=== PATIENT | female | born 1955 ===

== ENCOUNTER 2018-06-19 11:43 | Outpatient (REF) | payer MEDICAID, SELFPAY ==
[2018-06-19 21:06] LABS: COMMENT (LAB VIEW ONLY) 206.28 mg/dL; Microalb ug/mg Crea 7.2 ug/mg Cr
== END 2018-06-19 11:44 ==
LOC: NCHCN 11:43
PROVIDERS: PCP Internal Medicine; Visit Provider Nurse Practitioner Family
DX: E11.9 Type 2 diabetes mellitus without complications (principal)
CPT/HCPCS: 82043; 82570

== ENCOUNTER 2019-03-26 11:19 | Outpatient (REF) | payer MEDICAID, SELFPAY ==
[2019-03-26 19:07] LABS: ALT 29 U/L (12-78); AST 13 U/L (15-37); Albumin 3.9 g/dL (3.4-5.0); Alkaline Phosphatase 106 U/L (46-116); Anion Gap 8.5 mmol/L (3-11); BUN 22 mg/dL (7-18); Bilirubin, Total 0.4 mg/dL (0.2-1.0); CO2 28.5 mmol/L (21.0-32.0); CREATININE 0.88 mg/dL (0.55-1.02); Calcium 9.7 mg/dL (8.5-10.1); Chloride 102 mmol/L (98-107); Glucose 123 mg/dL (70-100); Potassium 4.3 mmol/L (3.5-5.1); Sodium 139 mmol/L (136-145); Total Protein 7.5 g/dL (6.4-8.2)
== END 2019-03-26 11:39 ==
LOC: NCHCN 11:19
PROVIDERS: PCP Internal Medicine; Visit Provider Nurse Practitioner Family
DX: I10 Essential (primary) hypertension (principal); K76.0 Fatty (change of) liver, not elsewhere classified
CPT/HCPCS: 80053

== ENCOUNTER 2019-06-26 11:36 | Outpatient (REF) | payer MEDICAID, SELFPAY ==
[2019-06-26 20:41] LABS: Anion Gap 11.2 mmol/L (3-11); BUN 20 mg/dL (7-18); CO2 26.8 mmol/L (21.0-32.0); CREATININE 0.74 mg/dL (0.55-1.02); Calcium 9.6 mg/dL (8.5-10.1); Calculated LDL 88 mg/dL; Chloride 102 mmol/L (98-107); Cholesterol 176 mg/dL (50-200); Glucose 119 mg/dL (70-100); HDL Cholesterol 59 mg/dL (40-60); Potassium 4.2 mmol/L (3.5-5.1); Sodium 140 mmol/L (136-145); Triglyceride 147 mg/dL (30-150)
[2019-06-28 12:14] LABS: Lyme Ab w Rflx to Lyme Confirm Negative
== END 2019-06-26 11:56 ==
LOC: NCHCN 11:36
PROVIDERS: PCP Internal Medicine; Visit Provider Nurse Practitioner Family
DX: E11.9 Type 2 diabetes mellitus without complications (principal); K76.0 Fatty (change of) liver, not elsewhere classified
CPT/HCPCS: 80048; 80061; 83721; 86618

== ENCOUNTER 2020-02-19 10:20 | Outpatient (REF) | payer MEDICAID, SELFPAY ==
[2020-02-19 20:13] LABS: Abs Immature Grans 0.02 k/cumm (0.0-0.09); Absolute Basophil Count 0.03 k/cumm (0.0-0.2); Absolute Eosinophil Count 0.22 k/cumm (0.0-0.7); Absolute Lymphocyte Count 2.08 k/cumm (1.2-3.4); Absolute Monocyte Count 0.27 k/cumm (0.11-0.7); Absolute Neutrophil Count 5.47 k/cumm (1.2-6.7); Basophils % 0.4; Eosinophils % 2.7; HCT 41.6 % (36.0-46.0); HGB 13.7 g/dL (12.0-15.5); Immature Grans % 0.2 %; Lymphocytes % 25.7; Mean Corp. HGB Concentration 32.9 g/dL (32.0-36.0); Mean Corpuscular Hemoglobin 26.2 pg (27.0-33.0); Mean Corpuscular Volume 79.5 fL (80-95); Mean Platelet Volume 11.6 fL (8.0-11.0); Monocytes % 3.3; Neutrophils % 67.7; Platelet Count 269 x1000/uL (130-400); RBC 5.23 m/cumm (4.00-5.20); White Blood Cell Count 8.09 k/cumm (4.4-10.8)
[2020-02-19 20:52] LABS: Iron 64 ug/dL (50-170); Total Iron Binding Capacity 348 ug/dL (250-450); Transferrin Sat 18 % (15-50)
[2020-02-19 21:10] LABS: ALT 26 U/L (14-59); AST 13 U/L (15-37); Alkaline Phosphatase 110 U/L (46-116); Anion Gap 7.5 mmol/L (3-11); BUN 24 mg/dL (7-18); Bilirubin, Total 0.4 mg/dL (0.2-1.0); CO2 32.5 mmol/L (21.0-32.0); CREATININE 0.92 mg/dL (0.55-1.02); Calcium 9.7 mg/dL (8.5-10.1); Chloride 102 mmol/L (98-107); Ferritin 98 ng/mL (8-252); Folate 13.3 ng/mL (8.6-20.0); Glucose 128 mg/dL (74-106); Potassium 3.8 mmol/L (3.5-5.1); Sodium 142 mmol/L (136-145); Total Protein 7.6 g/dL (6.4-8.2); Vitamin B12 342 pg/mL (193-986)
[2020-02-20 15:16] LABS: Hemoglobin A1C 7.1 % (3.8-5.6)
== END 2020-02-19 10:40 ==
LOC: NCHCN 10:20
PROVIDERS: PCP Internal Medicine; Visit Provider Nurse Practitioner Family
DX: R41.3 Other amnesia (principal); E11.9 Type 2 diabetes mellitus without complications; R71.8 Other abnormality of red blood cells; C50.212 Malignant neoplasm of upper-inner quadrant of left female breast; Z17.0 Estrogen receptor positive status [ER+]
CPT/HCPCS: 80053; 82607; 82728; 82746; 83036; 83540; 83550; 85025

== ENCOUNTER 2020-09-02 14:57 | Outpatient (REF) | payer MEDICAID, SELFPAY ==
[2020-09-02 21:17] LABS: COMMENT (LAB VIEW ONLY) 87.27 mg/dL; Microalb ug/mg Crea 8.1 ug/mg Cr
== END 2020-09-02 15:17 ==
LOC: NCHCN 14:57
PROVIDERS: PCP Internal Medicine; Visit Provider Nurse Practitioner Family
DX: E11.9 Type 2 diabetes mellitus without complications (principal)
CPT/HCPCS: 82043; 82570

== ENCOUNTER 2021-11-15 17:42 | Outpatient (REF) | payer MEDICARE, MEDICAID, SELFPAY ==
[2021-11-15 21:14] LABS: ALT 26 U/L (14-59); AST 14 U/L (15-37); Albumin 3.7 g/dL (3.4-5.0); Alkaline Phosphatase 118 U/L (46-116); Anion Gap 8.9 mmol/L (3-11); BUN 24 mg/dL (7-18); Bilirubin, Total 0.3 mg/dL (0.2-1.0); CO2 26.1 mmol/L (21.0-32.0); CREATININE 0.8 mg/dL (0.55-1.02); Calcium 9.2 mg/dL (8.5-10.1); Chloride 104 mmol/L (98-107); Glucose 152 mg/dL (74-106); Potassium 4.3 mmol/L (3.5-5.1); Sodium 139 mmol/L (136-145)
== END 2021-11-15 17:43 | disposition home or self-care (01) ==
LOC: NCHCN 17:42
PROVIDERS: PCP Internal Medicine; Visit Provider Nurse Practitioner Family
DX: I10 Essential (primary) hypertension (principal); E11.9 Type 2 diabetes mellitus without complications
CPT/HCPCS: 80053

== ENCOUNTER 2022-03-17 11:58 | Outpatient (REF) | payer MEDICARE, MEDICAID, SELFPAY ==
[2022-03-23 09:49] LABS: O-desmethyltramadol 8849 ng/mL (Cutoff:25); Tramadol 4524 ng/mL (Cutoff:25)
== END 2022-03-17 11:59 | disposition home or self-care (01) ==
LOC: NCHCN 11:58
PROVIDERS: PCP Internal Medicine; Visit Provider Nurse Practitioner Family
DX: Z51.81 Encounter for therapeutic drug level monitoring (principal); Z79.899 Other long term (current) drug therapy
CPT/HCPCS: 80373

== ENCOUNTER 2022-11-16 11:23 | Outpatient (REF) | payer MEDICARE, MEDICAID, SELFPAY ==
[2022-11-16 22:01] LABS: ALT 23 U/L (14-59); AST 17 U/L (15-37); Albumin 3.6 g/dL (3.4-5.0); Alkaline Phosphatase 117 U/L (46-116); Anion Gap 7.3 mmol/L (3-11); BUN 22 mg/dL (7-18); Bilirubin, Total 0.3 mg/dL (0.2-1.0); CO2 28.7 mmol/L (21.0-32.0); CREATININE 0.8 mg/dL (0.55-1.02); Chloride 104 mmol/L (98-107); Estimated GFR 81.21 (mL/min/1.73m2); Glucose 170 mg/dL (74-106); Potassium 4.5 mmol/L (3.5-5.1); Sodium 140 mmol/L (136-145); Total Protein 7.4 g/dL (6.4-8.2)
[2022-11-23 09:37] LABS: Codeine 254 ng/mL (Cutoff: 25); Dihydrocodeine Negative ng/mL (Cutoff: 25); Hydrocodone Negative ng/mL (Cutoff: 25); Hydromorphone Negative ng/mL (Cutoff: 25); Morphine Negative ng/mL (Cutoff: 25); Naloxone Negative ng/mL (Cutoff: 25); Norhydrocodone Negative ng/mL (Cutoff: 25); Noroxycodone Negative ng/mL (Cutoff: 25); Noroxymorphone Negative ng/mL (Cutoff: 25); Opiates Interpretation Positive.
== END 2022-11-16 11:24 | disposition home or self-care (01) ==
LOC: NCHCN 11:23
PROVIDERS: PCP Internal Medicine; Visit Provider Nurse Practitioner Family
DX: E11.9 Type 2 diabetes mellitus without complications (principal); I10 Essential (primary) hypertension; E78.5 Hyperlipidemia, unspecified; M79.7 Fibromyalgia; F11.20 Opioid dependence, uncomplicated
CPT/HCPCS: 80053; 80361; 80362; 80365

== ENCOUNTER 2023-02-07 16:14 | Outpatient (REF) | payer MEDICARE, MEDICAID, SELFPAY ==
[2023-02-07 18:50] LABS: Hemoglobin A1C 7.8 % (<5.7)
[2023-02-07 18:52] LABS: Anion Gap 9.3 mmol/L (3-11); BUN 19 mg/dL (7-18); CO2 28.7 mmol/L (21.0-32.0); CREATININE 0.8 mg/dL (0.55-1.02); Calcium 9.8 mg/dL (8.5-10.1); Chloride 105 mmol/L (98-107); Estimated GFR 81.21 (mL/min/1.73m2); Glucose 137 mg/dL (74-106); Potassium 4.6 mmol/L (3.5-5.1); Sodium 143 mmol/L (136-145)
== END 2023-02-07 16:15 | disposition home or self-care (01) ==
LOC: NCHCN 16:14
PROVIDERS: PCP Internal Medicine; Visit Provider Nurse Practitioner Family
DX: E11.9 Type 2 diabetes mellitus without complications (principal)
CPT/HCPCS: 80048; 83036

== ENCOUNTER 2023-05-23 16:17 | Outpatient (REF) | payer MEDICARE, MEDICAID, SELFPAY ==
[2023-05-27 04:15] LABS: O-desmethyltramadol 9729 ng/mL (Cutoff:25)
== END 2023-05-23 16:18 | disposition home or self-care (01) ==
LOC: NCHCN 16:17
PROVIDERS: PCP Internal Medicine; Visit Provider Nurse Practitioner Family
DX: M79.7 Fibromyalgia (principal); B37.9 Candidiasis, unspecified
CPT/HCPCS: 80373; 87480; 87510; 87660

== ENCOUNTER 2023-06-22 19:52 | Outpatient (REF) | payer MEDICARE, MEDICAID, SELFPAY | END 2023-06-22 19:53 | disposition home or self-care (01) | LOC: NCHCN 19:52 | PROVIDERS: PCP Internal Medicine; Visit Provider Nurse Practitioner Family | DX: N89.8 Other specified noninflammatory disorders of vagina (principal) | CPT/HCPCS: 87480; 87510; 87660 ==

== ENCOUNTER 2023-08-01 15:29 | Outpatient (REF) | payer MEDICARE, MEDICAID, SELFPAY | END 2023-08-01 15:30 | disposition home or self-care (01) | LOC: NCHCN 15:29 | PROVIDERS: PCP Internal Medicine; Visit Provider Nurse Practitioner Family | DX: N89.8 Other specified noninflammatory disorders of vagina (principal) | CPT/HCPCS: 87480; 87510; 87660 ==

== ENCOUNTER 2023-09-25 20:30 | Outpatient (REF) | payer MEDICARE, MEDICAID, SELFPAY ==
--- OUTSIDE RECORDS SUMMARY | 2023-09-25 20:33 | XMS_ITS | Continuity of Care Document ---
Author Name Unknown Organization [facility] Address [address] [place] [address] Care Team Providers Care Replenisher Name Role Phone BooDonna cristobal Primary Care Physician Encounter [facility] Date(s): 02/20/23 - 02/20/23 [facility] [address] [place] [address] Encounter Diagnosis Obstructive sleep apnea syndrome(Discharge Diagnosis) - 02/16/23 Insomnia(Discharge Diagnosis) - 02/16/23 Obstructive sleep apnea (adult) (pediatric)(Final) - Insomnia, unspecified(Final) - Discharge Disposition: Home or Self Care Attending 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: 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 takes one daily as per [facility] pt. reports Start Date: 07/19/22 Status: Ordered atorvastatin 40 mg oral tablet 40 mg = 1 tab, Oral, every night at bedtime, 0 Refill(s) Start Date: 04/25/22 Status: Ordered cetirizine 10 mg oral tablet 10 mg = 1 tab, Oral, Daily, 0 Refill(s) Start Date: 04/25/22 Status: Ordered fluticasone 50 mcg/inh nasal spray 2 sprays, Nostril-Both, BID Start Date: 07/19/22 Status: Ordered Jardiance See Instructions, once a day in the AM as per PCP, 0 Refill(s) Start Date: 01/17/23 Status: Ordered lisinopril 10 mg oral tablet 10 mg = 1 tab, Oral, Daily, 0 Refill(s) Start Date: 04/25/22 Status: Ordered magnesium gluconate 500 mg oral tablet 500 mg = 1 tab, Oral, every night at bedtime, # 90 tab, 1 Refill(s), Pharmacy: [id number] Start Date: 01/17/23 Stop Date: 07/16/23 Status: Ordered memantine 10 mg oral tablet 10 mg = 1 tab, Oral, every evening, # 90 tab, 1 Refill(s), Pharmacy: [id number] Start Date: 01/17/23 Stop Date: 07/16/23 Status: Ordered metFORMIN 500 mg oral tablet 500 mg = 1 tab, Oral, BID, 0 Refill(s) Start Date: 04/25/22 Status: Ordered montelukast 10 mg oral tablet 10 mg = 1 tab, Oral, every evening, 0 Refill(s) Start Date: 04/25/22 Status: Ordered pregabalin 150 mg oral capsule 150 mg = 1 cap, Oral, TID, PRN other (see comment), as needed, 0 Refill(s) Start Date: 04/25/22 Status: Ordered sertraline 50 mg oral tablet 50 mg = 1 tab, Oral, every morning, # 90 tab, 1 Refill(s), Pharmacy: [id number] Start Date: 01/17/23 Stop Date: 07/16/23 Status: Ordered traMADol 50 mg oral tablet See Instructions, PRN other (see comment), TAKE 1-2 TABLETS BY MOUTH THREE TIMES A DAY NEEDED NOEARLY REFILLS Start Date: 04/25/22 Status: Ordered Vitamin D3 2000 intl units oral capsule 50 mcg 1 cap, Oral, Daily, # 90 cap, 1 Refill(s), Pharmacy: [id number] Start Date: 01/17/23 Stop Date: 07/16/23 Status: Ordered Problem List Condition Confirmation Course Effective Dates Status H ealth Status Informant Asthma Confirmed Active Hypersomnia Confirmed Active Hypertensive disorder Confirmed Active 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 Active Insomnia Confirmed 10/05/18 Active Memory impairment Confirmed 07/28/20 Active Migraine Confirmed Active Mild recurrent major depression Confirmed 07/19/21 Active Obstructive sleep apnea syndrome Confirmed Active Posttraumatic stress disorder Confirmed Active Sinusitis Confirmed Active Sleep disorder Confirmed Active Snoring Confirmed Active Vital Signs Most recent to oldest [Reference Range]: 1 Peripheral Pulse Rate [60-100 bpm] 80 bp m (02/20/23 12:20 PM) Blood Pressure [90-140/60-90 mmHg] 119/7 1mmHg (02/20/23 12:20 PM) Weight 86.18 kg (02/20/23 12:20 PM) Weight Measured (lbs) 189.994 lb (02/20/23 12:20 PM) Height 165 cm (02/20/23 12:20 PM) Height/Length Measured (inches) 64.96 in ch (02/20/23 12:20 PM) BSA Measured 1.99 m2 (02/20/23 12:20 PM) Body Mass Index 31.65 kg/m2 (02/20/23 12:20 PM) Social History Social History Type Response Tobacco Never tobacco user T obacco Use:. 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 Srinivas was last seen by me on 08/19/2022. She has a medical history to include HTN, depression, PTSD, migraine, insomnia and BERNA. ?? PSG 11/15/18 (BMI 32.61). Sleep efficiency was 83%, REM sleep 1%, AHI 35.7/hr, RDI 36.4/hr, REM AHI 98.2/hr, REM RDI 98.2/hr, supine AHI 38/hr, right lateral AHI 6/hr, left lateral AHI 27/hr, sp02 sam 74%, 34 minutes were spent at a saturation <88%, arousal index 10/hr, PLMi 0.7/hr, PLM arousalindex 0.7/hr. EKG PVC???s.?? Titration 02/17/19 (BMI 32.27), sleep efficiency 66%, CPAP was titrated from 7 to 14 cm. CPAP 8 cm was successful in supine and CPAP 14 cm was successful in supine REM. Arousal index 12/hr, PLMi 2.3/hr, PLMai 1.8/hr, EKG NSR. CPAP 8-15 cm recommended. ?? At her last visit she was not using CPAP for many months because of the recall. She had received the replacement and did not have a humidifier and was to contact [employer] to get one and get started back on CPAP. ?? Srinivas says that she never went back to using CPAP after I last saw her. She said she is just too anxious to use it again due to her cancer history and lack of trust in [employer] products. She also is caring for her elderly mother and is too worried that she would not be able to hear her mother and wake up when using CPAP. She says she does not drink alcohol and she takes lorazepam only very rarely for anxiety (not for sleep). She says that her weight is coming down and she believes her snoring has improved. She is notwaking up choking/gasping, night sweats, nocturnal heartburn??or morning headaches. She wakes up 2-3/night to help her mother, to use the bathroom and occasionally from her dog. She sleeps between 11pm to 6 am,?? (she tends to nap most days for a couple of hours). ?? ESS today 01/27 Physical Exam Vitals & Measurements HR:??80??(Peripheral)?? BP:??119/71?? SpO2:??98%?? HT:??165??cm?? WT:??86.18??kg?? BMI:??31.65?? BSA:??1.99?? GENERAL: answers questions appropriately, well groomed, obese/over weight. HEAD: normocephalic and atraumatic. EYES: non icteric LUNGS: CTA all mullins. Good air movement throughout. CARDIO: RRR without murmur, gallop or thrill. NEURO: alert and oriented, normal gait. PYSCH: normal mood and affect. CUTANEOUS: no overt lesions or rashes.?? Assessment/Plan 1.??Obstructive sleep apnea syndrome??G47.33 BERNA with an AHI of 35.7/hr and REM AHI 98.2/hr with only 1% REM sleep likely leading to an underestimation of the severity of her sleep apnea. She has NOT been using CPAP 8-16cm for about a year or so since she learned about the recall. She did get a replacement (including a humidifier) but she never started back on it because she has lost sudhakar in [employer] to a degree but most importantly becausejacek is caring for her elderly mother and is afraid that she would not be able to hear her when she needs her (which is generally at least once a night). Her insurance would not pay for an appliance because they have already paid for CPAP within the past five years and she is not a candidate for [employer]. She does not feel ready to start back on CPAP on this time. We discussed options such as continuing to work on weight loss, elevating HOB, avoiding supine sleep. Avoiding alcohol and sedatives at bedtime. At this time if she decides to start back on CPAP she will contact our office and we will schedule a follow-up at that time. Drowsy driving precautions were reviewed.??She is??advised neverto drive when feeling sleepy/drowsy and to shoe puller and take a power nap or get caffeine if they become sleepy while driving. Specifically they are instructed not to try to fight through the drowsiness with distraction techniques such as turning the music up or lowering the windows. I provided greater than 30 minutes in the care of this patient, more than half the time was spent in [id number] counseling. 2.??Insomnia??G47.00 Occasional sleep onset and maintenance insomnia. Likely multifactorial (mood disorder with history of bipolar and PTSD and admits to having stress, depression/anxiety).?? I previously??discussed sleep restriction. She has declined doxepin in the past. Problem List/Past Medical History Ongoing Asthma Hypersomnia Hypertensive disorder Hypnagogic hallucinations Insomnia Memory impairment Migraine Mild recurrent major depression Obstructive sleep apnea syndrome Posttraumatic stress disorder Sinusitis Sleep disorder Snoring Historical No qualifying data Medications aspirin atorvastatin 40 mg oral tablet, 40 mg= 1 tab, Oral, every night at bedtime cetirizine 10 mg oral tablet, 10 mg= 1 tab, Oral, Daily fluticasone 50 mcg/inh nasal spray, 2 sprays, Nostril-Both, BID Jardiance, See Instructions lisinopril 10 mg oral tablet, 10 mg= 1 tab, Oral, Daily magnesium gluconate 500 mg oral tablet, 500 mg= 1 tab, Oral, every night at bedtime, 1 refills memantine 10 mg oral tablet, 10 mg= 1 tab, Oral, every evening, 1 refills metFORMIN 500 mg oral tablet, 500 mg= 1 tab, Oral, BID montelukast 10 mg oral tablet, 10 mg= 1 tab, Oral, every evening pregabalin 150 mg oral capsule, 150 mg= 1 cap, Oral, TID, PRN sertraline 50 mg oral tablet, 50 mg= 1 tab, Oral, every morning, 1 refills traMADol 50 mg oral tablet, See Instructions, PRN Vitamin D3 2000 intl units oral capsule, 50 mcg= 1 cap, Oral, Daily, 1 refills Allergies INSECT VENOM No Known Medication Allergies Tree Nuts Social History Alcohol Never Electronic Cigarette/Vaping Electronic Cigarette Use: Never. Employment/School Retired Home/Environment Lives with Mother. Nutrition/Health Caffeine intake amount: 2-4 cups of coffee daily. Sleeping concerns: Yes.- Comments: intermittent difficulty with falling asleep and to stay asleep due to nightmares Psychosocial Substance Use Current, Marijuana, 1-2 times per year Tobacco Never tobacco user Tobacco Use:. Immunizations Vaccine Date Status SARS-CoV-2 (COVID-19) mRNA-1273 vaccine 12/28/2020 Recorded SARS-CoV-2 (COVID-19) mRNA-1273 vaccine 11/30/2020 Recorded hepatitis B adult vaccine 08/28/2006 Recorded Electronically Signed on 02/20/23 12:47 PM Roselia Corado NAIL MAKING MACHINE SETTER Patient Care team information Care Team Personnel Name: Donna Garcia NAIL MAKING MACHINE SETTER Position: PowerChart View Only Member Role: Primary Care Physician Address: Address: [address] [place] [address] Care Team Related Persons Name: KENDALL BUSTOS Address: [address] [place], [place] [phone] Name: CHELA PIERCE Address: [address] [place] [address]
--- OUTSIDE RECORDS SUMMARY | 2023-09-25 20:33 | XMS_ITS | Continuity of Care Document ---
Author Name Unknown Organization [facility] Address [address] [place] [address] Care Team Providers Care Bible Worker Name Role Phone Donna Garcia Primary Care Physician [phone] Encounter [id number] Date(s): 09/03/23 - 09/03/23 [facility] [address] [place] [address] Encounter Diagnosis Dental infection(Discharge Diagnosis) - 09/03/23 Discharge Disposition: Home or Self Care Attending Physician: Jimmy Dawson MD Admitting Physician: Jimmy Dawson MD Allergies, Adverse Reactions, Alerts No Known Medication Allergies Substance Reaction Severity Status INSECT VENOM 1 Unknown Active Tree Nuts Unknown Active 1flies-horse and deer,bees Assessment and Plan Future Appointments Functional Status 09/03/23 Other exposure to Infectious Disease Non e Immunizations Given and Recorded Vaccine Date Status Refusal Reason SARS-CoV-2 (COVID-19) mRNA-1273 vaccine 12/28/20 R ecorded SARS-CoV-2 (COVID-19) mRNA-1273 vaccine 11/30/20 R ecorded hepatitis B adult vaccine 08/28/06 Recorded Medications amoxicillin-clavulanate 875 mg-125 mg oral tablet 1 tab, Oral, every 12 hr, X 7 days, # 14 tab, 0 Refill(s), 09/10/23 10:28: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 takes one daily as per [facility] pt. reports Start Date: 07/19/22 Status: Ordered [...] Date: 07/19/22 Status: Ordered Jardiance See Instructions, 25 mg's a day in the AM as per PCP, 0 Refill(s) Start Date: 01/17/23 Status: Ordered lisinopril 10 mg oral tablet 10 mg = 1 tab, Oral, Daily, 0 Refill(s) Start Date: 04/25/22 Status: Ordered magnesium gluconate 500 mg oral tablet 500 mg = 1 tab, Oral, every night at bedtime, # 90 tab, 1 Refill(s), Pharmacy: [id number] Start Date: 08/07/23 Stop Date: 02/03/24 Status: Ordered memantine 10 mg oral tablet 10 mg = 1 tab, Oral, every evening, # 90 tab, 1 Refill(s), Pharmacy: [id number] Start Date: 08/07/23 Stop Date: 02/03/24 Status: Ordered metFORMIN 500 mg oral tablet [...] Status: Ordered sertraline 50 mg oral tablet 75 mg = 1.5 tab, Oral, every morning, # 135 tab, 1 Refill(s), Pharmacy: [id number] Start Date: 08/07/23 Stop Date: 02/03/24 Status: Ordered traMADol 50 mg oral tablet See Instructions, PRN other (see comment), TAKE 1-2 TABLETS BY MOUTH THREE TIMES A DAY NEEDED NOEARLY REFILLS Start Date: 04/25/22 Status: Ordered Vitamin D3 2000 intl units oral capsule 50 mcg 1 cap, Oral, Daily, # 90 cap, 1 Refill(s), Pharmacy: [id number] Start Date: 08/07/23 Stop Date: 02/03/24 Status: Ordered Problem List Condition Confirmation Course [...] Most recent to oldest [Reference Range]: 1 Temperature Temporal Artery [36-38 Deg C ] 36.1 Deg C (09/03/23 10:48 AM) Peripheral Pulse Rate [60-100 bpm] 72 bp m (09/03/23 10:48 AM) Respiratory Rate [12-24 br/min] 16 br/mi n (09/03/23 10:48 AM) Blood Pressure [90-140/60-90 mmHg] 139/8 1mmHg (09/03/23 10:48 AM) Mean Arterial Pressure, Cuff [65-140 mmH g] 100 mmHg (09/03/23 10:48 AM) Weight Dosing 83.90 kg (09/03/23 11:10 AM) Weight Estimated 83.90 kg (09/03/23 10:48 AM) Height/Length Dosing 165.000 cm (09/03/23 11:10 AM) Height/Length Estimated 165.000 cm (09/03/23 10:48 AM) Social History Social History Type Response Tobacco Never tobacco user T obacco Use:. Sex Female Hospital Discharge Instructions Patient Education 09/03/2023 10:29:14 Dental Abscess Dental Abscess A dental abscess is an infection around a tooth that may involve pain, swelling, and a collection of pus, as well as other symptoms. Treatment is important to help with symptoms and to prevent the infection from spreading. The general types of dental abscesses are: ??? Pulpal abscess. This abscess may form from the inner part of the tooth (pulp). ??? Periodontal abscess. This abscess may form from the gum. What are the causes? This condition is caused by a bacterial infection in or around the tooth. It may result from: ??? Severe tooth decay (cavities). ??? Trauma to the tooth, such as a broken or chipped tooth. What increases the risk? This condition is more likely to develop in males. It is also more likely to develop in people who: ??? Have cavities. ??? Have severe gum disease. ??? Eat sugary snacks between meals. ??? Use tobacco products. ??? Have diabetes. ??? Have a weakened disease-fighting system (immune system). ??? Do not brush and care for their teeth regularly. What are the signs or symptoms? Mild symptoms of this condition include: ??? Tenderness. ??? Bad breath. ??? Fever. ??? A bitter taste in the mouth. ??? Pain in and around the infected tooth. Moderate symptoms of this condition include: ??? Swollen neck glands. ??? Chills. ??? Pus drainage. ??? Swelling and redness around the infected tooth, in the mouth, or in the face. ??? Severe pain in and around the infected tooth. Severe symptoms of this condition include: ??? Difficulty swallowing. ??? Difficulty opening the mouth. ??? Nausea. ??? Vomiting. How is this diagnosed? This condition is diagnosed based on: ??? Your symptoms and your medical and dental history. ??? An examination of the infected tooth. During the exam, your dental care provider may tap on theinfected tooth. You may also need to have X-rays taken of the affected area. How is this treated? This condition is treated by getting rid of the infection. This may be done with: ??? Antibiotic medicines. These may be used in certain situations. ??? Antibacterial mouth rinse. ??? Incision and drainage. This procedure is done by making an incision in the abscess to drain outthe pus. Removing pus is the first priority in treating an abscess. ??? A root canal. This may be performed to save the tooth. Your dental care provider accesses the visible part of your tooth (crown) with a drill and removes any infected pulp. Then the space is filled and sealed off. ??? Tooth extraction. The tooth is pulled out if it cannot be saved by other treatment. You may also receive treatment for pain, such as: ??? Acetaminophen or NSAIDs. ??? Gels that contain a numbing medicine. ??? An injection to block the pain near your nerve. Follow these instructions at home: Medicines ??? Take cgek-mvs-kjcplgu and prescription medicines only as told by your dental care provider. ??? If you were prescribed an antibiotic, take it as told by your dental care provider. Do not stoptaking the antibiotic even if you start to feel better. ??? If you were prescribed a gel that contains a numbing medicine, use it exactly as told in the directions. Do not use these gels for children who are younger than 2 years of age. ??? Use an antibacterial mouth rinse as told by your dental care provider. General instructions ??? Gargle with a mixture of salt and water 3???4 times a day or as needed. To make salt water, completely dissolve ?1 tsp (3???6 g) of salt in 1 cup (237 mL) of warm water. ??? Eat a soft diet while your abscess is healing. ??? Drink enough fluid to keep your urine pale yellow. ??? Do not apply heat to the outside of your mouth. ??? Do not use any products that contain nicotine or tobacco. These products include cigarettes, chewing tobacco, and vaping devices, such as e-cigarettes. If you need help quitting, ask your dental care provider. ??? Keep all follow-up visits. This is important. How is this prevented? Excellent dental home care, which includes brushing your teeth every morning and night with fluoride toothpaste. Floss one time each day. ??? Get regularly scheduled dental cleanings. ??? Consider having a dental sealant applied on teeth that have deep grooves to prevent cavities. ??? Drink fluoridated water regularly. This includes most tap water. Check the label on bottled water to see if it contains fluoride. ??? Reduce or eliminate sugary drinks. ??? Eat healthy meals and snacks. ??? Wear a mouth guard or face shield to protect your teeth while playing sports. Contact a health care provider if: ??? Your pain is worse and is not helped by medicine. ??? You have swelling. ??? You see pus around the tooth. ??? You have a fever or chills. Get help right away if: ??? Your symptoms suddenly get worse. ??? You have a very bad headache. ??? You have problems breathing or swallowing. ??? You have trouble opening your mouth. ??? You have swelling in your neck or around your eye. These symptoms may represent a serious problem that is an emergency. Do not wait to see if the symptoms will go away. Get medical help right away. Call your local emergency services (911 in the [place] Do not drive yourself to the hospital. Summary ??? A dental abscess is a collection of pus in or around a tooth that results from an infection. ??? A dental abscess may result from severe tooth decay, trauma to the tooth, or severe gum diseasearound a tooth. ??? Symptoms include severe pain, swelling, redness, and drainage of pus in and around the infectedtooth. ??? The first priority in treating a dental abscess is to drain out the pus. Treatment may also involve removing damage inside the tooth (root canal) or extracting the tooth. This information is not intended to replace advice given to you by your health care provider. Make sure you discuss any questions you have with your health care provider. Document Revised: 12/30/2021 Document Reviewed: 12/30/2021 Elsevier Patient Education ?? 2022 [employer]. Follow Up Care 09/03/2023 10:48:28 With:Donna Garcia NP Address: [address] [place] [address]- When:1 month Physician Emergency department Note * Yogi Hensley MD: PERFORM Event Display: ED Note Physician Authored Date: [id number] SRINIVAS PIERCE :1955 Age:67 years Sex:Female Visit Date:09/03/2023 Primary Care Physician: Donna Garcia NP Basic Information Time Seen: Yogi Hensley MD / 09/03/2023 11:16 Chief Complaint Swelling lower right jaw pain yesterday with swelling today. Reports I felt so crummy. Unable to say if fever was present yesterday. NO BP ON LEFT ARM due to lymph node excision History Of Present Illness: 67-year-old female presents with??left-sided??jaw pain and swelling.?? Been going on for 24??hours approximately.?? No other associated symptoms, p.o. intake is??relatively normal. ??No fevers or neck stiffness. Review of Systems: Dental pain Physical Exam Vitals & Measurements T:??36.1?C ??(Temporal Artery)?? HR:??72??(Peripheral)?? RR:??16?? BP:??139/81?? SpO2:??98%?? HT:??165.000??cm?? WT:??83.90??kg??(Estimated)?? Pain Score:??9?? O2 Therapy:??Room air?? Left-sided??lower mandibular??facial 2 to 3 cm area of swelling noted externally, no fluctuance noted along the gumline Medical Decision Makin-year-old female presents with left-sided facial and dental pain starting yesterday.?? Vitals arenormal. ??There is a 2 to 3 cm area of focal swelling noted externally along the left lower mandible. ??There is no fluctuance and obvious pocket of pus noted on palpation of the gumline in this area.?? Patient was placed on antibiotics for presumed??periapical??dental infection.?? It is too early on in the infection??and clinical symptoms are not significant enough to warrant a CT scan at this time, we will try??Augmentin to see if this??treats the infection. ??Given return precautions ED. ??Otherwise dental follow-up. ??Discharged in stable condition. Procedure No Qualifying Data Assessment/Plan 1.??Dental infection??K04.7 Ordered: amoxicillin-clavulanate 875 mg-125 mg oral tablet, 1 tab, Oral, every 12 hr, X 7 days, # 14 tab, 0 Refill(s), 09/10/23 11:28:00 EST, Pharmacy: [id number], 165, cm, 09/03/23 11:10:00 EDT, Height/Length Dosing, 83.9, kg, 09/03/23 11:10:00 EDT, Weight Dosing Discharge Patient, 09/03/23 11:28:00 EDT, Home Independently, Constant Indicator ?? 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 Refills: 0. ?? Unchanged aspirinBaby Aspirin; pt. takes one daily as per [facility] pt. reports. ?? atorvastatin (atorvastatin 40 mg oral tablet)1 tab Oral (given by mouth) every night at bedtime. ?? cetirizine (cetirizine 10 mg oral tablet)1 tab Oral (given by mouth) every day. ?? cholecalciferol (Vitamin D3 2000 intl units oral capsule)1 Capsules Oral (given by mouth) every dayfor 90 Days. Refills: 1. ?? empagliflozin (Jardiance)25 mg's a day in the AM as per PCP. ?? fluticasone nasal (fluticasone 50 mcg/inh nasal spray)2 Sprays Nostril-Both 2 times a day. ?? lisinopril (lisinopril 10 mg oral tablet)1 tab Oral (given by mouth) every day. ?? magnesium gluconate (magnesium gluconate 500 mg oral tablet)1 tab Oral (given by mouth) every nightat bedtime for 90 Days. Refills: 1. ?? memantine (memantine 10 mg oral tablet)1 tab Oral (given by mouth) every evening for 90 Days. Refills: 1. ?? metFORMIN (metFORMIN 500 mg oral tablet)1 tab Oral (given by mouth) 2 times a day. ?? montelukast (montelukast 10 mg oral tablet)1 tab Oral (given by mouth) every evening. ?? pregabalin (pregabalin 150 mg oral capsule)1 Capsules Oral (given by mouth) 3 times a day as neededother (see comment). as needed. ?? sertraline (sertraline 50 mg oral tablet)1.5 tab Oral (given by mouth) every morning for 90 Days. Refills: 1. ?? traMADol (traMADol 50 mg oral tablet)TAKE 1-2 TABLETS BY MOUTH THREE TIMES A DAY NEEDED NO EARLYREFILLS; as needed other (see comment). Problem List/Past Medical History Ongoing Asthma Hypersomnia Hypertensive disorder Hypnagogic hallucinations Insomnia Memory impairment Migraine Mild recurrent major depression Obstructive sleep apnea syndrome Posttraumatic stress disorder Sinusitis Sleep disorder Snoring Historical No qualifying data Allergies INSECT VENOM No Known Medication Allergies [...] year Tobacco Never tobacco user Tobacco Use:. 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 The following includes patient education materials and information regarding your injury/illness. Diagnosis from Today's Visit Dental infection Discharge Vitals Temperature??(Temporal Artery) 97.0 ??F (36.1 ??C) Heart Rate??(Peripheral) 72 Respiratory Rate?? 16 Blood Pressure?? 139/81?? Height?? 64.96 in (165.000 cm) Weight??(Estimated) 185.00 lb (83.90 kg) Allergies INSECT VENOM No Known Medication Allergies Tree Nuts What to Do Next Instructions from Your Care Team Please follow-up with your dentist within 1 to 2 days. ??You were given an antibiotic called Augmentin??to treat a presumed dental infection.?? Come back to the ED with any worsening symptoms. You Need to Schedule the Following Appointments Follow Up with??Donna Garcia MOLDED GOODS INSPECTOR TRIMMER When:??Within 1 month Where: [address] [place] [phone] Upcoming Scheduled Appointments Monday 9:45 AM EST ?? With: [facility], Ada DNP Where: [address] [address] Status: Confirmed You were treated today on an emergency basis; it may be garcia to contact your primary care provider to notify them of your visit today. You may have been referred to your regular doctor or a specialist, please follow up as instructed. If your condition worsens or you can't get in to see the doctor, contact the Emergency Department. Medications What How Much When Why Instructions Next Dose New amoxicillin-clavulanate (amoxicillin-clavulanate 875 mg-125 mg oral tablet) 1 tab Oral (given by mouth) Every 12 hours Dental infection Duration: 7 Days Pickup at [facility] Unchanged aspirin Baby Aspirin; pt. takes one daily as per [facility] pt. reports ?? Unchanged atorvastatin (atorvastatin 40 mg oral tablet) 1 tab Oral (given by mouth) Every night at bedtime Unchanged cetirizine (cetirizine 10 mg oral tablet) 1 tab Oral (given by mouth) Every day Unchanged cholecalciferol (Vitamin D3 2000 intl units oral capsule) 1 Capsules Oral (given by mouth) Every day Low serum vitamin D Duration: 90 Days Unchanged empagliflozin (Jardiance) See instructions 25 mg's a day in the AM as per PCP ?? Unchanged fluticasone nasal (fluticasone 50 mcg/ inh nasal spray) 2 Sprays Nostril-Both 2 times a day Unchanged lisinopril (lisinopril 10 mg oral tablet) 1 tab Oral (given by mouth) Every day Unchanged magnesium gluconate (magnesium gluconate 500 mg oral tablet) 1 tab Oral (given by mouth) Every night at bedtime Insomnia Duration: 90 Days Unchanged memantine (memantine 10 mg oral tablet) 1 tab Oral (given by mouth) Every evening Memory impairment Duration: 90 Days Unchanged metFORMIN (metFORMIN 500 mg oral tablet) 1 tab Oral (given by mouth) 2 times a day Unchanged montelukast (montelukast 10 mg oral tablet) 1 tab Oral (given by mouth) Every evening Unchanged pregabalin (pregabalin 150 mg oral capsule) 1 Capsules Oral (given by mouth) 3 times a day as needed for other (see comment) as needed ?? Unchanged sertraline (sertraline 50 mg oral tablet) 1.5 tab Oral (given by mouth) Every morning Mild recurrent major depression Posttraumatic stress disorder Duration: 90 Days Unchanged traMADol (traMADol 50 mg oral tablet) See instructions TAKE 1-2 TABLETS BY MOUTH THREE TIMES A DAY NEEDED NO EARLY REFILLS, As needed for other (see comment) ?? Pharmacy Information [facility]: [address], [place] [id number] [phone] [employer] Dental Abscess A dental abscess is an infection around a tooth that may involve pain, swelling, and a collection of pus, as well as other symptoms. Treatment is important to help with symptoms and to prevent the infection from spreading. The general types of dental abscesses are: ? Pulpal abscess. This abscess may form from the inner part of the tooth (pulp). ? Periodontal abscess. This abscess may form from the gum. What are the causes? This condition is caused by a bacterial infection in or around the tooth. It may result from: ? Severe tooth decay (cavities). ? Trauma to the tooth, such as a broken or chipped tooth. What increases the risk? This condition is more likely to develop in males. It is also more likely to develop in people who: ? Have cavities. ? Have severe gum disease. ? Eat sugary snacks between meals. ? Use tobacco products. ? Have diabetes. ? Have a weakened disease-fighting system (immune system). ? Do not brush and care for their teeth regularly. What are the signs or symptoms? Mild symptoms of this condition include: ? Tenderness. ? Bad breath. ? Fever. ? A bitter taste in the mouth. ? Pain in and around the infected tooth. Moderate symptoms of this condition include: ? Swollen neck glands. ? Chills. ? Pus drainage. ? Swelling and redness around the infected tooth, in the mouth, or in the face. ? Severe pain in and around the infected tooth. Severe symptoms of this condition include: ? Difficulty swallowing. ? Difficulty opening the mouth. ? Nausea. ? Vomiting. How is this diagnosed? This condition is diagnosed based on: ? Your symptoms and your medical and dental history. ? An examination of the infected tooth. During the exam, your dental care provider may tap on the infected tooth. You may also need to have X-rays taken of the affected area. How is this treated? This condition is treated by getting rid of the infection. This may be done with: ? Antibiotic medicines. These may be used in certain situations. ? Antibacterial mouth rinse. ? Incision and drainage. This procedure is done by making an incision in the abscess to drain out thepus. Removing pus is the first priority in treating an abscess. ? A root canal. This may be performed to save the tooth. Your dental care provider accesses the visible part of your tooth (crown) with a drill and removes any infected pulp. Then the space is filled and sealed off. ? Tooth extraction. The tooth is pulled out if it cannot be saved by other treatment. You may also receive treatment for pain, such as: ? Acetaminophen or NSAIDs. ? Gels that contain a numbing medicine. ? An injection to block the pain near your nerve. Follow these instructions at home: Medicines ? Take zwak-jjc-scqmbny and prescription medicines only as told by your dental care provider. ? If you were prescribed an antibiotic, take it as told by your dental care provider. Do not stop taking the antibiotic even if you start to feel better. ? If you were prescribed a gel that contains a numbing medicine, use it exactly as told in the directions. Do not use these gels for children who are younger than 2 years of age. ? Use an antibacterial mouth rinse as told by your dental care provider. General instructions ? Gargle with a mixture of salt and water 3???4 times a day or as needed. To make salt water, completely dissolve ?1 tsp (3???6 g) of salt in 1 cup (237 mL) of warm water. ? Eat a soft diet while your abscess is healing. ? Drink enough fluid to keep your urine pale yellow. ? Do not apply heat to the outside of your mouth. ? Do not use any products that contain nicotine or tobacco. These products include cigarettes, chewing tobacco, and vaping devices, such as e-cigarettes. If you need help quitting, ask your dental careprovider. ? Keep all follow-up visits. This is important. How is this prevented? Excellent dental home care, which includes brushing your teeth every morning and night with fluoride toothpaste. Floss one time each day. ? Get regularly scheduled dental cleanings. ? Consider having a dental sealant applied on teeth that have deep grooves to prevent cavities. ? Drink fluoridated water regularly. This includes most tap water. Check the label on bottled water to see if it contains fluoride. ? Reduce or eliminate sugary drinks. ? Eat healthy meals and snacks. ? Wear a mouth guard or face shield to protect your teeth while playing sports. Contact a health care provider if: ? Your pain is worse and is not helped by medicine. ? You have swelling. ? You see pus around the tooth. ? You have a fever or chills. Get help right away if: ? Your symptoms suddenly get worse. ? You have a very bad headache. ? You have problems breathing or swallowing. ? You have trouble opening your mouth. ? You have swelling in your neck or around your eye. These symptoms may represent a serious problem that is an emergency. Do not wait to see if the symptoms will go away. Get medical help right away. Call your local emergency services (911 in the [place] Do not drive yourself to the hospital. Summary ? A dental abscess is a collection of pus in or around a tooth that results from an infection. ? A dental abscess may result from severe tooth decay, trauma to the tooth, or severe gum disease around a tooth. ? Symptoms include severe pain, swelling, redness, and drainage of pus in and around the infected tooth. ? The first priority in treating a dental abscess is to drain out the pus. Treatment may also involveremoving damage inside the tooth (root canal) or extracting the tooth. This information is not intended to replace advice given to you by your health care provider. Make sure you discuss any questions you have with your health care provider. Document Revised: 12/30/2021 Document Reviewed: 12/30/2021 [facility] Patient Education ?? 2022 [employer] Patient/Bradley Linebacker Crewmember Signature Patient Name:SRINIVAS PIERCE Dc I have received this information and my questions have been answered. 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 Signature: Relationship to Patient: Witness Name/Signature: Date: Electronically Signed on: 09/03/2023 11:29 EDTSigned by:[facility] Patient Care team information Care Team Personnel Name: Donna Garcia MOLDED GOODS INSPECTOR TRIMMER Position: PowerChart View Only Member Role: Informed Provider Address: Address: [address] [place] [address] Name: Yogi Hensley MD Position: Physician Member Role: ED Physician Address: Address: [facility]ly [facility] [address] [place], [place] [address] Care Team Related Persons Name: KENDALL BUSTOS Address: Alternate [address] [facility], [place] [id number] Address: Home [address] [facility], [id number] Name: KENDALL BUSTOS Address: Alternate [address] [facility], [place] [id number] Address: Home [address] [facility], [id number] Name: CHELA PIERCE Address: [address] [place] [id number] [place] Name: BARBIE AQUINO
== END 2023-09-25 20:31 | disposition home or self-care (01) ==
LOC: NCHCN 20:30
PROVIDERS: PCP Internal Medicine; Visit Provider Nurse Practitioner Family
DX: N89.8 Other specified noninflammatory disorders of vagina (principal)
CPT/HCPCS: 87070; 87480; 87510; 87660

== ENCOUNTER 2023-11-14 16:00 | Outpatient (REF) | payer MEDICARE, MEDICAID, SELFPAY ==
[2023-11-14 20:09] LABS: Anion Gap 7.7 mmol/L (3-11); BUN 17 mg/dL (7-18); CO2 28.3 mmol/L (21.0-32.0); CREATININE 0.8 mg/dL (0.55-1.02); Chloride 102 mmol/L (98-107); Estimated GFR 80.71 (mL/min/1.73m2); Glucose 134 mg/dL (74-106); Potassium 4.4 mmol/L (3.5-5.1); Sodium 138 mmol/L (136-145)
[2023-11-14 20:23] LABS: Hemoglobin A1C 7.4 % (<5.7)
[2023-11-22 23:21] LABS: O-desmethyltramadol 3737 ng/mL (Cutoff:25); Tramadol 3847 ng/mL (Cutoff:25)
== END 2023-11-14 16:01 | disposition home or self-care (01) ==
LOC: NCHCN 16:00
PROVIDERS: PCP Internal Medicine; Visit Provider Nurse Practitioner Family
DX: E11.9 Type 2 diabetes mellitus without complications (principal); M79.7 Fibromyalgia
CPT/HCPCS: 80048; 80373; 83036

== ENCOUNTER 2024-07-10 18:01 | Outpatient (REF) | payer MEDICARE, MEDICAID, SELFPAY ==
--- OUTSIDE RECORDS SUMMARY | 2024-07-10 18:03 | XMS_ITS | Encounter Summary ---
Author Organization [facility], Located Within [facility] [place] [address] Care Team Providers Care Print Operator Name Role Phone Karen Leora Byrne APRN Primary Care Provider + Reason for Visit * Reason Comments Cerebrovascular Accident Encounter Details Date Type Department Care Team (Late st Contact Info) Description 09/07/2020 8:45 AM EST Office [place] [address] Sandy Nj MD [facility] [place] [address] Cerebral infarction, unspecified mechanism Social History Tobacco Use Types Packs/Day Years Used Date Smoking Tobacco: Never Smokeless Tobacco: Never Alcohol Use Standard Drinks/Week Comments Not Currently 0 (1 standard drink = 0.6 oz pur e alcohol) Sex and Gender Information Value Date Recorded Sex Assigned at Not on file Gender Identity Not on file Sexual Orientation Not on file documented as of this encounter Last Filed Vital Signs Vital Sign Reading Time Taken Comments Blood Pressure 122/71 09/07/2020 8:35 AM EST Pulse 65 09/07/2020 8:35 AM EST Temperature - - Respiratory Rate - - Oxygen Saturation 96% 09/07/2020 8:35 AM EST Inhaled Oxygen Concentration - - Weight 86.2 kg (190 lb) 09/07/2020 8:35 AM EST Height 166.6 cm (5' 5.59) 09/07/2020 8:35 AM ES T Body Mass Index 31.05 09/07/2020 8:35 AM EST documented in this encounter Progress Notes * Sandy Nj MD - 09/07/2020 8:45 AM EST Sleep apnea - wearin cpap. Good results Uncle with cluster headache Sister with migraine headaches but controlled with diet . Dad had migraine headaches - etoh use Mother alive 93 - migraines in early adulthood ,21 yo. Improved after having children. Good memory. Falling occasioanlly Modifiable Risk Factors in Secondary Stroke Prevention Risk Factor Treatment Goals Hypertension Patients with hypertension: <140/90 mm Hg; 10-mm Hg reduction in systolic BP and 5-mm Hg reduction in diastolic BP from baseline Patients with diabetes mellitus or renal disease: <130/80 mm Hg; 10-mm Hg reduction in systolic BP and 5-mm Hg reduction in diastolic BP from baseline Patients without hypertension: <120/80 mm Hg; 10-mm Hg reduction in systolic BP and 5-mm Hg reduction in diastolic BP from baseline Dyslipidemia Atherosclerotic stroke or TIA: low-density lipoprotein (LDL) cholesterol level <70 mg/dl or 50% reduction in LDL cholesterol level from baseline Nonatherosclerotic stroke or TIA: per National Cholesterol Education Program (NCEP) Adult TreatmentPanel III (ATP-III) goals Diabetes Mellitus HgA1c level <7% Cigarette Smoking Complete cessation Alcohol Consumption Men: two or fewer drinks per day Non woman: one or fewer drinks per day Physical Activity At least 30 minutes of moderate intensity physical exercise 1- 3 times per week Diet Low-fat, low-sodium, and Mediterranean or Dietary Approaches to Stop Hypertension diets (diabetic diet when applicable) Obesity Goal body mass index of 18.5-25 kg/m2 documented in this encounter Plan of Treatment Not on file documented as of this encounter Visit Diagnoses Diagnosis Cerebral infarction, unspecified mechanism documented in this encounter Care Teams Print Operator Relationship Specialty Start Date End Date Leora Jones APRN PCP - General Family Medicine 03/15/18 11/16/21 documented as of this encounter
--- OUTSIDE RECORDS SUMMARY | 2024-07-10 18:03 | XMS_ITS | Encounter Summary ---
Author Organization [facility] Address [facility] [place] [address] Care Team Providers Care Vp Informatics Name Role Phone Leora Jones APRN Primary Care Provider + Encounter Details Date Type Department Care Team (Latest Contact Info) Description 07/16/2020 10:00 AM EDT - 07/16/2020 11:59 PM EDT Hospital Encounter Mammography/[place] [id number] Pete Emmanuel MD [facility] [place] [address] Malignant neoplasm of left breast in female, estrogen receptor positive, unspecified site of breast Discharge Disposition: Home Social History Tobacco Use Types Packs/Day Years Used Date Smoking Tobacco: Never Smokeless Tobacco: Never Alcohol Use Standard Drinks/Week Comments Not Currently 0 (1 standard drink = 0.6 oz pur e alcohol) Sex and Gender Information Value Date Recorded Sex Assigned at Not on file Gender Identity Not on file Sexual Orientation Not on file documented as of this encounter Medications at Time of Discharge Medication Sig Dispensed Refills Start Date End Date aspirin 81 mg Tablet, Delayed Release (E.C.) Take 81 mg by mouth daily. escitalopram (LEXAPRO) 10 mg Tablet Take 10 mg by mouth daily. atorvastatin (LIPITOR) 40 mg Tablet Take 40 mg by mouth daily. 07/09/2018 metFORMIN (GLUCOPHAGE) 500 mg Tablet Take 500 mg by mouth 2 times daily (with meals). 07/09/2018 LORazepam (ATIVAN) 0.5 mg Tablet TAKE ONE TABLET BY MOUTH TWICE A DAY NEEDED 0 02/08/2018 montelukast (SINGULAIR) 10 mg Tablet Take 10 mg by mouth nightly. lisinopril (PRINIVIL;ZESTRIL) 10 mg Tablet Take 10 mg by mouth daily. sumatriptan succinate (IMITREX ORAL) Take 1 tablet by mouth as needed. fexofenadine HCl (BRISA ORAL) Take 1 tablet by mouth as needed. ALBUTEROL INHL Inhale 2 puffs into the lungs as needed. fluticasone (FLONASE) 50 mcg/actuation [place], Suspension SPRAY TWO SPRAYS IN EACH NOSTRIL EVERY DAY FOR 1 WEEK MAY DECREASE USE WHEN FEELING BETTER 3 10/24/2017 epinephrine (EPIPEN INJ) Inject as directed once as needed. naloxone (NARCAN) 2 mg/actuation [place], Non-Aerosol by Nasal route as needed. sertraline (ZOLOFT) 100 mg Tablet Take 100 mg by mouth 2 times daily. traMADol (ULTRAM) 50 mg Tablet Take 50 mg by mouth 2 times daily. 02/09/2018 pregabalin (LYRICA) 50 mg Capsule Take 50 mg by mouth 2 times daily. 09/07/2020 documented as of this encounter Plan of Treatment Not on file documented as of this encounter Procedures Procedure Name Priority Date/Time Associated Diagnosis Comments MAMMO SCREENING CAD AND ALEXX BILATERAL Routine 07/16/2020 10:26 AM EDT Malignant neoplasm of left breast in female, estrogen receptor positive, unspecified site of breast documented in this encounter Results * Mammo Screening Cad and Alexx Bilateral (07/16/2020 10:26 AM EDT) Anatomical Region Laterality Modality Breast Bilateral Mammography Narrative 07/16/2020 11:11 AM EDT EXAMINATION: MAMMO SCREENING CAD AND ALEXX BILATERAL REASON FOR EXAM: Screening. History of left breast cancer. TECHNIQUE: CC and MLO views were obtained of both breasts. Computer aided detection was used. 3D tomosynthesis images were obtained in addition to 2D images. COMPARISON: The study is compared with prior images. FINDINGS: Breast density: The breasts are heterogeneously dense, which may obscure small masses There are no suspicious microcalcifications, masses, or areas of distortion. There are post treatment changes in the left breast. CONCLUSION: No mammographic evidence of malignancy. RECOMMENDATION: Routine annual screening. BIRADS CATEGORY 2: BENIGN FINDINGS * ??Regular screening mammograms starting between age 40 and 50 reduces the risk of from breast cancer. * ??All screening tests have both risks and benefits. These risks and benefits should be assessed for each individual patient through discussion with their provider to determine their preferred breast cancer screening schedule. * ??Women should report any breast changes to a health care provider right away. * ??Some women, because of their family history, a genetic tendency, or other factors, should be screened with annual breast MRI as well as with mammograms. (The number of women who fall into this category is very small). Patients and health care providers should discuss each patients history to decide if earlier screening and/or breast MRI are appropriate. * ??Screening should continue as long as a woman is in good health and is expected to live 10 years or longer. * ??Screening mammography may not detect 10-15% of breast cancers. Thank you for letting us participate in the care of this patient. For questions regarding this report, please contact the number below. ? Electronically signed by: Pricila Ordonez [facility] ([phone]), at 07/16/2020 11:11 AM Pete Emmanuel MD IMG MAMMO ORDERABLES documented in this encounter Visit Diagnoses Diagnosis Malignant neoplasm of left breast in female, estrogen receptor positive, unspecified site of breast documented in this encounter Care Teams Vp Informatics Relationship Specialty Start Date End Date Leora Jones APRN PCP - General Family Medicine 03/15/18 11/16/21 documented as of this encounter
--- OUTSIDE RECORDS SUMMARY | 2024-07-10 18:03 | XMS_ITS | Encounter Summary ---
[place] [address] Care Team Providers Care Application Specialist Name Role Phone Karen Leora Byrne APRN Primary Care Provider + Encounter Details Date Type Department Care Team (Latest Contact Info) Description 07/16/2020 10:20 AM EDT Laboratory Appointment Lab [address] [place] [id number] Memory impairment; Microcytosis; Malignant neoplasm of upper-inner quadrant of left breast in female, estrogen receptor positive Social History Tobacco Use Types Packs/Day Years Used Date Smoking Tobacco: Never Smokeless Tobacco: Never Alcohol Use Standard Drinks/Week Comments Not Currently 0 (1 standard drink = 0.6 oz pur e alcohol) Sex and Gender Information Value Date Recorded Sex Assigned at Not on file Gender Identity Not on file Sexual Orientation Not on file documented as of this encounter Plan of Treatment Not on file documented as of this encounter Procedures Procedure Name Priority Date/Time Associated Diagnosis Comments HEMOGRAM Routine 07/16/2020 10:56 AM EDT Microcytosis DIFFERENTIAL, AUTOMATED Routine 07/16/2020 10:56 AM EDT Microcytosis HC IRON BINDING CAPACITY Routine 07/16/2020 10:56 AM EDT Microcytosis HC CBC,PLT & AUTO DIFF Routine 0 10:56 AM EDT Microcytosis COMPREHENSIVE METABOLIC PANEL Routine 07/16/2020 10:56 AM EDT Malignant neoplasm of upper-inner quadrant of left breast in female, estrogen receptor positive documented in this encounter Results * (ABNORMAL) Differential, Automated (07/16/2020 10:56 AM EDT) Neutrophil % 62.8 % [facility] Neutrophil Absolute 6.72(H) 1.70 - 6.10 x10(3)/ L [facility] Lymph % 27.6 % [facility] Lymphocytes Abs 3.0 0.9 - 3.2 x10(3)/ L [facility] Monocyte % 4.4 % [facility] Monocyte Abs 0.5 0.3 - 0.9 x10(3)/[facility] Eos % 4.2 % [facility] Eosinophils Abs 0.4 0.0 - 0.4 x10(3)/[facility] Basophil % 0.7 % [facility] Baso Absolute 0.1 0.0 - 0.1 x10(3)/ L [facility] Immature Gran % 0.30 % [facility] Comment: Immature granulocytes(IG's)percentage and absolute count will include metamyelocytes, myelocytes, and promyelocytes. Blood smears from CBCs yielding IG's will be scanned manually for concordance. If this scan disagrees with the automated IG or if promyelocytes are noted, a manual differential will be performed. Immature Gran Absolute 0.03 0.00 - 0.04 x10(3)/ L [facility] Blood specimen (specimen) 07/16/2020 10:56 AM EDT 07/16/2020 11:01 AM EDT Narrative Resulting Agency Comment Spec In Lab Kayla Espinosa MD HEMATOLOGY ORDERABLE S [facility] [place] [address] * (ABNORMAL) Hemogram (07/16/2020 10:56 AM EDT) White Blood Cell 10.7(H) 4.0 - 9.5 x10(3)/ L [facility] Red Blood Cell 4.84 4.00 - 5.21 x10(6)/ L [facility] Hemoglobin 12.6 11.7 - 15.5 gm/dL [facility] Hematocrit 38.9 35.7 - 45.8 % [facility] Mean Cell Volume 80.4(L) 82.6 - 94.4 fL [facility] Mean Cell Hemoglobin 26.0(L) 27.1 - 32.0 pg [facility] Mean Cell Hemoglobin Concentration 32.4 31.7 - 35.0 gm/dL [facility] Platelet 278 145 - 357 x10(3)/[facility] RDW Standard Deviation 44.4 37.0 - 46.0 [facility] RDW coefficient of variation 15.3(H) 11.5 - 14.1 % [facility] Mean Platelet Volume 10.8 7.6 - 12.9 fL [facility] NRBC% auto 0.0 % [facility] NRBC Absolute 0.000 0.000 - 0.000 x10(3)/[facility] Blood specimen (specimen) 07/16/2020 10:56 AM EDT 07/16/2020 11:01 AM EDT Narrative Resulting Agency Comment Spec In Lab Kayla Espinosa MD HEMATOLOGY ORDERABLE S [facility] [place] [place] [address] * (ABNORMAL) Comprehensive metabolic panel (non-fasting) (07/16/2020 10:56 AM EDT) Glucose 126 65 - 199 mg/dL [facility] Comment:Diabetes: >=200 mg/d L plus symptoms Blood Urea Nitrogen 19(H) 8 - 18 mg/dL [facility] Creatinine 0.80 0.70 - 1.20 mg/dL [facility] Sodium 140 135 - 145 mmol/L [facility] Potassium 4.1 3.5 - 5.0 mmol/L [facility] Comment: Please note: ??Patients with WBC >100,000 may have falsely elevated Potassium levels. ??For accurate Potassium quantification in these patients send serum separator tube (gold top) for subsequent determinations. ??Contact the Clinical Chemistry Laboratory if there are any questions. Chloride 101 98 - 107 mmol/L [facility] Carbon Dioxide 27 22 - 31 mmol/L [facility] Anion Gap 12 5 - 15 mmol/L [facility] Calcium 10.0 8.5 - 10.5 mg/dL [facility] Protein, Total 7.2 6.1 - 8.0 gm/dL [facility] Albumin 4.4 3.2 - 5.2 gm/dL [facility] Aspartate Aminotransferase 14 0 - 30 unit/L [facility] Alanine Aminotransferase 10 0 - 30 unit/L [facility] Alkaline Phosphatase 92 35 - 105 unit/L [facility] Bilirubin, Total 0.3 0.2 - 1.3 mg/dL [facility] Est Glomerular Filtration Rate 78 >=60 mL/min/1. 73 m?? [facility] Comment: The eGFR was calculated using the CKD-EPI equation. As with all creatinine based estimates of kidney function, eGFR values calculated with the CKD-EPI equation are not accurate in patients with acute kidney failure, extremes of body mass or the acutely ill. [email or web address]/[facility]ULSAnkf eGFR 91 >=60 mL/min/1. 73 m?? [facility] Comment: The eGFR was calculated using the CKD-EPI equation. As with all creatinine based estimates of kidney function, eGFR values calculated with the CKD-EPI equation are not accurate in patients with acute kidney failure, extremes of body mass or the acutely ill. [email or web address]/[facility]kf Blood specimen (specimen) 07/16/2020 10:56 AM EDT 07/16/2020 11:01 AM EDT Narrative Resulting Agency Comment Spec In Lab Kayla Espinosa MD CHEMISTRY ORDERABLES [facility] [place] [address] * (ABNORMAL) Iron and TIBC (07/16/2020 10:56 AM EDT) Iron 51 30 - 150 mcg/dL [facility] TIBC 271 250 - 450 mcg/dL [facility] Iron Saturation 19(L) 20 - 50 % [facility] Blood specimen (specimen) 07/16/2020 10:56 AM EDT 07/16/2020 11:01 AM EDT Narrative Resulting Agency Comment Spec In Lab Kayla Espinosa MD CHEMISTRY ORDERABLES Performing Organization Address City/[facility]/ZIP Co de Phone Number [facility] [place] [address] documented in this encounter Visit Diagnoses Diagnosis Memory impairment Memory loss Microcytosis Other abnormality of red blood cells Malignant neoplasm of upper-inner quadrant of left breast in female, estrogen receptor positive documented in this encounter Care Teams Application Specialist Relationship Specialty Start Date End Date Leora Jones APRN PCP - General Family Medicine 03/15/18 11/16/21 documented as of this encounter
--- OUTSIDE RECORDS SUMMARY | 2024-07-10 18:03 | XMS_ITS | Encounter Summary ---
Author Organization [facility] [place] [address] Care Team Providers Care Senior Recruiter Name Role Phone Donna Garcia APRN Primary Care Provider [phone]- [phone] Reason for Visit * Reason Comments Follow-up Encounter Details Date Type Department Care Team (Late st Contact Info) Description 02/28/2022 4:00 PM EDT Office Visit Radiation Oncology at [address] [phone] Magi Terry MD [facility] [address] S/P radiotherapy Social History Tobacco Use Types Packs/Day Years [...] Sign Reading Time Taken Comments Blood Pressure 113/63 02/28/2022 4:25 PM EDT Pulse 88 02/28/2022 4:25 PM EDT Temperature 36.5 ??C (97.7 ??F) 02/28/2022 4:25 PM ED T Respiratory Rate 18 02/28/2022 4:25 PM EDT Oxygen Saturation 96% 02/28/2022 4:25 PM EDT Inhaled Oxygen Concentration - - Weight 93.4 kg (205 lb 12.8 oz) 02/28/2022 4:25 PM EDT Height - - Body Mass Index 34.25 10/07/2020 7:58 AM EST documented in this encounter Patient Instructions * Patient Instructions* Magi Terry MD - 02/28/2022 4:40 PM EDT Someone will call you to schedule rib xrays to be done @ [facility]. I will call you a day/so after the xrays to discuss result. If you do not hear from me by 3 days after the xrays, please call [phone] & tell billing clerk why you are calling. Someone will call you to schedule followup with me in January 2023. documented in this encounter Progress Notes * Magi Terry MD - 02/28/2022 4:00 PM EDT Images from the original note were not included. CC: Sched'd fu visit s/p xrt completion. HPI: Mikaela is a 66 y/o f who completed xrt 3 yrs., 9 mos ago (05/25/18) to L breast for ca, IDC, gr1, ER+SD+, Her2 neg, s/p lumpectomy & SNB, pT1b pN0, stage I. She started letrozole in early Jun 2018 & then stopped it in 04/2019 due to pain, w/pain resolution. In 06/2019 she started exemestane, which was stopped in mid Oct 2019 for numerous symptoms. She is not taking endocrine tx now. 04/14/20 MRA neck, head & MRI brain: IMPRESSION 1. 2 foci of infarction involving the right frontal lobe. 2. No hemodynamically significant stenosis or vascular thrombosis. ?? 07/20/21 B mmg: Benign. 07/20/21 fu w/Toña Gomez, COPY CAMERA OPERATOR; rtc 1 yr w/B mmg. Subjective: Discomfort R lateral mid-lower ribcage, present since prior to xrt, evaluated @ that time w/bone scan which was neg. She thinks R ribcage discomfort may be due to fibromyalgia. No breast problem. No hand/arm swelling. Energy level ok. Past Medical History: Diagnosis Date ??? Breast cancer 02/15/2018 IDC No lupus/scleroderma. Fibromyalgia Past Surgical History: Procedure Laterality Date ??? BREAST BIOPSY Left 02/15/2018 IDC ??? BREAST LUMPECTOMY Left 03/22/2018 ??? PRO BX/REMV, LYMPH NODE, DEEP AXILL Left 03/22/2018 BIOPSY OR EXCISION OF LYMPH NODE(S), OPEN, DEEP AXILLARY NODE(S) (WRVU 6.43) performed by Pete Emmanuel MD at [facility] ??? PRO INTRAOP SENTINEL LYMPH ID W/DYE INJECTION Left 03/22/2018 INTRAOPERATIVE ID (MAPPING) SENTINEL LYMPH NODE,INCLUDES INJECTION (WRVU 2.5) performed by Pete Emmanuel MD at [facility] ??? PRO MASTECTOMY PARTIAL Left 03/22/2018 MASTECTOMY PARTIAL (WRVU 10.13) performed by Pete Emmanuel MD at [facility] Your Medications Accurate as of February 28, 2022 11:59 PM. If you have any questions, ask your nurse or doctor. Continued medications, unchanged Dose Details ALBUTEROL INHL Inhale 2 puffs into the lungs as needed. 2 puff Refills: 0 BRISA ORAL Take 1 tablet by mouth as needed. 1 tablet Refills: 0 aspirin EC 81 mg Tbec Take 81 mg by mouth daily. 81 mg Refills: 0 atorvastatin 40 mg Tab Commonly known as: Lipitor Take 40 mg by mouth daily. 40 mg Refills: 0 cetirizine 10 mg Tab Commonly known as: ZyrTEC Refills: 0 cholecalciferol (Vitamin D3) 1,250 mcg (50,000 unit) Cap TAKE ONE CAPSULE BY MOUTH EVERY WEEK Refills: 0 EPIPEN INJ Inject as directed once as needed. Refills: 0 escitalopram 10 mg Tab Commonly known as: Lexapro Take 10 mg by mouth daily. 10 mg Refills: 0 fluticasone propionate 50 mcg/actuation Spsn Commonly known as: Flonase SPRAY TWO SPRAYS IN EACH NOSTRIL EVERY DAY FOR 1 WEEK MAY DECREASE USE WHEN FEELING BETTER Refills: 3 IMITREX ORAL Take 1 tablet by mouth as needed. 1 tablet Refills: 0 lisinopriL 10 mg Tab Commonly known as: Zestril Take 10 mg by mouth daily. 10 mg Refills: 0 LORazepam 0.5 mg Tab Commonly known as: Ativan TAKE ONE TABLET BY MOUTH TWICE A DAY NEEDED Refills: 0 Magnesium Gluconate 27 mg magnesium (500 mg) Tab Take 1 tablet by mouth nightly. 1 tablet Refills: 0 * memantine 5 mg Tab Commonly known as: Namenda TAKE ONE TABLET BY MOUTH EVERY EVENING Refills: 0 * memantine 10 mg Tab Commonly known as: Namenda Take 10 mg by mouth every evening. 10 mg Refills: 0 metFORMIN 500 mg Tab Commonly known as: Glucophage Take 500 mg by mouth 2 times daily (with meals). 500 mg Refills: 0 montelukast 10 mg Tab Commonly known as: Singulair Take 10 mg by mouth nightly. 10 mg Refills: 0 Narcan 2 mg/actuation Ulmer by Nasal route as needed. Generic drug: naloxone Refills: 0 pregabalin 150 mg Cap Commonly known as: LYRICA TAKE ONE CAPSULE BY MOUTH THREE TIMES A DAY Refills: 0 sertraline 100 mg Tab Commonly known as: ZOLOFT Take 100 mg by mouth 2 times daily. 100 mg Refills: 0 traMADoL 50 mg Tab Commonly known as: Ultram Take 50 mg by mouth 2 times daily. 50 mg Refills: 0 * This list has 2 medication(s) that are the same as other medications prescribed for you. Read thedirections carefully, and ask your doctor or other care provider to review them with you. Physical Exam Constitutional: General: She is not in acute distress. Appearance: She is well-developed. She is not diaphoretic. Comments: BP 113/63 Pulse 88 Temp 36.5 ??C (97.7 ??F) (Temporal) Resp 18 Wt 93.4 kg (205 lb12.8 oz) SpO2 96% BMI 34.25 kg/m?? HENT: Head: Normocephalic and atraumatic. Eyes: General: No scleral icterus. Right eye: No discharge. Left eye: No discharge. Extraocular Movements: Extraocular movements intact. Conjunctiva/sclera: Conjunctivae normal. Neck: Thyroid: No thyromegaly. Trachea: No tracheal deviation. Pulmonary: Effort: Pulmonary effort is normal. No respiratory distress. Breath sounds: No stridor. Chest: Breasts: Right: No inverted nipple, mass, nipple discharge, skin change, tenderness, axillary adenopathy or supraclavicular adenopathy. Left: No inverted nipple, mass, nipple discharge, skin change, tenderness, axillary adenopathy or supraclavicular adenopathy. Abdominal: General: There is no distension. Palpations: Abdomen is soft. There is no mass. Tenderness: There is no abdominal tenderness. There is no guarding or rebound. Musculoskeletal: General: Tenderness (Tender to deep palpation mid & inferior R ribcage laterally) present. No swelling or deformity. Normal range of motion. Cervical back: Normal range of motion and neck supple. No tenderness. Lymphadenopathy: Head: Right side of head: No submental, submandibular, preauricular, posterior auricular or occipital adenopathy. Left side of head: No submental, submandibular, preauricular, posterior auricular or occipital adenopathy. Cervical: No cervical adenopathy. Upper Body: Right upper body: No supraclavicular or axillary adenopathy. Left upper body: No supraclavicular or axillary adenopathy. Skin: General: Skin is warm and dry. Neurological: Mental Status: She is alert and oriented to person, place, and time. Cranial Nerves: No cranial nerve deficit. Motor: No abnormal muscle tone. Coordination: Coordination normal. Psychiatric: Mood and Affect: Mood normal. Behavior: Behavior normal. Thought Content: Thought content normal. Judgment: Judgment normal. A: Continued lateral R mid & inferior ribcage discomfort, neg on 2018 bone scan, probably from fibromyalgia, discussed possible repeat bone scan, but she is concerned insurance won't cover so will start w/plain xrays. P: Rtc January 2023. 30 mins in encounter. documented in this encounter Plan of Treatment Not on file documented as of this encounter Visit Diagnoses Diagnosis S/P radiotherapy Convalescence following radiotherapy documented in this encounter Care Teams Senior Recruiter Relationship Specialty Start Date End Date Donna Garcia APRN [address] [place] [id number] PCP - General Family Medicine 11/17/21 documented as of this encounter
--- OUTSIDE RECORDS SUMMARY | 2024-07-10 18:03 | XMS_ITS | Encounter Summary ---
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 [facility] [address] Encounter for follow-up surveillance of breast cancer; Malignant neoplasm of upper-inner quadrant of left breast in female, estrogen receptor positive; Family history of breast cancer in first degree relative; Breast cancer screening by mammogram; Skin rash Social History Tobacco Use Types Packs/Day Years Used Date Smoking Tobacco: Never Smokeless Tobacco: Never Alcohol Use Standard Drinks/Week Comments Not Currently 0 (1 standard drink = 0.6 oz pur e alcohol) Sex and Gender Information Value Date Recorded Sex Assigned at Not on file Gender Identity Not on file Sexual Orientation Not on file documented as of this encounter Progress Notes * Tg Gomez APRN - 07/25/2022 1:40 PM EDT Images from the original note were not included. Patient ID: Mikaela Payan is a 66 y.o. female HPI: Mikaela is a patient of Dr. 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 She is status post left partial mastectomy and sentinel node excision on March 22, 2018. At today's visit, Mikaela has a slight rash under her breast and groin for the past month, but no other breast concerns. No new lumps or bumps in her breasts or axilla. She does not typically perform self-breast exams. No nipple discharge or pain in either breast. She denies any headaches or significant weight changes. No new chest pain or difficulty breathing. No new bony pain or tenderness. She denies significant changes to her health since her last visit. She reports ongoing short term memory issues and problems with word finding, but thinks things are slightly better. She is followed by Neurology and is sees a therapist regularly. She is easily distracted, but feels her panic attacks are becoming less frequent. She also has chronic pain issues related to fibromyalgia and takes Lyrica. Breast cancer history: A screening mammogram on 01/16/2018 showed a finding of a 9-mm mass in the left breast at 10:00, 6 cm from the nipple. US confirmed the finding and she went on to have a core biopsy which confirmed IDC, low grade, ER/NC positive, HER-2 negative. Mikaela had an 8 mm low-grade invasive ductal carcinoma excised with negative margins. Nearest margin was 10 mm away. One sentinel node was negative. She completed adjuvant XRT on 05/25/2018 and took letrozole between 06/2018 and 04/2019. In 06/2019, she was switched to exemestane, but stopped that in 10/2019. She is not currently taking any endocrine therapy. BREAST CANCER NOTES 07/20/2021 Method of Cancer Detection Screening mammogram 01/16/2018 Menopausal Status at Diagnosis Postmenopausal Date of Diagnostic Biopsy 02/15/2018 Local Surgery Left partial mastectomy Axillary Management SNE ([address] involved) Date of Last Surgical Procedure 03/22/2018 Histology Invasive ductal carcinoma Location Left upper inner quadrant Size of Primary Malignancy 8 mm Grade Low Margins Negative ER Positive NC Positive HER-2 Negative OncotypeDx Recurrence Score N/A Chemotherapy N/A Radiation Therapy XRT completed 05/25/2018 Adjuvant Endocrine Therapy Letrozole x 10 mos; exemestane x 3 mos. Not taking any endocrine therapynow. Genetic Testing 03/12/2018 - negative Surveillance Annual mammogram and CBE Comprehensive Breast Program Surgery Follow Up: Range of motion of surgical arm complete Lymphedema present No Cosmesis-surgeon reported Cosmesis-patient reported Good Good Local or regional recurrence No Contralateral cancer present No Distant recurrence present No Date of last follow up 07/20/2021 Breast Cancer Risk Factors: History Age at delivery of first child 22 yo Breast fed No Oral contraceptive use Yes Menarche age 13 yo LMP 49 yo Hormone replacement therapy No Family history of breast cancer Sister/57, paternal aunt, PGM Family history of ovarian cancer No Ashkenazi Congregation heritage No Known genetic mutation 03/12/18 - [facility] Common Hereditary Cancers Panel showed no mutation was detected Family History Problem (# of Occurrences) Relation (Name,Age of Onset) Breast Cancer (3) Sister (Yulia, 58): mastectomy, endocrine therapy, Paternal Grandmother (60): 60's, Paternal Aunt (60): 60's Cancer (1) Maternal Half-Brother (Burt, 40): testicular Negative family history of: Ovarian Cancer Social Hx: 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 She has never smoked; ETOH - none. Past Medical Hx: Memory changes, fibromyalgia, T2DM, anxiety Physical Exam: General appearance: Alert, well-developed, well-nourished; in no acute distress. Skin: Warm and dry. Head: Normocephalic, atraumatic. Neck: Soft and supple without masses or cervical adenopathy. Pulmonary: No respiratory distress, cough, or wheezing. Breasts: Exam performed in the upright and supine positions. Left breast with well-healed elliptical incision in the upper inner breast and axilla. Right breast with normal appearance and contour. Nosuspicious masses, tenderness, dimpling, erythema, or other skin changes in either breast. No nipple discharge or other nipple changes. No palpable axillary lymph nodes bilaterally. The nipples are everted. Faint pink rash under both breasts. Skin is intact. I feel no obvious discrete or dominant masses in either breast. Musculoskeletal: Arms with full ROM without any evidence of lymphedema. Fully weight-bearing. Neurological: Alert and oriented x 4. Mood is euthymic and appropriate to the situation. Results: Imaging performed (bilateral mammogram) at [facility] [place] [place] today. The results were pending at the time of today's appointment. I will notify her of results via myD-H when available. Assessment: Clinical breast exam without notable masses, skin changes, dimpling, or nipple discharge. Doing well without evidence of local recurrence. Stable exam. Plan: 1. Encounter for follow-up surveillance of breast cancer 2. Malignant neoplasm of upper-inner quadrant of left breast in female, estrogen receptor positive 3. Family history of breast cancer in first degree relative 4. Breast cancer screening by mammogram - Mammo Screening Cad and Alexx Bilateral; July 2023 5. Skin rash I gave Mikaela several recommendations - ?? Pat dry after bathing ?? Use mathematics academic chair on cool setting ?? Wear clean underwear. Remove sweaty undergarments as soon as possible. ?? Apply corn starch under the breasts to help with moisture absorption. ?? May use witch pina as needed. ?? If all of those fail, try an OTC athlete's foot powder. I have discussed my assessment and recommendations with Mikaela to include occasional self-breast exams and annual mammographic screening with clinical breast exams. Based on her risk status, her nextbilateral screening mammogram is due in one year, or sooner if indicated. I will plan to see her for a clinical breast exam at that time. She will contact me if she develops any new breast changes orconcerns prior to that appointment. She agrees to this plan. Routine recommendations discussed with the patient including importance of regular moderate intensity exercise, nutrition, decreasing cardiovascular risk, and optimizing weight. Nonpharmacologic measures to help decrease your risk of developing breast cancer include the following: ?? Get at least 30 minutes of moderate intensity physical activity above normal activity on most days of the week to reduce the risk of chronic disease in adulthood. Walking is a good choice. You also may want to do other activities, such as running, swimming, cycling, playing tennis, or other teamsports. ?? Do strength training exercises at least twice a week to maintain muscle and bone health. ?? Drink alcohol in moderation, if at all. That means no more than 1 drink a day for women or 2 perday for men. ?? Make healthy eating choices: fruits and vegetables, lean protein, and healthy fats. Minimize processed foods, simple carbohydrates, sugars, and artificial sweeteners. ?? Maintain or achieve a healthy weight. Normal BMI < 25 for individuals under 65 years old; 22-30 for > 65 years old. ?? Manage stress levels. ?? Be cautious about exposure risk, both what you put in and on your body (ie: artificial fragrances, artificial dyes, as well as certain ingredients in makeup, hair and body care, antiperspirant, sunscreen, insect repellant, laundry detergent, fabric softener, dryer sheets, etc.). The [place] bans or restricts over 1,400 ingredients from personal care products. Currently, the [place] bans or restricts only 30 products. Resources to help you make informed choices for personal care products are available at EWG (Environmental Working Group) at https://www.ewg.org and free apps for your cell phone from [employer] ([employer]) and [employer] ([employer]). All questions were answered to the patient's satisfaction and they state understanding and agreement with today's treatment plan. They are encouraged to follow up sooner if they develop any new or concerning symptoms. Tg Gomez APRN Surgical Oncology P [phone] F [phone] [facility] documented in this encounter Plan of Treatment Not on file documented as of this encounter Visit Diagnoses Diagnosis Encounter for follow-up surveillance of breast cancer Unspecified follow-up examination Malignant neoplasm of upper-inner quadrant of left breast in female, estrogen receptor positive Family history of breast cancer in first degree relative Family history of malignant neoplasm of breast Breast cancer screening by mammogram Skin rash Rash and other nonspecific skin eruption documented in this encounter Care Teams Instructional Media Services Technician Relationship Specialty Start Date End Date Donna Garcia APRN [address] [place] [id number] PCP - General Family Medicine 11/17/21 documented as of this encounter
--- OUTSIDE RECORDS SUMMARY | 2024-07-10 18:03 | XMS_ITS | Encounter Summary ---
Author Organization [facility] [place] [address] Care Team Providers Care Weed Burner Name Role Phone Leora Jones APRN Primary Care Provider + Reason for Visit * Reason Comments Follow-up Encounter Details Date Type Department Care Team (Late st Contact Info) Description 07/20/2021 10:40 AM EDT Office [place] [address] Tg Gomez APRN [facility] [place] [address] Encounter for follow-up surveillance of breast cancer; Malignant neoplasm of upper-inner quadrant of left breast in female, estrogen receptor positive; Breast cancer screening by mammogram Social History Tobacco Use Types Packs/Day Years Used Date Smoking Tobacco: Never Smokeless Tobacco: Never Alcohol Use Standard Drinks/Week Comments Not Currently 0 (1 standard drink = 0.6 oz pur e alcohol) Sex and Gender Information Value Date Recorded Sex Assigned at Not on file Gender Identity Not on file Sexual Orientation Not on file documented as of this encounter Patient Instructions * Patient Instructions* Tg Gomez APRN - 07/20/2021 10:40 AM EDT Nonpharmacologic measures to help decrease your risk [...] free apps for your cell phone from [employer] ([employer]) and [employer] ([employer]). documented in this encounter Progress Notes * Tg Gomez APRN - 07/20/2021 10:40 AM EDT Images from the original note were not included. Patient ID: Mikaela Payan is a 65 y.o. female HPI: Mikaela is a patient of Dr. 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 She is status post left partial mastectomy and sentinel node excision on March 22, 2018. At today's visit, Mikaela has no breast concerns and denies any new lumps or bumps in her breasts oraxilla. She does not typically perform self-breast exams. No nipple discharge or pain in either breast. She denies any headaches or significant weight changes. No new chest pain or difficulty breathing. No new bony pain or tenderness. She denies significant changes to her health since her last visit. She reports ongoing short term memory issues and problems with word finding, that are suggesting ofchronic microvascular ischemic disease, but started taking Namenda and feels her symptoms are a little better. She is followed by Neurology and [...] core biopsy which confirmed IDC, low grade, ER/SC positive, HER-2 negative. Mikaela had an 8 [...] mm Grade Low Margins Negative ER Positive SC Positive HER-2 Negative OncotypeDx Recurrence Score N/A [...] present No Date of last follow up 07/16/2020 Breast Cancer Risk Factors: History Age at delivery of first child 22 yo Breast fed No Oral contraceptive use Yes Menarche age 13 yo LMP 49 yo Hormone replacement therapy No Family history of breast cancer Sister/57, paternal aunt, PGM Family history of ovarian cancer No Known genetic mutation 03/12/18 - [facility]'s Common Hereditary Cancers Panel showed no mutation [...] her memory and word finding problems. She has never smoked; ETOH - none. Past Medical Hx: Memory changes, fibromyalgia, T2DM, anxiety Physical Exam: General appearance: Alert, well-developed, well-nourished; in no acute distress. Skin: Warm and dry. Head: Normocephalic, atraumatic. Neck: Soft and supple without adenopathy. Pulmonary: No respiratory distress, cough, or wheezing. Breasts: Left breast with well-healed elliptical incision in the upper inner breast and axilla. Right breast appears normal. No suspicious masses, tenderness, dimpling, erythema, or other skin changes in either breast. No nipple discharge or other nipple changes. No palpable axillary lymph nodes candace aterally. The nipples are everted. I feel no obvious discrete or dominant masses in either breast. Musculoskeletal: Arms with full ROM without any evidence of lymphedema. Fully weight-bearing. Neurological: Alert and oriented x 4. Mood is euthymic and appropriate to the situation. Results: Imaging performed (bilateral mammogram) at [facility] today shows no evidence of malignancy, BIRADS Category 2 with scattered areas of fibroglandular density. Post treatment changes noted on the left. The results were reviewed with her at today's appointment. Assessment: Clinical breast exam without notable masses, skin changes, dimpling, or nipple discharge. Doing well without evidence of local recurrence. Stable exam. Plan: 1. Encounter for follow-up surveillance of breast cancer 2. Malignant neoplasm of upper-inner quadrant of left breast in female, estrogen receptor positive 3. Breast cancer screening by mammogram - Mammo Screening Cad and Alexx Bilateral; July 2022 I have discussed my assessment and recommendations with Mikaela to include occasional self-breast exams and annual mammographic screening with clinical breast exams. Based on her risk status, her nextbilateral screening mammogram is due in one year, or sooner if indicated. I will plan to see her for a clinical breast exam at that time. She will also contact me if she develops any new breast changes or concerns prior to that appointment. She agrees to [...] free apps for your cell phone from [employer] ([employer]) and [employer] ([employer]). All questions were answered to the patient's satisfaction and they state understanding and agreement with today's treatment plan. They are encouraged to follow up sooner if they develop any new or concerning symptoms. Tg oGmez APRN Surgical Oncology P [phone] F [phone] [facility] documented in this encounter Plan of Treatment Not on file documented as of this encounter Results * Mammo Screening Cad and Alexx Bilateral (07/25/2022 1:06 PM EDT) Anatomical Region Laterality Modality Breast Bilateral Mammography Narrative 07/26/2022 6:47 AM EDT EXAMINATION: MAMMO SCREENING CAD AND ALEXX BILATERAL REASON FOR EXAM: Screening. History of left breast cancer. TECHNIQUE: CC and MLO views were obtained of both breasts. Computer aided detection was used. 3D tomosynthesis images were obtained in addition to 2D images. COMPARISON: The study is compared with prior images. FINDINGS: Breast density: There are scattered areas of fibroglandular density. There are no suspicious microcalcifications, masses, or areas of distortion. There are post treatment changes in the left breast. CONCLUSION: No mammographic evidence of malignancy. RECOMMENDATION: Routine annual screening. BI-RADS CATEGORY 2: BENIGN FINDINGS * ??Regular screening [...] Patients and health care providers should discuss the history of each patient to decide if earlier screening and/or breast MRI are appropriate. * ??Screening should continue as long as a woman is in good health and is expected to live 10 years or longer. * ??Screening mammography may not detect 10-15% of breast cancers. Thank you for letting us participate in the care of this patient. ??If you are a health care provider and have any questions regarding this report, please contact the number below. ??For patients who have questions please contact the health daycare teacher that requested your imaging first. ? Tg Gomez APRN IMG MAMMO ORD ERABLES documented in this encounter Visit Diagnoses Diagnosis Encounter for follow-up surveillance of breast cancer Unspecified follow-up examination Malignant neoplasm of upper-inner quadrant of left breast in female, estrogen receptor positive Breast cancer screening by mammogram Malignant neoplasm of upper-inner quadrant of left breast in female, estrogen receptor positive Breast cancer screening by mammogram documented in this encounter Care Teams Weed Burner Relationship Specialty Start Date End Date Leora Jones APRN PCP - General Family Medicine 03/15/18 11/16/21 documented as of this encounter
--- OUTSIDE RECORDS SUMMARY | 2024-07-10 18:03 | XMS_ITS | Encounter Summary ---
Author Organization [facility] Address [facility] [place] [address] Care Team Providers Care Human Relations Manager Name Role Phone Donna Garcia APRN Primary Care Provider [phone] Reason for Visit * Consultation (Routine) - Closed Specialty Diagnoses / Procedures Referred By Kandi gao Referred To Contact Dermatology Diagnoses Other specified acute skin changes due to ultraviolet radiation Donna Garcia APRN [address] [place] [address] [facility] D[facility]at[facility] [address] [place] [address] Referral ID Status Reason Start Date Expiration Date V isits Requested Visits Authorized [id number] Closed Consult, Test & Treat Connection Center PCP Updated and/or Approved 11/15/2021 11/15/2022 6 6 Encounter Details Date Type Department Care Team (Late st Contact Info) Description 01/06/2022 1:20 PM EST Office Visit Dermatology at [facility] [address] [place] [address] Margi Monique MD [facility] [place] [address] Multiple benign nevi; Martinez angioma; Lentigines; AK (actinic keratosis); Sebaceous hyperplasia; Milia; SK (seborrheic keratosis) Social History Tobacco Use Types Packs/Day Years Used Date Smoking Tobacco: Never Smokeless Tobacco: Never Alcohol Use Standard Drinks/Week Comments Not Currently 0 (1 standard drink = 0.6 oz pur e alcohol) Sex and Gender Information Value Date Recorded Sex Assigned at Not on file Gender Identity Not on file Sexual Orientation Not on file documented as of this encounter Progress Notes * Margi Lemus MD - 01/06/2022 1:20 PM EST Images from the original note were not included. DEPARTMENT OF DERMATOLOGY [facility] D[facility]atology [facility] Provider: Margi Lemus MD Patient's preferred name Mikaela Preferred contact method for results [x]Phone [x]myD-H [x]Letter Detailed phone message OK? Y Are there any other people with whom we may discuss your care? Daughter - Shey Past Medical History Date, location, treatment Melanoma N Dysplastic nevi N SCC N BCC N AKs N UV Exposure & Protection + history of blistering sunburn Sun Protection: SPF 45+ N Family History Details Melanoma N NMSC N Other relevant family history N Social History Occupation: Hobbies: Other: Pre-Procedure Screening Details Allergy to lidocaine, epinephrine, Dermabond, chlorhexidine, or adhesives N Bleeding disorder or blood thinners N Pacemaker, defibrillator, deep brain stimulator, cochlear implant N History of Present Illness: Mikaela Payan is a 66 y.o. Patient is referred to the clinic at the request of Donna Garcia for a FSE, has spots on face/ mole of concern. - Patient has a few spots on her forehead that she has concerns about. Has been present for a year.They are dry and they itch periodically. No previous treatment. Review of Systems: General: Feeling well. Skin: No other skin concerns. Medications: Reviewed in eD-H Allergies: Reviewed in eD-H Skin Examination: Full skin examination: Patient asked to undress to their comfort level. Verbalized that the provider's preference is that patient remove all clothing and that the provider will not examine areas patient elects to keep covered. Examination of the scalp, hair, head, face, ears, neck, chest, axillae, abdomen, back, buttocks, and upper and lower extremities was normal with the exception of the findings below. Genitalia not examined. Assessment/Plan #. Actinic Keratosis - Scaly irregular pink papules located on the forehead x3 - Discussed etiology and treatment options with patient - Joint decision to pursue LN2 x 2 to lesion. Advised to return if lesion(s) do not resolve. Procedure Note: Procedure: Destruction of lesions with cryotherapy. Number: 3 Location: as above Discussed procedure and expectations including risks (including risk of hypopigmentation) and benefits. Verbal consent obtained. Frozen with LN2, 15-30 second thaw time, TWICE. There were no complications; the patient tolerated the procedure well. Post-procedure expectations and wound care were reviewed. #. Multiple Benign Nevi -scattered brown macules on the back, chest, and face w/o concerning findings on dermoscopy -pt reassured -advised the pt to monitor nevi monthly and if they are growing, changing color, or new lesions appear pt should call back to be seen before their next FBSE #. Martinez Angioma(s) Multiple 0.2-0.4cm bright red, well-demarcated papules with well formed lobules on dermoscopy -reassured pt of benign nature and that more would come with increasing age #. Solar Lentigines - Light-brown evenly pigmented, well-demarcated macules on sun exposed areas ofthe skin. - Patient reassured of benign nature. #. Sebaceous hyperplasia- yellow papules with crown of vessels and central dell on dermoscopy -advised lesions are benign increase in size of glands and that if bothersome can be treated cosmetically #. Milia -1mm white papule(s) on the face around the eyes - Pt reassured lesions are benign. - If bothersome can be treated cosmetically #. Seborrheic keratoses Scattered yellow to francisco stuck on papules 3-6 mm in size on legs -benign nature of lesions discussed -patient reassured. Other: ??? Sun protection discussed (protective clothing and SPF30+ broad-spectrum sunscreen) RTC: 1 year for FSE []Note routed to workers compensation legal secretary [x]Recall placed in scheduling system []Appointment scheduled at checkout Scribe attestation: MARY Schneider has performed the documentation for this encounter in the presence of and acting as a scribe for Margi Lemus MD. I performed the above scribed service and agree with the accuracy of the documentation in this encounter. Reviewed and signed by: Margi Lemus MD Dermatology [facility] Patient seen and evaluated with staff rn mds coordinator: Gen Cohen MD Department of Dermatology [facility] * Gen Cohen MD - 01/06/2022 1:20 PM EST I directly supervised Dr. Lemus in the care of this patient. I saw and evaluated this patient with Dr. Lemus. She presented the history and physical exam details to me, then we saw the patient together and I confirmed these findings. I agree with details as written. My physical examination confirms her findings. The assessment and plan were formulated in discussion with me at the time of visit and I agree withthem as documented. Gen Cohen MD FAAD Staff Physician Department of Dermatology documented in this encounter Plan of Treatment Not on file documented as of this encounter Visit Diagnoses Diagnosis Multiple benign nevi Benign neoplasm of skin, site unspecified Martinez angioma Nevus, non-neoplastic Lentigines Other dyschromia AK (actinic keratosis) Actinic keratosis Sebaceous hyperplasia Other specified disease of sebaceous glands Milia Sebaceous cyst SK (seborrheic keratosis) Other seborrheic keratosis documented in this encounter Care Teams Human Relations Manager Relationship Specialty Start Date End Date Donna Garcia APRN [address] [address] PCP - General Family Medicine 11/17/21 documented as of this encounter
--- OUTSIDE RECORDS SUMMARY | 2024-07-10 18:03 | XMS_ITS | Encounter Summary ---
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 Social History Tobacco Use Types Packs/Day Years [...] Sign Reading Time Taken Comments Blood Pressure 114/59 02/15/2021 1:10 PM EDT Pulse 95 02/15/2021 1:10 PM EDT Temperature 36.7 ??C (98.1 ??F) 02/15/2021 1:10 PM ED T Respiratory Rate 16 02/15/2021 1:10 PM EDT Oxygen Saturation 100% 02/15/2021 1:10 PM EDT Inhaled Oxygen Concentration - - Weight 85.6 kg (188 lb 12.8 oz) 02/15/2021 1:10 PM EDT Height - - Body Mass Index 31.42 10/07/2020 7:58 AM EST documented in this encounter Patient Instructions * Patient Instructions* Magi Terry MD - 02/15/2021 1:00 PM EDT Your exam is without worrisome finding. I would like to see you for followup in 6 months. Someone will contact you to schedule appointment. documented in this encounter Progress Notes * Magi Terry MD - 02/15/2021 1:00 PM EDT Images from the original note were not included. CC: Sched'd fu visit s/p xrt completion. HPI: Mikaela is a 65 y/o f who completed xrt 2 yrs., 8.5 mos ago (05/25/18) to L breast for ca, IDC, gr 1, ER+VT+, Her2 neg, s/p lumpectomy & SNB, pT1b [...] hemodynamically significant stenosis or vascular thrombosis. ?? 07/16/20 B mmg: Benign. 07/16/20 fu w/Toña Gomez, ACTING SECTION CHIEF; rtc 1 yr w/B mmg. Subjective: No breast problem. Continued fibromyalgia & muscle strains assoc'd w/recent fall. No hand/arm swelling. ROM arms around shoulders ok. Energy level ok, enjoying getting out in warmer weather. Past Medical History: Diagnosis Date ??? Breast cancer 02/15/2018 IDC No lupus/scleroderma. Fibromyalgia Past Surgical History: Procedure Laterality Date ??? BREAST BIOPSY Left 02/15/2018 IDC ??? BREAST LUMPECTOMY Left 03/22/2018 ??? PRO BX/REMV, LYMPH NODE, DEEP AXILL Left 03/22/2018 BIOPSY OR EXCISION OF LYMPH NODE(S), OPEN, DEEP AXILLARY NODE(S) (WRVU 6.43) performed by Pete Emmanuel MD at [facility] ??? PRO INTRAOP SENTINEL LYMPH ID W/DYE INJECTION Left 03/22/2018 INTRAOPERATIVE ID (MAPPING) SENTINEL LYMPH NODE,INCLUDES INJECTION (WRVU 2.5) performed by Pete Emmanuel MD at [facility] ??? PRO MASTECTOMY PARTIAL Left 03/22/2018 MASTECTOMY PARTIAL (WRVU 10.13) performed by Pete Emmanuel MD at [facility] Your Medications Accurate as of February 15, 2021 1:25 PM. If you have any questions, ask [...] by mouth daily. 40 mg Refills: 0 EPIPEN INJ Inject as directed once as needed. Refills: 0 escitalopram 10 mg Tab Commonly known as: Lexapro Take 10 mg by mouth daily. 10 mg Refills: 0 fluticasone propionate 50 mcg/actuation Spsn Commonly known as: FLONASE SPRAY TWO SPRAYS IN EACH NOSTRIL EVERY DAY FOR 1 WEEK MAY DECREASE USE WHEN FEELING BETTER Refills: 3 IMITREX ORAL Take 1 tablet by mouth as needed. 1 tablet Refills: 0 lisinopriL 10 mg Tab Commonly known as: Prinivil;Zestril Take 10 mg by mouth daily. 10 mg Refills: 0 LORazepam 0.5 mg Tab Commonly known as: Ativan TAKE ONE TABLET BY MOUTH TWICE A DAY NEEDED Refills: 0 memantine 5 mg Tab Commonly known as: Namenda TAKE ONE TABLET BY MOUTH EVERY EVENING Refills: 0 metFORMIN 500 mg Tab Commonly known as: Glucophage Take 500 mg by mouth 2 times daily (with meals). 500 mg Refills: 0 montelukast 10 mg Tab Commonly known as: Singulair Take 10 mg by mouth nightly. 10 mg Refills: 0 Narcan 2 mg/actuation [place] by Nasal route as needed. Generic drug: [...] 2 times daily. 50 mg Refills: 0 Physical Exam Constitutional: General: She is not in acute distress. Appearance: She is well-developed. She is not diaphoretic. Comments: BP 114/59 (Patient Position: Sitting) Pulse 95 Temp 36.7 ??C (98.1 ??F) Resp 16 Wt 85.6 kg (188 lb 12.8 oz) SpO2 100% BMI 31.42 kg/m?? HENT: Head: Normocephalic and atraumatic. Eyes: General: No scleral icterus. Right eye: No discharge. Left eye: No discharge. Extraocular Movements: Extraocular movements intact. Conjunctiva/sclera: Conjunctivae normal. Neck: Thyroid: No thyromegaly. Trachea: No tracheal deviation. Pulmonary: Effort: Pulmonary effort is normal. Breath sounds: Normal breath sounds. Chest: Breasts: Right: No inverted nipple, mass, nipple discharge, skin change or tenderness. Left: No inverted nipple, mass, nipple discharge, skin change or tenderness. Abdominal: General: There is no distension. Palpations: Abdomen is soft. There is no mass. Tenderness: There is no abdominal tenderness. There is no guarding or rebound. Musculoskeletal: General: No deformity. Normal range of motion. Cervical back: Normal range of motion and neck supple. Lymphadenopathy: Head: Right side of head: No submental, submandibular, preauricular, posterior auricular or occipital adenopathy. Left side of head: No submental, submandibular, preauricular, posterior auricular or occipital adenopathy. Cervical: No cervical adenopathy. Upper Body: Right upper body: No supraclavicular or axillary adenopathy. Left upper body: No supraclavicular or axillary adenopathy. Skin: General: Skin is warm and dry. Findings: No erythema. Neurological: Mental Status: She is alert and oriented to person, place, and time. Cranial Nerves: No cranial nerve deficit. Motor: No abnormal muscle tone. Coordination: Coordination normal. Psychiatric: Mood and Affect: Mood normal. Behavior: Behavior normal. Thought Content: Thought content normal. Judgment: Judgment normal. A: WHIT. P: Rtc 6 mos. Surg Onc in Jul w/mmg. 20 mins in encounter. 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
--- OUTSIDE RECORDS SUMMARY | 2024-07-10 18:03 | XMS_ITS | Encounter Summary ---
Author Organization [facility] [place] [address] Care Team Providers Care Billet Cutter Name Role Phone Karen Leora Byrne APRN Primary Care Provider + Reason for Visit * Reason Comments Radiation Follow-up Encounter Details Date Type Department Care Team (Late st Contact Info) Description 08/16/2021 4:00 PM EDT Office Visit Radiation Oncology at [address] [phone] Magi Terry MD [facility] [place] [address] Hormone receptor positive malignant neoplasm of left [...] Sign Reading Time Taken Comments Blood Pressure 118/70 08/16/2021 4:02 PM EDT Pulse 71 08/16/2021 4:02 PM EDT Temperature 36.4 ??C (97.5 ??F) 08/16/2021 4:02 PM ED T Respiratory Rate 16 08/16/2021 4:02 PM EDT Oxygen Saturation 100% 08/16/2021 4:02 PM EDT Inhaled Oxygen Concentration - - Weight - - Height - - Body Mass Index - - documented in this encounter Patient Instructions * Patient Instructions* Magi Terry MD - 08/16/2021 4:00 PM EDT Your exam is without worrisome finding. Someone will contact you to schedule followup with me in 6 months. documented in this encounter Progress Notes * Magi Terry MD - 08/16/2021 4:00 PM EDT Images from the original note were not included. CC: Sched'd fu visit s/p xrt completion. HPI: Mikaela is a 65 y/o f who completed xrt 3 yrs., 2.5 mos ago (05/25/18) to L breast for ca, IDC, gr 1, ER+DC+, Her2 neg, s/p lumpectomy & SNB, pT1b [...] ?? 07/20/21 B mmg: Benign. 07/20/21 fu w/Dennis. Sury Gomez, CUFF SETTER; rtc 1 yr w/B mmg. Subjective: No breast problem. Energy level ok, enjoyed wading in [facility] en route to today's appt. Past Medical History: Diagnosis Date ??? Breast cancer 02/15/2018 IDC No lupus/scleroderma. Fibromyalgia Past Surgical History: Procedure Laterality Date ??? BREAST BIOPSY Left 02/15/2018 IDC ??? BREAST LUMPECTOMY Left 03/22/2018 ??? PRO BX/REMV, LYMPH NODE, DEEP AXILL Left 03/22/2018 BIOPSY OR EXCISION OF LYMPH NODE(S), OPEN, DEEP AXILLARY NODE(S) (WRVU 6.43) performed by Pete Emmanuel MD at [facility] ??? PRO INTRAOP SENTINEL LYMPH ID W/DYE INJECTION Left 03/22/2018 INTRAOPERATIVE ID (MAPPING) SENTINEL LYMPH NODE,INCLUDES INJECTION (WRVU 2.5) performed by Pete Emmanuel MD at [facility] ??? PRO MASTECTOMY PARTIAL Left 03/22/2018 MASTECTOMY PARTIAL (WRVU 10.13) performed by Pete Emmanuel MD at [facility] Your Medications Accurate as of August 16, 2021 4:15 PM. If you have any questions, ask [...] Tab Commonly known as: ZyrTEC Refills: 0 EPIPEN INJ Inject as directed [...] 10 mg Refills: 0 Narcan 2 mg/actuation [place] by Nasal route as needed. Generic drug: [...] well-developed. She is not diaphoretic. Comments: BP 118/70 (Patient Position: Sitting) Pulse 71 Temp 36.4 ??C (97.5 ??F) (Temporal) Resp 16 SpO2 100% HENT: Head: Normocephalic and atraumatic. Eyes: General: [...] no guarding or rebound. Musculoskeletal: General: No swelling or deformity. Normal range of [...] normal. A: WHIT. P: Rtc 6 mos. 20 mins in encounter. 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
--- OUTSIDE RECORDS SUMMARY | 2024-07-10 18:03 | XMS_ITS | Encounter Summary ---
Author Organization [facility] [place] [address] Care Team Providers Care Can Technician Name Role Phone Leora Jones APRN Primary Care Provider + Encounter Details Date Type Department Care Team (Late st Contact Info) Description 05/27/2020 Telephone Neurology at [facility] [place] [phone] Yary Lozoya [place]N [facility] [place] [place] [address] Social History Tobacco Use Types Packs/Day Years Used Date Smoking Tobacco: Never Smokeless Tobacco: Never Alcohol Use Standard Drinks/Week Comments Not Currently 0 (1 standard drink = 0.6 oz pur e alcohol) Sex and Gender Information Value Date Recorded Sex Assigned at Not on file Gender Identity Not on file Sexual Orientation Not on file documented as of this encounter Miscellaneous Notes * Telephone Encounter - Julia Zavala RN - 05/27/2020 5:39 PM EDT Called Mikaela and let her know her echocardiogram was normal. She was thankful * Telephone Encounter - Julia Zavala RN - 05/27/2020 5:39 PM EDT ----- Message from Yary Lozoya APRN sent at 05/27/2020 11:35 AM EDT ----- Herrera Dumont Can you please give this patient a call and let her know that her echocardiogram was normal. Thanks, Yary ----- Message ----- From: David, Cardiology In Sent: 05/25/2020 9:59 AM EDT To: Yary Lozoya APRN documented in this encounter Plan of Treatment Not on file documented as of this encounter Visit Diagnoses Not on filedocumented in this encounter Care Teams Can Technician Relationship Specialty Start Date End Date Leora Jones APRN PCP - General Family Medicine 03/15/18 11/16/21 documented as of this encounter
--- OUTSIDE RECORDS SUMMARY | 2024-07-10 18:03 | XMS_ITS | Encounter Summary ---
Author Organization [facility] [place] [address] Care Team Providers Care Electronic Security Specialist Name Role Phone Leora Jones APRN Primary Care Provider + Encounter Details Date Type Department Care Team (Late st Contact Info) Description 07/16/2020 11:10 AM EDT Office Visit [place] [address] Tg Gomez [facility] [place] [address] Encounter for follow-up surveillance of breast cancer; [...] Progress Notes * Tg Gomez APRN - 07/16/2020 11:10 AM EDT Images from the original note were not included. Patient ID: Mikaela Payan is a 64 y.o. female HPI: Mikaela is a patient of Dr. Emmanuel with a history of invasive ductal carcinoma who returns for annual breast cancer surveillance. She is status post partial mastectomy and sentinel node excision on March 22, 2018. At today's visit, Mikaela denies any new lumps or bumps in her breasts or axilla. She does not perform occasional self-breast exams. No nipple discharge or pain in either breast. She denies any headaches or significant weight changes. No new chest pain or difficulty breathing. No new bony pain or tenderness. She reports ongoing short term memory issues and problems with word finding, that are sugge sting of chronic microvascular ischemic disease. She is followed by Neurology and is seeing a therapist. She also has chronic pain issues related to fibromyalgia. Breast cancer history: On a screening mammogram on 01/16/2018, there was a finding of a 9 mm mass in the left breast at 10:00, 6 cm from the nipple. US confirmed the finding and she went on to have a core biopsy which confirmed IDC, low grade, ER/CO positive, Her2 negative. Mikaela had an 8 mm low-grade infiltrating ductal carcinoma excised with negative margins. Nearest margin was 10 mm away. One sentinel node was negative. She completed adjuvant XRT on 05/25/2018 and took letrozole between 06/2018 and 04/2019. In 06/2019, she was switched to exemestane, but stopped that in 10/2019. She is not currently taking any endocrine therapy. Surgical Pathology: 02/15/2018: A - Left breast intact ultrasound-guided biopsy: Biopsies: ??Left breast. Diagnosis: ??Invasive ductal carcinoma, low grade, up to 8-mm, at inked/cauterized tissue edge. ?Ductal carcinoma in-situ (DCIS), cribriform, low to intermediate grade without necrosis at the inked/cauterized tissue edge. ER immunoreactivity: Positive (90% cancer cells with immunostaining) Stain intensity: Weak to Moderate CO immunoreactivity: Positive (50% cancer cells with immunostaining) Stain intensity: Moderate to Strong HER2 FISH: negative by FISH 03/26/2018: A - Left breast, partial mastectomy: - Focal residual invasive ductal carcinoma - Usual ductal hyperplasia, apocrine metaplasia, and cysts - Biopsy site changes B - Left axillary sentinel lymph node, excision: One lymph node, no malignancy identified (0/1) Synoptic Report Specimen ?Procedure: ??Excision (less than total mastectomy) ?Specimen Laterality: ?? Left Tumor ?Histologic Type: ?? Invasive ductal carcinoma ?Histologic Grade (Manjit Histologic Score) ? Glandular (Acinar) / Tubular Differentiation: ?Score 1 ? Nuclear Pleomorphism: ?? Score 1 ? Number of Mitoses per 10 [employer] [place]: ?0 mitotic figures ? Mitotic Rate: ?? Score 1 ? Overall Grade: ?? Grade 1 (scores of 3, 4 or 5) ?Tumor Size: ?? 8 Millimeters (mm) ?Tumor Focality: ?? Single focus of invasive carcinoma ?Ductal Carcinoma In Situ (DCIS): ?No DCIS in specimen ?Tumor Extent ? Skin: ??Skin is not present ? Skeletal Muscle: ?? No skeletal muscle is present ?Accessory Findings ? Lymphovascular Invasion: ?? Not identified ? Treatment Effect: ?? No known presurgical therapy Margins ?Invasive Carcinoma Margins: ?? Uninvolved by invasive carcinoma ? Distance from Other Specified Margin: ?All margins >10 Millimeters (mm) Lymph Nodes ?Number of Lymph Nodes with Macrometastases: ?? 0 ?Number of Lymph Nodes with Micrometastases: ??0 ?Number of Lymph Nodes with Isolated Tumor Cells: 0 ?Number of Rayle Nodes Examined: ?1 Pathologic Stage Classification (pTNM, AJCC 8th Edition) ?Primary Tumor (Invasive Carcinoma) (pT): ?pT1b ?Regional Lymph Nodes (pN) ? Modifier: ??(sn): Only sentinel node(s) evaluated. ? Category (pN): ?? pN0 Tumor Block(s): ?? 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 She does not smoke; ETOH - none. Past Medical Hx: Memory changes, fibromyalgia, T2DM Physical Exam: General appearance: Alert, well-developed, well-nourished female in no acute distress. Skin: Warm and dry. Head: Normocephalic, atraumatic. Neck: Soft and supple without adenopathy. Pulmonary: No respiratory distress, cough, or wheezing. Breasts: Left breast with well-healed incisions in upper inner breast and axilla. Right breast appears normal. No suspicious masses, tenderness, dimpling, erythema, or other skin changes in either breast. No nipple discharge or other nipple changes. No palpable axillary lymph nodes bilaterally. Thenipples are everted. There are no skin changes or dimpling noted in either breast. Musculoskeletal: Arms with full ROM without any evidence of lymphedema. Fully weight-bearing. Neurological: Alert and oriented x 4. Mood is euthymic and appropriate to the situation. Results: Imaging performed (bilateral mammogram) at [facility] today shows no evidence of malignancy, BIRADS Category 2 with heterogeneously dense breasts and post treatment changes on the left. The results were reviewed with her at today's appointment. Assessment: Clinical breast exam without notable masses, skin changes, dimpling, or nipple discharge. Stable exam. Plan: 1. Encounter for follow-up surveillance of breast cancer 2. Malignant neoplasm of upper-inner quadrant of left breast in female, estrogen receptor positive 3. Breast cancer screening by mammogram - Mammo Screening Cad and Alexx Bilateral; Jul 2021 I have discussed my assessment and recommendations with Mikaela to include occasional self-breast exams and annual mammographic screening with clinical breast exams. Based on her risk status, her nextbilateral screening mammogram is due in one year, or sooner if indicated. I will plan to see her back at that time with a mammogram and a clinical breast exam. She will also contact me if she develops any new breast changes or concerns prior to that time. She agrees to this plan. Routine recommendations discussed with the patient including importance of regular moderate intensity exercise, nutrition, decreasing cardiovascular risk, and optimizing weight. All questions were answered to the patient's satisfaction and they state understanding and agreement with today's treatment plan. They are encouraged to follow up sooner if they develop any new or concerning symptoms. Tg Gomez APRN Surgical Oncology P [phone] F [phone] [facility] documented in this encounter Plan of Treatment Not on file documented as of this encounter Results * Mammo Screening Cad and Alexx Bilateral (07/20/2021 9:39 AM EDT) Anatomical Region Laterality Modality Breast Bilateral Mammography Narrative 07/20/2021 9:55 AM EDT REASON FOR EXAM: Screening. History of left breast cancer. TECHNIQUE: CC and MLO views were obtained of both breasts. Computer aided detection was used. 3D tomosynthesis images were obtained in addition to 2D images. Comparison: The study is compared with prior images. FINDINGS: Breast density: There are scattered areas of fibroglandular density. There are no suspicious microcalcifications, masses, or areas of distortion. There are post treatment changes in the left breast. CONCLUSION: No mammographic evidence of malignancy. RECOMMENDATION: Routine screening. BIRADS CATEGORY 2: BENIGN FINDINGS * [...] who have questions please contact the health rn patient care that requested your imaging first. ? Electronically signed by: Pricila Ordonez MD, [facility] ([phone]), at 07/20/2021 9:55 AM Tg Gomez APRN IMG MAMMO ORD ERABLES [...] mammogram documented in this encounter Care Teams Electronic Security Specialist Relationship Specialty Start Date End Date Leora Jones APRN PCP - General Family Medicine 03/15/18 11/16/21 documented as of this encounter
--- OUTSIDE RECORDS SUMMARY | 2024-07-10 18:03 | XMS_ITS | Encounter Summary ---
Author Organization [facility] [place] [address] Care Team Providers Care Physics Department Chair Name Role Phone Leora Jones APRN Primary Care Provider + Encounter Details Date Type Department Care Team (Latest Contact Info) Description 07/20/2021 8:58 AM EDT - 07/20/2021 11:59 PM EDT Hospital En[place] [phone] Tg Gomez MILLING PL[employer]ER OPERATOR [facility] [place] [address] Malignant neoplasm of upper-inner quadrant of left breast in female, estrogen receptor positive; Breast cancer screening by mammogram Discharge Disposition: Home Social History Tobacco Use [...] Sig Dispensed Refills Start Date End Date pregabalin (LYRICA) 150 mg Capsule TAKE ONE CAPSULE BY MOUTH THREE TIMES A DAY 08/25/2020 aspirin 81 mg Tablet, Delayed Release (E.C.) [...] lungs as needed. fluticasone (FLONASE) 50 mcg/actuation [place], Suspension SPRAY TWO SPRAYS IN EACH NOSTRIL EVERY DAY FOR 1 WEEK MAY DECREASE USE WHEN FEELING BETTER 3 10/24/2017 epinephrine (EPIPEN INJ) Inject as directed once as needed. naloxone (NARCAN) 2 mg/actuation [place], Non-Aerosol by Nasal route as needed. sertraline (ZOLOFT) 100 mg Tablet Take 100 mg by mouth 2 times daily. traMADol (ULTRAM) 50 mg Tablet Take 50 mg by mouth 2 times daily. 02/09/2018 memantine (Namenda) 5 mg Tablet TAKE ONE TABLET BY MOUTH EVERY EVENING 07/29/2020 07/25/2022 documented as of this encounter Plan of Treatment Not on file documented as of this encounter Procedures Procedure Name Priority Date/Time Associated Diagnosis Comments MAMMO SCREENING CAD AND ALEXX BILATERAL Routine 07/20/2021 9:39 AM EDT Malignant neoplasm of upper-inner quadrant of left breast in female, estrogen receptor positive Breast cancer screening by mammogram documented in this encounter Results * Mammo [...] who have questions please contact the health medical care evaluation specialist that requested your imaging first. ? Tg Gomez APRN IMG MAMMO ORD ERABLES documented in this encounter Visit Diagnoses Diagnosis Malignant neoplasm of upper-inner quadrant of left breast in female, estrogen receptor positive Breast cancer screening by mammogram documented in this encounter Care Teams Physics Department Chair Relationship Specialty Start Date End Date Leora Jones APRN PCP - General Family Medicine 03/15/18 11/16/21 documented as of this encounter
--- OUTSIDE RECORDS SUMMARY | 2024-07-10 18:03 | XMS_ITS | Clinical Summary ---
Author Organization [facility] Address [facility] [place] [address] Care Team Providers Care Transition Lead Name Role Phone Donna Garcia ELVIS Primary Care Provider [phone] Allergies Active Allergy Reactions Criticality Noted Date Comments Bee Pollen 04/09/2018 Insects [place]ki Ousmane 05/29/2019 Grass Pollen 05/29/2019 Perfume Shortness Of Breath High 03/05/2018 Perfume or heavily scented products Tree Nuts Anaphylaxis High 03/07/2018 Tree Pollen-White Birch (Betula Verrucosa),Std 04/09/2018 Other tree pollens as well Medications Medication Sig Dispensed Refills Start Date End Date Status traMADol (ULTRAM) 50 mg Tablet Take 50 mg by mouth 2 times daily. 02/09/2018 Active sertraline (ZOLOFT) 100 mg Tablet Take 100 mg by mouth 2 times daily. Active lisinopril (PRINIVIL;ZESTRIL) 10 mg Tablet Take 10 mg by mouth daily. Active sumatriptan succinate (IMITREX ORAL) Take 1 tablet by mouth as needed. Active fexofenadine HCl (BRISA ORAL) Take 1 tablet by mouth as needed. Active ALBUTEROL INHL Inhale 2 puffs into the lungs as needed. Active fluticasone (FLONASE) 50 mcg/actuation [place], Suspension SPRAY TWO SPRAYS IN EACH NOSTRIL EVERY DAY FOR 1 WEEK MAY DECREASE USE WHEN FEELING BETTER 3 10/24/2017 Active epinephrine (EPIPEN INJ) Inject as directed once as needed. Active naloxone (NARCAN) 2 mg/actuation [place], Non-Aerosol by Nasal route as needed. Active montelukast (SINGULAIR) 10 mg Tablet Take 10 mg by mouth nightly. Active LORazepam (ATIVAN) 0.5 mg Tablet TAKE ONE TABLET BY MOUTH TWICE A DAY NEEDED 0 02/08/2018 Active atorvastatin (LIPITOR) 40 mg Tablet Take 40 mg by mouth daily. 07/09/2018 Active metFORMIN (GLUCOPHAGE) 500 mg Tablet Take 500 mg by mouth 2 times daily (with meals). 07/09/2018 Active escitalopram (LEXAPRO) 10 mg Tablet Take 10 mg by mouth daily. Active aspirin 81 mg Tablet, Delayed Release (E.C.) Take 81 mg by mouth daily. Active pregabalin (LYRICA) 150 mg Capsule TAKE ONE CAPSULE BY MOUTH THREE TIMES A DAY 08/25/2020 Active cetirizine (ZyrTEC) 10 mg Tablet 08/08/2021 Active cholecalciferol, Vitamin D3, 1,250 mcg (50,000 unit) Capsule TAKE ONE CAPSULE BY MOUTH EVERY WEEK 02/25/2022 Active Magnesium Gluconate 27 mg magnesium (500 mg) Tablet Take 1 tablet by mouth nightly. 02/11/2022 Active Active Problems Problem Noted Date Diagnosed Date Family history of breast cancer in first degree relative 07/24/2022 Overview (07/24/2022): Sister Paternal aunt PGM White matter disease 05/26/2020 Microcytosis 12/18/2019 Memory changes 12/18/2019 Diabetes mellitus 10/16/2019 Generalized weakness 10/16/2019 Fibromyalgia 07/23/2019 Low back pain, non-specific 07/23/2019 Malignant neoplasm of upper- inner quadrant of left breast in female, estrogen receptor positive 03/07/2018 Overview (09/19/2018): Left breast cancer T1bN0 upper inner quadrant ER/HI + her2 neg --annual mammograms since age 56, no prior callbacks or biopsies --abnormal screening mammogram 01/29/18 Showed 9 mm mass LUIQ --US guided biopsy 02/15/18 IDCA grade 1, er/pr ++ her2 neg --MRI 03/07/18 1. 5 cm mass LUIQ, right neg, nodes neg --03/12/18 bone scan for right anterior lower rib pain, negative for mets, + bilat OA --FCP testing negative --03/22/18 lumpectomy and SLNB: 8 mm grade 1, 0/1 LN +, no MYRTLE, no LVI --RT planned in [facility], to start 04/16/18 --letrozole started 06/12/18 Menses age 12-48; ; 1 sister with breast cancer at age 57, s/p mastx and tamoxifen 1 brother with testicular cancer; 1 brother no cancer; 1 daughter well, no cancer. No HRT. Family History Medical History Relation Comments Cancer Maternal Half-Brother 2 testicul ar Breast Cancer Paternal Aunt 60's Breast Cancer Paternal Grandmother 60's Breast Cancer Sister mastectomy, endo crine therapy Ovarian Cancer Neg Hx Relation Status Comments Father (Age 56) Maternal Grandfather (Age 65) Maternal Grandmother (Age 82) Maternal Half-Brother 1 Alive Maternal Half-Brother 2 Alive Mother Alive Paternal Aunt (Age 67) Paternal Grandfather (Age 70) Paternal Grandmother (Age 60) Sister Alive Social History Tobacco Use Types Packs/Day Years Used Date Smoking Tobacco: Never Smokeless Tobacco: Never Alcohol Use Standard Drinks/Week Comments Not Currently 0 (1 standard drink = 0.6 oz pur e alcohol) Sex and Gender Information Value Date Recorded Sex Assigned at Not on file Gender Identity Not on file Sexual Orientation Not on file Last Filed Vital Signs Vital Sign Reading [...] 12.8 oz) 02/28/2022 4:25 PM EDT Height 165.1 cm (5' 5) 10/07/2020 7:58 AM EST Body Mass Index 34.25 10/07/2020 7:58 AM EST Plan of Treatment Health Maintenance Due Date Last Done Comments CT Colonography 1956 Colonoscopy 1956 Colorectal Cancer Screening 1956 FIT DNA 1956 FIT 1956 Sigmoidoscopy (10 year) with FIT yearly 1956 Sigmoidoscopy 1956 Pneumoccocal Vaccine: 65+ (1 of 2 - PCV) 1962 DM Opthalmology Exam 1966 DM Urine Microalbumin yearly 1966 Hepatitis C Screening 1974 Tdap adult 1975 Tetanus vaccine 1975 Breast Cancer Share Decision Needed 1996 Zoster vaccine (1 of 2) 2006 Advance Directive 2011 DM Hemoglobin A1c 01/15/2020 10/16/2019 DM Creatinine yearly 07/16/2021 07/16/2020, 10/16/2019, 03/07/2018 Covid-19 Vaccine (1 - 2022-2 4 season) 2024 Influenza (Flu) vaccine (1 o f 1 - Influenza standard series) 07/07/2024 Breast Cancer screening 07/25/2024 07/25/20, 07/20/2021, 07/16/2020, Additional history exists Bone Density Scan 06/12/2033 06/12/2018 Medical Devices Implanted Type [employer] Project Manager Device Identifier Shelf Expiration Date Model / Serial / Lot Breast Clip-02/15/2018 Implanted:02/04 by Pricila Ordonez MD (Quantity not on file) Breast Clip Bard - 0614 [employer] ULTRACOR BREAST TISSUE MARKER ULTRASOUND ENHANCED LORI / / [id number] Description:vnus Procedures Procedure Name Priority Date/Time Associated Diagnosis Comments MAMMO SCREENING CAD AND ALEXX BILATERAL Routine 07/25/2022 1:06 PM EDT Malignant neoplasm of upper-inner quadrant of left breast in female, estrogen receptor positive Breast cancer screening by mammogram COMPREHENSIVE METABOLIC PANEL Routine 07/16/2020 10:56 AM EDT Malignant neoplasm of upper-inner quadrant of left breast in female, estrogen receptor positive HC HEMOGLOBIN A1C Routine 10/16/2019 12: 05 PM EST Generalized weakness Type 2 diabetes mellitus with other specified complication, without long-term current use of insulin DXA CENTRAL SPINE, HIP, AND/OR WHOLE BODY (GENERIC) Routine 06/12/2018 9:51 AM EDT Malignant neoplasm of upper-inner quadrant of left breast in female, estrogen receptor positive Encounter for screening for osteoporosis from Last 3 Months or Most Recently Relevant to Health Maintenance Results * Mammo Screening Cad and Alexx [...] who have questions please contact the health patient care provider that requested your imaging first. ? Tg Erazo Jason VOCATIONAL TECHNICAL EDUCATION TEACHER IMG MAMMO ORD ERABLES * (ABNORMAL) Comprehensive metabolic panel (non-fasting) (07/16/2020 10:56 AM EDT) Pathologist [facility] Glucose 126 65 - 199 mg/dL [facility] Comment:Diabetes: >=200 mg/d L plus symptoms Blood Urea Nitrogen 19(H) 8 - 18 mg/dL [facility] Creatinine 0.80 0.70 - 1.20 mg/dL [facility] Sodium 140 135 - 145 mmol/L [facility] Potassium 4.1 3.5 - 5.0 mmol/L [facility] Comment: Please note: ??Patients with WBC >100,000 may have falsely elevated Potassium levels. ??For accurate Potassium quantification in these patients send serum separator tube (gold top) for subsequent determinations. ??Contact the Clinical Chemistry Laboratory if there are any questions. Chloride 101 98 - 107 mmol/L [facility] Carbon Dioxide 27 22 - 31 mmol/L [facility] Anion Gap 12 5 - 15 mmol/L [facility] Calcium 10.0 8.5 - 10.5 mg/dL [facility] Protein, Total 7.2 6.1 - 8.0 gm/dL [facility] Albumin 4.4 3.2 - 5.2 gm/dL [facility] Aspartate Aminotransferase 14 0 - 30 unit/L [facility] Alanine Aminotransferase 10 0 - 30 unit/L [facility] Alkaline Phosphatase 92 35 - 105 unit/L [facility] Bilirubin, Total 0.3 0.2 - 1.3 mg/dL [facility] Est Glomerular Filtration Rate 78 >=60 mL/min/1. 73 m?? [facility] Comment: The eGFR was calculated using the CKD-EPI equation. As with all creatinine based estimates of kidney function, eGFR values calculated with the CKD-EPI equation are not accurate in patients with acute kidney failure, extremes of body mass or the acutely ill. http://[employer]/[facility] eGFR 91 >=60 mL/min/1. 73 m?? [facility] Comment: The eGFR was calculated using the CKD-EPI equation. As with all creatinine based estimates of kidney function, eGFR values calculated with the CKD-EPI equation are not accurate in patients with acute kidney failure, extremes of body mass or the acutely ill. http://[employer]/[facility] Blood specimen (specimen) 07/16/2020 10:56 AM EDT 07/16/2020 11:01 AM EDT Narrative Resulting Agency Comment Spec In Lab Kayla Espinosa MD CHEMISTRY ORDERABLES [facility] [place] [address] * (ABNORMAL) Hemoglobin A1c (10/16/2019 12:05 PM EST) Hemoglobin A1c 7.3(H) 4.3 - 5.6 % [facility] Comment: Reference Range: 4.3 - 5.6% 5.7 - 6.4% - Increased Risk of Developing Diabetes Mellitus >= 6.5% - Consistent with diagnosis of Diabetes Mellitus In the absence of hyperglycemia (i.e. plasma glucose > 200 mg/dL) or classic symptoms of hyperglycemia a repeat measurement of HbA1c should be performed on a separate sample to confirm the diagnosis. Diagnosis and Classification of Diabetes Mellitus, Diabetes Care 2013; 36: Suppl. 1, S69-92 Estimated Average Glucose 163 mg/dL [facility] Comment: eAG equivalents for HbA1c percentages: HbA1c(%) ?eAG(mg/dL) 6.0 ?126 6.5 ?140 7.0 ?154 7.5 ?169 8.0 ?183 8.5 ?197 9.0 ?212 9.5 ?226 10.0 ? 240 Limitations: The eAG calculation has not been validated on women, individuals below 18 years old and above 70 years old, and individuals with hemoglobinopathies. Additional resources are available on the ADA website. Jevon SANABRIA, Michael J, Luciano R, et al. ??Translating the A1C assay into estimated average glucose values. ??Diabetes Care 2008:31(8):1734-8877. Blood specimen (specimen) 10/16/2019 12:05 PM EST 10/16/2019 12:18 PM EST Narrative Resulting Agency Comment Spec In Lab Kayla Espinosa MD CHEMISTRY ORDERABLES Performing Organization Address City/State/[facility] Co de Phone Number [facility] [place] [address] * DXA Central-Spine, Hip, And/Or Whole Body (Generic) (06/12/2018 9:51 AM EDT) Anatomical Region Laterality Modality C-spine, Hip N/A Other Impressions 06/12/2018 1:17 PM EDT Measurements satisfied the WHO classification for normal bone mineral density. Measurements are near the threshold between normal bone mineral density and osteopenia. Estimating Fracture Risk: The relationship between bone mineral density (BMD) and risk of fracture is well established. As BMD decreases, risk increases. Quantifying risk is difficult and is usually limited to estimation of the relative risk - a term which may have limited value when trying to discuss an individual's risk. Estimating the absolute risk for a patient requires an understanding of the incidence rate in a given population and consideration of multiple, partially independent, risk factors in addition to BMD. The World Health Organization (WHO) has developed a fracture risk prediction tool that calculates a ten-year risk of major osteoporotic fracture based on femoral neck bone density measurements and nine clinical risk factors for individuals who have not been treated for osteoporosis. This is available through an interactive web-based interface (http://www.shef.ac.uk/FRAX/) and can be used to estimate a given patient's absolute risk of major osteoporotic fracture or hip fracture over the next 10 years. These estimates may prove useful when discussing risk with a patient. It is important, however, to understand the tool's limitations and how a given individual's risk might differ from the tool's estimate. The tool does not take into account the dose-response associated with most risk factors. For example, the significant increase in risk associated with multiple prior fractures compared to a single prior fracture is not taken into account. Similarly, the location of a previous fracture, the amount of glucocorticoids and number of cigarettes smoked are not considered. These limitations are discussed in a Frequently Asked Questions section of the FRAX website which you are encouraged to review. DXA data sheets with BMD measurements and plots are available in [employer] under the imaging tab. Paper copies will be sent to providers without E- access. If you have received this report without the data sheet and do not have access to [employer], please contact Radiology Carpet Layer Helper at [phone] Monday thru Monday 8am-4pm. Narrative 06/12/2018 1:17 PM EDT EXAMINATION: DXA CENTRAL-SPINE, HIP, AND/OR WHOLE BODY (GENERIC) CLINICAL HISTORY: 62-year-old postmenopausal woman referred for screening for osteoporosis TECHNIQUE: Scans were acquired at the lumbar spine and left hip. COMPARISON: None FINDINGS: Lowest T-score at a diagnostic region of interest: T-score: -0.9, PARAMJIT: Left femoral neck, WHO diagnosis: Normal bone mineral density. Procedure Note Wendy Gaston MD - 06/12/2018 EXAMINATION: DXA CENTRAL-SPINE, HIP, AND/OR WHOLE BODY (GENERIC) CLINICAL HISTORY: 62-year-old postmenopausal woman referred for screeningfor osteoporosis TECHNIQUE: Scans were acquired at the lumbar spine and left hip. COMPARISON: None FINDINGS: Lowest T-score at a diagnostic region of interest: T-score: -0.9, PARAMJIT: Left femoral neck, WHO diagnosis: Normal bonemineral density. IMPRESSION Measurements satisfied the WHO classification for normal bone mineraldensity. Measurements are near the threshold between normal bone mineral densityand osteopenia. Estimating Fracture Risk: The relationship between bone mineral density (BMD) and risk of fractureis well established. As BMD decreases, risk increases. Quantifying risk isdifficult and is usually limited to estimation of the relative risk - a term which mayhave limited value when trying to discuss an individual's risk. Estimatingthe absolute risk for a patient requires an understanding of the incidencerate in a given population and consideration of multiple, partially independent,risk factors in addition to BMD. The World Health Organization (WHO) has developed a fracture riskprediction tool that calculates a ten-year risk of major osteoporotic fracture basedon femoral neck bone density measurements and nine clinical risk factorsfor individuals who have not been treated for osteoporosis. This isavailable through an interactive web-based interface (http://www.shef.ac.uk/FRAX/)and can be used to estimate a given patient's absolute risk of majorosteoporotic fracture or hip fracture over the next 10 years. These estimates mayprove useful when discussing risk with a patient. It is important, however, to understand the tool's limitations and how a given individual's risk mightdiffer from the tool's estimate. The tool does not take into account thedose-response associated with most risk factors. For example, the significant increasein risk associated with multiple prior fractures compared to a single priorfracture is not taken into account. Similarly, the location of a previous fracture,the amount of glucocorticoids and number of cigarettes smoked are notconsidered. These limitations are discussed in a Frequently Asked Questions sectionof the FRAX website which you are encouraged to review. DXA data sheets with BMD measurements and plots are available in [employer] the imaging tab. Paper copies will be sent to providers without [employer] access.If you have received this report without the data sheet and do not haveaccess to [employer], please contact Radiology Car[employer] Layer Helper at [phone] Monday thruFrid 8am-4pm. Chari Gruber MD IMG DEXA ORDERABLES from Last 3 Months or Most Recently Relevant to Health Maintenance Advance Directives * Full Code (Latest Code Status on File) Date Activated Date Inactivated Comments 04/17/2018 1:41 PM Question Answer Comments Does patient have capacity to make decision: Yes Content of discussion: Full code * Full Code Date Activated Date Inactivated Comments 03/22/2018 9:58 AM 03/22/2018 3:32 PM Question Answer Comments Does patient have capacity to make decision: Yes Care Teams Transition Lead Relationship Specialty Start Date End Date Donna Garcia, VOCATIONAL TECHNICAL EDUCATION TEACHER [address] [place] [address] PCP - General Family Medicine 11/17/21
--- OUTSIDE RECORDS SUMMARY | 2024-07-10 18:03 | XMS_ITS | Encounter Summary ---
Author Organization [facility] Address [facility] [place] [address] Care Team Providers Care Analysis Evaluator Name Role Phone Karen Leora Byrne APRN Primary Care Provider + Encounter Details Date Type Department Care Team (Late st Contact Info) Description 08/03/2020 2:30 PM EDT Office Visit Radiation Oncology at [address] [phone] Magi Terry MD [facility] [place] [address] Hormone receptor positive malignant neoplasm of left [...] Sign Reading Time Taken Comments Blood Pressure 103/71 08/03/2020 2:38 PM EDT Pulse 75 08/03/2020 2:38 PM EDT Temperature 36.7 ??C (98.1 ??F) 08/03/2020 2:38 PM ED T Respiratory Rate 18 08/03/2020 2:38 PM EDT Oxygen Saturation 100% 08/03/2020 2:38 PM EDT Inhaled Oxygen Concentration - - Weight 84.6 kg (186 lb 9.6 oz) 08/03/2020 2:38 P M EDT Height - - Body Mass Index 30.49 12/18/2019 12:55 PM EST documented in this encounter Patient Instructions * Patient Instructions* Magi Terry MD - 08/03/2020 2:30 PM EDT Your exam is without worrisome finding. I would like to see you for followup in 6 months. Someone will contact you to schedule appointment. documented in this encounter Progress Notes * Magi Terry MD - 08/03/2020 2:30 PM EDT Images from the original note were not included. CC: Sched'd fu visit s/p xrt completion. HPI: Mikaela is a 64 y/o f who completed xrt 2 yrs., 3 mos ago (05/25/18) to L breast for ca, IDC, gr1, ER+DC+, Her2 neg, s/p lumpectomy & SNB, [...] ?? 07/16/20 B mmg: Benign. 07/16/20 fu w/C. Sury Gomez, [employer]; rtc 1 yr w/B mmg. Subjective: No breat problem. No pain. Past Medical History: Diagnosis Date ??? Breast cancer 02/15/2018 IDC No lupus/scleroderma. Past Surgical History: Procedure Laterality Date ??? BREAST BIOPSY Left 02/15/2018 IDC ??? BREAST LUMPECTOMY Left 03/22/2018 ??? PRO BX/REMV, LYMPH NODE, DEEP AXILL Left 03/22/2018 BIOPSY OR EXCISION OF LYMPH NODE(S), OPEN, DEEP AXILLARY NODE(S) (WRVU 6.43) performed by Pete Emmanuel MD at [facility] ??? PRO INTRAOP SENTINEL LYMPH ID W/DYE INJECTION Left 03/22/2018 INTRAOPERATIVE ID (MAPPING) SENTINEL LYMPH NODE,INCLUDES INJECTION (WRVU 2.5) performed by Pete Emmanuel MD at [facility] ??? PRO MASTECTOMY PARTIAL Left 03/22/2018 MASTECTOMY PARTIAL (WRVU 10.13) performed by Pete Emmanuel MD at [facility] Your Medications Accurate as of August 03, 2020 2:46 PM. If you have any questions, ask [...] 10 mg Refills: 0 Narcan 2 mg/actuation [place] by Nasal route as needed. Generic drug: naloxone Refills: 0 pregabalin 50 mg Cap Commonly known as: Lyrica Take 50 mg by mouth 2 times daily. 50 mg Refills: 0 sertraline 100 mg Tab Commonly known as: ZOLOFT Take 100 mg by mouth 2 times daily. 100 mg Refills: 0 traMADoL 50 mg Tab Commonly known as: Ultram Take 50 mg by mouth 2 times daily. 50 mg Refills: 0 Physical Exam Constitutional: General: She is not in acute distress. Appearance: She is well-developed. She is not diaphoretic. Comments: BP 103/71 (Patient Position: Sitting) Pulse 75 Temp 36.7 ??C (98.1 ??F) (Temporal) Resp 18 Wt 84.6 kg (186 lb 9.6 oz) SpO2 100% BMI 30.49 kg/m?? HENT: Head: Normocephalic and atraumatic. Eyes: General: No scleral icterus. Right eye: No discharge. Left eye: No discharge. Extraocular Movements: Extraocular movements intact. Conjunctiva/sclera: Conjunctivae normal. Neck: Musculoskeletal: Normal range of motion and neck supple. Thyroid: No thyromegaly. Trachea: No tracheal deviation. Pulmonary: Effort: Pulmonary effort is normal. Breath sounds: Normal breath sounds. Chest: Breasts: Right: No inverted nipple, mass, nipple discharge, skin change or tenderness. Left: No inverted nipple, mass, nipple discharge or skin change. Abdominal: General: There is no distension. Palpations: Abdomen is soft. There is no mass. Tenderness: There is no abdominal tenderness. There is no guarding or rebound. Musculoskeletal: Normal range of motion. General: No deformity. Lymphadenopathy: Head: Right side of head: No [...] normal. A: WHIT. P: Rtc 6 mos. documented in this encounter Plan of Treatment Not on file documented as of this encounter Visit Diagnoses Diagnosis Hormone receptor positive malignant neoplasm of left breast documented in this encounter Care Teams Analysis Evaluator Relationship Specialty Start Date End Date Leora Jones APRN PCP - General Family Medicine 03/15/18 11/16/21 documented as of this encounter
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
--- OUTSIDE RECORDS SUMMARY | 2024-07-10 18:03 | XMS_ITS | Encounter Summary ---
Author Organization [facility] [place] [address] Care Team Providers Care Breaking Machine Operator Name Role Phone Boolevar Donnadorene Leal APRN Primary Care Provider [phone] Encounter Details Date Type Department Care Team (Latest Contact Info) Description 07/25/2022 12:41 PM EDT - 07/25/2022 11:59 PM EDT Hospital Encounter Mammography/[place] [id number] Tg Gomez [facility] [place] [address] Malignant neoplasm of upper-inner quadrant of left [...] Sig Dispensed Refills Start Date End Date cholecalciferol, Vitamin D3, 1,250 mcg (50,000 unit) Capsule TAKE ONE CAPSULE BY MOUTH EVERY WEEK 02/25/2022 Magnesium Gluconate 27 mg magnesium (500 mg) Tablet Take 1 tablet by mouth nightly. 02/11/2022 cetirizine (ZyrTEC) 10 mg Tablet 08/08/2021 pregabalin (LYRICA) 150 mg Capsule TAKE ONE [...] lungs as needed. fluticasone (FLONASE) 50 mcg/actuation [place], Suspension SPRAY TWO SPRAYS IN EACH NOSTRIL EVERY DAY FOR 1 WEEK MAY DECREASE USE WHEN FEELING BETTER 3 10/24/2017 epinephrine (EPIPEN INJ) Inject as directed once as needed. naloxone (NARCAN) 2 mg/actuation [place], Non-Aerosol by Nasal route as needed. sertraline (ZOLOFT) 100 mg Tablet Take 100 mg by mouth 2 times daily. traMADol (ULTRAM) 50 mg Tablet Take 50 mg by mouth 2 times daily. 02/09/2018 documented as of this encounter Plan of [...] who have questions please contact the health coronary care unit nurse that requested your imaging first. ? Electronically signed by: Veena Cedillo MD, [facility] ([phone]), at 07/26/2022 6:47 AM Tg Gomez [facility] ORD ERABLES documented in this encounter Visit Diagnoses Diagnosis Malignant neoplasm of upper-inner quadrant of left breast in female, estrogen receptor positive Breast cancer screening by mammogram documented in this encounter Care Teams Breaking Machine Operator Relationship Specialty Start Date End Date Donna Garcia APRN [address] [place] [id number] PCP - General Family Medicine 11/17/21 documented as of this encounter
--- OUTSIDE RECORDS SUMMARY | 2024-07-10 18:03 | XMS_ITS | Encounter Summary ---
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 available through [facility] ([email or web address]/) or universities across the (https://www.[employer].org/). ??? She is encouraged to continue using compensatory strategies she has found helpful (e.g., notetaking). She may also wish to utilize other strategies, such as using a calendar or white board to keep track of appointments or setting recurring alarms on her phone to provide additional cues for taking medications or paying bills. ??? Ms. Payan may benefit from having tasks or information broken down into smaller steps or chunks. This will further help limit the demands placed on her working memory at any given time, which could be particularly useful when she is working through novel or complex problems. Specifically, she could practice the following steps: o Break complex problems into simpler component parts o Organize these sequentially o Tackle them one at a time o Take occasional breaks to review progress towards goals o Assess level of emotional distress to ensure that this is not interfering o Adjust strategies accordingly ??? Given her strong verbal skills, use of verbal mnemonic strategies (rhymes, acronyms, songs, categories) may enhance encoding of novel information. Further, she is encouraged to practice elaboraterehearsal by making new information meaningful and/or relating it to other information with which she is more familiar. Thinking of new information in meaningful ways, such as comparing and contrasting new information to information already known, may also provide a deeper level of encoding, thereby increasing the likelihood of retention. ??? To address potential problems related to reduced speed of information processing she may consider scheduling more difficult activities for a time of day where she is usually most alert and plan shorter activities and outings. Allow for more time in comprehending, processing and responding in conversation, ask for instructions or details of conversations to be repeated if necessary and repeat or paraphrase aloud important information to be recalled. ??? She might benefit from strategies to increase focus and attention, if not already being done, such as: o Talk aloud through a task, as this can increase attention to the task and, secondarily, increase error recognition. o Read aloud when reviewing written material to promote slower and more deliberate processing. o Perform the least appealing/interesting tasks when attentional capacity is at its highest. ??? Neuropsychological reevaluation is not indicated at this time, unless cognitive functioning significantly worsens despite improved psychological functioning. Thank you for referring Ms. Payan for neuropsychological evaluation. If you would like additional information, please do not hesitate to contact us at . Billie Garcia, Ph.D. Postdoctoral Fellow in Neuropsychology Jimmy Hdez, Ph.D. ABPP Board Certified in Clinical Neuropsychology Equipment Superintendentanalytical scientist A postdoctoral fellow in neuropsychology was involved in test administration, interpretation, and report development. The interpretation and integration of pertinent clinical information found in this report was directed and verified by the supervising neuropsychologist/licensed clinical psychologist. 18024: 1 hour (1 unit) 46966: 1 hour 41 minutes (2 units) 06670: 30 minutes (1 unit) 46668: 4 hours 52 minutes (10 units) Billing Code: Depression, unspecified depression type [F32.9 (ICD-10-CM)], Anxiety [F41.9 (ICD-10-CM)], Post-traumatic stress disorder, chronic [F43.12 (ICD-10-CM)] documented in this encounter Plan of Treatment Not on file documented as of this encounter Visit Diagnoses Diagnosis Depression, unspecified depression type Anxiety Anxiety state, unspecified Post-traumatic stress disorder, chronic documented in this encounter Care Teams Line Assembler Relationship Specialty Start Date End Date Leora Jones APRN PCP - General Family Medicine 03/15/18 11/16/21 documented as of this encounter
--- OUTSIDE RECORDS SUMMARY | 2024-07-10 18:04 | XMS_ITS | Encounter Summary ---
Author Organization [facility] [address] Care Team Providers Care Dental Surgeon Name Role Phone Leora Jones APRN Primary Care Provider + Reason for Referral * Diagnostic Test (Routine) - Closed Specialty Diagnoses / Procedures Referred By Contac t Referred To Contact Cardiology Diagnoses White matter disease Cerebral infarction, unspecified mechanism Procedures Echocardiogram Transthoracic([facility]) Yary Lozoya APRN [facility] [place] [address] [facility] [place] [address] Referral ID Status Reason Start Date Expiration Date V isits Requested Visits Authorized [id number] Closed Specialty Service Requested 05/22/2020 11/18/2020 1 1 Reason for Visit * Diagnostic Test (Routine) - Closed Specialty Diagnoses / Procedures Referred By Contac t Referred To Contact Cardiology Diagnoses White matter disease Cerebral infarction, unspecified mechanism Procedures Echocardiogram Transthoracic([facility]) Yary Lozoya APRN [facility] [place] [address] [facility] [place] [address] Referral ID Status Reason Start Date Expiration Date V isits Requested Visits Authorized [id number] Closed Specialty Service Requested 05/22/2020 11/18/2020 1 1 Encounter Details Date Type Department Care Team (Latest Contact Info) Description 05/25/2020 8:48 AM EDT - 05/25/2020 11:59 PM EDT Hospital Encounter Non-Invasive Cardiology Lab [facility] [place] [address] Yary Lozoya, ELVIS [facility] [place] [address] White matter disease; Cerebral infarction, unspecified mechanism Discharge Disposition: Home Social History Tobacco Use [...] lungs as needed. fluticasone (FLONASE) 50 mcg/actuation [place], Suspension SPRAY TWO SPRAYS IN EACH NOSTRIL EVERY DAY FOR 1 WEEK MAY DECREASE USE WHEN FEELING BETTER 3 10/24/2017 epinephrine (EPIPEN INJ) Inject as directed once as needed. naloxone (NARCAN) 2 mg/actuation [place], Non-Aerosol by Nasal route as needed. sertraline [...] Procedure Name Priority Date/Time Associated Diagnosis Comments ECHO COMPLETE Routine 05/25/2020 9:38 AM EDT White matter disease Cerebral infarction, unspecified mechanism documented in this encounter Results * ECHO COMPLETE (05/25/2020 9:38 AM EDT) EF 63 HEARTLAB SYSTEM Anatomical Region Laterality Modality Other 05/25/2020 Narrative 05/25/2020 9:59 AM EDT Procedure: ?Transthoracic Echocardiogram Patient: ?PAYAN SRINIVAS R ? (Age): 1955(64y) Med Rec#: ? [id number] ?Sex: ?F ? [place] ? [facility]Ht / Wt: ??165.1(cm)/83.92 Pt. Loc: ?Echo Lab ?BSA: ?1.91 Study Date: ?? 05/25/2020 ?Pt. Type: Outpatient Tape: ? Referring: MAGDIEL Reading: Tip Leblanc ([id number]) Time Study Statistician: Caity Fernando Diagnosis: *Cerebral infarction, unspecified (I63.9) *White matter disease, unspecified (R90.82) BP: ? 112/92 SUMMARY: 1. The left ventricular chamber size is normal. ??There is normal global left ventricular systolic function. ??The quantitative left ventricular ejection fraction by biplane Barrios's method is 63%. ??There are no left ventricular segmental wall motion abnormalities. 2. Right ventricular chamber size, wall thickness, and systolic function are within normal limits. 3. The left atrium is normal in size. 4. No significant valvular abnormalities. 5. See remainder of report for additional findings. Findings ? : Study Quality: ? Adequate Left Ventricle: ? The left ventricular chamber size is normal. ?Left ventricular wall thickness is normal. ?There is no evidence of LVOT obstruction. ?No ventricular septal defect is visualized. ?There is normal global left ventricular systolic function. ?The quantitative left ventricular ejection fraction by biplane Barrios's method is 63%. ?There are no left ventricular segmental wall motion abnormalities. ?Left ventricular diastolic function is normal. ?Doppler assessment is consistent with normal left sided filling pressure. Left Atrium: ? The left atrium is normal in size. ?No atrial septal defect is visualized. Right Ventricle: ? Right ventricular chamber size, wall thickness, and systolic function are within normal limits. ?Pulmonary artery hypertension could not be assessed due to inadequate tricuspid regurgitation jet. Right Atrium: ? The right atrium appears normal. Aortic Valve: ? The aortic valve is tricuspid. ?The aortic valve leaflets are mildly thickened. ?Systolic excursion of the aortic valve is normal. ?There is no evidence of aortic valve stenosis. ?There is a trace of aortic regurgitation present. Mitral Valve: ? The mitral valve leaflets appear normal. ?The mitral valve leaflets are mildly thickened. ?There is no evidence of mitral valve leaflet prolapse. ?There is no evidence of mitral stenosis. ?There is trace mitral regurgitation present. Tricuspid Valve: ? The tricuspid valve appears normal in structure and function. ?There is trace tricuspid regurgitation present. Pulmonic Valve: ? The pulmonic valve appears normal in structure and function. Pericardium: ? The pericardium appears normal and there is no evidence of a pericardial effusion. Aorta: ? The aortic root is normal in size. ?The ascending aorta is normal in size. ?There is no evidence of coarctation of the aorta. Pulmonary Artery: ? The main pulmonary artery appears normal. Venous: ? The inferior vena cava appears normal in size. ?There is a greater than 50% respiratory change in the inferior vena cava dimension. Misc: ? Two-dimensional echo, spectral Doppler and color Doppler performed. Chambers 2D ?Value ?Units (Range) ? RVIDd ??Base ? 2.4 ?cm ? RVIDd ??Mid (AP) ? 1.7 ?cm ? IVSd (2D) ? 1.1 ?cm ? LVPWd (2D) ?1.1 ?cm ? IVS:LVPW ratio (2D) 1 ?ratio ? RWT (2D) ?0.54 ? ratio ? RWT PW (2D) ? 0.54 ? ratio ? LVIDd (2D) ?4.1 ?cm ? LVIDs (2D) ?2.5 ?cm ? LVIDd (2D) index ?2.14 ? cm/m2 ? LVIDs (2D) index ?1.31 ? cm/m2 ? LV FS (2D) ?39.02 ?% ? EF Teichholz (2D) ?? 69.93 ?% ? Ao root diameter (2D3.2 ?cm (2.1 - 3.6) ? Ascending Ao ?3.5 ?cm (2 - 3.5) ? Volumes/Mass ?Value ?Units (Range) ? LA Area 4 CH ?16 ? cm2 (<21) ? RA AREA 4CH ? 13 ? cm2 ? LA ESV BP (MOD) inde22.47 ?ml/m2 ? LV ESV SP 4CH (MOD) 28.7 ? ml ? LV ESV SP 2CH (MOD) 33.2 ? ml ? LV EDV BP ? 86.5 ? ml ? LV ESV BP ? 31.8 ? ml ? LV EDV BP index ? 45.2 ? ml/m2 ? LV ESV BP index ? 16.62 ?ml/m2 ? BP EF (MOD) ? 63.24 ?% ? LV mass (2D) ?151.3 ?g ? LV mass (2D) index ??79.06 ?g/m2 ? Diastolic/Systolic Function ?Value ?Units (Range) ? MV E-wave Vmax ?0.91 ? m/sec ? MV deceleration [id number] ?msec ? MV A-wave Vmax ?0.83 ? m/sec ? MV E:A ratio ?1.1 ?ratio ? LV septal e' Vmax ?? 0.06 ? m/sec ? LV lateral e' Vmax ??0.08 ? m/sec ? LV average e' Vmax ??0.07 ? m/sec ? LV E:e' septal ratio15.22 ?ratio ? LV E:e' lateral rati11.41 ?ratio ? LV average E:e' rati13.04 ?ratio ? Mitral Valve ?Value ?Units (Range) ? MV PHT ?62 ? msec ? MVA (PHT) ? 3.55 ? cm2 ? Tricuspid Valve ?Value ?Units (Range) ? TAPSE ? 2 ?cm ? RV lateral s' Vmax ??0.12 ? m/sec ? Measurement Trending Name ? 05/25/2020 ? BP EF (MOD) ?63.24 Wall Motion: Segment Name ?Rest ? Base-Anteroseptal ?? Normal ? Base-Anterior ? Normal ? Base-Anterolateral ??Normal ? Base-Posterolateral Normal ? Base-Inferior ? Normal ? Base-Inferoseptal ?? Normal ? Mid-Anteroseptal ?Normal ? Mid-Anterior ?Normal ? Mid-Anterolateral ?? Normal ? Mid-Posterolateral ??Normal ? Mid-Inferior ?Normal ? Mid-Inferoseptal ?Normal ? [place]-Septal ? Normal ? [place]-Anterior ? Normal ? [place]-Lateral ?Normal ? [place]-Inferior ? Normal ? [place]-Tip ?Normal ? This report has been electronically signed by: Tip Leblanc MD ? 05/25/2020 09:58:46 Images reviewed and interpretation verified [facility] Procedure Note Tip Leblanc MD - 05/25/2020 Procedure: Transthoracic Echocardiogram Patient: STAN LARA(Age): 1955(64y) Med Rec#: [id number] Sex: F [place] [facility] Ht / Wt: 165.1(cm)/83.92 Pt. Loc: Echo Lab BSA: 1.91 Study Date: 05/25/2020 Pt. Type: Outpatient Tape: Referring: MAGDIEL Reading: Tip Leblanc ([id number]) Time Study Statistician: Caity Fernando Diagnosis: *Cerebral infarction, unspecified (I63.9) *White matter disease, unspecified (R90.82) BP: 112/92 SUMMARY: 1. The left ventricular chamber size is normal. There is normal global left ventricular systolic function. The quantitative left ventricular ejection fraction by biplane Barrios's method is 63%. There are no left ventricular segmental wall motion abnormalities. 2. Right ventricular chamber size, wall thickness, and systolic function are within normal limits. 3. The left atrium is normal in size. 4. No significant valvular abnormalities. 5. See remainder of report for additional findings. Findings : Study Quality: Adequate Left Ventricle: The left ventricular chamber size is normal. Left ventricular wall thickness is normal. There is no evidence of LVOT obstruction. No ventricular septal defect is visualized. There is normal global left ventricular systolic function. The quantitative left ventricular ejection fraction by biplane Barrios's method is 63%. There are no left ventricular segmental wall motion abnormalities. Left ventricular diastolic function is normal. Doppler assessment is consistent with normal left sided filling pressure. Left Atrium: The left atrium is normal in size. No atrial septal defect is visualized. Right Ventricle: Right ventricular chamber size, wall thickness, and systolic function are within normal limits. Pulmonary artery hypertension could not be assessed due to inadequate tricuspid regurgitation jet. Right Atrium: The right atrium appears normal. Aortic Valve: The aortic valve is tricuspid. The aortic valve leaflets are mildly thickened. Systolic excursion of the aortic valve is normal. There is no evidence of aortic valve stenosis. There is a trace of aortic regurgitation present. Mitral Valve: The mitral valve leaflets appear normal. The mitral valve leaflets are mildly thickened. There is no evidence of mitral valve leaflet prolapse. There is no evidence of mitral stenosis. There is trace mitral regurgitation present. Tricuspid Valve: The tricuspid valve appears normal in structure and function. There is trace tricuspid regurgitation present. Pulmonic Valve: The pulmonic valve appears normal in structure and function. Pericardium: The pericardium appears normal and there is no evidence of a pericardial effusion. Aorta: The aortic root is normal in size. The ascending aorta is normal in size. There is no evidence of coarctation of the aorta. Pulmonary Artery: The main pulmonary artery appears normal. Venous: The inferior vena cava appears normal in size. There is a greater than 50% respiratory change in the inferior vena cava dimension. Misc: Two-dimensional echo, spectral Doppler and color Doppler performed. Chambers 2D Value Units (Range) RVIDd Base 2.4 cm RVIDd Mid (AP) 1.7 cm IVSd (2D) 1.1 cm LVPWd (2D) 1.1 cm IVS:LVPW ratio (2D) 1 ratio RWT (2D) 0.54 ratio RWT PW (2D) 0.54 ratio LVIDd (2D) 4.1 cm LVIDs (2D) 2.5 cm LVIDd (2D) index 2.14 cm/m2 LVIDs (2D) index 1.31 cm/m2 LV FS (2D) 39.02 % EF Teichholz (2D) 69.93 % Ao root diameter (2D3.2 cm (2.1 - 3.6) Ascending Ao 3.5 cm (2 - 3.5) Volumes/Mass Value Units (Range) LA Area 4 CH 16 cm2 (<21) RA AREA 4CH 13 cm2 LA ESV BP (MOD) inde22.47 ml/m2 LV ESV SP 4CH (MOD) 28.7 ml LV ESV SP 2CH (MOD) 33.2 ml LV EDV BP 86.5 ml LV ESV BP 31.8 ml LV EDV BP index 45.2 ml/m2 LV ESV BP index 16.62 ml/m2 BP EF (MOD) 63.24 % LV mass (2D) 151.3 g LV mass (2D) index 79.06 g/m2 Diastolic/Systolic Function Value Units (Range) MV E-wave Vmax 0.91 m/sec MV deceleration [id number] msec MV A-wave Vmax 0.83 m/sec MV E:A ratio 1.1 ratio LV septal e' Vmax 0.06 m/sec LV lateral e' Vmax 0.08 m/sec LV average e' Vmax 0.07 m/sec LV E:e' septal ratio15.22 ratio LV E:e' lateral rati11.41 ratio LV average E:e' rati13.04 ratio Mitral Valve Value Units (Range) MV PHT 62 msec MVA (PHT) 3.55 cm2 Tricuspid Valve Value Units (Range) TAPSE 2 cm RV lateral s' Vmax 0.12 m/sec Measurement Trending Name 05/25/2020 BP EF (MOD) 63.24 Wall Motion: Segment Name Rest Base-Anteroseptal Normal Base-Anterior Normal Base-Anterolateral Normal Base-Posterolateral Normal Base-Inferior Normal Base-Inferoseptal Normal Mid-Anteroseptal Normal Mid-Anterior Normal Mid-Anterolateral Normal Mid-Posterolateral Normal Mid-Inferior Normal Mid-Inferoseptal Normal [place]-Septal Normal [place]-Anterior Normal [place]-Lateral Normal [place]-Inferior Normal [place]-Tip Normal This report has been electronically signed by: Tip Leblanc MD 05/25/2020 09:58:46 Images reviewed and interpretation verified [facility] Yary Lozoya APRN ECHO ORDERABLES documented in this encounter Visit Diagnoses Diagnosis White matter disease Other conditions of brain Cerebral infarction, unspecified mechanism documented in this encounter Care Teams Dental Surgeon Relationship Specialty Start Date End Date Leora Jones APRN PCP - General Family Medicine 03/15/18 11/16/21 documented as of this encounter
--- OUTSIDE RECORDS SUMMARY | 2024-07-10 18:04 | XMS_ITS | Encounter Summary ---
Author Organization [facility] Address [facility] Rola raygoza [place] [id number] Care Team Providers Care Artisan Plasterer Name Role Phone Karen Leora Byrne APRN Primary Care Provider + Reason for Visit * Reason Comments Advice Only * Consultation (Routine) - Closed Specialty Diagnoses / Procedures Referred By Contantonio t Referred To Contact Neurology Diagnoses White matter disease Cerebral infarction, unspecified mechanism Yary Lozoya APRN [facility] [place] [address] Sandy Nj MD [facility] [place] [address] Referral ID Status Reason Start Date Expiration Date V isits Requested Visits Authorized [id number] Closed Consult, Test & Treat 04/20/2020 04/20/2021 1 1 Encounter Details Date Type Department Care Team (Late st Contact Info) Description 05/14/2020 9:15 AM EDT [place] [address] Sandy Nj MD [facility] [place] [address] White matter disease Social History Tobacco Use Types Packs/Day Years [...] Sign Reading Time Taken Comments Blood Pressure 108/68 05/14/2020 8:51 AM EDT Pulse 73 05/14/2020 8:51 AM EDT Temperature - - Respiratory Rate - - Oxygen Saturation - - Inhaled Oxygen Concentration - - Weight - - Height - - Body Mass Index - - documented in this encounter Progress Notes * Sandy Nj MD - 05/14/2020 9:15 AM EDT Cerebrovascular Disease and Stroke Program Department of Neurology [facility] [address] [place] [id number] t: [phone] / f: [phone] Date of Appointment: 05/14/2020 Patient: Mikaela Payan PCP: Leora Jones APRN Consultation Requested By: Yary Lozoya Aprn [facility] [place] [address] This 64 y.o. female is evaluated because of Past Medical History: Diagnosis Date ??? Breast cancer 02/15/2018 [facility] Patient Active Problem List Diagnosis Code ??? Malignant neoplasm of left female breast C50.912 ??? Fibromyalgia M79.7 ??? Low back pain, non-specific M54.5 ??? Diabetes mellitus E11.9 ??? Generalized weakness R53.1 ??? Microcytosis R71.8 ??? Memory changes R41.3 Allergies Allergen Reactions ??? Perfume Shortness Of Breath Perfume or heavily scented products ??? Tree Nuts Anaphylaxis ??? Bee Pollen Insects ??? K[place]ki Ousmane ??? Grass Pollen ??? Tree Pollen-Birch, Standard Other tree pollens as well Outpatient Medications Marked as Taking for the 05/14/20 encounter (Office Visit) with Sandy Nj MD Medication Sig Dispense Refill ??? aspirin 81 mg Tablet, Delayed Release (E.C.) Take 81 mg by mouth daily. ??? pregabalin (LYRICA) 50 mg Capsule Take 50 mg by mouth 2 times daily. ??? atorvastatin (LIPITOR) 40 mg Tablet [...] as needed. ??? fluticasone (FLONASE) 50 mcg/actuation [place], Suspension SPRAY TWO SPRAYS IN EACH NOSTRIL EVERYDAY FOR 1 WEEK MAY DECREASE USE WHEN FEELING BETTER 3 ??? epinephrine (EPIPEN INJ) Inject as directed once as needed. ??? naloxone (NARCAN) 2 mg/actuation [place], Non-Aerosol by Nasal route as needed. ??? sertraline (ZOLOFT) 100 mg Tablet Take 100 mg by mouth 2 times daily. ??? traMADol (ULTRAM) 50 mg Tablet Take 50 mg by mouth 2 times daily. Social History Socioeconomic History ??? Marital status: Single Spouse name: None ??? Number of children: None ??? Years of education: None ??? Highest education level: None Occupational History ??? None Social Needs ??? Financial resource strain: None ??? Food insecurity Worry: None Inability: None ??? Transportation needs Medical: None Non-medical: None Tobacco Use ??? Smoking status: Never Smoker ??? Smokeless tobacco: Never Used Substance and Sexual Activity ??? Alcohol use: Not Currently ??? Drug use: Not Currently ??? Sexual activity: None Lifestyle ??? Physical activity Days per week: None Minutes per session: None ??? Stress: None Relationships ??? Social connections Talks on phone: None Gets together: None Attends baptist service: None Active member of club or organization: None Attends meetings of clubs or organizations: None Relationship status: None ??? Intimate partner violence Fear of current or ex partner: None Emotionally abused: None Physically abused: None Forced sexual activity: None Other Topics Concern ??? None Social History Narrative ??? None Family History Problem Relation Age of Onset ??? Breast Cancer Sister 58 mastectomy, endocrine therapy ??? Breast Cancer Paternal Grandmother 60 60's ??? Breast Cancer Paternal Aunt 60 60's ??? Cancer Maternal Half-Brother 40 testicular ??? Ovarian Cancer Neg Hx No family history of neurologic disease noted. ROS: The following items on the list were endorsed while a complete ROS was obtained: headache glaucoma transient loss of vision double vision dizziness difficulty speaking weakness of arm/leg numbness of arm/leg unsteadiness walking falls seizures difficulty swallowing memory loss ringing in ears snoring incontinence chest pain palpitations trouble breathing trouble lying flat nausea/vomiting indigestion abdominal pain rashes birthmarks easy bruising miscarriages blood clots in legs (DVT) poor circulation erectile dysfunction depression anxiety joint pains fatigue No flowsheet data found. No flowsheet data found. No flowsheet data found. No flowsheet data found. No flowsheet data found. No flowsheet data found. No flowsheet data found. X stroke questionnaire responses reviewed Exam: Most Recent Vitals: 05/14/20 0851 BP: 108/68 Pulse: 73 General: Well appearing patient, nontoxic. Sclerae anicteric. No cervical adenopathy, thyromegaly or carotid/vertebral bruits. No audible wheezing. No edema lower extremities. Heart regular, no murmur. Radial pulses palpable and symmetric. Neuro: MS--alert, oriented; speech fluent/articulate, no dysarthria, paraphasic errors or magda aphasia; naming, repetition, recall intact. CN--PERRL w/o anisocoria; no ptosis; EOMI; visual mullins intact to confrontation; facial sensation;facial smile/grimace intact; hearing intact to conversation Motor--No pronator drift; bulk and tone normal. Sens--light touch, temp intact throughout; No DSSE. Coord--FTN and HTS performed w/o dysmetria Gait- gait unremarkable DTRs--bic tri pat Ach plantars L: 2 2 2 2 flex R: 2 2 2 2 flex Data and records reviewed: Clinical Impression and recommendations: ??? Return to clinic Modifiable Risk Factors in Secondary Stroke Prevention [...] documented in this encounter Plan of Treatment Scheduled Referrals Name Type Priority Associated Diagnoses Orde r Schedule Referral to Neurology Outpatient Referral Routine White matter disease Cerebral infarction, unspecified mechanism Ordered: 04/20/2020 documented as of this encounter Visit Diagnoses Diagnosis White matter disease Other conditions of brain documented in this encounter Care Teams Artisan Plasterer Relationship Specialty Start Date End Date Leora Jones APRN PCP - General Family Medicine 03/15/18 11/16/21 documented as of this encounter
--- OUTSIDE RECORDS SUMMARY | 2024-07-10 18:04 | XMS_ITS | Encounter Summary ---
Author Organization [facility] [place] [address] Care Team Providers Care Escalator Installer Name Role Phone Leora Jones APRN Primary Care Provider + Reason for Referral * Diagnostic Test (Routine) - Closed Specialty Diagnoses / Procedures Referred By Contac t Referred To Contact Radiology Diagnoses Memory impairment Procedures MRI Angiogram Head & MRI Brain wo Contrast MRI Brain wo Contrast MRI Brain wwo Contrast (Generic) MRI Brain wwo Contrast (Generic) Mary Szymanski APRN [facility] [place] [address] [place] [address] Referral ID Status Reason Start Date Expiration Date V isits Requested Visits Authorized [id number] Closed Specialty Service Requested 03/27/2020 09/23/2020 1 1 * Diagnostic Test (Routine) - Closed Specialty Diagnoses / Procedures Referred By Contac t Referred To Contact Radiology Diagnoses Memory impairment Procedures MRI Angiogram Neck wwo Contrast (Generic) Mary Szymanski APRN [facility] [place] [address] [place] [address] Referral ID Status Reason Start Date Expiration Date V isits Requested Visits Authorized [id number] Closed Specialty Service Requested 03/27/2020 09/23/2020 1 1 * Occupational Therapy (Routine) - Specialty Diagnoses / Procedures Referred By Kandi gao Referred To Contact Diagnoses Memory impairment Mary Szymanski APRN [facility] [place] [address] Referral ID Status Reason Start Date Expiration Date V isits Requested Visits Authorized [id number] Evaluate and Treat 12/10/2019 06/07/2020 12 12 Reason for Visit * Reason Comments Follow-up Encounter Details Date Type Department Care Team (Latest Contact Info) Description 12/10/2019 11:00 AM EST Office Visit Neurology at [facility], [place] [place] [address] Mary Szymanski APRN [facility] [place] [address] Memory impairment; Anxiety; Depression, unspecified depression type; Other chronic pain; History of posttraumatic stress disorder (PTSD) Social History Tobacco Use Types Packs/Day Years [...] Sign Reading Time Taken Comments Blood Pressure 117/75 12/10/2019 10:47 AM EST Pulse 84 12/10/2019 10:47 AM EST Temperature - - Respiratory Rate - - Oxygen Saturation - - Inhaled Oxygen Concentration - - Weight 87.2 kg (192 lb 3.2 oz) 12/10/2019 10:47 AM EST Height 167.6 cm (5' 6) 12/10/2019 10:47 AM EST Body Mass Index 31.02 12/10/2019 10:47 AM EST documented in this encounter Patient Instructions * Patient Instructions* Mary Szymanski APRN - 12/10/2019 11:00 AM EST -I think your memory problems are likely a result of several things: 1.) Insomnia 2.) Depression 3.) Anxiety 4.) Diabetes/blood sugar fluctuations 5.) Chronic pain 6.) Obstructive sleep apnea 7.) Medications: A.) Lorazepam B.) Lyrica C.) Atorvastatin D.) Sumatriptan E.) Tramadol 8.) Your history of PTSD -I am glad you are trying to address the above things. -I do not think you have Alzheimer's. -Please continue to work on your depression, anxiety, and dealing with your PTSD. -Today, I am referring your for occupational therapy to try to help you develop ways to work aroundyour memory issues. -I think we should repeat a MRI brain as well as MRAngiogram of your neck. This is because your prior MRI brain showed some vascular problems and I want to see if anything has changed and also look at the vessels in your neck to make sure they are getting enough blood to your brain. You will need to have these tests done this summer. Also, you will need a blood test drawn the same day that you come to have these tests done to make sure that your kidneys are functioning well. -I would still like you to have the formal neuropsychological testing completed. This is a long battery of memory tests. The psychiatry department will call you, likely this coming summer or fall, toschedule this. -Work on exercising and following the Mediterranean diet. I have given you a handout for this todayto get you started. -Follow up with me this summer. We will see if we can make it so that you get your MRI/MRA done thesame day you see me. After that visit, you can likely return to seeing [facility] for your memory. documented in this encounter Progress Notes * Mary Szymanski APRN - 12/10/2019 11:00 AM EST Images from the original note were not included. [facility] OUTPATIENT FOLLOW UP VISIT NOTE Patient Active Problem List Diagnosis ??? Diabetes mellitus ??? Generalized weakness ??? [...] no MYRTLE, no LVI --RT planned in [facility], to start 04/16/18 --letrozole started 06/12/18 Menses age 13-48; ; 1 sister with breast cancer at age 57, s/p mastx and tamoxifen 1 brother with testicular cancer; 1 brother no cancer; 1 daughter well, no cancer. No HRT. 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 PET: Lumbar Puncture: LABS: CBC-10/16/19: unremarkable CMP-10/16/19: BUN 22, TSH-10/16/19: 2.09 B-12- Vit D- Folate- [id number]-44/11/19: 7.3 MMSE: (March 2019-outside clinic) MOCA: 05/29/19: 25/30 Past Medical History: Diagnosis Date ??? Breast cancer 02/15/2018 [facility] Past Surgical History: Procedure Laterality Date ??? BREAST BIOPSY Left 02/15/2018 [facility] ??? BREAST LUMPECTOMY Left 03/22/2018 ??? PRO BX/REMV, LYMPH NODE, DEEP AXILL Left 03/22/2018 BIOPSY OR EXCISION OF LYMPH NODE(S), OPEN, DEEP AXILLARY NODE(S) (WRVU 6.43) performed by Pete Emmanuel MD at [facility] ??? PRO INTRAOP SENTINEL LYMPH ID W/DYE INJECTION Left 03/22/2018 INTRAOPERATIVE ID (MAPPING) SENTINEL LYMPH NODE,INCLUDES INJECTION (WRVU 2.5) performed by Pete Emmanuel MD at [facility] ??? PRO MASTECTOMY, PARTIAL Left 03/22/2018 MASTECTOMY PARTIAL (WRVU 10.13) performed by Pete Emmanuel MD at [facility] Current Outpatient Medications on File Prior to Visit Medication Sig Dispense Refill ??? aspirin 81 mg Tablet, Delayed Release (E.C.) Take 81 mg by mouth daily. ??? pregabalin (LYRICA) 50 mg Capsule Take 50 mg by mouth 2 times daily. ??? escitalopram (LEXAPRO) 10 mg Tablet Take 10 mg by mouth daily. ??? atorvastatin (LIPITOR) 40 mg Tablet Take 40 mg by mouth daily. ??? metFORMIN (GLUCOPHAGE) 500 mg Tablet Take 500 mg by mouth 2 times daily (with meals). ??? emollient base (CREAM BASE TOP) Apply topically. Jeans Cream. Apply to area of radiation twice a day but no less than 2 hours before a treatment. ??? LORazepam (ATIVAN) 0.5 mg Tablet TAKE [...] as needed. ??? fluticasone (FLONASE) 50 mcg/actuation [place], Suspension SPRAY TWO SPRAYS IN EACH NOSTRIL EVERYDAY FOR 1 WEEK MAY DECREASE USE WHEN FEELING BETTER 3 ??? epinephrine (EPIPEN INJ) Inject as directed once as needed. ??? naloxone (NARCAN) 2 mg/actuation [place], Non-Aerosol by Nasal route as needed. ??? sertraline (ZOLOFT) 100 mg Tablet Take 100 mg by mouth 2 times daily. ??? traMADol (ULTRAM) 50 mg Tablet Take 50 mg by mouth 2 times daily. ??? exemestane (AROMASIN) 25 mg Tablet Take 1 tablet by mouth daily. (Patient not taking: Reported on 12/10/2019) 30 tablet 11 ??? letrozole (FEMARA) 2.5 mg Tablet Take 1 tablet by mouth daily. (Patient not taking: Reported on05/29/2019) 90 tablet 3 ??? fexofenadine HCl (BRISA ORAL) Take 1 tablet by mouth as needed. No current facility-administered medications on file prior to visit. Allergies Allergen Reactions ??? Perfume Shortness Of Breath Perfume or heavily scented products ??? Tree Nuts Anaphylaxis ??? Bee Pollen Insects ??? [place]e ??? Grass Pollen ??? 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 Driving: yes but doesn't drive if she doesn't feel well Sleep: uses cpap every night but sometimes the mask is askew; has insomnia; no sleep thrashing or acting out dreams Ms. Payan presents today unaccompanied for a follow up visit regarding her memory problems. Mikaela still continues to feel that she has memory problems. She says that cognitively, she does very well for the first 3 hours every morning. During that time, she can perform the family chores andthe things that need to be done during for the day. However, as the day progresses her cognition worsens. Sometimes she gets in the shower and wonders how to turn the shower on. Sometimes she goes to get dressed but has to remind herself to put underwear or socks on. She took a nap yesterday and tells methat she does not remember taking a nap. She also states that she does not remember anything from yesterday morning. Yesterday she looked at the clock and saw that it said 5:45 PM and at that time she realized that she could not remember anything from the morning. However, when her mom started telling her about the things they did during the morning, everything came back to her. She again tells me about the episode where someone asked her for a bank statement and she did not know what a bank sta tement was. She still feels very foggy and is incredibly anxious and depressed, although her depression is a bit better than it was in the past. She is now seeing a therapist on a regular basis. She does endorse taking lorazepam for very bad anxiety. She tells me that she has trouble formulating a plan for things and that when she struggles with this or other memory issues, she becomes very anxious which makes the problems worse. She tells me that she still has a lot of pain from fibromyalgia. She went to the pain clinic for this but does not remember anything they told her. Her insomnia has gotten a bit better. She falls asleep between 9 and 11 and then wakes up around 4. She is wearing her CPAP. She still gets headaches in the morning in the afternoons, but she has not gotten a migraine in many years. She did used to have migraines with aura and she does have a family history of migraines as well. She has not fallen. Her blood sugars continue to be extremely elevated. She is still cooking even though she does not always have the energy to do it. She is still paying bills; the issues she has paying her bills come from a lack of money as opposed to problems remembering to pay the bills. She tells me that she had someone helping her try to get disability. During her visit she talks about how she elaborately remembers that she has bills that she could have paid onMonday but she knows they need to be paid by Monday. During our visit today, Mikaela tells me that she does not know why she is seeing me. Vitals: Most Recent Vitals: 12/10/19 1047 BP: 117/75 Pulse: 84 On exam today, her speech is fluent and without error. She talks essentially nonstop and quite tangentially. Physically, she appears much more anxious than at our last visit. She tells me correctly that the date is Tuesday, December 10, 2019 and that the president is Keren. She also is able to tell me that we are at [facility]. As mentioned in my previous note, I think it likely that Mikaela's memory issues are multifactorial in nature and are caused by the followin.) Insomnia-improved 2.) Depression 3.) Anxiety 4.) Diabetes/blood sugar fluctuations 5.) Chronic pain-headaches/fibromalgia 6.) Obstructive sleep apnea-wearing cpap 7.) Medications: A.) Lorazepam B.) Lyrica C.) Atorvastatin D.) Sumatriptan E.) Tramadol 8.) Her history of PTSD Of note, she did have a fair amount of white matter disease on her MRI brain. I question the possibility of CADASIL, although it does not appear that she has had any strokes. However, in light of herMRI brain findings and her family history of migraines with aura, I would like Mikaela to have repeat MRI and MRA imaging completed this summer, for which I have placed orders. She should continue to take aspirin 81 mg daily. I have encouraged her to continue working with her therapist to try to address her depression, anxiety, and PTSD, as I suspect that these are playing heavily into her memory issues. I would like Mikaela to have the formal neuropsychological testing that I ordered at our last visit.There is currently a long wait list for this, but I feel strongly that she should have it done. Today, I am going to refer her to occupational therapy for cognitive rehab to try to help her develop coping mechanisms for her memory problems; referral faxed to [facility], per her request. I again encouraged her to work on exercise and following the Mediterranean diet, for which I gave her a handout today. I will get a BMP before her MRI MRA due to the contrast and at that time, I would like her to to have a B12 level drawn to rule out this as a reversible cause of memory issues. Follow-up with me this summer. Approximately 50 minutes of this 55 minute visit were spent in discussion, education, care coordination, and supportive counseling as represented above. documented in this encounter Miscellaneous Notes * Addendum Note - Mary Szymanski APRN - 12/10/2019 11:00 AM ESTAddended by: MARY SZYMANSKI on: 12/12/2019 01:40 PM Modules accepted: Orders documented in this encounter Plan of Treatment Scheduled Referrals Name Type Priority Associated Diagnoses Order Schedule Referral to Occupational Therapy Outpatient Referral Routine Memory impairment Ordered: 12/10/2019 documented as of this encounter Results * MRI Angiogram Head & MRI Brain wo Contrast (04/14/2020 3:57 PM EDT) Anatomical Region Laterality Modality Head Magnetic Resonan ce Impressions 04/14/2020 4:47 PM EDT 1. ??2 foci of infarction involving the right frontal lobe. 2. ??No hemodynamically significant stenosis or vascular thrombosis. I have personally reviewed the image(s) and the resident's interpretation and agree with the findings, [address] at 04/14/2020 4:47 PM Thank you for letting us participate in the care of this patient. For questions regarding this report, please contact the number below. ? Electronically signed by: [address] Street [facility] ([phone]), at 04/14/2020 4:47 PM Narrative 04/14/2020 4:47 PM EDT EXAMINATION: MRI ANGIOGRAM NECK WWO CONTRAST (GENERIC), MRI ANGIOGRAM HEAD & MRI BRAIN WO CONTRAST CLINICAL HISTORY: Dementia, vascular suspected Pt with white matter disease on MRI and memory concerns, possible vascular dementia (accession [id number]), Pt with moderate amount of white matter disease on previous MRI, hx and family hx of migraine; ? CADASIL; SWI, please (accession [id number]) TECHNIQUE: MRI of the head pre and post administration of IV contrast. MRA of the head without contrast. MRA of the neck was performed before and after the intravenous administration of 18cc Dotarem. 3-D MIP reconstructions were created. COMPARISON: MR from 05/29/2019. FINDINGS: Head: No acute intracranial hemorrhage. No mass, mass effect or extra-axial collection. No abnormal enhancement. Small focus of restricted diffusion in the right frontal subcortical white matter (series 6 image 23) an additional focus along the cortex of the right frontal lobe series 6 image 19. Multiple foci of subcortical and periventricular white matter T2 prolongation, nonspecific but most likely related to chronic or vascular disease. The ventricles are normal in size and shape. The basal cisterns are patent. The paranasal sinuses and mastoid air cells are normal in signal. The calvarium and extracalvarial soft tissues are unremarkable. MRA neck: Normal three-vessel arch. No stenosis at the origins of the great vessels. The right common and internal carotid arteries are normal in course and caliber. The left common and internal carotid arteries are normal in course and caliber. The right vertebral artery is dominant. Patent but diminutive intradural left vertebral artery. MRA head: The ACAs and MCAs are normal in course and caliber. No anterior communicating artery aneurysm. The basilar artery is normal in course and caliber with no aneurysm. The posterior communicating arteries are patent. The posterior cerebral arteries are normal in course and caliber. Procedure Note Kingston Street MD - 04/14/2020 EXAMINATION: MRI ANGIOGRAM NECK WWO CONTRAST (GENERIC), MRI ANGIOGRAMHEAD & MRI BRAIN WO CONTRAST CLINICAL HISTORY: Dementia, vascular suspected Pt with white matter disease on MRI and memory concerns, possiblevascular dementia (accession [id number]), Pt with moderate amount of white matterdisease on previous MRI, hx and family hx of migraine; ? CADASIL; SWI, please(accession [id number]) TECHNIQUE: MRI of the head pre and post administration of IV contrast. MRA of thehead without contrast. MRA of the neck was performed before and after theintravenous administration of 18cc Dotarem. 3-D MIP reconstructions were created. COMPARISON: MR from 05/29/2019. FINDINGS: Head: No acute intracranial hemorrhage. No mass, mass effect orextra-axial collection. No abnormal enhancement. Small focus of restricted diffusionin the right frontal subcortical white matter (series 6 image 23) an additionalfocus along the cortex of the right frontal lobe series 6 image 19. Multiplefoci of subcortical and periventricular white matter T2 prolongation, nonspecificbut most likely related to chronic or vascular disease. The ventricles arenormal in size and shape. The basal cisterns are patent. The paranasal sinuses andmastoid air cells are normal in signal. The calvarium and extracalvarial softtissues are unremarkable. MRA neck: Normal three-vessel arch. No stenosis at the origins of thegreat vessels. The right common and internal carotid arteries are normal incourse and caliber. The left common and internal carotid arteries are normal incourse and caliber. The right vertebral artery is dominant. Patent but diminutive intraduralleft vertebral artery. MRA head: The ACAs and MCAs are normal in course and caliber. Noanterior communicating artery aneurysm. The basilar artery is normal in courseand caliber with no aneurysm. The posterior communicating arteries are patent.The posterior cerebral arteries are normal in course and caliber. IMPRESSION 1. 2 foci of infarction involving the right frontal lobe. 2. No hemodynamically significant stenosis or vascular thrombosis. I have personally reviewed the image(s) and the resident's interpretationand agree with the findings, [address] Street at 04/14/2020 4:47 PM Thank you for letting us participate in the care of this patient. Forquestions regarding this report, please contact the number below. Electronically signed by: [address], [facility]([phone]), at 04/14/2020 4:47 PM Mary Szymanski CONTRACT NEGOTIATION MANAGER IMG MRI ORDERABLES * MRI Angiogram Neck wwo Contrast (Generic) (04/14/2020 1:30 PM EDT) Anatomical Region Laterality Modality Neck Magnetic Resonan ce Impressions 04/14/2020 4:47 PM EDT 1. ??2 foci of infarction involving the right frontal lobe. 2. ??No hemodynamically significant stenosis or vascular thrombosis. I have personally reviewed the image(s) and the resident's interpretation and agree with the findings, [address] Street at 04/14/2020 4:47 PM Thank you for letting us participate in the care of this patient. For questions regarding this report, please contact the number below. ? Electronically signed by: [address] Street [facility] ([phone]), at 04/14/2020 4:47 PM Narrative 04/14/2020 4:47 PM EDT EXAMINATION: MRI ANGIOGRAM NECK WWO CONTRAST (GENERIC), MRI ANGIOGRAM HEAD & MRI BRAIN WO CONTRAST CLINICAL HISTORY: Dementia, vascular suspected Pt with white matter disease on MRI and memory concerns, possible vascular dementia (accession [id number]), Pt with moderate amount of white matter disease on previous MRI, hx and family hx of migraine; ? CADASIL; SWI, please (accession [id number]) TECHNIQUE: MRI of the head pre and post administration of IV contrast. MRA of the head without contrast. MRA of the neck was performed before and after the intravenous administration of 18cc Dotarem. 3-D MIP reconstructions were created. COMPARISON: MR from 05/29/2019. FINDINGS: Head: No acute intracranial hemorrhage. No mass, mass effect or extra-axial collection. No abnormal enhancement. Small focus of restricted diffusion in the right frontal subcortical white matter (series 6 image 23) an additional focus along the cortex of the right frontal lobe series 6 image 19. Multiple foci of subcortical and periventricular white matter T2 prolongation, nonspecific but most likely related to chronic or vascular disease. The ventricles are normal in size and shape. The basal cisterns are patent. The paranasal sinuses and mastoid air cells are normal in signal. The calvarium and extracalvarial soft tissues are unremarkable. MRA neck: Normal three-vessel arch. No stenosis at the origins of the great vessels. The right common and internal carotid arteries are normal in course and caliber. The left common and internal carotid arteries are normal in course and caliber. The right vertebral artery is dominant. Patent but diminutive intradural left vertebral artery. MRA head: The ACAs and MCAs are normal in course and caliber. No anterior communicating artery aneurysm. The basilar artery is normal in course and caliber with no aneurysm. The posterior communicating arteries are patent. The posterior cerebral arteries are normal in course and caliber. Procedure Note [address] MD - 04/14/2020 EXAMINATION: MRI ANGIOGRAM NECK WWO CONTRAST (GENERIC), MRI ANGIOGRAMHEAD & MRI BRAIN WO CONTRAST CLINICAL HISTORY: Dementia, vascular suspected Pt with white matter disease on MRI and memory concerns, possiblevascular dementia (accession [id number]), Pt with moderate amount of white matterdisease on previous MRI, hx and family hx of migraine; ? CADASIL; SWI, please(accession [id number]) TECHNIQUE: MRI of the head pre and post administration of IV contrast. MRA of thehead without contrast. MRA of the neck was performed before and after theintravenous administration of 18cc Dotarem. 3-D MIP reconstructions were created. COMPARISON: MR from 05/29/2019. FINDINGS: Head: No acute intracranial hemorrhage. No mass, mass effect orextra-axial collection. No abnormal enhancement. Small focus of restricted diffusionin the right frontal subcortical white matter (series 6 image 23) an additionalfocus along the cortex of the right frontal lobe series 6 image 19. Multiplefoci of subcortical and periventricular white matter T2 prolongation, nonspecificbut most likely related to chronic or vascular disease. The ventricles arenormal in size and shape. The basal cisterns are patent. The paranasal sinuses andmastoid air cells are normal in signal. The calvarium and extracalvarial softtissues are unremarkable. MRA neck: Normal three-vessel arch. No stenosis at the origins of thegreat vessels. The right common and internal carotid arteries are normal incourse and caliber. The left common and internal carotid arteries are normal incourse and caliber. The right vertebral artery is dominant. Patent but diminutive intraduralleft vertebral artery. MRA head: The ACAs and MCAs are normal in course and caliber. Noanterior communicating artery aneurysm. The basilar artery is normal in courseand caliber with no aneurysm. The posterior communicating arteries are patent.The posterior cerebral arteries are normal in course and caliber. IMPRESSION 1. 2 foci of infarction involving the right frontal lobe. 2. No hemodynamically significant stenosis or vascular thrombosis. I have personally reviewed the image(s) and the resident's interpretationand agree with the findings, [address] Street at 04/14/2020 4:47 PM Thank you for letting us participate in the care of this patient. Forquestions regarding this report, please contact the number below. Electronically signed by: Kingston Street [facility]([phone]), at 04/14/2020 4:47 PM Mary Szymanski APRN IM MRI ORDERABLES documented in this encounter Visit Diagnoses Diagnosis Memory impairment Memory loss Anxiety Anxiety state, unspecified Depression, unspecified depression type Other chronic pain History of posttraumatic stress disorder (PTSD) Memory impairment Memory loss Memory impairment Memory loss documented in this encounter Care Teams Escalator Installer Relationship Specialty Start Date End Date Leora Jones APRN PCP - General Family Medicine 03/15/18 11/16/21 documented as of this encounter
--- OUTSIDE RECORDS SUMMARY | 2024-07-10 18:04 | XMS_ITS | Encounter Summary ---
Author Organization [facility] Address [facility] [place] [address] Care Team Providers Care Privacy Attorney Name Role Phone Karen Leora Byrne APRN Primary Care Provider + Reason for Visit * Reason Comments Follow-up Encounter Details Date Type Department Care Team (Late st Contact Info) Description 04/17/2019 2:30 PM EDT Office Visit Hematology [place] [phone] Chari Gruber MD [facility] [place] [address] Malignant neoplasm of upper-inner quadrant of left breast in female, estrogen receptor positive Social History Tobacco Use Types Packs/Day Years Used Date Smoking Tobacco: Never Smokeless Tobacco: Never Sex and Gender Information Value Date Recorded Sex Assigned at Not on file Gender Identity Not on file Sexual Orientation Not on file documented as of this encounter Last Filed Vital Signs Vital Sign Reading Time Taken Comments Blood Pressure 111/60 04/17/2019 2:11 PM EDT Pulse 81 04/17/2019 2:11 PM EDT Temperature 36.1 ??C (97 ??F) 04/17/2019 2:11 PM EDT Respiratory Rate 16 04/17/2019 2:11 PM EDT Oxygen Saturation 99% 04/17/2019 2:11 PM EDT Inhaled Oxygen Concentration - - Weight 85.8 kg (189 lb 3.2 oz) 04/17/2019 2:11 P M EDT Height 164.5 cm (5' 4.76) 04/17/2019 2:11 PM ED T Body Mass Index 31.71 04/17/2019 2:11 PM EDT documented in this encounter Progress Notes * Chari Gruber MD - 04/17/2019 2:30 PM EDT Subjective: Patient ID: Mikaela Payan is a 63 y.o. female. Cc: breast cancer Interval history: Juli is here for f/u although she's not quite sure why. She's been having a lot of trouble with word finding, and brain fog, insomnia, headaches and anxiety. Her PCP has ordered a brain MRI and she thought that was why she was coming to [facility] today. Her mammogram is due soon too, but was not scheduled today. No nausea, vomiting or double vision. She started letrozole in June and notes a huge amount of pain that she thinks is worse since starting letrozole. Left breast cancer T1bN0 upper inner quadrant ER/[place] + her2 neg --annual mammograms since age [...] no MYRTLE, no LVI --RT planned in [facility], to start 04/16/18 --letrozole started 06/12/18 Menses age [age]; ; 1 sister with breast cancer at age 57, s/p mastx and tamoxifen 1 brother with testicular cancer; 1 brother no cancer; 1 daughter well, no cancer. No HRT. Review of Systems Constitutional: Positive for activity change. HENT: Negative. Eyes: Negative. Respiratory: Negative. Hx pneumonia over the winter. Cardiovascular: Negative. Gastrointestinal: Negative. Endocrine: Negative. Genitourinary: Positive for flank pain. Musculoskeletal: Positive for arthralgias, back pain and neck pain. Skin: Negative. Allergic/Immunologic: Negative. Neurological: Positive for speech difficulty and headaches. Hematological: Negative. Psychiatric/Behavioral: Negative. Objective: Physical Exam Constitutional: She appears well-developed and well-nourished. HENT: Head: Normocephalic and atraumatic. Right Ear: Tympanic membrane and external ear normal. Left Ear: Tympanic membrane and external ear normal. Mouth/Throat: Oropharynx is clear and moist. Eyes: Pupils are equal, round, and reactive to light. EOM are normal. Neck: Normal range of motion. Neck supple. No JVD present. No tracheal deviation present. No thyromegaly present. Cardiovascular: Normal rate, regular rhythm, normal heart sounds and intact distal pulses. Pulmonary/Chest: Effort normal and breath sounds normal. Abdominal: Soft. Bowel sounds are normal. She exhibits no distension and no mass. There is no tenderness. There is no rebound and no guarding. No hernia. Musculoskeletal: Normal range of motion. She exhibits no edema, tenderness or deformity. Lymphadenopathy: She has no cervical adenopathy. Neurological: She is alert. She displays normal reflexes. No cranial nerve deficit or sensory deficit. She exhibits normal muscle tone. Coordination abnormal. Skin: Skin is warm and dry. No rash noted. She is not diaphoretic. No erythema. No pallor. Psychiatric: Very confused sounding, loosening of associations, difficulty with word finding and communication. No focal deficits. Nursing note and vitals reviewed. Assessment and Plan: No problem-specific Assessment & Plan notes found for this encounter. #1 Breast cancer--Stage I left breast cancer 02/21, WHIT. Due for bilat mammo, doing ok with letrozole but I counseled her that she could try a short break in letrozole for 4-6 wks to see if that helpsher pain. She will think about this and let me know. #2 Chemotherapy--monitoring for toxicity--n/a. #3 Fatigue--increased with increased word finding difficulty and confusion, I will d/w her PCP , and make sure the MRI gets done. #4 Menopausal symptoms--stable. #5 Bone health--dexa 06/23 normal. #6 Medication management --letrozole renewed. #7 Transitional Care Summary: will set up for next visit. 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
--- OUTSIDE RECORDS SUMMARY | 2024-07-10 18:04 | XMS_ITS | Encounter Summary ---
Author Organization [facility] [place] [address] Care Team Providers Care Brick Kiln Burner Name Role Phone Leora Jones APRN Primary Care Provider + Reason for Referral * Consultation (Routine) - Closed Specialty Diagnoses / Procedures Referred By Contac t Referred To Contact Neurology Diagnoses White matter disease Cerebral infarction, unspecified mechanism Yary Lozoya APRN [facility] [place] [address] Sandy Nj MD [facility] [place] [address] Referral ID Status Reason Start Date Expiration Date V isits Requested Visits Authorized [id number] Closed Consult, Test & Treat 04/20/2020 04/20/2021 1 1 * Consultation (Routine) - Closed Specialty Diagnoses / Procedures Referred By Contac t Referred To Contact Genetics Diagnoses Memory impairment White matter disease Cerebral infarction, unspecified mechanism Patient w/ hx of migraines w/aura, family hx of migraine w/aura, now with memory Yary Lozoya APRN [facility] [place] [address] [facility] Genetics [address] [place] [phone] Referral ID Status Reason Start Date Expiration Date V isits Requested Visits Authorized [id number] Closed Consult, Test & Treat 04/20/2020 04/20/2021 1 1 * Diagnostic Test (Routine) - Closed Specialty Diagnoses / Procedures Referred By Contac t Referred To Contact Cardiology Diagnoses White matter disease Cerebral infarction, unspecified mechanism Procedures Echocardiogram Transthoracic([facility]) Yary Lozoya APRN [facility] [place] [address] [facility] [address] Referral ID Status Reason Start Date Expiration Date V isits Requested Visits Authorized [id number] Closed Specialty Service Requested 05/22/2020 11/18/2020 1 1 Encounter Details Date Type Department Care Team (Latest Contact Info) Description 04/20/2020 9:00 AM EDT TH Visit (TeleHealth) [place] [address] Yary Lozoya ELECTRONICS PROCESSOR [facility] [place] [address] Memory impairment; White matter disease; Cerebral infarction, unspecified mechanism; Anxiety Social History Tobacco Use Types Packs/Day Years Used Date Smoking Tobacco: Never Smokeless Tobacco: Never Alcohol Use Standard Drinks/Week Comments Not Currently 0 (1 standard drink = 0.6 oz pur e alcohol) Sex and Gender Information Value Date Recorded Sex Assigned at Not on file Gender Identity Not on file Sexual Orientation Not on file documented as of this encounter Progress Notes * Yary Lozoya APRN - 04/20/2020 9:00 AM EDT Images from the original note were not included. [facility] OUTPATIENT TELEHEALTH FOLLOW UP VISIT NOTE Patient Active Problem List Diagnosis ??? Microcytosis ??? Memory changes ??? Diabetes mellitus ??? Generalized weakness ??? Fibromyalgia ??? Low back pain, non-specific ??? Malignant neoplasm of left female breast Left breast cancer T1bN0 upper inner quadrant ER/[place] + her2 neg --annual mammograms since age [...] no MYRTLE, no LVI --RT planned in [facility], to start 04/16/18 --letrozole started 06/12/18 Menses age 13-48; ; 1 sister with breast cancer at age 57, s/p mastx and tamoxifen 1 brother with testicular cancer; 1 brother no cancer; 1 daughter well, no cancer. No HRT. 1955 PCP - Leora Jones, ELECTRONICS PROCESSOR CHAIR CAR ATTENDANT - Leora Jones I had a telehealth video follow up visit with Mikaela Payan for her memory issues. We completed this visit via telehealth due to concerns surrounding the - situation. Prior workup: MRI: 05/29/19: IMPRESSION White matter changes suggestive of chronic microvascular ischemic disease. PET: Lumbar Puncture: LABS: CBC-10/16/19: unremarkable CMP-10/16/19: BUN 22, TSH-10/16/19: 2.09 B-12- Vit D- Folate- [id number]-94/11/19: 7.3 MMSE: (March 2019-outside clinic) MOCA: 05/29/19: 25/30 Past Medical History: Diagnosis Date ??? Breast cancer 02/15/2018 [facility] Past Surgical History: Procedure Laterality Date ??? BREAST BIOPSY Left 02/15/2018 [facility] ??? BREAST LUMPECTOMY Left 03/22/2018 ??? PRO BX/REMV, LYMPH NODE, DEEP AXILL Left 03/22/2018 BIOPSY OR EXCISION OF LYMPH NODE(S), OPEN, DEEP AXILLARY NODE(S) (WRVU 6.43) performed by Pete Emmanuel MD at [facility] ??? PRO INTRAOP SENTINEL LYMPH ID W/DYE INJECTION Left 03/22/2018 INTRAOPERATIVE ID (MAPPING) SENTINEL LYMPH NODE,INCLUDES INJECTION (WRVU 2.5) performed by Pete Emmanuel MD at [facility] ??? PRO MASTECTOMY PARTIAL Left 03/22/2018 MASTECTOMY PARTIAL (WRVU 10.13) performed by Pete Emmanuel MD at [facility] Current Outpatient Medications on File [...] as needed. ??? fluticasone (FLONASE) 50 mcg/actuation Butler, Suspension SPRAY TWO SPRAYS IN EACH NOSTRIL EVERYDAY FOR 1 WEEK MAY DECREASE USE WHEN FEELING BETTER 3 ??? epinephrine (EPIPEN INJ) Inject as directed once as needed. ??? naloxone (NARCAN) 2 mg/actuation Butler, Non-Aerosol by Nasal route as needed. ??? 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 She feels in some ways that her cognition is better-she is not getting lost quite as often. She doesn't get lost when she drivesbut does get lost when in the grocery store. She is still having issues with things like remembering which knob in the shower turns on the hot vs cold water. She is still caring for her mother. Mikaela is not forgetting to pay bills. She is cooking but frequently forgets to turn the stove off-she almost burned her lunch the other day. She is taking a baby aspirin when she remembers to. She also has word finding difficulties. She was working with OT and that was helpful. She is not getting lost in the grocery store quite asmuch as she used to and she credits this to using the techniques she learned from OT; however, the coronavirus situation put an end to OT, although they may picker feeder their sessions again in a month. She has not taken lorazepam in a month. She is using it very sparingly, only when she has severe anxiety. She is working very hard not to use that medication-she is using non-pharmacological methods to help with her anxiety. She feels that her mood is flat-she is not excited about much and is often impatient. She is still seeing her therapist on a regular basis. She still gets regular headaches and migraines. She has a family history of migraine on her father's side. Her sister also has migraines. On exam, her speech is fluent and without error or dysarthria but with pauses. She is completely oriented to the entire date and the fact that it is Monday. She correctly identifies the current, immediately former, and first materials research engineer. She correctly spells the word WORLD forward and backwards. When asked to perform serial 7 subtraction from 100 she responds 93, 86, 71, 64, 57. IMPRESSION: Mikaela Payan is a 64-year-old female with memory problems. A few days ago I had [facility] an MRI/MRA brain. Findings from that are as below: IMPRESSION 1. 2 foci of infarction involving the right frontal lobe. 2. No hemodynamically significant stenosis or vascular thrombosis. We discussed these results in-depth today. She does have moderate white matter disease on imaging. Her MRI findings as well as her cognitive issues and personal and family history of migraines with aura raises concern for CADASIL. In light of this possibility, I am referring Mikaela for genetic counseling and to Dr. Sandy Ling in vascular neurology. Mikaela is taking a baby aspirin but sporadically. I stressed to Mikaela today that she should take an aspirin every day. I will also get an echocardiogram to evaluate the structure of her heart. We are still waiting for formal neuropsychological testing. I also encouraged Mikaela to continue working on optimizing her mood with her therapist, exercise, follow the Mediterranean diet, keep her blood pressure under 130/80, and make sure her cholesterol is in good check. She had a question today over something on her myD-H that mentioned MS. Ireviewed my notes and do not see that I ever mentioned MS and I assured Mikaela that I do not think that she has MS. Follow-up with me in 6 months, sooner if needed. Yary Lozoya DNP, ELECTRONICS PROCESSOR Department of Neurology Approximately 45 minutes of this 48 minute visit were spent in discussion, education, care coordination, and supportive counseling as represented above. documented in this encounter Plan of Treatment Scheduled Referrals Name Type Priority Associated Diagnoses Orde r Schedule Referral to Genetics Outpatient Referral Routine Memory impairment White matter disease Cerebral infarction, unspecified mechanism Ordered: 04/20/2020 Referral to Neurology Outpatient Referral Routine White matter disease Cerebral infarction, unspecified mechanism Ordered: 04/20/2020 documented as of this encounter Results * ECHO COMPLETE (05/25/2020 9:38 AM EDT) EF 63 HEARTLAB SYSTEM Anatomical Region Laterality Modality Other 05/25/2020 Narrative 05/25/2020 9:59 AM EDT Procedure: ?Transthoracic Echocardiogram Patient: ?PAYAN MIKAELA Irwin ? (Age): 1955(64y) Med Rec#: ? [id number] ?Sex: ?F ? Site Loc: ? [facility] ?Ht / Wt: ??165.1(cm)/83.92 Pt. Loc: ?Echo Lab ?BSA: ?1.91 Study Date: ?? 05/25/2020 ?Pt. Type: Outpatient Tape: ? Referring: MAGDIEL Reading: Tip Leblanc ([id number]) Tax Evaluator: Caity Fernando Diagnosis: *Cerebral infarction, unspecified (I63.9) [...] Vmax ?0.91 ? m/sec ? MV deceleration [id number] ?msec ? MV A-wave Vmax ?0.83 ? [...] ? Mid-Inferior ?Normal ? Mid-Inferoseptal ?Normal ? [place]-Septal ? Normal ? [place]-Anterior ? Normal ? [place]-Lateral ?Normal ? [place]-Inferior ? Normal ? [place]-Tip ?Normal ? This report has been electronically signed by: Tip Leblanc MD ? 05/25/2020 09:58:46 Images reviewed and interpretation verified [facility] Cardiac Ultrasound Laboratory Procedure Note Tip Leblanc MD - 05/25/2020 Procedure: Transthoracic Echocardiogram Patient: STAN Irwin DOB(Age): 1955(64y) Med Rec#: [id number] Sex: F Site Loc: [facility] Ht / Wt: 165.1(cm)/83.92 Pt. Loc: Echo Lab BSA: 1.91 Study Date: 05/25/2020 Pt. Type: Outpatient Tape: Referring: MAGDIEL Reading: Tip Leblanc ([id number]) Tax Evaluator: Caity Fernando Diagnosis: *Cerebral infarction, unspecified (I63.9) [...] MV E-wave Vmax 0.91 m/sec MV deceleration [id number] msec MV A-wave Vmax 0.83 m/sec MV [...] Normal Mid-Posterolateral Normal Mid-Inferior Normal Mid-Inferoseptal Normal [place]-Septal Normal [place]-Anterior Normal [place]-Lateral Normal [place]-Inferior Normal [place]-Tip Normal This report has been electronically signed by: Tip Leblanc MD 05/25/2020 09:58:46 Images reviewed and interpretation verified [facility] Cardiac Ultrasound Laboratory Yary Lozoya APRN ECHO ORDERABLES documented in this encounter Visit Diagnoses Diagnosis Memory impairment Memory loss White matter disease Other conditions of brain Cerebral infarction, unspecified mechanism Anxiety Anxiety state, unspecified White matter disease Other conditions of brain Cerebral infarction, unspecified mechanism documented in this encounter Care Teams Brick Kiln Burner Relationship Specialty Start Date End Date Leora Jones APRN PCP - General Family Medicine 03/15/18 11/16/21 documented as of this encounter
--- OUTSIDE RECORDS SUMMARY | 2024-07-10 18:04 | XMS_ITS | Encounter Summary ---
Author Organization [facility] [place] [address] Care Team Providers Care Data Recovery Planner Name Role Phone MalachibrandiciprianoAmacipriano Byrne APRN Primary Care Provider + Reason for Visit * Reason Comments Radiation Follow-up Encounter Details Date Type Department Care Team (Late st Contact Info) Description 07/16/2018 1:30 PM EDT Office Visit Radiation Oncology at [address] [phone] Magi Terry MD [facility] [place] [address] Malignant neoplasm of left female breast, unspecified estrogen receptor status, unspecified site of breast Social History Tobacco Use Types Packs/Day Years Used Date Smoking Tobacco: Never Smokeless Tobacco: Never Sex and Gender Information Value Date Recorded Sex Assigned at Not on file Gender Identity Not on file Sexual Orientation Not on file documented as of this encounter Last Filed Vital Signs Vital Sign Reading Time Taken Comments Blood Pressure 125/75 07/16/2018 1:44 PM EDT Pulse 76 07/16/2018 1:44 PM EDT Temperature 36.8 ??C (98.2 ??F) 07/16/2018 1 :44 PM EDT Respiratory Rate 18 07/16/2018 1:44 PM EDT Oxygen Saturation - - Inhaled Oxygen Concentration - - Weight 89.2 kg (196 lb 9.6 oz) 07/16/20 18 1:44 PM EDT with shoes Height - - Body Mass Index 31.98 06/12/2018 10:59 AM EDT documented in this encounter Patient Instructions * Patient Instructions* Magi Terry MD - 07/16/2018 1:30 PM EDT Your exam shows that you are healing nicely from radiotherapy & there is no evidence of cancer. You may resume your regular deodorant on your left underarm. You may use a straight/regular razor on your left underarm. You may expose the irradiated area to sun, but it is recommended that you apply sunscreen with an SPF of @ least #45 on the irradiated area prior to exposing it to sun. You may swim in chlorinated water. You may expose the irradiated area to hot tub water. We will mail you a letter with an appointment for followup with me in 6 months. Please show your rash to your primary care provider. documented in this encounter Progress Notes * Magi Terry MD - 07/16/2018 1:30 PM EDT CC: Sched'd fu visit s/p xrt completion. HPI: 62 y/o f who completed xrt 6 wks ago (05/25/18) to L breast for ca, IDC, gr 1, ER+VT+, Her2 neg, s/p lumpectomy & SNB, pT1b pN0, stage I. She is on letrozole, started in early Jun 2018. ROS: No problem w/breasts. She notes itchy rash comprised of 4 bumps on upper R arm, 1 bump on R upper arm near shoulder & 2 bumps near R collar bone. She reports that her PCP recently increased her lisinopril & started her on metformin about 2 wks ago & the rash appeared 1 wk ago. She has appt w/PCP tomorrow. No past medical history on file. Past Surgical History: Procedure Laterality Date ??? PRO BX/REMV, LYMPH NODE, DEEP AXILL Left 03/22/2018 BIOPSY OR EXCISION OF LYMPH NODE(S), OPEN, DEEP AXILLARY NODE(S) (WRVU 6.43) performed by Pete Emmanuel MD at [facility] ??? PRO INTRAOP SENTINEL LYMPH ID W/DYE INJECTION Left 03/22/2018 INTRAOPERATIVE ID (MAPPING) SENTINEL LYMPH NODE,INCLUDES INJECTION (WRVU 2.5) performed by Pete Emmanuel MD at [facility] ??? PRO MASTECTOMY, PARTIAL Left 03/22/2018 MASTECTOMY PARTIAL (WRVU 10.13) performed by Pete Emmanuel MD at [facility] Your Medications These changes are accurate as of 07/16/18 11:59 PM. If you have any questions, ask your nurse or doctor. Continued medications, unchanged Dose Details ALBUTEROL INHL Inhale into the lungs as needed. Refills: 0 BRISA ORAL Take by mouth as needed. Refills: 0 atorvastatin 40 mg Tab Commonly known as: LIPITOR Refills: 0 CREAM BASE TOP Apply topically. Jeans Cream. Apply to area of radiation twice a day but no less than 2 hours before a treatment. Refills: 0 EPIPEN INJ Inject as directed. Refills: 0 fluticasone 50 mcg/actuation Spsn Commonly known as: FLONASE SPRAY TWO SPRAYS IN EACH NOSTRIL EVERY DAY FOR 1 WEEK MAY DECREASE USE WHEN FEELING BETTER Refills: 3 IMITREX ORAL Take by mouth as needed. Refills: 0 letrozole 2.5 mg Tab Commonly known as: FEMARA Take 1 tablet by mouth daily. 2.5 mg Quantity: 30 tablet Refills: 3 lisinopril 5 mg Tab Commonly known as: PRINIVIL;ZESTRIL Take 5 mg by mouth daily. 5 mg Refills: 0 LORazepam 0.5 mg Tab Commonly known as: ATIVAN TAKE ONE TABLET BY MOUTH TWICE A DAY NEEDED Refills: 0 LYRICA ORAL Take by mouth daily as needed (nerve pain right flank/upper abd). Refills: 0 metFORMIN 500 mg Tab Commonly known as: GLUCOPHAGE Refills: 0 montelukast 10 mg Tab Commonly known as: SINGULAIR Take 10 mg by mouth nightly. 10 mg Refills: 0 NARCAN 2 mg/actuation [place] by Nasal route. Generic drug: naloxone Refills: 0 sertraline 100 mg Tab Commonly known as: ZOLOFT Take 100 mg by mouth daily. 100 mg Refills: 0 traMADol 50 mg Tab Commonly known as: ULTRAM Refills: 0 zolpidem 5 mg Tab Commonly known as: AMBIEN TAKE ONE TABLET BY MOUTH AT BEDTIME NEEDED FOR INSOMNIA Refills: 1 Physical Exam Constitutional: She is oriented to person, place, and time. She appears well- developed and well-nourished. No distress. BP 125/75 (Patient Position: Sitting) Pulse 76 Temp 36.8 ??C (98.2 ??F) (Oral) Resp 18 Wt 89.2 kg (196 lb 9.6 oz) Comment: with shoes BMI 31.98 kg/m2 HENT: Head: Normocephalic and atraumatic. Eyes: Conjunctivae and EOM are normal. Right eye exhibits no discharge. Left eye exhibits no discharge. No scleral icterus. Neck: Normal range of motion. Neck supple. No tracheal deviation present. No thyromegaly present. Pulmonary/Chest: Effort normal and breath sounds normal. No stridor. No respiratory distress. She has no wheezes. She has no rales. She exhibits no tenderness. Right breast exhibits no inverted nipple, no mass, no nipple discharge, no skin change and no tenderness. Left breast exhibits skin change ( Mild hyperpigmentation, consistent w/expected post xrt appearance.). Left breast exhibits no inverted nipple, no mass, no nipple discharge and no tenderness. Abdominal: Soft. She exhibits no distension and no mass. There is no tenderness. There is no rebound and no guarding. Musculoskeletal: Normal range of motion. She exhibits no edema or deformity. Lymphadenopathy: Head (right side): No submental, no submandibular, no preauricular, no posterior auricular and no occipital adenopathy present. Head (left side): No submental, no submandibular, no preauricular, no posterior auricular and no occipital adenopathy present. She has no cervical adenopathy. She has no axillary adenopathy. Right: No supraclavicular adenopathy present. Left: No supraclavicular adenopathy present. Neurological: She is alert and oriented to person, place, and time. No cranial nerve deficit. She exhibits normal muscle tone. Coordination normal. Skin: She is not diaphoretic. Four 1 cm mildly erythematous mildly edematous areas on R upper arm laterally superior to elbow, one 1.0 cm mildly erythematous mildly edematous area R upper arm laterally near shoulder & two 0.5cm mildly erythematous mildly edematous areas near lateral R supraclav fossa; all areas could be from insect bites. Psychiatric: She has a normal mood and affect. Her behavior is normal. Judgment and thought contentnormal. A: Healing well from xrt. Itchy mildly erythematous mildly edematous areas on R arm could be from insect bites. P: Care of irrad'd skin discussed. I asked her to show the itchy areas on her R arm to her PCP whom she sees tomorrow. Rtc [address] Emmanuel w/andrew in Oct. documented in this encounter Plan of Treatment Not on file documented as of this encounter Visit Diagnoses Diagnosis Malignant neoplasm of left female breast, unspecified estrogen receptor status, unspecified site of breast documented in this encounter Care Teams Data Recovery Planner Relationship Specialty Start Date End Date Leora Jones APRN PCP - General Family Medicine 03/15/18 11/16/21 documented as of this encounter
--- OUTSIDE RECORDS SUMMARY | 2024-07-10 18:04 | XMS_ITS | Encounter Summary ---
Author Organization [facility] Address [facility] [place] [address] Care Team Providers Care Hospital Unit Coordinator Name Role Phone MalachibrandiciprianoLeora Caty LEAL Primary Care Provider + Encounter Details Date Type Department Care Team (Late st Contact Info) Description 05/25/2018 Notes Only Radiation Oncology at [address] [phone] Magi Terry MD [facility] [place] [address] Social History Tobacco Use Types Packs/Day Years Used Date Smoking Tobacco: Never Smokeless Tobacco: Never Sex and Gender Information Value Date Recorded Sex Assigned at Not on file Gender Identity Not on file Sexual Orientation Not on file documented as of this encounter Progress Notes * Magi Terry MD - 05/25/2018 11:59 PM EDT Mikaela R Payan has completed xrt for breast ca, L, IDC, gr 1, ER+WV+, Her2 neg, s/p lumpectomy & SNB, pT1b pN0, stage I. The course of xrt is summarized as follows: Treatment was given from 04/30/18 to 05/25/18. 42.56 Gy in 16 fxs was given to L breast, followed by volume reduction & 10 Gy/4 fxs to lumpectomy bed, boosting lumpectomy bed to 52.56 Gy/20 fxs. 3D xrt with 6 & 10 MV xray external beam with deep inspiration breath hold (DIBH) used throughout treatment. The course of xrt was tolerated well, w/the expected side effect of mild skin reaction within irradiated area managed w/ambika's cream & 1% hydrocortisone cream. Exam near completion of xrt showed mild erythema L breast; skin intact. FU w/me in 1 mo. Heme-Onc @ [facility] 06/12/18. Dr. Emmanuel in Oct w/mmg. Her CTsim for xrt planning showed diffuse hepatic steatosis, management of which deferred to her PCP, Suzy Jones APRN, who was informed of hepatic steatosis seen on CT. documented in this encounter Plan of Treatment Not on file documented as of this encounter Visit Diagnoses Not on filedocumented in this encounter Care Teams Hospital Unit Coordinator Relationship Specialty Start Date End Date Leora Jones APRN PCP - General Family Medicine 03/15/18 11/16/21 documented as of this encounter
--- OUTSIDE RECORDS SUMMARY | 2024-07-10 18:04 | XMS_ITS | Encounter Summary ---
Author Organization [facility] [place] [address] Care Team Providers Care Traffic Analysis Technician Name Role Phone Leora Jones APRN Primary Care Provider + Encounter Details Date Type Department Care Team (Late st Contact Info) Description 04/14/2020 Telephone Neurology at [facility] [place] [phone] Yary Lozoya APRN [facility] [place] [address] Social History Tobacco Use Types Packs/Day Years [...] encounter Miscellaneous Notes * Telephone Encounter - Regine Conway - 04/14/2020 12:17 PM EDT Change appt on 04/20 to later in the day. documented in this encounter Plan of Treatment Not on file documented as of this encounter Visit Diagnoses Not on filedocumented in this encounter Care Teams Traffic Analysis Technician Relationship Specialty Start Date End Date Leora Jones APRN PCP - General Family Medicine 03/15/18 11/16/21 documented as of this encounter
--- OUTSIDE RECORDS SUMMARY | 2024-07-10 18:04 | XMS_ITS | Encounter Summary ---
Author Organization [facility] Address [facility] [place] [address] Care Team Providers Care Stonecutter Apprentice Hand Name Role Phone Leora Jones APRN Primary Care Provider + Encounter Details Date Type Department Care Team (Latest Contact Info) Description 10/17/2018 2:22 PM EST - 10/17/2018 11:59 PM EST Hospital Encounter Mammography at [facility] [place] [address] Pete Emmanuel MD [facility] [place] [address] Malignant neoplasm of left breast in female, [...] Sig Dispensed Refills Start Date End Date atorvastatin (LIPITOR) 40 mg Tablet Take 40 [...] lungs as needed. fluticasone (FLONASE) 50 mcg/actuation [place]sey, Suspension SPRAY TWO SPRAYS IN EACH NOSTRIL EVERY DAY FOR 1 WEEK MAY DECREASE USE WHEN FEELING BETTER 3 10/24/2017 epinephrine (EPIPEN INJ) Inject as directed once as needed. naloxone (NARCAN) 2 mg/actuation Kinsey, Non-Aerosol by Nasal route as needed. sertraline (ZOLOFT) 100 mg Tablet Take 100 mg by mouth 2 times daily. traMADol (ULTRAM) 50 mg Tablet Take 50 mg by mouth 2 times daily. 02/09/2018 letrozole (FEMARA) 2.5 mg Tablet Take 1 tablet by mouth daily. 30 tablet 3 06/12/2018 12/01/2018 emollient base (CREAM BASE TOP) Apply topically. Jeans Cream. Apply to area of radiation twice a day but no less than 2 hours before a treatment. 04/17/2020 zolpidem (AMBIEN) 5 mg Tablet TAKE ONE TABLET BY MOUTH AT BEDTIME NEEDED FOR INSOMNIA 1 02/08/2018 01/28/2019 pregabalin (LYRICA ORAL) Take by mouth daily as needed (nerve pain right flank/upper abd). 01/28/2019 documented as of this encounter Plan of Treatment Not on file documented as of this encounter Procedures Procedure Name Priority Date/Time Associated Diagnosis Comments MAMMO DIAGNOSTIC CAD AND ZEN LEFT Routine 10/17/2018 2:39 PM EST Malignant neoplasm of left breast in female, estrogen receptor positive, unspecified site of breast documented in this encounter Results * Mammo Diagnostic Cad and Zen Left (10/17/2018 2:39 PM EST) Anatomical Region Laterality Modality Breast Left Mammography Impressions 10/19/2018 8:19 AM EST disease noted. IMPRESSION: New post surgical baseline left breast. Resume screening. BI-RADS Category 2: Benign Findings * ??Medical organizations agree that annual screening mammography beginning at age 40 saves the most lives. * ??The risks of screening are negligible compared to dying from breast cancer or suffering from more aggressive treatment required when detected at a later stage. * ??No woman is at low risk for breast cancer. * ??Some women, because of their family history, a genetic tendency, or certain other factors, should be screened with breast MRI along with mammograms. (The number of women who fall into this category is very small). The patient and health care provider should discuss the patient history and decide if earlier screening and breast MRI are appropriate. * ??Screening should continue as long as a woman is in good health and is expected to live 10 years or longer. * ??Screening mammography may not detect 10-15% of breast cancers. * ??Women should report any breast changes to a health care provider right away. Narrative 10/19/2018 8:19 AM EST EXAMINATION: MAMMO DIAGNOSTIC CAD AND ZEN LEFT CLINICAL HISTORY: s/p left lump for ca. ??new baseline TECHNIQUE: CC, exaggerated lateral CC and MLO views were obtained of the left breast. 2-D direct digital capture, 3-D tomosynthesis and computer aided detection (CAD) were used.. COMPARISON: This study was compared with prior images. FINDINGS: The breast is heterogeneously dense, which may obscure small masses. There are no suspicious masses, suspicious microcalcifications, and postsurgical distortion, anticipated, is seen in the left upper inner quadrant. No residual Pete Emmanuel MD IMG MAMMO ORDERABLES documented in this encounter Visit Diagnoses Diagnosis Malignant neoplasm of left breast in female, estrogen receptor positive, unspecified site of breast documented in this encounter Care Teams Stonecutter Apprentice Hand Relationship Specialty Start Date End Date Leora Jones, ELVIS PCP - General Family Medicine 03/15/18 11/16/21 documented as of this encounter
--- OUTSIDE RECORDS SUMMARY | 2024-07-10 18:04 | XMS_ITS | Encounter Summary ---
Author Organization [facility] [place] [address] Care Team Providers Care Surgical Supplies Sterilizer Name Role Phone Karen Leora Byrne APRN Primary Care Provider + Reason for Visit * Reason Comments On Treatment Visit Encounter Details Date Type Department Care Team (Late st Contact Info) Description 05/22/2018 8:00 AM EDT Office Visit Radiation Oncology at [address] [phone] Magi Terry MD [facility] [place] [address] Malignant neoplasm of left female breast, unspecified [...] Sign Reading Time Taken Comments Blood Pressure 129/83 05/22/2018 8:00 AM EDT Pulse 84 05/22/2018 8:00 AM EDT Temperature 36.7 ??C (98 ??F) 05/22/2018 8:00 AM EDT Respiratory Rate 16 05/22/2018 8:00 AM EDT Oxygen Saturation 98% 05/22/2018 8:00 AM EDT Inhaled Oxygen Concentration - - Weight 92.4 kg (203 lb 9.6 oz) 05/22/2018 8:00 A M EDT Height - - Body Mass Index 32.34 04/12/2018 1:42 PM EDT documented in this encounter Patient Instructions * Patient Instructions* Magi Terry MD - 05/22/2018 8:00 AM EDT Your last radiotherapy will be on ., 05/25/18 & you will be treated twice that day, in morning & afternoon. Please continue the gabriel's cream. Please do not use deodorant other than Sanjeev's/Crystal/Mcgrath's/cornstarch/baking soda on your left underarm. Please do not use a straight/regular razor on your left underarm. An electric razor is ok. Please do not expose the irradiated area to sun. Please do not swim in chlorinated water. Saltwater or freshwater is ok. Please do not expose irradiated area to hot tub water. We will mail you a letter with an appointment for followup with me in 1 month. documented in this encounter Progress Notes * Magi Terry MD - 05/22/2018 8:00 AM EDT DIAGNOSIS: Breast, L, IDC, gr 1, ER+DC+, Her2 neg, 8 mm, s/p lumpectomy & SNB, pT1b pN0, stage I. CURRENT TREATMENT DOSE: 42.56 Gy L breast ANTICIPATED TOTAL DOSE: 42.56 Gy L breast, 52.56 Gy lumpectomy bed Current # of xrt received: 16 L breast Anticipated total # of xrt txs: 16 L breast, 20 lumpectomy bed Evaluation of port verification films: Approved. For details, see electronic film record in [email or web address]. Changes in Medical Condition: Mild intermittent itchiness w/in irrad'd area, relieved by 1% htc & gabriel's cream. Pain?: No. Your Medications These changes are accurate as of 05/22/18 8:34 AM. If you have any questions, ask your nurse or doctor. Continued medications, unchanged Dose Details ALBUTEROL INHL Inhale into the lungs as needed. Refills: 0 BRISA ORAL Take by mouth as needed. Refills: 0 CREAM BASE TOP Apply topically. [...] Take by mouth as needed. Refills: 0 lisinopril 5 mg Tab Commonly known as: PRINIVIL;ZESTRIL Take 5 mg by mouth daily. 5 mg Refills: 0 LORazepam 0.5 mg Tab Commonly known as: ATIVAN TAKE ONE TABLET BY MOUTH TWICE A DAY NEEDED Refills: 0 LYRICA ORAL Take by mouth daily as needed (nerve pain right flank/upper abd). Refills: 0 montelukast 10 mg Tab Commonly known as: SINGULAIR Take 10 mg by mouth nightly. 10 mg Refills: 0 NARCAN 2 mg/actuation [place] by Nasal route. Generic drug: naloxone Refills: 0 sertraline 100 mg Tab Commonly known as: ZOLOFT Take 100 mg by mouth daily. 100 mg Refills: 0 traMADol 50 mg Tab Commonly known as: ULTRAM Refills: 0 zolpidem 5 mg Tab Commonly known as: AMBIEN TAKE ONE TABLET BY MOUTH AT BEDTIME NEEDED FOR INSOMNIA Refills: 1 Flu vacc?: Received for [id number]. P&SH: Smoking? Never. Physical Exam: BP 129/83 Pulse 84 Temp 36.7 ??C (98 ??F) Resp 16 Wt 92.4 kg (203 lb 9.6 oz) SpO2 98% BMI 32.34 kg/m2 A&Ox3, NAD. Mild erythema L breast; skin intact. No neuro deficit.Amb stable. Imagin04/17/18 Dx'ic Rad Interp CTsim: Diffuse hepatic steatosis. Performance Status: KPS 100% Response to xrt: As expected. Irradiation Related Symptoms: Skin rxn. Treatment for Symptom Control: 1% htc, Gabriel's cream. Pain Management: Tylenol/advil. Recommendation on Continuing Course of xrt: Cont. Completes xrt 05/25/18 w/BID tx that day as she has a commitment for 05/28/18 which precludes xrt that day. Care of irrad'd skin discussed. Rtc 1 mo. Heme-Onc 06/12/18. Dr. Emmanuel in Oct w/mmg. I informed her that the CTsim was reviewed as showing diffuse hepatic steatosis & I told her that I defer management of the hepatic steatosis to her PCP, Suzy Jones APRN, & will send her a copy of the CTsim report. documented in this encounter Plan of Treatment Not on file documented as of this encounter Visit Diagnoses Diagnosis Malignant neoplasm of left female breast, unspecified estrogen receptor status, unspecified site of breast documented in this encounter Care Teams Surgical Supplies Sterilizer Relationship Specialty Start Date End Date Leora Jones APRN PCP - General Family Medicine 03/15/18 11/16/21 documented as of this encounter
--- OUTSIDE RECORDS SUMMARY | 2024-07-10 18:04 | XMS_ITS | Encounter Summary ---
Author Organization [facility] Address [facility] [place] [address] Care Team Providers Care Hotel Associate Name Role Phone Leora Jones APRN Primary Care Provider + Reason for Visit * Reason Comments Follow-up Encounter Details Date Type Department Care Team ([facility] st Contact Info) Description 10/16/2019 11:00 AM EST Office Visit Hematology [place] [address] Kayla Espinosa MD [address] [place] [address] HEMATOLOGY/[place] [address] Malignant neoplasm of upper-inner quadrant of left breast in female, estrogen receptor positive; Generalized weakness; Type 2 diabetes mellitus with other specified complication, without long-term current use of insulin Social History Tobacco Use Types Packs/Day Years [...] Sign Reading Time Taken Comments Blood Pressure 121/61 10/16/2019 10:57 AM EST Pulse 74 10/16/2019 10:57 AM EST Temperature 36 ??C (96.8 ??F) 10/16/2019 10:57 AM EST Respiratory Rate 20 10/16/2019 10:57 AM EST Oxygen Saturation 100% 10/16/2019 10:57 AM EST Inhaled Oxygen Concentration - - Weight 87.1 kg (192 lb) 10/16/2019 10:57 AM EST Height 164.6 cm (5' 4.8) 10/16/2019 10:57 AM ES T Body Mass Index 32.15 10/16/2019 10:57 AM EST documented in this encounter Progress Notes * Kayla Espinosa MD - 10/16/2019 11:00 AM EST Patient Active Problem List Diagnosis Code ??? Malignant neoplasm of left female breast C50.912 ??? Fibromyalgia M79.7 ??? Low back pain, non-specific M54.5 ??? Diabetes mellitus E11.9 ??? Generalized weakness R53.1 Subjective: Patient ID: Mikaela Payan is a 63 y.o. female. Cc: breast cancer Interval history: Juli is here for f/u for hx of breast cancer. Mammograms 05/29/19 were cat 2. She started letrozole in June, and notes a huge amount of pain that she thinks is worse since starting letrozole. She stopped it 04/2019 and was improved. She started exemestane 06/2019. She has been dxed with fibromyalgia and seen by pain clinic and saw neurology 05/2019 for numerous sx including a lot of trouble with word finding, and brain fog, insomnia, headaches and anxiety. (seeneuro note of 05/29/19). Poor short term memory. ? Hx of bipolar disease. No nausea, vomiting or double vision. MRI showed some white matter changes c/w vascular changes. Working on glucose control. Left breast cancer T1bN0 upper inner quadrant ER/CO + her2 neg --annual mammograms since age [...] no MYRTLE, no LVI --RT planned in [facility], to start 04/16/18 --letrozole started 06/12/18 Menses age 13-48; ; 1 sister with breast cancer at age 57, s/p mastx and tamoxifen 1 brother with testicular cancer; 1 brother no cancer; 1 daughter well, no cancer. No HRT. Review of Systems Constitutional: Positive for activity change- much less active. Unable to work. HENT: Negative. Eyes: Negative. Respiratory: Negative. Hx pneumonia over the winter. Cardiovascular: Negative. Gastrointestinal: Negative. Endocrine: Negative. Genitourinary: Positive for flank pain. Musculoskeletal: Positive for arthralgias, back pain and neck pain. Skin: Negative. Allergic/Immunologic: Negative. Neurological: Positive for speech difficulty and headaches. Hematological: Negative. 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 Lives with 92 yo mother. Has 42 yo daughter and 1 grandchild. Abstinent from ETOH for 30 yrs. Current Outpatient Medications on File Prior to Visit Medication Sig Dispense Refill ??? aspirin 81 mg Tablet, Delayed Release (E.C.) Take 81 mg by mouth daily. ??? exemestane (AROMASIN) 25 mg Tablet Take 1 tablet by mouth daily. 30 tablet 11 ??? pregabalin (LYRICA) 50 mg Capsule Take [...] as needed. ??? fluticasone (FLONASE) 50 mcg/actuation [place], Suspension SPRAY TWO SPRAYS IN EACH NOSTRIL EVERYDAY FOR 1 WEEK MAY DECREASE USE WHEN FEELING BETTER 3 ??? epinephrine (EPIPEN INJ) Inject as directed once as needed. ??? naloxone (NARCAN) 2 mg/actuation [place], Non-Aerosol by Nasal route as needed. ??? sertraline (ZOLOFT) 100 mg Tablet Take 100 mg by mouth 2 times daily. ??? traMADol (ULTRAM) 50 mg Tablet Take 50 mg by mouth 2 times daily. ??? letrozole (FEMARA) 2.5 mg Tablet Take 1 tablet by mouth daily. (Patient not taking: Reported on05/29/2019) 90 tablet 3 No current facility-administered medications on file prior to visit. Objective: Physical Exam Visit Vitals BP 121/61 (Patient Position: Sitting) Pulse 74 Temp 36 ??C (96.8 ??F) (Temporal) Resp 20 Ht 164.6 cm (5' 4.8) Wt 87.1 kg (192 lb) SpO2 100% BMI 32.15 kg/m?? Constitutional: She appears well-developed and well-nourished. HENT: Head: Normocephalic and atraumatic. Eyes: EOM are normal. No scleral icterus Neck: Normal range of motion. Neck supple. No JVD present. No tracheal deviation present. No thyromegaly present. Cardiovascular: Normal rate, regular rhythm, normal heart sounds Pulmonary/Chest: Effort normal and breath sounds normal. Clear to P and A. Breast:Scarring on left, no masses appreciated in either breast Abdominal: Soft. Bowel sounds are normal. She exhibits no distension and no mass. There is no tenderness. There is no rebound and no guarding. No hepatomegaly Lymphadenopathy: She has no cervical, SC or axillary adenopathy. Neurological: She is alert. No focal deficits. Skin: Skin is warm and dry. No rash noted. Psychiatric: Has loosening of associations, difficulty with word finding and communication. Recent Results (from the past 24 hour(s)) TSH Result Value Ref Range TSH 2.09 0.27 - 4.20 mcIU/mL Hemoglobin A1c Result Value Ref Range Hemoglobin A1C 7.3 (H) 4.3 - 5.6 % Est Avg Gluc 163 mg/dL Comprehensive metabolic panel (non-fasting) Result Value Ref Range Glucose Lvl 126 65 - 199 mg/dL BUN 22 (H) 8 - 18 mg/dL Creatinine 0.84 0.70 - 1.20 mg/dL Sodium 141 135 - 145 mmol/L Potassium 4.3 3.5 - 5.0 mmol/L Chloride 103 98 - 107 mmol/L CO2 28 22 - 31 mmol/L Anion Gap 10 5 - 15 mmol/L Calcium 9.8 8.5 - 10.5 mg/dL Total Protein 7.8 6.1 - 8.0 gm/dL Albumin 4.4 3.2 - 5.2 gm/dL AST 9 0 - 30 unit/L ALT 16 0 - 30 unit/L Alk Phos 104 35 - 105 unit/L Total Bilirubin 0.2 0.2 - 1.3 mg/dL eGFR 74 >=60 mL/min/1.73 m?? eGFR 86 >=60 mL/min/1.73 m?? Hemogram Result Value Ref Range WBC 9.8 (H) 4.0 - 9.5 x10(3)/mcL RBC 5.13 4.00 - 5.21 x10(6)/mcL Hemoglobin 13.0 11.7 - 15.5 gm/dL Hematocrit 40.3 35.7 - 45.8 % MCV 78.6 (L) 82.6 - 94.4 fL MCH 25.3 (L) 27.1 - 32.0 pg MCHC 32.3 31.7 - 35.0 gm/dL Platelets 270 145 - 357 x10(3)/mcL RDWSD 43.1 37.0 - 46.0 fL RDWCV 15.2 (H) 11.5 - 14.1 % MPV 11.0 7.6 - 12.9 fL nRBC % Auto 0.0 % nRBC Abs Auto 0.000 0.000 - 0.000 x10(3)/mcL Differential, Automated Result Value Ref Range Neutrophils % 66.7 % Neutr Abs (ANC) 6.56 (H) 1.70 - 6.10 x10(3)/mcL Lymphocytes % 23.0 % Lymphocytes Abs 2.3 0.9 - 3.2 x10(3)/mcL Monocytes % 6.2 % Monocyte Abs 0.6 0.3 - 0.9 x10(3)/mcL Eosinophils % 3.2 % Eosinophils Abs 0.3 0.0 - 0.4 x10(3)/mcL Basophils % 0.6 % Basophils Abs 0.1 0.0 - 0.1 x10(3)/mcL Immature Gran % 0.30 % Cele Gran Abs 0.03 0.00 - 0.04 x10(3)/mcL Assessment and Plan: #1 Breast cancer--Stage I left breast cancer 02/21, WHIT. Not doing well clinically and hard to define what to blame. Multiple meds/anxieties/social circumstances contribute bri to her decreased QOLand pain. Will take a 2 month Break from exemestane- asked to write diary of how she feels to assess changes given her concerns re memory thought MMSE was ok. #2 Low MCV without anemia- Would ask PCP to check iron studies and B12 and folate with next labs #3 Fatigue--increased with increased word finding difficulty and confusion. TSH is fine. Followup with PCP. #4 Menopausal symptoms--stable. #5 Bone health--dexa 06/23 normal. RTC 2 months. documented in this encounter Plan of Treatment Not on file documented as of this encounter Results * TSH (10/16/2019 12:05 PM EST) Thyroid Stimulating Hormone 2.09 0.27 - 4.20 mcIU/mL [facility] Blood specimen (specimen) 10/16/2019 12:05 PM EST 10/16/2019 12:18 PM EST Narrative Resulting Agency Comment Spec In Lab Kayla Espinosa MD CHEMISTRY ORDERABLES [facility] [place] [address] * (ABNORMAL) Hemoglobin A1c (10/16/2019 12:05 PM EST) Hemoglobin A1c 7.3(H) 4.3 - 5.6 % [facility] Comment: Reference Range: 4.3 [...] Mellitus, Diabetes Care 2013; 36: Suppl. 1, U07-22 Estimated Average Glucose 163 mg/dL [facility] Comment: eAG equivalents for [...] into estimated average glucose values. ??Diabetes Care 2008:31(8):6040-4537. Blood specimen (specimen) 10/16/2019 12:05 PM EST 10/16/2019 12:18 PM EST Narrative Resulting Agency Comment Spec In Lab Kayla Espinosa MD CHEMISTRY ORDERABLES [facility] [place] [address] * (ABNORMAL) Comprehensive metabolic panel (non-fasting) (10/16/2019 12:05 PM EST) Glucose 126 65 - 199 mg/dL [facility] Comment:Diabetes: >=200 mg/d L plus symptoms Blood Urea Nitrogen 22(H) 8 - 18 mg/dL [facility] Creatinine 0.84 0.70 - 1.20 mg/dL [facility] Sodium 141 135 - 145 mmol/L [facility] Potassium 4.3 3.5 - 5.0 mmol/L [facility] Comment: Please note: ??Patients with WBC >100,000 may have falsely elevated Potassium levels. ??For accurate Potassium quantification in these patients send serum separator tube (gold top) for subsequent determinations. ??Contact the Clinical Chemistry Laboratory if there are any questions. Chloride 103 98 - 107 mmol/L [facility] Carbon Dioxide 28 22 - 31 mmol/L [facility] Anion Gap 10 5 - 15 mmol/L [facility] Calcium 9.8 8.5 - 10.5 mg/dL [facility] Protein, Total 7.8 6.1 - 8.0 gm/dL [facility] Albumin 4.4 3.2 - 5.2 gm/dL [facility] Aspartate Aminotransferase 9 0 - 30 unit/L [facility] Alanine Aminotransferase 16 0 - 30 unit/L [facility] Alkaline Phosphatase 104 35 - 105 unit/L [facility] Bilirubin, Total 0.2 0.2 - 1.3 mg/dL [facility] Est Glomerular Filtration Rate 74 >=60 mL/min/1. 73 m?? [facility] Comment: The eGFR was calculated using the CKD-EPI equation. As with all creatinine based estimates of kidney function, eGFR values calculated with the CKD-EPI equation are not accurate in patients with acute kidney failure, extremes of body mass or the acutely ill. [email or web address] eGFR 86 >=60 mL/min/1. 73 m?? [facility] Comment: The eGFR was calculated using the CKD-EPI equation. As with all creatinine based estimates of kidney function, eGFR values calculated with the CKD-EPI equation are not accurate in patients with acute kidney failure, extremes of body mass or the acutely ill. [email or web address] Blood specimen (specimen) 10/16/2019 12:05 PM EST 10/16/2019 12:18 PM EST Narrative Resulting Agency Comment Spec In Lab Kayla Espinosa MD CHEMISTRY ORDERABLES [facility] [place] [phone] documented in this encounter Visit Diagnoses Diagnosis Malignant neoplasm of upper-inner quadrant of left breast in female, estrogen receptor positive Generalized weakness Other malaise and fatigue Type 2 diabetes mellitus with other specified complication, without long-term current use of insulin documented in this encounter Care Teams Hotel Associate Relationship Specialty Start Date End Date Leora Jones APRN PCP - General Family Medicine 03/15/18 11/16/21 documented as of this encounter
--- OUTSIDE RECORDS SUMMARY | 2024-07-10 18:04 | XMS_ITS | Encounter Summary ---
Author Organization [facility] Address [facility] [place] [address] Care Team Providers Care Graphic Design Intern Name Role Phone Karen Leora Byrne APRN Primary Care Provider + Reason for Visit * Reason Comments Follow-up Encounter Details Date Type Department Care Team (Late st Contact Info) Description 10/17/2018 4:30 PM EST Office [place] [address] Harriett Larkin MD [facility] [place] [address] Malignant neoplasm of left breast in female, estrogen receptor positive, unspecified site of breast Social History Tobacco Use Types Packs/Day Years Used Date Smoking Tobacco: Never Smokeless Tobacco: Never Sex and Gender Information Value Date Recorded Sex Assigned at Not on file Gender Identity Not on file Sexual Orientation Not on file documented as of this encounter Progress Notes * Harriett Larkin MD - 10/17/2018 4:30 PM EST Mikaela Payan is a 62-year-old woman who returns after left partial mastectomy and sentinel node excision on March 22, 2018. Mikaela had a 8 mm low-grade infiltrating ductal carcinoma excised with negative margins. Nearest margin was 10 mm away. She was HER-2 negative. One sentinel node was negative. She received adjuvant XRT and is now on Femara. She now returns for check. She has not felt any breast masses. On physical exam there are no right or left breast masses. No axillary adenopathy. Full ROM left arm and no arm edema. Left mammo from today looks benign to my eye. Impression: No evidence of breast cancer recurrence. Plan: I will plan to see her back in 6 months with a bilateral mammogram. Comprehensive Breast Program Surgery Follow Up Note Range of motion of surgical arm complete Lymphedema present No Cosmesis-surgeon reported Cosmesis-patient reported Excellent Excellent Local or regional recurrence No Contralateral cancer present No Distant recurrence present No Date of last follow up 10/17/18 HARRIETT LARKIN MD 10/17/2018 documented in this encounter Plan of Treatment Not on file documented as of this encounter Results * Mammo Screening Cad and Alexx Bilateral (05/29/2019 10:30 AM EDT) Anatomical Region Laterality Modality Breast Bilateral Mammography Narrative 05/29/2019 10:42 AM EDT Bilateral mammography Reason for exam: s/p left lump for ca Technique: CC and MLO views were obtained of each breast using standard 2-D mammography as well as 3-D tomosynthesis. Computer aided detection was used. Comparison: This is compared with prior images. Findings: The breasts are heterogeneously dense, which may obscure small masses. There are no suspicious microcalcifications, masses, or areas of distortion. The pattern is stable. Stable benign-appearing postsurgical change. Superior right breast benign-appearing asymmetry, stable. Conclusion: No mammographic evidence of malignancy. Recommendation: Routine screening. BI-RADS Category 2: Benign findings. * ??The [place] [employer] and The Society of Breast Imaging recommend annual screening beginning at age 40 for the general female population. * ??Screening should continue as long as a woman is in good health and is expected to live 10 more years or longer. * ??All women should be familiar with the known benefits, limitations, and potential harms linked to breast cancer screening. They also should know how their breasts normally look and feel and report any breast changes to a health care provider right away. * ??Some women, because of their family history, a genetic tendency, or certain other factors, should be screened with MRIs along with mammograms. (The number of women who fall into this category is very small.) The patient and health care provider should discuss the patient history and decide if earlier screening and breast MRI are appropriate. Thank you for letting us participate in the care of this patient. For questions regarding this report, please contact the number below. ? Harriett Larkin MD IMG MAMMO ORDERABLES documented in this encounter Visit Diagnoses Diagnosis Malignant neoplasm of left breast in female, estrogen receptor positive, unspecified site of breast Malignant neoplasm of left breast in female, estrogen receptor positive, unspecified site of breast documented in this encounter Care Teams Graphic Design Intern Relationship Specialty Start Date End Date Leora Jones, PROPAGATION WORKER PCP - General Family Medicine 03/15/18 11/16/21 documented as of this encounter
--- OUTSIDE RECORDS SUMMARY | 2024-07-10 18:04 | XMS_ITS | Encounter Summary ---
Author Organization [facility] [place] [address] Care Team Providers Care Commercial Trailer Truck Driver Name Role Phone Leora Jones APRN Primary Care Provider + Encounter Details Date Type Department Care Team (Latest Contact Info) Description 05/29/2019 10:04 AM EDT - 05/29/2019 10:36 AM EDT Hospital Encounter Mammography/[place] [id number] Pete Emmanuel MD [facility] [address] Malignant neoplasm of left breast in female, [...] Sig Dispensed Refills Start Date End Date escitalopram (LEXAPRO) 10 mg Tablet Take 10 [...] lungs as needed. fluticasone (FLONASE) 50 mcg/actuation [place], Suspension SPRAY TWO SPRAYS IN EACH NOSTRIL EVERY DAY FOR 1 WEEK MAY DECREASE USE WHEN FEELING BETTER 3 10/24/2017 epinephrine (EPIPEN INJ) Inject as directed once as needed. naloxone (NARCAN) 2 mg/actuation [place], Non-Aerosol by Nasal route as needed. sertraline (ZOLOFT) 100 mg Tablet Take 100 mg by mouth 2 times daily. traMADol (ULTRAM) 50 mg Tablet Take 50 mg by mouth 2 times daily. 02/09/2018 letrozole (FEMARA) 2.5 mg TabletIndications:[place] gnant neoplasm of upper-inner quadrant of left breast in female, estrogen receptor positive Take 1 tablet by mouth daily. 90 tablet 3 12/03/2018 02/12/2020 emollient base (CREAM BASE TOP) Apply topically. Jeans Cream. Apply to area of radiation twice a day but no less than 2 hours before a treatment. 04/17/2020 documented as of this encounter Plan of Treatment Not on file documented as of this encounter Procedures Procedure Name Priority Date/Time Associated Diagnosis Comments MAMMO SCREENING CAD AND ALEXX BILATERAL Routine 05/29/2019 10:30 AM EDT Malignant neoplasm of left breast [...] BI-RADS Category 2: Benign findings. * ??The [place] [employer] and The Society of [...] report, please contact the number below. ? Pete Emmanuel MD IMG MAMMO ORDERABLES documented in this encounter Visit Diagnoses Diagnosis Malignant neoplasm of left breast in female, estrogen receptor positive, unspecified site of breast documented in this encounter Care Teams Commercial Trailer Truck Driver Relationship Specialty Start Date End Date Leora Jones APRN PCP - General Family Medicine 03/15/18 11/16/21 documented as of this encounter
--- OUTSIDE RECORDS SUMMARY | 2024-07-10 18:04 | XMS_ITS | Encounter Summary ---
[place] [address] Care Team Providers Care Enterostomal Nurse Name Role Phone Leora Jones APRN Primary Care Provider + Reason for Referral * Psychiatric (Routine) - Closed Specialty Diagnoses / Procedures Referred By Kandi gao Referred To Contact Psychiatry Diagnoses Memory impairment Procedures PRO NEUROPSYCHOLOGICAL TEST EVAL PHYS/QHP 1ST HOUR PRO NEUROPSYCHOLOGICAL TEST EVAL PHYS/QHP EA ADDL HR TC PSYCL/NRPSYCL RETORT LOAD EXPEDITER 2+ TEST 1ST 30 MIN TC PSYCL/NRPSYCL RETORT LOAD EXPEDITER 2+ TEST EA ADDL 30 MIN Yary Lozoya APRN [facility] [place] [address] [facility] Psych Neuro [address] [place] [id number] Referral ID Status Reason Start Date Expiration Date V isits Requested Visits Authorized [id number] Closed Consult, Test & Treat 05/29/2019 05/28/2022 1 1 Reason for Visit * Consultation (Routine) - Closed Specialty Diagnoses / Procedures Referred By Kandi gao Referred To Contact Neurology Diagnoses poor short term memory Leora Jones APRN [address] [place] [address] Phone: [facility] Neurology [address] [place] [address] Referral ID Status Reason Start Date Expiration Date Visits Re quested Visits Authorized [id number] Closed 04/02/2019 04/01/2020 1 1 Encounter Details Date Type Department Care Team (Late st Contact Info) Description 05/29/2019 1:00 PM EDT Office Visit Neurology at [facility] [place] [phone] Yary Lozoya, BEHAVIORAL MODIFICATION ASSISTANT [facility] [place] [address] Memory impairment; Insomnia, unspecified type; Anxiety; Depression, unspecified depression type; Other chronic [...] Sign Reading Time Taken Comments Blood Pressure 98/58 05/29/2019 12:43 PM EDT Pulse 74 05/29/2019 12:43 PM EDT Temperature - - Respiratory Rate - - Oxygen Saturation - - Inhaled Oxygen Concentration - - Weight 86.2 kg (190 lb) 05/29/2019 12:43 PM EDT With shoes Height 167.6 cm (5' 6) 05/29/2019 12:43 PM EDT Reported Body Mass Index 30.67 05/29/2019 12:43 PM EDT documented in this encounter Patient Instructions * Patient Instructions* Yary Lozoya, BEHAVIORAL MODIFICATION ASSISTANT - 05/29/2019 1:00 PM EDT I think your memory issues are likely multifactorial in nature: 1.) Insomnia 2.) Depression 3.) Anxiety 4.) Diabetes/blood sugar fluctuations 5.) Chronic pain 6.) Obstructive sleep apnea 7.) Medications: A.) Lorazepam B.) Lyrica C.) Atorvastatin D.) Sumatriptan E.) Tramadol 8.) Your MRI has some abnormalities but I am awaiting the official reading from the radiologist. Mybest guess is that it is some small vessel ischemic disease which has lead to some blood flow issues in your brain. I'm not sure that this is what is in your brain but it's my best guess and we will see what the radiologist has to say about the white stuff in your brain. Leora will get this report. I recommend following the Mediterranean Diet which is full of veggies and limited in meat and sugar. This is the best diet for both your brain and heart. I also recommend that you try to exercise. Your brain loves blood! Try to keep your blood pressure under 130/80. Leora may want to try to refer you to pain management here. She may want to consider referring you to the headache clinic as well. Melatonin can be considered for sleep. documented in this encounter Progress Notes * Yary Lozoya APRN - 05/29/2019 1:00 PM EDT Subjective: [facility] OUTPATIENT INITIAL VISIT NOTE Patient Active Problem List Diagnosis ??? Malignant neoplasm of left female breast [...] no MYRTLE, no LVI --[facility], to start 04/16/18 --letrozole started 06/12/18 Menses age 12-48; ; 1 sister with breast cancer at age 57, s/p mastx and tamoxifen 1 brother with testicular cancer; 1 brother no cancer; 1 daughter well, no cancer. No HRT. 1955 PCP - Leora Jones, BEHAVIORAL MODIFICATION ASSISTANT ROAD ROLLER ENGINEER - Leora Jones CC: Ms. Payan presents today for initial evaluation of her memory issues. HPI: Prior workup: MRI: PET: Lumbar Puncture: LABS: CBC- BMP-5/21/19: remarkable for BUN of 22 TSH- B-12- Vit D- Folate- HhrE7R-1/21/19: 7.4 MMSE: (March 2019-outside clinic) MOCA: Past Medical History: Diagnosis Date ??? Breast cancer 02/15/2018 IDC Past Surgical History: Procedure Laterality Date ??? BREAST BIOPSY Left 02/15/2018 IDC ??? BREAST LUMPECTOMY Left 03/22/2018 ??? PRO BX/REMV, LYMPH NODE, DEEP AXILL Left 03/22/2018 BIOPSY OR EXCISION OF LYMPH NODE(S), OPEN, DEEP AXILLARY NODE(S) (WRVU 6.43) performed by Pete Emmanuel MD at [facility] ??? PRO INTRAOP SENTINEL LYMPH ID W/DYE INJECTION Left 03/22/2018 INTRAOPERATIVE ID (MAPPING) SENTINEL LYMPH NODE,INCLUDES INJECTION (WRVU 2.5) performed by Pete Emmanuel MD at [facility] ??? PRO MASTECTOMY, PARTIAL Left 03/22/2018 MASTECTOMY PARTIAL (WRVU 10.13) performed by Pete Emmanuel MD at [facility] Social History Socioeconomic History ??? Marital status: Single Spouse name: Not on file ??? Number of children: Not on file ??? Years of education: Not on file ??? Highest education level: Not on file Occupational History ??? Not on file Social Needs ??? Financial resource strain: Not on file ??? Food insecurity: Worry: Not on file Inability: Not on file ??? Transportation needs: Medical: Not on file Non-medical: Not on file Tobacco Use ??? Smoking status: Never Smoker ??? Smokeless tobacco: Never Used Substance and Sexual Activity ??? Alcohol use: Not Currently ??? Drug use: Not Currently ??? Sexual activity: Not on file Lifestyle ??? Physical activity: Days per week: Not on file Minutes per session: Not on file ??? Stress: Not on file Relationships ??? Social connections: Talks on phone: Not on file Gets together: Not on file Attends sikh service: Not on file Active member of club or organization: Not on file Attends meetings of clubs or organizations: Not on file Relationship status: Not on file ??? Intimate partner violence: Fear of current or ex partner: Not on file Emotionally abused: Not on file Physically abused: Not on file Forced sexual activity: Not on file Other Topics Concern ??? Not on file Social History Narrative ??? Not on file Current Outpatient Medications on File Prior to Visit Medication Sig Dispense Refill ??? pregabalin (LYRICA) 50 mg Capsule Take [...] as needed. ??? fluticasone (FLONASE) 50 mcg/actuation [place], Suspension SPRAY TWO SPRAYS IN EACH NOSTRIL EVERYDAY FOR 1 WEEK MAY DECREASE USE WHEN FEELING BETTER 3 ??? epinephrine (EPIPEN INJ) Inject as directed once as needed. ??? naloxone (NARCAN) 2 mg/actuation [place], Non-Aerosol by Nasal route as needed. ??? sertraline (ZOLOFT) 100 mg Tablet Take 100 mg by mouth 2 times daily. ??? traMADol (ULTRAM) 50 mg Tablet Take 50 mg by mouth 2 times daily. ??? escitalopram (LEXAPRO) 10 mg Tablet Take 10 mg by mouth daily. ??? 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 Avoids various foods. Headache every day for the last 2 weeks. Many members of her family have migraines. Walking: I regularly slide into alberto, I tip over backwards Falls: no Wandering: no Hallucinations: no Fluctuating levels of alertness/periods of unresponsiveness: no Tremor: no Rigidity: no Dramatic change in personality: per her sister Yulia she is not as temperamental as she was Weakness/numbness in face or arms or legs: numbness/tingling/pain in hands Fevers, chills, night sweats: night sweats on occasion Cardiac: no Bowel: has both diarrhea and constipation Bladder: my urination has improved a lot Respiratory: SOB d/t allergies Vision: wears glasses Hearing: no Exercise: not much Socialization: plays darts Other: has chronic pain ROS otherwise normal Ms. Payan presents today accompanied by her sister Yulia. Mikaela feels that her memory problems started about a year ago after she had a left partial mastectomy and radiation for breast cancer (no chemotherapy). She developed brain fog. A manager of financial planning person asked her to bring a bank statement but Mikaela could not identify what a bank statement was. She had one episode at a doctor's office where she was given an injection and 15 minutes later, she had forgotten that she had been given a shot. The office staff told her that she had been given a shotand she swore that she hadn't been given one. This happened about 2 months ago. Mikaela now has trouble with word finding and word retrieval. She also has trouble remembering what she did a few hours ago. She can't remember what happened yesterday or the day before. Her sister Yulia tells me that she has mostly just noticed a change in Mikaela's temperament. She used to have a very short temper but now she is more even- keeled and does not get as upset as quickly as she used to. Yulia does notice that Mikaela walks out of a room to do something and then stops and looks around confusedly and then goes and does something else completely. Mikaela lives with her mother and tells me that the other day she went to get her mom a glass of milk. On the way to the kitchen, she decided to go check her laundry. Then she started folding the laundry and 30 minutes later, she remembered she was originally going to get her mom some milk. She has a long history of anxiety, depression,PTSD, and a possible bipolar diagnosis, although Mikaela herself disputes this. She also has migraines and chronic pain including a horrible pain that shoots down her hands and occasionally causes her to drop things. She was diagnosed with diabetes this june. Objective: Physical Exam: Vitals: Most Recent Vitals: 05/29/19 1243 BP: 98/58 Pulse: 74 Gen: Patient of apparent stated age, well nourished, well developed, NAD Psych: Mood is good. Derm: No obvious rash. Cardiovascular: No bruits auscultated Extremities: Full ROM, capillary refill < 1 second. Neuro Exam: MS: AAOx3, clear language, no dysarthria, follows commands CN: PERRLA, EOMI without nystagmus, visual mullins full No facial asymmetry Hearing grossly intact Palate elevates symmetrically, tongue protrudes midline SCM and trap strength intact Motor: Normal bulk and tone. UE: 5/5 R, 5/5 L Arm abduction at shoulder 5/5 R, 5/5 L Elbow extension 5/5 R, 5/5 L Elbow flexion 5/5 R, 5/5 L [employer] LE: 5/5 R, 5/5 L Hip flexion 5/5 R, 5/5 L Knee extension 5/5 R, 5/5 L Knee flexion 5/5 R, 5/5 L Foot dorsiflexion 5/5 R, 5/5 L Foot plantar flexion No cogwheeling present No palmar grasp, snout, or palmomental reflex present Sensation: Intact to light touch throughout. Reflexes: DTRs 2+ R, 2+ L Biceps 2+ R, 2+ L Brachioradialis 2+ R, 2+ L Triceps 2+ R, 2+ L Patellar 2+ R, 2+ L Achilles tendon Coordination: Finger to nose intact, no dysmetria Rapid alternating movements & finger tapping smooth and symmetric Heel-henderson intact No obvious tremor Gait narrow based but slightly wobbly Negative romberg MoCA score today in office: Assessment and Plan: - Memory issues: I think Mikaela's memory issues are likely multifactorial in nature: 1.) Insomnia 2.) Depression 3.) Anxiety 4.) Diabetes/blood sugar fluctuations 5.) Chronic pain 6.) Obstructive sleep apnea 7.) Medications: A.) Lorazepam B.) Lyrica C.) Atorvastatin D.) Sumatriptan E.) Tramadol Additionally, she had a MRI brain done today that showed a large amount of white matter disease; official radiology reading is still pending. The significance of this is unclear-she has never had a stroke or known cardiovascular issues. Diabetes can contribute to these MRI findings; it is possible she has had uncontrolled Diabetes for many years. The significant amount of white matter disease makes a vascular dementia a possibility as well, although she does not meet diagnostic criteria for a dementia currently. Today, we discussed the need for exercise as well as following a diet such as theMediterranean Diet, which is good for both brain and heart. I recommend that the above-mentioned list be addressed. I have encouraged her to get her cpap re-fitted and to work on her sleep regimen, as well as to try to have her mood medications optimized. The medications she is on that can impair cognition may not be able to be discontinued currently, but perhaps they could be decreased. Also, Mikaela has seen an outside pain management clinic that was not helpful; I recommended that she perhapsvisit pain management here at [facility] to better get a handle on her chronic pain issue. I have also placed a referral for neuropsychological testing. In the meantime, PCP may wish to check B12, TSH, Vitamin D, Methylmalonic acid, folate, and thiamine and ensure these levels are all in optimum range. - Social and psychiatric issues: mood appears stable on low dose Lexapro and Ativan. - Injury prevention: Discussed driving. The patient drives occasionally but only if she is feeling well. - Follow up with me in 6 months to re-evaluate, sooner if needed. - Patient and sister verbalize understanding and agree with plan. documented in this encounter Plan of Treatment Scheduled Referrals Name Type Priority Associated Diagnoses Order Schedule Referral to Neuropsychology Outpatient Referral Routine Memory impairment Ordered: 05/29/2019 documented as of this encounter Visit Diagnoses Diagnosis Memory impairment Memory loss Insomnia, unspecified type Anxiety Anxiety state, unspecified Depression, unspecified depression type Other chronic pain documented in this encounter Care Teams Enterostomal Nurse Relationship Specialty Start Date End Date Leora Jones APRN PCP - General Family Medicine 03/15/18 11/16/21 documented as of this encounter
--- OUTSIDE RECORDS SUMMARY | 2024-07-10 18:04 | XMS_ITS | Encounter Summary ---
Author Organization [facility] [place] [address] Care Team Providers Care [facility] Owner Name Role Phone Karen Leora Byrne APRN Primary Care Provider + Reason for Visit * Reason Comments On Treatment Visit Encounter Details Date Type Department Care Team (Late st Contact Info) Description 05/08/2018 8:00 AM EDT Office Visit Radiation Oncology at [address] [phone] Magi Terry MD [facility] [place] [address] Malignant neoplasm of left female breast, unspecified [...] Sign Reading Time Taken Comments Blood Pressure 104/78 05/08/2018 8:00 AM EDT Pulse 93 05/08/2018 8:00 AM EDT Temperature 37.2 ??C (99 ??F) 05/08/2018 8:0 0 AM EDT Respiratory Rate 12 05/08/2018 8:00 AM EDT Oxygen Saturation 99% 05/08/2018 8:0 0 AM EDT Inhaled Oxygen Concentration - - Weight 92.7 kg (204 lb 6.4 oz) 05/08/20 18 8:00 AM EDT sandals on Height - - Body Mass Index 32.46 04/12/2018 1:42 PM EDT documented in this encounter Progress Notes * Magi Terry MD - 05/08/2018 8:00 AM EDT DIAGNOSIS: Breast, L, IDC, gr 1, ER+FL+, Her2 neg, 8 mm, s/p lumpectomy & SNB, pT1b pN0, stage I. CURRENT TREATMENT DOSE: 18.62 Gy L breast ANTICIPATED TOTAL DOSE: 42.56 Gy L breast, 52.56 Gy lumpectomy bed Current # of xrt received: 7 Anticipated total # of xrt txs: 16 L breast, 20 lumpectomy bed Evaluation of port verification films: Approved. For details, see electronic film record in [employer]. Changes in Medical Condition: Mild intermittent discomfort in L breast. Feels tired & slightly nauseous today. Mild intermittent constipation, for which she plans to try prune juice. Pain?: See above. Your Medications These changes are accurate as of 05/08/18 8:40 AM. If you have any questions, ask your nurse or doctor. Continued medications, unchanged Dose Details ALBUTEROL INHL Inhale into the lungs as needed. Refills: 0 BRISA ORAL Take by mouth as needed. Refills: 0 EPIPEN INJ Inject as directed. [...] NEEDED Refills: 0 LYRICA ORAL Take by mouth. Refills: 0 montelukast 10 mg Tab Commonly known as: SINGULAIR Take 10 mg by mouth nightly. 10 mg Refills: 0 NARCAN 2 mg/actuation [place] by Nasal route. Generic drug: naloxone Refills: 0 sertraline 100 mg Tab Commonly known as: ZOLOFT Take 100 mg by mouth daily. 100 mg Refills: 0 traMADol 50 mg Tab Commonly known as: ULTRAM Refills: 0 zolpidem 5 mg Tab Commonly known as: AMBIEN TAKE ONE TABLET BY MOUTH AT BEDTIME NEEDED FOR INSOMNIA Refills: 1 Flu vacc?: Received for [id number]. P&SH: Smoking? Never. Physical Exam: BP 104/78 Pulse 93 Temp 37.2 ??C (99 ??F) Resp 12 Wt 92.7 kg (204 lb 6.4 oz)Comment: sandals on SpO2 99% BMI 32.46 kg/m2 A&Ox3, NAD. Minimal erythema L breast. Amb stable. Imagin04/17/18 Dx'ic Rad Interp CTsim: Diffuse hepatic steatosis. Performance Status: KPS 100% Response to xrt: As expected. Irradiation Related Symptoms: Skin rxn. Treatment for Symptom Control: Gabriel's cream. Pain Management: Tylenol/advil. Recommendation on Continuing Course of xrt: Cont. Miralax rec'd for constipation. I informed her that the CTsim was [...] breast documented in this encounter Care Teams [facility] Owner Relationship Specialty Start Date End Date Leora Jones APRN PCP - General Family Medicine 03/15/18 11/16/21 documented as of this encounter
--- OUTSIDE RECORDS SUMMARY | 2024-07-10 18:04 | XMS_ITS | Encounter Summary ---
Author Organization [facility] Address [facility] [place] [address] Care Team Providers Care Milling Machine Operator Name Role Phone Leora Jones APRN Primary Care Provider + Reason for Visit * Reason Onset Date Comments TeleHealth 04/17/2020 Encounter Details Date Type Department Care Team (Late st Contact Info) Description 04/17/2020 Telephone Neurology at [facility] [place] [address] Yary Lozoya APRN [facility] [place] [address] TeleHealth Social History Tobacco Use Types Packs/Day Years [...] encounter Miscellaneous Notes * Telephone Encounter - Shey Key RN - 04/17/2020 9:45 AM EDT Spoke with the patient by phone to review medications and allergies prior to upcoming tele-appointment scheduled with Neurology provider. Medication profile updated. documented in this encounter Plan of Treatment Not on file documented as of this encounter Visit Diagnoses Not on filedocumented in this encounter Care Teams Milling Machine Operator Relationship Specialty Start Date End Date Leora Jones APRN PCP - General Family Medicine 03/15/18 11/16/21 documented as of this encounter
--- OUTSIDE RECORDS SUMMARY | 2024-07-10 18:04 | XMS_ITS | Encounter Summary ---
Author Organization [facility] [place] [address] Care Team Providers Care Griddle Cook Name Role Phone MalachibrandiciprianoAmacipriano Byrne APRN Primary Care Provider + Reason for Visit * Reason Comments On Treatment Visit Encounter Details Date Type Department Care Team (Late st Contact Info) Description 05/01/2018 8:00 AM EDT Office Visit Radiation Oncology at [address] [phone] Magi Terry MD [facility] [place] [address] Malignant neoplasm of left female breast, unspecified [...] Sign Reading Time Taken Comments Blood Pressure 145/82 05/01/2018 8:01 AM EDT Pulse 80 05/01/2018 8:01 AM EDT Temperature 36.8 ??C (98.2 ??F) 05/01/2018 8:01 AM ED T Respiratory Rate 18 05/01/2018 8:01 AM EDT Oxygen Saturation 100% 05/01/2018 8:01 AM EDT Inhaled Oxygen Concentration - - Weight 93.4 kg (206 lb) 05/01/2018 8:01 AM EDT Height - - Body Mass Index 32.72 04/12/2018 1:42 PM EDT documented in this encounter Progress Notes * Magi Terry MD - 05/01/2018 8:00 AM EDT DIAGNOSIS: Breast, L, IDC, gr 1, ER+LA+, Her2 neg, 8 mm, s/p lumpectomy & SNB, pT1b pN0, stage I. CURRENT TREATMENT DOSE: 5.32 Gy L breast ANTICIPATED TOTAL DOSE: 42.56 Gy L breast, 52.56 Gy lumpectomy bed Current # of xrt received: 2 Anticipated total # of xrt txs: 16 L breast, 20 lumpectomy bed Evaluation of port verification films: Approved. For details, see electronic film record in [employer] System. Changes in Medical Condition: None. Pain?: No. Your Medications These changes are accurate as of 05/01/18 8:13 AM. If you have any questions, ask your nurse or doctor. Continued medications, unchanged Dose Details ALBUTEROL INHL Inhale into the lungs. Refills: 0 BRISA ORAL Take by mouth [...] by mouth daily. 5 mg Refills: 0 LYRICA ORAL Take by mouth. Refills: 0 montelukast 10 mg Tab Commonly known as: SINGULAIR Take 10 mg by mouth nightly. 10 mg Refills: 0 NARCAN 2 mg/actuation [place] by Nasal route. Generic drug: naloxone Refills: 0 sertraline 100 mg Tab Commonly known as: ZOLOFT Take 100 mg by mouth daily. 100 mg Refills: 0 traMADol 50 mg Tab Commonly known as: ULTRAM Refills: 0 zolpidem 5 mg Tab Commonly known as: AMBIEN TAKE ONE TABLET BY MOUTH AT BEDTIME NEEDED FOR INSOMNIA Refills: 1 Flu vacc?: Received for [id number]. P&SH: Smoking? Never. Physical Exam: BP 145/82 (Patient Position: Sitting) Pulse 80 Temp 36.8 ??C (98.2 ??F) (Oral) Resp 18 Wt 93.4 kg (206 lb) SpO2 100% BMI 32.72 kg/m2 A&Ox3, NAD. Amb stable. Imagin04/17/18 Dx'ic Rad Interp CTsim: Diffuse hepatic steatosis. Performance Status: KPS 100% Response to xrt: As expected. Irradiation Related Symptoms: None. Treatment for Symptom Control: Gabriel's cream - advised to not apply w/in 2 hrs prior to xrt. Pain Management: Not needed. Recommendation on Continuing Course of xrt: Cont. I informed her that the CTsim was reviewed as showing diffuse hepatic steatosis & I told her that I defer management of the hepatic steatosis to her PCP, Suzy Jones APRN, & will send her a copy of the CTsim report. Cc: Suzy Jones APRN documented in this encounter Plan of Treatment Not on file documented as of this encounter Visit Diagnoses Diagnosis Malignant neoplasm of left female breast, unspecified estrogen receptor status, unspecified site of breast documented in this encounter Care Teams Griddle Cook Relationship Specialty Start Date End Date Leora Jones APRN PCP - General Family Medicine 03/15/18 11/16/21 documented as of this encounter
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
--- OUTSIDE RECORDS SUMMARY | 2024-07-10 18:04 | XMS_ITS | Encounter Summary ---
Author Organization [facility] [place] [place] [address] Care Team Providers Care Clinical Sociologist Name Role Phone Leora Jones APRN Primary Care Provider + Encounter Details Date Type Department Care Team (Late st Contact Info) Description 06/11/2019 2:30 PM EDT Office Visit Hematology/Oncology at [address] [phone] Mindi Pierson APRN [facility] [place] [address] Malignant neoplasm of upper-inner quadrant of left [...] Sign Reading Time Taken Comments Blood Pressure 117/72 06/11/2019 2:32 PM EDT Pulse 75 06/11/2019 2:32 PM EDT Temperature 36.9 ??C (98.4 ??F) 06/11/2019 2:32 PM ED T Respiratory Rate 18 06/11/2019 2:32 PM EDT Oxygen Saturation 98% 06/11/2019 2:32 PM EDT Inhaled Oxygen Concentration - - Weight 86.3 kg (190 lb 3.2 oz) 06/11/2019 2:32 P M EDT Height 167 cm (5' 5.75) 06/11/2019 2:32 PM EDT Body Mass Index 30.93 06/11/2019 2:32 PM EDT documented in this encounter Patient Instructions * Patient Instructions* Mindi Pierson APRN - 06/11/2019 2:30 PM EDT She will return in 6 months for followup documented in this encounter Progress Notes * Mindi Pierson APRN - 06/11/2019 2:30 PM EDT Images from the original note were not included. CC: This is a routine followup after completion of therapy HPI: 63 y/o f who completed xrt 13 mos ago (05/25/18) to L breast for ca, IDC, gr 1, ER+NV+, Her2 neg, s/p lumpectomy & SNB, pT1b pN0, stage I. She was on letrozole, started in early Jun 2018. She stopped it in April when she saw Dr Gruber due to joint aches and pains that were severe at times. She states that this is much better. 10/17/18 L mmg: No residual dz. 10/17/18 fu w/Dr. Emmanuel; rtc 6 mos w/B mmg. ROS: L breast tender when pressure applied to LOQ. She continues to have trigger fingers - that does not seem to have improved. . She has been told that she has lactic acid build up where the tendonshit the muscles, throughout her body. She continues to have memory issues. She has seen neurology for this and will followup again with them in the next 6 months. She otherwise feels well. Her appetite is good. She has no issues with her bowels or bladder. She does not have any shortness of breath. Past Medical History: Diagnosis Date ??? Breast cancer 02/15/2018 IDC Past Surgical History: Procedure Laterality Date ??? BREAST BIOPSY Left 02/15/2018 IDC ??? BREAST LUMPECTOMY Left 03/22/2018 ??? PRO BX/REMV, LYMPH NODE, DEEP AXILL Left 03/22/2018 BIOPSY OR EXCISION OF LYMPH NODE(S), OPEN, DEEP AXILLARY NODE(S) (WRVU 6.43) performed by Pete Emmanuel MD at [facility] ??? PRO INTRAOP SENTINEL LYMPH ID W/DYE INJECTION Left 03/22/2018 INTRAOPERATIVE ID (MAPPING) SENTINEL LYMPH NODE,INCLUDES INJECTION (WRVU 2.5) performed by Pete Emmanuel MD at [facility] ??? PRO MASTECTOMY, PARTIAL Left 03/22/2018 MASTECTOMY PARTIAL (WRVU 10.13) performed by Pete Emmanuel MD at [facility] Your Medications Accurate as of 06/11/19 4:24 PM. If you have any questions, ask your nurse or doctor. Continued medications, unchanged Dose Details ALBUTEROL INHL Inhale 2 puffs into the lungs as needed. 2 puff Refills: 0 BRISA ORAL Take 1 tablet by mouth as needed. 1 tablet Refills: 0 aspirin 81 mg Tbec Take 81 mg by mouth daily. 81 mg Refills: 0 atorvastatin 40 mg Tab Commonly known as: LIPITOR Take 40 mg by mouth daily. 40 mg Refills: 0 CREAM BASE TOP Apply topically. Jeans Cream. Apply to area of radiation twice a day but no less than 2 hours before a treatment. Refills: 0 EPIPEN INJ Inject as directed once as needed. Refills: 0 escitalopram 10 mg Tab Commonly known as: LEXAPRO Take 10 mg by mouth daily. 10 mg Refills: 0 fluticasone propionate 50 mcg/actuation S[place] Commonly known as: FLONASE SPRAY TWO SPRAYS IN EACH NOSTRIL EVERY DAY FOR 1 WEEK MAY DECREASE USE WHEN FEELING BETTER Refills: 3 IMITREX ORAL Take 1 tablet by mouth as needed. 1 tablet Refills: 0 letrozole 2.5 mg Tab Commonly known as: FEMARA Take 1 tablet by mouth daily. 2.5 mg Quantity: 90 tablet Refills: 3 lisinopril 10 mg Tab Commonly known as: PRINIVIL;ZESTRIL Take 10 mg by mouth daily. 10 mg Refills: 0 LORazepam 0.5 mg Tab Commonly known as: ATIVAN TAKE ONE TABLET BY MOUTH TWICE A DAY NEEDED Refills: 0 metFORMIN 500 mg Tab Commonly known as: GLUCOPHAGE Take 500 mg by mouth 2 times daily (with meals). 500 mg Refills: 0 montelukast 10 mg Tab Commonly known as: SINGULAIR Take 10 mg by mouth nightly. 10 mg Refills: 0 NARCAN 2 mg/actuation [place] by Nasal route as needed. Generic drug: naloxone Refills: 0 pregabalin 50 mg Cap Commonly known as: LYRICA Take 50 mg by mouth 2 times daily. 50 mg Refills: 0 sertraline 100 mg Tab Commonly known as: ZOLOFT Take 100 mg by mouth 2 times daily. 100 mg Refills: 0 traMADol 50 mg Tab Commonly known as: ULTRAM Take 50 mg by mouth 2 times daily. 50 mg Refills: 0 Physical Exam Constitutional: She is oriented to person, place, and time. She appears well- developed and well-nourished. No distress. BP 117/69 (Patient Position: Sitting) Pulse 80 Temp 36.7 ??C (98.1 ??F) (Oral) Resp 16 Wt 86.9 kg (191 lb 9.6 oz) SpO2 96% BMI 32.12 kg/m?? HENT: Head: Normocephalic and atraumatic. Eyes: Conjunctivae [...] change and no tenderness. Left breast exhibits no inverted n ipple, no mass, no nipple discharge, no skin change and no tenderness (Tender to palpation in LOQ). Abdominal: Soft. She exhibits no distension and [...] exhibits normal muscle tone. Coordination normal. Skin: Skin is warm and dry. She is not diaphoretic. No erythema. Psychiatric: She has a normal mood and affect. Her behavior is normal. Judgment and thought contentnormal. A: WHIT. Her most recent mammogram was May 29, 2019 and was WHIT. She will be due May 2020. P: She will continue followup with neurology. She Rtc 6 mos[address] I discussed with Dr Gruber that she has been off letrozole and feeling better. She recommended that she try exemestane. I will call her tomorrow and let her know that I have sent a prescription for this. documented in this encounter Plan of Treatment Not on file documented as of this encounter Visit Diagnoses Diagnosis Malignant neoplasm of upper-inner quadrant of left breast in female, estrogen receptor positive documented in this encounter Care Teams Clinical Sociologist Relationship Specialty Start Date End Date Leora Jones APRN PCP - General Family Medicine 03/15/18 11/16/21 documented as of this encounter
--- OUTSIDE RECORDS SUMMARY | 2024-07-10 18:04 | XMS_ITS | Encounter Summary ---
Author Organization [place] [address] Care Team Providers Care Wire Mesh Knitter Name Role Phone Leora Jones APRN Primary Care Provider + Encounter Details Date Type Department Care Team (Latest Contact Info) Description 02/12/2020 10:30 AM EDT TH Visit (TeleHealth) [place] [phone] Kayla Espinosa MD [address] [place] [address] HEMATOLOGY/[place] [address] Microcytosis; Malignant neoplasm of upper-inner quadrant of [...] as of this encounter Progress Notes * Kayla Espinosa MD - 02/12/2020 10:30 AM EDT Patient Active Problem List Diagnosis Code ??? Malignant neoplasm of left female breast C50.912 ??? Fibromyalgia M79.7 ??? Low back pain, non-specific M54.5 ??? Diabetes mellitus E11.9 ??? Generalized weakness R53.1 ??? Microcytosis R71.8 ??? Memory changes R41.3 Cc: breast cancer Interval history: Mammograms 05/29/19 were cat 2. She started letrozole in June, and notes a huge amount of pain that she thinks was worse after starting letrozole. She stopped it 04/2019 and was improved. She started exemestane 06/2019. We held the exemestane mid-October 2019 for numerous sx. Initially she felt much improved with less fogginess and joint/muscle pain. We held it with more sx 12/2019, but today she says she is feeling better with less joint pain in hands after use. Some neck and back pain after walking-trying to get aerobic exercise in, but tires easily afterwards. She has been dxed with fibromyalgia and [...] c/w vascular changes. Working on glucose control. She is limiting carb intake now. Left breast cancer T1bN0 upper inner quadrant ER/MO + her2 neg --annual mammograms since age [...] LN +, no MYRTLE, no LVI --RT completed 05/2018 --letrozole 06/12/18 -04/2019, exemestane 06/2019-10/2019 Dexascan normal 06/2018 Menses age 12-48; ; 1 sister with breast cancer at age 57, s/p mastx and tamoxifen 1 brother with testicular cancer; 1 brother no cancer; 1 daughter well, no cancer. No HRT. Review of Systems Constitutional: Positive for activity change- much less active. Unable to work. Tires easily after exertion HENT: Starting Z-mandy today for sinusitis sx. No fevers Eyes: Negative. Respiratory: Negative Cardiovascular: Negative. Gastrointestinal: Negative. Endocrine: Negative. Genitourinary: Negative Musculoskeletal: Positive for arthralgias, back pain and neck pain. Skin: Negative. Allergic/Immunologic: Negative. Neurological: Positive for speech difficulty and intermittently has headaches. Hematological: Negative. 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 Lives with 93 yo mother. Has 43 yo daughter who lives in [place] and 1 grandchild, Rubens, who is 13. Abstinent from ETOH for 30 yrs. No one in family withCovid at present. Mother is doing ok. Current Outpatient Medications on File Prior to Visit Medication Sig Dispense Refill ??? aspirin 81 mg Tablet, Delayed Release (E.C.) Take 81 mg by mouth daily. ??? [DISCONTINUED] exemestane (AROMASIN) 25 mg Tablet Take 1 tablet by mouth daily. (Patient not taking: Reported on 12/10/2019) 30 tablet 11 ??? pregabalin (LYRICA) 50 mg Capsule Take 50 mg by mouth 2 times daily. ??? escitalopram (LEXAPRO) 10 mg Tablet Take 10 mg by mouth daily. ??? [DISCONTINUED] letrozole (FEMARA) 2.5 mg Tablet Take 1 tablet by mouth daily. (Patient not taking: Reported on 05/29/2019) 90 tablet 3 ??? atorvastatin (LIPITOR) 40 mg Tablet Take [...] as needed. ??? fluticasone (FLONASE) 50 mcg/actuation [place], Suspension SPRAY TWO SPRAYS IN EACH NOSTRIL EVERYDAY FOR 1 WEEK MAY DECREASE USE WHEN FEELING BETTER 3 ??? epinephrine (EPIPEN INJ) Inject as directed once as needed. ??? naloxone (NARCAN) 2 mg/actuation [place], Non-Aerosol by Nasal route as needed. ??? sertraline (ZOLOFT) 100 mg Tablet Take 100 mg by mouth 2 times daily. ??? traMADol (ULTRAM) 50 mg Tablet Take 50 mg by mouth 2 times daily. No current facility-administered medications on file prior to visit. Assessment and Plan: #1 Breast cancer--Stage I left breast cancer 02/21, WHIT thus far and low risk. Multiple meds/anxieties/social circumstances contribute likely to her decreased QOL and pain. Discussed consider tamoxifen as alternative. She is in agreement with wanting to try something to decrease risk of breast cancer. We need to get repeat labs before starting new medication. #2 Low MCV without anemia from 10/16 labs- Will check iron studies with next labs, to be done Monday02/18/20 at [facility] #3 Fatigue--increased with increased word finding difficulty and confusion. TSH is fine. Followup withl PCP, neuro as above #4 Menopausal symptoms--stable. Total visit 30 minutes #5 Bone health--dexa 06/23 normal. Plan: Labs on 02/18/20 Followup with her by phone/[facility] after I see lab results and can order tamoxifen at that time documented in this encounter Plan of Treatment Scheduled Orders Name Type Priority Associated Diagnoses Orde r Schedule CBC (with Diff) Lab Routine Microcytosis Malignant neoplasm of upper-inner quadrant of left breast in female, estrogen receptor positive Expected: 02/12/2020 (Approximate), Expires: 02/11/2021 documented as of this encounter Results * (ABNORMAL) Comprehensive metabolic panel (non-fasting) (07/16/2020 10:56 AM EDT) Glucose 126 65 - 199 mg/dL [facility] Comment:Diabetes: >=200 mg/d L plus symptoms Blood Urea Nitrogen 19(H) 8 - 18 mg/dL [facility] Creatinine 0.80 0.70 - 1.20 mg/dL [facility] Sodium 140 135 - 145 mmol/L [facility] Potassium 4.1 3.5 - 5.0 mmol/L [facility] Comment: Please note: ??Patients with WBC >100,000 may have falsely elevated Potassium levels. ??For accurate Potassium quantification in these patients send serum separator tube (gold top) for subsequent determinations. ??Contact the Clinical Chemistry Laboratory if there are any questions. Chloride 101 98 - 107 mmol/L [facility] Carbon Dioxide 27 22 - 31 mmol/L [facility] Anion Gap 12 5 - 15 mmol/L [facility] Calcium 10.0 8.5 - 10.5 mg/dL [facility] Protein, Total 7.2 6.1 - 8.0 gm/dL [facility] Albumin 4.4 3.2 - 5.2 gm/dL [facility] Aspartate Aminotransferase 14 0 - 30 unit/L [facility] Alanine Aminotransferase 10 0 - 30 unit/L [facility] Alkaline Phosphatase 92 35 - 105 unit/L [facility] Bilirubin, Total 0.3 0.2 - 1.3 mg/dL [facility] Est Glomerular Filtration Rate 78 >=60 mL/min/1. 73 m?? [facility] Comment: The eGFR was calculated using the CKD-EPI equation. As with all creatinine based estimates of kidney function, eGFR values calculated with the CKD-EPI equation are not accurate in patients with acute kidney failure, extremes of body mass or the acutely ill. http://[employer]/DHMCnkf eGFR 91 >=60 mL/min/1. 73 m?? [facility] Comment: The eGFR was calculated using the CKD-EPI equation. As with all creatinine based estimates of kidney function, eGFR values calculated with the CKD-EPI equation are not accurate in patients with acute kidney failure, extremes of body mass or the acutely ill. [email or web address]/DHMCnkf Blood specimen (specimen) 07/16/2020 10:56 AM EDT 07/16/2020 11:01 AM EDT Narrative Resulting Agency Comment Spec In Lab Kayla Espinosa MD CHEMISTRY ORDERABLES Performing Organization Address City/State/[facility] Co de Phone Number [facility] [place] [address] documented in this encounter Visit Diagnoses Diagnosis Microcytosis Other abnormality of red blood cells Malignant neoplasm of upper-inner quadrant of left breast in female, estrogen receptor positive documented in this encounter Care Teams Wire Mesh Knitter Relationship Specialty Start Date End Date Leora Jones APRN PCP - General Family Medicine 03/15/18 11/16/21 documented as of this encounter
--- OUTSIDE RECORDS SUMMARY | 2024-07-10 18:04 | XMS_ITS | Encounter Summary ---
Author Organization [facility] Address [facility] [place] [address] Care Team Providers Care Grain Spouter Name Role Phone Leora Jones APRN Primary Care Provider + Reason for Referral * Diagnostic Test (Routine) - Closed Specialty Diagnoses / Procedures Referred By Kandi t Referred To Contact Radiology Diagnoses Memory impairment Procedures MRI Angiogram Neck o Contrast (Generic) Yary Lozoya APRN [facility] [place] [address] [place] [address] Referral ID Status Reason Start Date Expiration Date V isits Requested Visits Authorized [id number] Closed Specialty Service Requested 03/27/2020 09/23/2020 1 1 Reason for Visit * Diagnostic Test (Routine) - Closed Specialty Diagnoses / Procedures Referred By Contac t Referred To Contact Radiology Diagnoses Memory impairment Procedures MRI Angiogram Neck wwo Contrast (Generic) Yary Lozoya TELECOMMUNICATIONS SPECIALIST [facility] [place] [address] [place] [address] Referral ID Status Reason Start Date Expiration Date V isits Requested Visits Authorized [id number] Closed Specialty Service Requested 03/27/2020 09/23/2020 1 1 Encounter Details Date Type Department Care Team (Latest Contact Info) Description 04/14/2020 11:19 AM EDT Hospital Encounter MRI at [facility] [place] [phone] Yary Lozoya, TELECOMMUNICATIONS SPECIALIST [facility] [place] [address] Memory impairment Discharge Disposition: Home Social History Tobacco Use [...] lungs as needed. fluticasone (FLONASE) 50 mcg/actuation [place], Suspension SPRAY TWO SPRAYS IN EACH NOSTRIL EVERY DAY FOR 1 WEEK MAY DECREASE USE WHEN FEELING BETTER 3 10/24/2017 epinephrine (EPIPEN INJ) Inject as directed once as needed. naloxone (NARCAN) 2 mg/actuation [place], Non-Aerosol by Nasal route as needed. sertraline (ZOLOFT) 100 mg Tablet Take 100 mg by mouth 2 times daily. traMADol (ULTRAM) 50 mg Tablet Take 50 mg by mouth 2 times daily. 02/09/2018 pregabalin (LYRICA) 50 mg Capsule Take 50 mg by mouth 2 times daily. 09/07/2020 emollient base (CREAM BASE TOP) Apply topically. Jeans Cream. Apply to area of radiation twice a day but no less than 2 hours before a treatment. 04/17/2020 documented as of this encounter Plan of Treatment Not on file documented as of this encounter Procedures Procedure Name Priority Date/Time Associated Diagnosis Comments MRI HEAD ANGIOGRAM AND MRI BRAIN WO CONTRAST Routine 04/14/2020 3:57 PM EDT Memory impairment MRI NECK ANGIOGRAM WWO CONTRAST Routine 04/14/2020 1:30 PM EDT Memory impairment documented in this encounter Results * MRI Angiogram Neck wwo Contrast (Generic) [...] report, please contact the number below. ? Narrative 04/14/2020 4:47 PM EDT EXAMINATION: MRI ANGIOGRAM NECK WWO CONTRAST (GENERIC), MRI ANGIOGRAM HEAD & MRI BRAIN WO CONTRAST CLINICAL HISTORY: Dementia, vascular suspected Pt with white matter disease on MRI and memory concerns, possible vascular dementia (accession [id number]), Pt with moderate amount of white matter disease on previous MRI, hx and family hx of migraine; ? CADASIL; SWI, please (accession [id number]) TECHNIQUE: MRI of the head pre and [...] MRI and memory concerns, possiblevascular dementia (accession [id number]), Pt with moderate amount of white matterdisease on previous MRI, hx and family hx of migraine; ? CADASIL; SWI, please(accession [id number]) TECHNIQUE: MRI of the head pre and [...] this report, please contact the number below. Yary Lozoya APRN IMG MRI ORDERABLES documented in this encounter Visit Diagnoses Diagnosis Memory impairment Memory loss documented in this encounter Administered Medications Inactive Administered Medications - up to 3 most recent administrations Medication Order MAR Action Action Date Dose Rate Site gadoterate meglumine (DOTAREM) 0.5 mmol/mL (376.9 mg/mL) injection 0.2 mL/kg/dose 0.2 mL/kg/dose, Intravenous, ONCE PRN, 1 dose, Starting on Mon04/14/20 at 1336, Until Mon04/14/20 at 1337, Per Protocol, Routine Given 04/14/2020 1:37 PM EDT 18 mLs documented in this encounter Care Teams Grain Spouter Relationship Specialty Start Date End Date Leora Jones, ELVIS PCP - General Family Medicine 03/15/18 11/16/21 documented as of this encounter
--- OUTSIDE RECORDS SUMMARY | 2024-07-10 18:04 | XMS_ITS | Encounter Summary ---
[place] [address] Care Team Providers Care Punch Hand Name Role Phone Leora Jones APRN Primary Care Provider + Encounter Details Date Type Department Care Team (Latest Contact Info) Description 10/16/2019 11:46 AM EST - 10/16/2019 11:59 PM EST Hospital Encounter [place] [phone] Generalized weakness; Type 2 diabetes mellitus with other specified complication, without long-term current use of insulin; Malignant neoplasm of upper-inner quadrant of left breast in female, estrogen receptor positive Discharge Disposition: Home Social History Tobacco Use [...] lungs as needed. fluticasone (FLONASE) 50 mcg/actuation [place], Suspension SPRAY TWO SPRAYS IN EACH NOSTRIL EVERY DAY FOR 1 WEEK MAY DECREASE USE WHEN FEELING BETTER 3 10/24/2017 epinephrine (EPIPEN INJ) Inject as directed once as needed. naloxone (NARCAN) 2 mg/actuation [place], Non-Aerosol by Nasal route as needed. sertraline (ZOLOFT) 100 mg Tablet Take 100 mg by mouth 2 times daily. traMADol (ULTRAM) 50 mg Tablet Take 50 mg by mouth 2 times daily. 02/09/2018 exemestane (AROMASIN) 25 mg TabletIndications:[place] gnant neoplasm of upper-inner quadrant of left breast in female, estrogen receptor positive Take 1 tablet by mouth daily. 30 tablet 11 06/11/2019 02/12/2020 pregabalin (LYRICA) 50 mg Capsule Take 50 mg by mouth 2 times daily. 09/07/2020 letrozole (FEMARA) 2.5 mg TabletIndications:[place] gnant neoplasm [...] Priority Date/Time Associated Diagnosis Comments HEMOGRAM Routine 10/16/2019 12:05 PM EST Malignant neoplasm of upper-inner quadrant of left breast in female, estrogen receptor positive DIFFERENTIAL, AUTOMATED Routine 10/16/2019 12:05 PM EST Malignant neoplasm of upper-inner quadrant of left breast in female, estrogen receptor positive HC CBC,PLT & AUTO DIFF Routine 9 12:05 PM EST Malignant neoplasm of upper-inner quadrant of left breast in female, estrogen receptor positive HC THYROID STIMULATING HORMONE, SERUM Routine 10/16/2019 12:05 PM EST Generalized weakness HC HEMOGLOBIN A1C Routine 10/16/2019 12: 05 PM EST Generalized weakness Type 2 diabetes mellitus with other specified complication, without long-term current use of insulin COMPREHENSIVE METABOLIC PANEL Routine 10/16/2019 12:05 PM EST Malignant neoplasm of upper-inner quadrant of left breast in female, estrogen receptor positive documented in this encounter Results * (ABNORMAL) Differential, Automated (10/16/2019 12:05 PM EST) Neutrophil % 66.7 % [facility] Neutrophil Absolute 6.56(H) 1.70 - 6.10 x10(3)/mc L [facility] Lymph % 23.0 % [facility] Lymphocytes Abs 2.3 0.9 - 3.2 x10(3)/mc L [facility] Monocyte % 6.2 % [facility] Monocyte Abs 0.6 0.3 - 0.9 x10(3)/mc L [facility] Eos % 3.2 % [facility] Eosinophils Abs 0.3 0.0 - 0.4 x10(3)/mc L [facility] Basophil % 0.6 % [facility] Baso Absolute 0.1 0.0 - 0.1 x10(3)/mc L [facility] Immature Gran % 0.30 % [facility] Comment: Immature granulocytes(IG's)percentage and absolute count will include metamyelocytes, myelocytes, and promyelocytes. Blood smears from CBCs yielding IG's will be scanned manually for concordance. If this scan disagrees with the automated IG or if promyelocytes are noted, a manual differential will be performed. Immature Gran Absolute 0.03 0.00 - 0.04 x10(3)/mc L [facility] Blood specimen (specimen) 10/16/2019 12:05 PM EST 10/16/2019 12:18 PM EST Narrative Resulting Agency Comment Spec In Lab Kayla Espinosa MD HEMATOLOGY ORDERABLE S [facility] [place] [address] * (ABNORMAL) Hemogram (10/16/2019 12:05 PM EST) White Blood Cell 9.8(H) 4.0 - 9.5 x10(3)/[facility] Red Blood Cell 5.13 4.00 - 5.21 x10(6)/ L [facility] Hemoglobin 13.0 11.7 - 15.5 gm/dL [facility] Hematocrit 40.3 35.7 - 45.8 % [facility] Mean Cell Volume 78.6(L) 82.6 - 94.4 fL [facility] Mean Cell Hemoglobin 25.3(L) 27.1 - 32.0 pg [facility] Mean Cell Hemoglobin Concentration 32.3 31.7 - 35.0 gm/dL [facility] Platelet 270 145 - 357 x10(3)/ L [facility] RDW Standard Deviation 43.1 37.0 - 46.0 [facility] RDW coefficient of variation 15.2(H) 11.5 - 14.1 % [facility] Mean Platelet Volume 11.0 7.6 - 12.9 fL [facility] NRBC% auto 0.0 % [facility] NRBC Absolute 0.000 0.000 - 0.000 x10(3)/ L [facility] Blood specimen (specimen) 10/16/2019 12:05 PM EST 10/16/2019 12:18 PM EST Narrative Resulting Agency Comment Spec In Lab Kayla Espinosa MD HEMATOLOGY ORDERABLE S [facility] [place] [address] * (ABNORMAL) Comprehensive metabolic panel (non-fasting) (10/16/2019 12:05 PM EST) Glucose 126 65 - 199 mg/dL [facility] Comment:Diabetes: >=200 mg/d L plus symptoms Blood Urea Nitrogen 22(H) 8 - 18 mg/dL [facility] Creatinine 0.84 0.70 - 1.20 mg/dL [facility] Sodium 141 135 - 145 mmol/L [facility] Potassium 4.3 3.5 - 5.0 mmol/L [facility] Comment: Please note: ??Patients with WBC >100,000 may have falsely elevated Potassium levels. ??For accurate Potassium quantification in these patients send serum separator tube (gold top) for subsequent determinations. ??Contact the Clinical Chemistry Laboratory if there are any questions. Chloride 103 98 - 107 mmol/L [facility] Carbon Dioxide 28 22 - 31 mmol/L [facility] Anion Gap 10 5 - 15 mmol/L [facility] Calcium 9.8 8.5 - 10.5 mg/dL [facility] Protein, Total 7.8 6.1 - 8.0 gm/dL [facility] Albumin 4.4 3.2 - 5.2 gm/dL [facility] Aspartate Aminotransferase 9 0 - 30 unit/L [facility] Alanine Aminotransferase 16 0 - 30 unit/L [facility] Alkaline Phosphatase 104 35 - 105 unit/L [facility] Bilirubin, Total 0.2 0.2 - 1.3 mg/dL [facility] Est Glomerular Filtration Rate 74 >=60 mL/min/1. 73 m?? [facility] Comment: The eGFR was calculated using the CKD-EPI equation. As with all creatinine based estimates of kidney function, eGFR values calculated with the CKD-EPI equation are not accurate in patients with acute kidney failure, extremes of body mass or the acutely ill. http://[employer]/[facility] SHAWNEEnkf eGFR 86 >=60 mL/min/1. 73 m?? [facility] Comment: The eGFR was calculated using the CKD-EPI equation. As with all creatinine based estimates of kidney function, eGFR values calculated with the CKD-EPI equation are not accurate in patients with acute kidney failure, extremes of body mass or the acutely ill. http://[employer]/[facility] Blood specimen (specimen) 10/16/2019 12:05 PM EST 10/16/2019 12:18 PM EST Narrative Resulting Agency Comment Spec In Lab Kayla Espinosa MD CHEMISTRY ORDERABLES [facility] [place] [address] * (ABNORMAL) Hemoglobin A1c (10/16/2019 12:05 PM EST) Hemoglobin A1c 7.3(H) 4.3 - 5.6 % [facility] Comment: Reference Range: 4.3 [...] Mellitus, Diabetes Care 2013; 36: Suppl. 1, T87-41 Estimated Average Glucose 163 mg/dL [facility] Comment: eAG equivalents for [...] into estimated average glucose values. ??Diabetes Care 2008:31(8):7842-9418. Blood specimen (specimen) 10/16/2019 12:05 PM EST 10/16/2019 12:18 PM EST Narrative Resulting Agency Comment Spec In Lab Kayla Espinosa MD CHEMISTRY ORDERABLES Performing Organization Address [facility] de Phone Number [facility] [place] [address] * TSH (10/16/2019 12:05 PM EST) Thyroid Stimulating Hormone 2.09 0.27 - 4.20 mcIU/mL [facility] Blood specimen (specimen) 10/16/2019 12:05 PM EST 10/16/2019 12:18 PM EST Narrative Resulting Agency Comment Spec In Lab Kayla Espinosa MD CHEMISTRY ORDERABLES Performing Organization Address [facility] de Phone Number [facility] [place] [address] documented in this encounter Visit Diagnoses Diagnosis Generalized weakness Other malaise and fatigue Type 2 diabetes mellitus with other specified complication, without long-term current use of insulin Malignant neoplasm of upper-inner quadrant of left breast in female, estrogen receptor positive documented in this encounter Care Teams Punch Hand Relationship Specialty Start Date End Date Leora Jones APRN PCP - General Family Medicine 03/15/18 11/16/21 documented as of this encounter
--- OUTSIDE RECORDS SUMMARY | 2024-07-10 18:04 | XMS_ITS | Encounter Summary ---
Author Organization [facility] Address [facility] [place] [address] Care Team Providers Care Fire Crew Specialist Name Role Phone Leora Jones APRN Primary Care Provider + Reason for Visit * Consultation (Routine) - Closed Specialty Diagnoses / Procedures Referred By Kandi gao Referred To Contact Radiation Oncology Diagnoses Malignant neoplasm of upper-inner quadrant of left female breast, unspecified estrogen receptor status Procedures Simulation for Radiation Therapy Planning PRG RADIATION THERAPY PLAN COMPLEX PRG SPECIAL RADIATION TREATMENT PRG SET RADIATION THERAPY FIELD COMPLEX PRG RADIATION TREATMENT AID(S) INTERM PRG SET RADIATION THERAPY FIELD 3D RECON PRG RESPIRATORY MOTION MANAGEMENT PLANNING PRG BASIC RADIATION DOSIMETRY CALCULATION PRG RADIATION TREATMENT AID(S) COMPLX PRG SET RADIATION THERAPY FIELD SIMPLE CHG RADN RX DELIVERY COMPLX =<5 MEV RADIOLOGY PORT FILM(S) CHG RADN PHYSICS CONSULT CONTINUING PRG RADIATION MANAGEMENT, 5 TREATMENTS [address] Magi Terry MD [facility] RADIATION ONCOLOGY [address] [address] [facility] On[facility] Office [address] [place] [phone] Referral ID Status Reason Start Date Expiration Date V isits Requested Visits Authorized [id number] Closed Consult, Test & Treat 04/09/2018 04/09/2019 1 1 Encounter Details Date Type Department Care Team (Latest Contact Info) Description 04/17/2018 11:30 AM EDT Ancillary Appointment Radiation Oncology at [address] [phone] Magi Terry MD [facility] DR RADIATION [place] [address] Malignant neoplasm of left female breast, unspecified estrogen receptor status, unspecified site of breast Social History Tobacco Use Types Packs/Day Years Used Date Smoking Tobacco: Never Smokeless Tobacco: Never Sex and Gender Information Value Date Recorded Sex Assigned at Not on file Gender Identity Not on file Sexual Orientation Not on file documented as of this encounter Patient Instructions * Patient Instructions* Charlee Chung RN - 04/17/2018 11:30 AM EDT Information for Patients receiving radiation therapy to the Breast Approximately two weeks after your first treatment, you may begin to experience side effects causedby the radiation. These effects may continue throughout the treatment period and not start improving until 1-2 weeks after treatment is completed. Your doctor will tell you which side effects you aremost likely to experience, when you will notice them and how long they might last. It is important to follow the appropriate instructions to minimize your discomfort. Skin Care ??? Wash skin in the treatment field with lukewarm water and mild or moisturizing, unscented soap daily. Blot skin dry with a soft towel. ??? Do not apply any ointment, salve, deodorant, perfume, cologne, cosmetic or self-remedy to the treatment area while you are undergoing radiation and for 1-2 weeks following treatment. An all natural deodorant with no aluminum can be used if necessary. ??? Moisturizing cream will be provided for you. This may be used in the treatment area once daily beginning on your first treatment day. Do not apply 2 hours before your radiation treatments. As dryness/redness develop you can use this more often. ??? Do not rub or scratch the skin in the treatment field. This includes shaving unless you use an electric razor. If your skin becomes dry or itchy, tell your nurse or doctor. If necessary, your doctor may order a medication specifically for this problem. ??? Do not use hot water bottles, heating lights, electric heating pads, or hot packs to the treatment area. ??? Keep treated areas out of the sun throughout the treatment period. Be careful of sun exposure to the treatment field for one year following treatment. Please use SPF> 30 to all exposed areas of skin and limit sun exposure. ??? Avoid tight fitting clothes. We would prefer that you wear a cotton t-shirt instead of a bra. If you are unable to go without a bra please wear a soft cotton bra without underwire. ??? Examine your skin in the treatment area daily and watch for changes. If you cannot reach the whole treatment field ask a family member to look at it and apply cream as needed. Be careful to keep the area under your breast clean and dry as this area can get irritated first. ??? You will meet with your nurse and doctor weekly. They will check your skin and help you with any side effects you are having. Please ask to see the nurse if you have concerns in between these days. ??? During the last weeks of treatment you may notice some peeling of skin and/or a moist reaction.Be sure to let us know if this happens so we can provide you with further skin care instructions.. ??? Continue to stay active, walk daily, eat healthy foods and drink several glasses of water each day. Fatigue You may notice that you feel unusually tired towards the end of treatment. This is not unusual. We recommend that you pace your activities and plan for rest periods to avoid becoming over-tired. Feel free to direct any questions or concerns you may have related to your treatment to your nurse or doctor. [facility] Radiation Oncology Our normal business hours are: Monday - Monday 8 AM to 5 PM [place], [place], [place] For emergent situations after hours please call for either location and ask for the Radiation Oncologist fire control assistant. documented in this encounter Progress Notes * Charlee Chung RN - 04/17/2018 11:30 AM EDT Radiation Oncology Simulation Note Mikaela Payan is here for radiation planning , undergoing a simulation to the left breast for breast cancer treatment . Usual radiation oncology routines and purpose of on treatment visits were explained. Jeans cream provided and instructions for use reviewed Anticipatory Guidance: Please see AVS Barriers to Treatment/ Compliance issues identified: None identified. Patient confirms they can have no difficulties lying flat. pre- medication plan made: None needed. Referrals: [facility] SOLUTION MIXER per protocol * Magi Terry MD - 04/17/2018 11:30 AM EDT Here for sim. 04/12/18 postop check w/Dr. Emmanuel; rtc 6 mos w/mmg. 04/12/[address] Gruber for systemic tx; chemo not planned. Sim: Breast bd immobilization; flat bbs on L breast lumpectomy scar; CT through chest showed heart to approach chest wall & so she was then instructed in deep inspiration breath hold (DIBH) &2nd CT done w/DIBH; 3D xrt planned. She tolerated sim well, w/o problem. Tx Plan: 3D xrt. Start xrt 04/30/18. documented in this encounter Plan of Treatment Not on file documented as of this encounter Visit Diagnoses Diagnosis Malignant neoplasm of left female breast, unspecified estrogen receptor status, unspecified site of breast documented in this encounter Care Teams Fire Crew Specialist Relationship Specialty Start Date End Date Leora Jones APRN PCP - General Family Medicine 03/15/18 11/16/21 documented as of this encounter
--- OUTSIDE RECORDS SUMMARY | 2024-07-10 18:04 | XMS_ITS | Encounter Summary ---
Author Organization [facility] [place] [address] Care Team Providers Care Technology Solutions Architect Name Role Phone Leora Jones APRN Primary Care Provider + Encounter Details Date Type Department Care Team (Late st Contact Info) Description 04/17/2018 Notes Only Radiation Oncology at [address] [phone] Beth Hawkins MSW OFFICE OF CARE MANAGEMENT Social History Tobacco Use Types Packs/Day Years Used Date Smoking Tobacco: Never Smokeless Tobacco: Never Sex and Gender Information Value Date Recorded Sex Assigned at Not on file Gender Identity Not on file Sexual Orientation Not on file documented as of this encounter Progress Notes * Beth Hawkins MSW - 04/17/2018 12:22 PM EDT Follow up with pt after sim today. Pt indicated she will start RT in a couple of weeks and expects to have 20 treatments. She has submitted some additional paperwork for her medicaid and is expecting approval. She plans then to talk with [facility] about rides for her RT treatments. She indicated her counselor has left the [facility] but has her own practice in [place] which is closer and easier for pt to get to. She feels she has support from her family and friends. Reminded her of my availability. Will follow for support and resources. documented in this encounter Plan of Treatment Not on file documented as of this encounter Visit Diagnoses Not on filedocumented in this encounter Care Teams Technology Solutions Architect Relationship Specialty Start Date End Date Leora Jones APRN PCP - General Family Medicine 03/15/18 11/16/21 documented as of this encounter
--- OUTSIDE RECORDS SUMMARY | 2024-07-10 18:04 | XMS_ITS | Encounter Summary ---
Author Organization [facility] [place] [address] Care Team Providers Care Band Instrument Maker Name Role Phone Leora Jones APRN Primary Care Provider + Encounter Details Date Type Department Care Team (Late st Contact Info) Description 12/03/2018 Orders Only Hematology [place] [phone] Chari Gruber MD [facility] DR HEMAT[place] [address] Malignant neoplasm of upper-inner quadrant of left [...] positive documented in this encounter Care Teams Band Instrument Maker Relationship Specialty Start Date End Date Leora Jones APRN PCP - General Family Medicine 03/15/18 11/16/21 documented as of this encounter
--- OUTSIDE RECORDS SUMMARY | 2024-07-10 18:04 | XMS_ITS | Encounter Summary ---
Author Organization [facility] Address [facility] [place] [address] Care Team Providers Care Web Offset Press Feeder Name Role Phone Leora Jones APRN Primary Care Provider + Reason for Referral * Diagnostic Test (Routine) - Closed Specialty Diagnoses / Procedures Referred By Contac t Referred To Contact Radiology Diagnoses Malignant neoplasm of upper-inner quadrant of left breast in female, estrogen receptor positive Encounter for screening for osteoporosis Procedures DXA Central-Spine, Hip, And/Or Whole Body (Generic) Chari Gruber MD [facility] HEMATOLOGY [place] [address] [facility] Rad Xray [address] [place] [address] [place] [phone] Referral ID Status Reason Start Date Expiration Date V isits Requested Visits Authorized [id number] Closed Specialty Service Requested 04/13/2018 04/13/2019 1 1 Reason for Visit * Diagnostic Test (Routine) - Closed Specialty Diagnoses / Procedures Referred By Contac t Referred To Contact Radiology Diagnoses Malignant neoplasm of upper-inner quadrant of left breast in female, estrogen receptor positive Encounter for screening for osteoporosis Procedures DXA Central-Spine, Hip, And/Or Whole Body (Generic) Chari Gruber MD [facility] HEMATOLOGY [place] [address] [facility] Rad Xray [address] [place] [address] [place] [address] Referral ID Status Reason Start Date Expiration Date V isits Requested Visits Authorized [id number] Closed Specialty Service Requested 04/13/2018 04/13/2019 1 1 Encounter Details Date Type Department Care Team (Latest Contact Info) Description 06/12/2018 9:00 AM EDT - 06/12/2018 11:59 PM EDT Hospital Encounter XRay at [address] [place] [address] Chari Gruber MD [facility] HEMATOLOGY [place] [address] Malignant neoplasm of upper-inner quadrant of left breast in female, estrogen receptor positive; Encounter for screening for osteoporosis Discharge Disposition: Home Social History Tobacco Use Types Packs/Day Years Used Date Smoking Tobacco: Never Smokeless Tobacco: Never Sex and Gender Information Value Date Recorded Sex Assigned at Not on file Gender Identity Not on file Sexual Orientation Not on file documented as of this encounter Medications at Time of Discharge Medication Sig Dispensed Refills Start Date End Date LORazepam (ATIVAN) 0.5 mg Tablet TAKE ONE [...] lungs as needed. fluticasone (FLONASE) 50 mcg/actuation [place], Suspension SPRAY TWO SPRAYS IN EACH NOSTRIL EVERY DAY FOR 1 WEEK MAY DECREASE USE WHEN FEELING BETTER 3 10/24/2017 epinephrine (EPIPEN INJ) Inject as directed once as needed. naloxone (NARCAN) 2 mg/actuation [place], Non-Aerosol by Nasal route as needed. sertraline [...] Procedure Name Priority Date/Time Associated Diagnosis Comments DXA CENTRAL SPINE, HIP, AND/OR WHOLE BODY (GENERIC) Routine 06/12/2018 9:51 AM EDT Malignant neoplasm of upper-inner quadrant of left breast in female, estrogen receptor positive Encounter for screening for osteoporosis documented in this encounter Results * DXA Central-Spine, Hip, And/Or Whole Body [...] BMD measurements and plots are available in [employer] under the imaging tab. Paper copies will be sent to providers without [employer] access. If you have received this report without the data sheet and do not have access to [employer], please contact Radiology Assembler [employer] at [phone] Monday thru Monday 8am-4pm. Narrative 06/12/2018 1:17 [...] BMD measurements and plots are available in E-DHunder the imaging tab. Paper copies will be sent to providers without E-[employer] access.If you have received this report without the data sheet and do not haveaccess to E-, please contact Radiology Assembler [employer] at [phone] Monday thruFriday 8am-4pm. Chari Gruber MD IMG DEXA ORDERABLES documented in this encounter Visit Diagnoses Diagnosis Malignant neoplasm of upper-inner quadrant of left breast in female, estrogen receptor positive Encounter for screening for osteoporosis Special screening for osteoporosis documented in this encounter Care Teams Web Offset Press Feeder Relationship Specialty Start Date End Date Leora Jones APRN PCP - General Family Medicine 03/15/18 11/16/21 documented as of this encounter
--- OUTSIDE RECORDS SUMMARY | 2024-07-10 18:04 | XMS_ITS | Encounter Summary ---
Author Organization [facility] Address [facility] [place] [address] Care Team Providers Care Assistant Purchasing Manager Name Role Phone Leora Jones APRN Primary Care Provider + Reason for Referral * Diagnostic Test (Routine) - Closed Specialty Diagnoses / Procedures Referred By Contac t Referred To Contact Radiology Diagnoses Malignant neoplasm of upper-inner quadrant of left breast in female, estrogen receptor positive Encounter for screening for osteoporosis Procedures DXA Central-Spine, Hip, And/Or Whole Body (Generic) Chari Gruber MD [facility] DR HEMATOLOGY [place] [address] [facility] Rad Xray [address] [place] [address] [place] [address] Referral ID Status Reason Start Date Expiration Date V isits Requested Visits Authorized [id number] Closed Specialty Service Requested 04/13/2018 04/13/2019 1 1 Reason for Visit * Consultation (Routine) - Closed Specialty Diagnoses / Procedures Referred By Contac t Referred To Contact Radiation Oncology Diagnoses Breast cancer Pete Emmanuel MD [facility] [place] [address] [facility] Rad Onc Office [address] [place] [phone] Referral ID Status Reason Start Date Expiration Date Visits Re quested Visits Authorized [id number] Closed 03/08/2018 03/08/2019 1 1 Encounter Details Date Type Department Care Team (Late st Contact Info) Description 04/12/2018 3:00 PM EDT Office Visit Hematology [place] [address] Chari Gruber MD [facility] DR HEMATOLOGY [place] [address] Isela Boyd, RN Malignant neoplasm of upper-inner quadrant of left breast in female, estrogen receptor positive; Encounter for screening for osteoporosis Social History Tobacco Use Types Packs/Day Years Used Date Smoking Tobacco: Never Smokeless Tobacco: Never Sex and Gender Information Value Date Recorded Sex Assigned at Not on file Gender Identity Not on file Sexual Orientation Not on file documented as of this encounter Progress Notes * Chari Gruber MD - 04/12/2018 3:00 PM EDT Subjective: Patient ID: Mikaela Payan is a 62 y.o. female. Cc: breast cancer ID: Mikaela is here by herself for consultation re: new dx of breast cancer. Requesting MD: Renzo Emmanuel Reason for referral: new dx of breast cancer, discuss adjuvant therapies HPI Left breast cancer T1bN0 upper inner quadrant ER/GA + her2 neg --annual mammograms since age [...] no MYRTLE, no LVI --RT planned in [facility], to start 04/16/18 Menses age 12-48; ; 1 sister with breast cancer at age 57, s/p mastx and tamoxifen 1 brother with testicular cancer; 1 brother no cancer; 1 daughter well, no cancer. No HRT. Review of Systems Constitutional: Negative. HENT: Negative. Mild chronic hair thinning. Eyes: Negative. Negative for discharge. Respiratory: Negative. Hx pneumonia in January Cardiovascular: Negative. Gastrointestinal: Negative. Endocrine: Positive for heat intolerance. Genitourinary: Negative. Musculoskeletal: Positive for arthralgias. Right rib pain, chronic, bone scan neg. Skin: Negative. Allergic/Immunologic: Negative. Neurological: Negative. Hematological: Negative. Psychiatric/Behavioral: Negative. 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 montelukast (SINGULAIR) 10 mg Tablet Take 10 mg by mouth nightly. ??? lisinopril (PRINIVIL;ZESTRIL) 5 mg Tablet Take 5 mg by mouth daily. ??? sumatriptan succinate (IMITREX ORAL) Take by mouth as needed. ??? fexofenadine HCl (BRISA ORAL) Take by mouth as needed. ??? zolpidem (AMBIEN) 5 mg Tablet TAKE ONE TABLET BY MOUTH AT BEDTIME NEEDED FOR INSOMNIA 1 ??? pregabalin (LYRICA ORAL) Take by mouth. ??? ALBUTEROL INHL Inhale into the lungs. ??? fluticasone (FLONASE) 50 mcg/actuation [place], Suspension SPRAY TWO SPRAYS IN EACH NOSTRIL EVERYDAY FOR 1 WEEK MAY DECREASE USE WHEN FEELING BETTER 3 ??? epinephrine (EPIPEN INJ) Inject as directed. ??? naloxone (NARCAN) 2 mg/actuation [place], Non-Aerosol by Nasal route. ??? sertraline (ZOLOFT) 100 mg Tablet Take 100 mg by mouth daily. ??? traMADol (ULTRAM) 50 mg Tablet No current facility-administered medications for this visit. Objective: Physical Exam Constitutional: She is oriented to person, place, and time. She appears well- developed and well-nourished. HENT: Head: Normocephalic. Mild diffuse alopecia. Eyes: Conjunctivae are normal. Pupils are equal, round, and reactive to light. Neck: Normal range of motion. Cardiovascular: Normal rate. Pulmonary/Chest: Effort normal. Musculoskeletal: Normal range of motion. Neurological: She is alert and oriented to person, place, and time. She has normal reflexes. Skin: Skin is warm and dry. No rash noted. No erythema. No pallor. Psychiatric: She has a normal mood and affect. Her behavior is normal. Judgment and thought contentnormal. Nursing note and vitals reviewed. Mammograms, MRI, pathology and history reviewed in detail Assessment and Plan: No problem-specific Assessment & Plan notes found for this encounter. #1 Breast cancer--62 yo post-menopausal woman with Stage I low risk breast cancer. Low grade, strongly ER+, likely luminal A subtype with no minimal benefit from chemotherapy. Recommend aromatase inhibitor alone, after RT. Will need baseline bone density scan. #2 Chemotherapy--monitoring for toxicity--n/a #3 Fatigue--improving since surgery. #4 Menopausal symptoms--many hot flashes with mild to moderate diaphoresis. #5 Bone health--will get baseline dexa at next visit, prior to starting AI. #6 Medication management --no new medications. Plan: proceed with RT as [place] Dr. Terry. F/u 6-8 wks for baseline dexa , visit and start AI. Thank you very much for this consultation, I appreciate the opportunity to participate in her care. Time: 30 minutes of this 45 minute visit was spent in counseling patient on treatment options and assessment and plan. Watg-wc-keth visit 45 min History and Physical: 15 min. Discussion pts of counseling: as outlined above. documented in this encounter Plan of Treatment Not on file documented as of this encounter Results * DXA Central-Spine, Hip, [...] BMD measurements and plots are available in [employer] under the imaging tab. Paper copies will be sent to providers without [employer] access. If you have received this report without the data sheet and do not have access to [employer], please contact Radiology Director Of Career Services at [phone] Monday thru Monday 8am-4pm. Narrative 06/12/2018 1:17 [...] BMD measurements and plots are available in [employer] the imaging tab. Paper copies will be sent to providers without [employer] access.If you have received this report without the data sheet and do not haveaccess to [employer], please contact Radiology Director Of Career Services at [phone] Monday thruFriday 8am-4pm. Chari Gruber MD IMG DEXA ORDERABLES documented in this encounter Visit Diagnoses Diagnosis Malignant neoplasm of upper-inner quadrant of left breast in female, estrogen receptor positive Encounter for screening for osteoporosis Special screening for osteoporosis Malignant neoplasm of upper-inner quadrant of left breast in female, estrogen receptor positive Encounter for screening for osteoporosis Special screening for osteoporosis documented in this encounter Care Teams Assistant Purchasing Manager Relationship Specialty Start Date End Date Leora Jones APRN PCP - General Family Medicine 03/15/18 11/16/21 documented as of this encounter
--- OUTSIDE RECORDS SUMMARY | 2024-07-10 18:04 | XMS_ITS | Encounter Summary ---
Author Organization [facility] [place] [address] Care Team Providers Care Nursing Educator Name Role Phone Leora Jones APRN Primary Care Provider + Reason for Referral * Diagnostic Test (Routine) - Closed Specialty Diagnoses / Procedures Referred By Kandi gao Referred To Contact Radiology Diagnoses Memory impairment Procedures MRI Angiogram Head & MRI Brain wo Contrast MRI Brain wo Contrast MRI Brain wwo Contrast (Generic) MRI Brain wwo Contrast (Generic) Yary Lozoya APRN [facility] [place] [address] [place] [address] Referral ID Status Reason Start Date Expiration Date V isits Requested Visits Authorized [id number] Closed Specialty Service Requested 03/27/2020 09/23/2020 1 1 Reason for Visit * Diagnostic Test (Routine) - Closed Specialty Diagnoses / Procedures Referred By Contantonio gao Referred To Contact Radiology Diagnoses Memory impairment Procedures MRI Angiogram Head & MRI Brain wo Contrast MRI Brain wo Contrast MRI Brain wwo Contrast (Generic) MRI Brain wwo Contrast (Generic) Yary Lozoya APRN [facility] [place] [address] [place] [address] Referral ID Status Reason Start Date Expiration Date V isits Requested Visits Authorized [id number] Closed Specialty Service Requested 03/27/2020 09/23/2020 1 1 Encounter Details Date Type Department Care Team (Latest Contact Info) Description 04/14/2020 11:19 AM EDT Hospital Encounter MRI at [facility] [place] [address] Yary Lozoya, ELVIS [facility] [place] [address] Memory impairment Discharge Disposition: Home Social History [...] lungs as needed. fluticasone (FLONASE) 50 mcg/actuation [place], Suspension SPRAY TWO SPRAYS IN EACH NOSTRIL EVERY DAY FOR 1 WEEK MAY DECREASE USE WHEN FEELING BETTER 3 10/24/2017 epinephrine (EPIPEN INJ) Inject as directed once as needed. naloxone (NARCAN) 2 mg/actuation [place], Non-Aerosol by Nasal route as needed. sertraline [...] treatment. 04/17/2020 documented as of this encounter Progress Notes * Chari Jacob RN - 04/09/2020 10:14 AM EDT MRI PRE-SEDATION ASSESSMENT NOTE NAME: Mikaela Payan AGE: 64 y.o. : [address] [place] [id number] Female [phone] (home) Telephone Information: Leora Jones APRN No primary care provider on file. Allergies Allergen Reactions ??? Perfume Shortness Of Breath Perfume or heavily scented products ??? Tree Nuts Anaphylaxis ??? Bee Pollen Insects ??? [place]ki Ousmane ??? Grass Pollen ??? Tree Pollen-Birch, Standard Other tree pollens as well Date/Time of call: April 09, 2020/10:14 AM/ PREVIOUS MRI SCAN? Yes HEIGHT: 5'5 WEIGHT: 185 SCHEDULED SCAN: MRI BRAIN WO CONTRAST [[id number]] SUBJECTIVE: anxiety CAN YOU LAY FLAT? yes AIRWAY/BREATHING ISSUES? CPAP DO YOU HAVE ANY INVOLUNTARY MOVEMENTS? no DO YOU HAVE ANY PAIN? fibromyalgia DO YOU TAKE PAIN MED ON A DAILY BASIS? Tramadol, lyrica, recommended to take ASSESSMENT: okay to po sedate PLAN: Ativan 1-2mg PO ordered (EMB ) You must have a tank wagon driver present when you check in. This patient has been informed that they require a tank wagon driver to drive them home after this procedure. In the absence of a tank wagon driver, IR will not be able to sedate for your scan. Pt verbalized understanding of these instructions during the pre-procedure education via phone. Yes Name of tank wagon driver: RCT Phone number knows to give upon arrival PRIOR SCAN DATE/S SEDATION TYPE SUCCESSFUL OSH 2018 ? YES 03/07/2018 MRI Breast wwo Ativan 1 mg POX 2 yes ??04/14/20 MRI Brain wo contrast ??Ativan 1 mg po ??Yes ? Revised 04/03/18 documented in this encounter Plan of Treatment Not on file documented as of this encounter Procedures Procedure Name Priority Date/Time Associated Diagnosis Comments MRI HEAD ANGIOGRAM AND MRI BRAIN WO CONTRAST Routine 04/14/2020 3:57 PM EDT Memory impairment documented in this encounter Results * MRI Angiogram Head [...] and memory concerns, possible vascular dementia (accession [id number]), Pt with moderate amount of white matter disease on previous MRI, hx and family hx of migraine; ? CADASIL; SWI, please (accession [id number]) TECHNIQUE: MRI of the head pre and [...] MRI and memory concerns, possiblevascular dementia (accession [id number]), Pt with moderate amount of white matterdisease on previous MRI, hx and family hx of migraine; ? CADASIL; SWI, please(accession [id number]) TECHNIQUE: MRI of the head pre and [...] contact the number below. Yary Lozoya APRN [facility] MRI ORDERABLES documented in this encounter Visit Diagnoses Diagnosis Memory impairment Memory loss Memory impairment Memory loss documented in this encounter Administered Medications Inactive Administered Medications - up to 3 most recent administrations Medication Order MAR Action Action Date Dose Rate Site LORazepam (Ativan) tablet 1 mg 1 mg, Oral, EVERY 30 MIN PRN, 2 doses, Starting on Mon04/14/20 at 0820, Until Mon04/15/20 at 0446, Anxiety, Angio/IR (Day of Procedure), Routine Given 04/14/2020 11:31 AM EDT 1 mg documented in this encounter Care Teams Nursing Educator Relationship Specialty Start Date End Date Leora Jones, ELVIS PCP - General Family Medicine 03/15/18 11/16/21 documented as of this encounter
--- OUTSIDE RECORDS SUMMARY | 2024-07-10 18:04 | XMS_ITS | Encounter Summary ---
Author Organization [facility] [place] [address] Care Team Providers Care Head Resident Name Role Phone Karen Leora Byrne APRN Primary Care Provider + Encounter Details Date Type Department Care Team (Late st Contact Info) Description 10/28/2019 Telephone [place]ematology [place] [phone] Tammy Oconnell, RN Social History Tobacco Use Types Packs/Day Years [...] encounter Miscellaneous Notes * Telephone Encounter - Tammy Andrews RN - 10/28/2019 10:19 AM EST Message received from Dr Gruber: Could you please give Mikaela a call this or next week to f/u on the drug holiday she started with Dr. Espinosa, to see how she is doing, and whether she needs any more referrals or support during the holidays? Thanks! Thanks Kayla for seeing her last week. Chari Message left requesting pt return my call 10/31/19 This RN called pt again and she reports that she felt better within 3 days of stopping the exemestane. The joint pain/body aches have resolved. She feels that she is thinking more clearly. She hooker shave a follow up in December ane will remain off the exemestane until this appt. documented in this encounter Plan of Treatment Not on file documented as of this encounter Visit Diagnoses Not on filedocumented in this encounter Care Teams Head Resident Relationship Specialty Start Date End Date Leora Jones APRN PCP - General Family Medicine 03/15/18 11/16/21 documented as of this encounter
--- OUTSIDE RECORDS SUMMARY | 2024-07-10 18:04 | XMS_ITS | Encounter Summary ---
[place] [address] Care Team Providers Care Real Estate Transaction Manager Name Role Phone Leora Jones APRN Primary Care Provider + Reason for Referral * Diagnostic Test (Routine) - Closed Specialty Diagnoses / Procedures Referred By Kandi gao Referred To Contact Radiology Diagnoses Memory deficit Procedures MRI Brain wo Contrast MRI Brain wwo Contrast (Generic) Leora Jones APRN [address] [place] [address] Phone: [place] [address] Referral ID Status Reason Start Date Expiration Date V isits Requested Visits Authorized [id number] Closed Specialty Service Requested 04/30/2019 07/29/2019 1 1 Reason for Visit * Diagnostic Test (Routine) - Closed Specialty Diagnoses / Procedures Referred By Kandi gao Referred To Contact Radiology Diagnoses Memory deficit Procedures MRI Brain wo Contrast MRI Brain wwo Contrast (Generic) Leora Jones APRN [address] [place] [address] [place] [address] Referral ID Status Reason Start Date Expiration Date V isits Requested Visits Authorized [id number] Closed Specialty Service Requested 04/30/2019 07/29/2019 1 1 Encounter Details Date Type Department Care Team (Latest Contact Info) Description 05/29/2019 10:37 AM EDT - 05/29/2019 10:38 AM EDT Hospital [place] [address] Leora Jones, CONTROLLER INSTRUCTOR [address] [place] [address] Memory deficit Discharge Disposition: Home Social History Tobacco Use [...] lungs as needed. fluticasone (FLONASE) 50 mcg/actuation [place], Suspension SPRAY TWO SPRAYS IN EACH NOSTRIL EVERY DAY FOR 1 WEEK MAY DECREASE USE WHEN FEELING BETTER 3 10/24/2017 epinephrine (EPIPEN INJ) Inject as directed once as needed. naloxone (NARCAN) 2 mg/actuation [place], Non-Aerosol by Nasal route as needed. sertraline [...] as of this encounter Progress Notes * Quinn Lambert RN - 05/24/2019 12:12 PM EDT MRI PRE-SEDATION ASSESSMENT NOTE NAME: Mikaela Payan AGE: 63 y.o. : [address] [place] [address] Female [phone] (home) Telephone Information: Leora Jones APRN No primary care provider on file. Allergies Allergen Reactions ??? Perfume Shortness Of Breath Perfume or heavily scented products ??? Tree Nuts Anaphylaxis ??? Bee Pollen Insects ??? Tree Pollen-Birch, Standard Other tree pollens as well Date/Time of call: May 24, 2019/12:14 PM/ PREVIOUS MRI SCAN? Yes HEIGHT: 5 ft 5 in WEIGHT: 210 SCHEDULED SCAN: MRI BRAIN WO CONTRAST [[id number]] SUBJECTIVE: Claustrophbia CAN YOU LAY FLAT? No AIRWAY ISSUES? CPAP use but can nape w/o it. DO YOU HAVE ANY INVOLUNTARY MOVEMENTS? No DO YOU HAVE ANY PAIN? Yes DO YOU TAKE PAIN MED ON A DAILY BASIS? Yes ASSESSMENT: Pt is a good candidate for PO sedation PLAN: ( dwp ) You must have a stock driver present when you check in. This patient has been informed that they require a stock driver to drive them home after this procedure. In the absence of a stock driver, IR will not be able to sedate for your scan. Pt verbalized understanding of these instructions during the pre-procedure education via phone. Yes [place] of stock driver: Phone number PRIOR SCAN DATE/S SEDATION TYPE SUCCESSFUL OSH 2017 ? YES 03/07/2018 MRI Breast wwo Ativan 1 mg POX 2 yes ? Revised 04/03/18 documented in this encounter Plan of Treatment Not on file documented as of this encounter Procedures Procedure Name Priority Date/Time Associated Diagnosis Comments MRI BRAIN WO CONTRAST Routine 05/29/2019 12:32 PM EDT Memory deficit documented in this encounter Results * MRI Brain wo Contrast (05/29/2019 12:32 PM EDT) Anatomical Region Laterality Modality Head Magnetic Resonan ce Impressions 05/29/2019 4:21 PM EDT White matter changes suggestive of chronic microvascular ischemic disease. Thank you for letting us participate in the care of this patient. For questions regarding this report, please contact the number below. ? Narrative 05/29/2019 4:21 PM EDT EXAMINATION: MRI BRAIN WO CONTRAST CLINICAL HISTORY: worsening memory, difficulty with word finding, loosing associations outside order in scanned docs; auth# [id number] exp.07/29/19 TECHNIQUE: MRI of the brain performed without intravenous contrast administration. COMPARISON: None FINDINGS: No acute infarction, mass, mass effect. Numerous foci of subcortical and more confluent periventricular white matter T2 prolongation. Ventricles and extra axial spaces are normal. Major intracranial flow voids are normal. The calvarium and extra calvarial soft tissues are unremarkable. Procedure Note [address] MD - 05/29/2019 EXAMINATION: MRI BRAIN WO CONTRAST CLINICAL HISTORY: worsening memory, difficulty with word finding,loosing associations outside order in scanned docs; auth# [id number] exp.07/29/19 TECHNIQUE: MRI of the brain performed without intravenous contrast administration. COMPARISON: None FINDINGS: No acute infarction, mass, mass effect. Numerous foci of subcortical andmore confluent periventricular white matter T2 prolongation. Ventricles andextra axial spaces are normal. Major intracranial flow voids are normal. Thecalvarium and extra calvarial soft tissues are unremarkable. IMPRESSION White matter changes suggestive of chronic microvascular ischemicdisease. Thank you for letting us participate in the care of this patient. Forquestions regarding this report, please contact the number below. Leora Jones APRN IMG MRI ORDERABLES documented in this encounter Visit Diagnoses Diagnosis Memory deficit Memory loss documented in this encounter Administered Medications Inactive Administered Medications - up to 3 most recent administrations Medication Order MAR Action Action Date Dose Rate Site LORazepam (ATIVAN) tablet 1 mg 1 mg, Oral, EVERY 30 MIN PRN, 2 doses, Starting on Mon05/29/19 at 0840, Until Vita 05/30/19 at 0434, Anxiety, Angio/IR (Day of Procedure), Routine Given 05/29/2019 10:48 AM EDT 1 mg documented in this encounter Care Teams Real Estate Transaction Manager Relationship Specialty Start Date End Date Leora Jones APRN PCP - General Family Medicine 03/15/18 11/16/21 documented as of this encounter
--- OUTSIDE RECORDS SUMMARY | 2024-07-10 18:04 | XMS_ITS | Encounter Summary ---
Author Organization [facility] [place] [address] Care Team Providers Care Offset Lithographic Press Operator Name Role Phone MalachiLeora sandoval Caty LEAL Primary Care Provider + Encounter Details Date Type Department Care Team (Late st Contact Info) Description 12/01/2018 Telephone Hematology [place] [address] Zita Guzman MD [facility] DR HEMATOLOGY/[place] [address] Social History Tobacco Use Types Packs/Day Years Used Date Smoking Tobacco: Never Smokeless Tobacco: Never Sex and Gender Information Value Date Recorded Sex Assigned at Not on file Gender Identity Not on file Sexual Orientation Not on file documented as of this encounter Miscellaneous Notes * Telephone Encounter - Zita Cramer MD - 12/01/2018 1:14 PM EST Call from patient Mikaela Payan, patient of Dr. Gruber with breast cancer, currently on hormonetherapy with letrozole, last visit 10/2018. She requested a refill of her letrozole on 11/24 from her pharmacy but just found out it has not been approved yet. She has been out of pills for almost a week. I will send a one month prescription to her pharmacy ([facility] in [place], [place]) and notify Dr. Gruber's team so they can ensure she has appropriate refills going forward. Zita Cramer MD, MPH Hematology/Oncology Fellow Pager [phone] documented in this encounter Plan of Treatment Not on file documented as of this encounter Visit Diagnoses Diagnosis Malignant neoplasm of upper-inner quadrant of left breast in female, estrogen receptor positive documented in this encounter Care Teams Offset Lithographic Press Operator Relationship Specialty Start Date End Date Leora Jones APRN PCP - General Family Medicine 03/15/18 11/16/21 documented as of this encounter
--- OUTSIDE RECORDS SUMMARY | 2024-07-10 18:04 | XMS_ITS | Encounter Summary ---
Author Organization [facility] [place] [address] Care Team Providers Care Composite Mechanic Name Role Phone Leora Jones APRN Primary Care Provider + Encounter Details Date Type Department Care Team (Late st Contact Info) Description 06/12/2018 11:00 AM EDT Office Visit Hematology [place] [address] Allie Amos FREIGHT COORDINATOR [facility] [place] [address] Malignant neoplasm of left female breast, unspecified [...] Sign Reading Time Taken Comments Blood Pressure 121/70 06/12/2018 10:59 AM EDT Pulse 87 06/12/2018 10:59 AM EDT Temperature 36.1 ??C (97 ??F) 06/12/2018 10:59 AM EDT Respiratory Rate 17 06/12/2018 10:59 AM EDT Oxygen Saturation 97% 06/12/2018 10:59 AM EDT Inhaled Oxygen Concentration - - Weight 92.5 kg (204 lb) 06/12/2018 10:59 AM EDT Height 167 cm (5' 5.75) 06/12/2018 10:59 AM EDT Body Mass Index 33.18 06/12/2018 10:59 AM EDT documented in this encounter Progress Notes * Allie Amos Caty, FREIGHT COORDINATOR - 06/12/2018 11:00 AM EDT Subjective: Patient ID: Mikaela Payan is a 62 y.o. female. Cc: breast cancer HPI Left breast cancer T1bN0 upper inner quadrant ER/NM + her2 neg --annual mammograms since age [...] no MYRTLE, no LVI --RT planned in [facility], to start 04/16/18 Menses age 13-48; ; 1 sister with breast cancer at age 57, s/p mastx and tamoxifen 1 brother with testicular cancer; 1 brother no cancer; 1 daughter well, no cancer. No HRT. Review of Systems Constitutional: Negative. HENT: Negative. Mild chronic hair thinning. Eyes: Negative. Respiratory: Negative. Cardiovascular: Negative. Gastrointestinal: Negative. Endocrine: Positive for heat intolerance. Genitourinary: Negative. Musculoskeletal: Positive for arthralgias. Right rib pain, chronic, bone scan neg. Skin: Negative. Allergic/Immunologic: Negative. Neurological: Negative. Hematological: Negative. Psychiatric/Behavioral: Negative. 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 emollient base (CREAM BASE TOP) Apply [...] 1 ??? pregabalin (LYRICA ORAL) Take by mouth daily as needed (nerve pain right flank/upper abd). ??? ALBUTEROL INHL Inhale into the lungs as needed. ??? fluticasone (FLONASE) 50 mcg/actuation [place], Suspension SPRAY TWO SPRAYS IN EACH NOSTRIL EVERYDAY FOR 1 WEEK MAY DECREASE USE WHEN FEELING BETTER 3 ??? epinephrine (EPIPEN INJ) Inject as directed. ??? naloxone (NARCAN) 2 mg/actuation [place], Non-Aerosol by Nasal route. ??? sertraline (ZOLOFT) 100 mg Tablet Take 100 mg by mouth daily. ??? traMADol (ULTRAM) 50 mg Tablet ??? letrozole (FEMARA) 2.5 mg Tablet Take 1 tablet by mouth daily. 30 tablet 3 No current facility-administered medications for this visit. Objective: Physical Exam Constitutional: She is oriented to person, place, and time. She appears well- developed and well-nourished. HENT: Head: Normocephalic. Nose: Nose normal. Mouth/Throat: Oropharynx is clear and moist. Mild diffuse alopecia. Eyes: Conjunctivae are normal. Pupils are equal, round, and reactive to light. No scleral icterus. Neck: Normal range of motion. Cardiovascular: Normal rate. Pulmonary/Chest: Effort normal. No respiratory distress. She exhibits no tenderness. Left partial mastectomy. No nodularity or axillary adenopathy. Musculoskeletal: Normal range of motion. Lymphadenopathy: She has no cervical adenopathy. Neurological: She is alert and oriented to person, place, and time. She has normal reflexes. Skin: Skin is warm and dry. No rash noted. No erythema. No pallor. Psychiatric: She has a normal mood and affect. Her behavior is normal. Judgment and thought contentnormal. Nursing note and vitals reviewed. Dexa scan today- FINDINGS: Lowest T-score at a diagnostic region of interest: ?? T-score: -0.9, PARAMJIT: Left femoral neck, WHO diagnosis: Normal bone mineral density. Assessment and Plan: #1 Breast cancer--62 yo post-menopausal woman with Stage I low risk breast cancer. Low grade, strongly ER+, likely luminal A subtype with no minimal benefit from chemotherapy. Recommend aromatase inhibitor alone. She has completed RT. #2 Chemotherapy--monitoring for toxicity--n/a #3 Fatigue--improving since radiation therapy has ended. #4 Menopausal symptoms--many hot flashes with mild to moderate diaphoresis. #5 Bone health-- Normal bone density scan today. Recommend calcium and vitamin d supplement. #6 Medication management --Letrozole 2.5 mg sent to pharmacy. Plan: We discussed the side effect profile of letrozole. She will begin taking this at the same time each day. I will schedule her to follow up with Dr. Gruber in 3-4 months. She will call in theinterim with questions or concerns. Allie Amos APRN documented in this encounter Plan of Treatment Not on file documented as of this encounter Visit Diagnoses Diagnosis Malignant neoplasm of left female breast, unspecified estrogen receptor status, unspecified site of breast documented in this encounter Care Teams Composite Mechanic Relationship Specialty Start Date End Date Leora Jones APRN PCP - General Family Medicine 03/15/18 11/16/21 documented as of this encounter
--- OUTSIDE RECORDS SUMMARY | 2024-07-10 18:04 | XMS_ITS | Encounter Summary ---
Author Organization [facility] [place] [address] Care Team Providers Care Peoplesoft Functional Analyst Name Role Phone Karen Leora Byrne APRN Primary Care Provider + Reason for Referral * Physical Therapy (Routine) - Specialty Diagnoses / Procedures Referred By Kandi ago Referred To Contact Physical Therapy Diagnoses Malignant neoplasm of left breast in female, estrogen receptor positive, unspecified site of breast Magi Terry MD [facility] [place] [address] Referral ID Status Reason Start Date Expiration Date V isits Requested Visits Authorized [id number] Evaluate and Treat 01/28/2019 07/27/2019 12 12 Reason for Visit * Reason Comments Radiation Follow-up Encounter Details Date Type Department Care Team (Late st Contact Info) Description 01/28/2019 4:30 PM EDT Office Visit Radiation Oncology at [address] [phone] Magi Terry MD [facility] [place] [address] Malignant neoplasm of left breast in female, [...] Sign Reading Time Taken Comments Blood Pressure 117/69 01/28/2019 4:42 PM EDT Pulse 80 01/28/2019 4:42 PM EDT Temperature 36.7 ??C (98.1 ??F) 01/28/2019 4:42 PM ED T Respiratory Rate 16 01/28/2019 4:42 PM EDT Oxygen Saturation 96% 01/28/2019 4:42 PM EDT Inhaled Oxygen Concentration - - Weight 86.9 kg (191 lb 9.6 oz) 01/28/2019 4:42 P M EDT Height - - Body Mass Index 32.12 10/17/2018 1:24 PM EST documented in this encounter Patient Instructions * Patient Instructions* Magi Terry MD - 01/28/2019 4:30 PM EDT Your exam is without worrisome finding. Soreness within your left breast may be due to new scar cells from surgery & radiation. Sometimes a physical therapist can teach exercises to soften the scar tissue & decrease the soreness. Massage therapy sometimes is helpful. I have ordered referral to [facility] for instruction in exercises +/- massage therapy to soften any scar tissue in your left breast, thereby hopefully decreasing the soreness. We will mail you a letter with an appointment for followup in 6 months, @ which time you would be seen by me or by one of the Radiation Oncology Advanced Practice RNs. documented in this encounter Progress Notes * Magi Terry MD - 01/28/2019 4:30 PM EDT Images from the original note were not included. CC: Sched'd fu visit s/p xrt completion. HPI: 63 y/o f who completed xrt 8 mos ago (05/25/18) to L breast for ca, IDC, gr 1, ER+[place]+, Her2 neg, s/p lumpectomy & SNB, pT1b pN0, stage I. She is on letrozole, started in early Jun 2018. 10/17/18 L mmg: No residual dz. 10/17/18 fu w/Dr. Emmanuel; rtc 6 mos w/B mmg. ROS: L breast tender when pressure applied to LOQ. She has been undergoing PT @ [facility] PT for trigger fingers. She has been told that she has lactic acid build up where the tendons hit themuscles, throughout her body. Past Medical History: Diagnosis Date ??? Breast cancer 02/15/2018 IDC Past Surgical History: Procedure Laterality Date ??? BREAST BIOPSY Left 02/15/2018 IDC ??? BREAST LUMPECTOMY Left 03/22/2018 ??? PRO BX/REMV, LYMPH NODE, DEEP AXILL Left 03/22/2018 BIOPSY OR EXCISION OF LYMPH NODE(S), OPEN, DEEP AXILLARY NODE(S) (WRVU 6.43) performed by Pete Emmanuel MD at [facility] ??? PRO INTRAOP SENTINEL LYMPH ID W/DYE INJECTION Left 03/22/2018 INTRAOPERATIVE ID (MAPPING) SENTINEL LYMPH NODE,INCLUDES INJECTION (WRVU 2.5) performed by Pete Emmanuel MD at [facility] ??? PRO MASTECTOMY, PARTIAL Left 03/22/2018 MASTECTOMY PARTIAL (WRVU 10.13) performed by Pete Emmanuel MD at [facility] Your Medications Accurate as of 01/28/19 4:46 PM. If you have any questions, ask [...] mg Quantity: 90 tablet Refills: 3 lisinopril 5 mg Tab [...] 10 mg Refills: 0 NARCAN 2 mg/actuation [place] by Nasal route. Generic drug: naloxone Refills: 0 sertraline 100 mg Tab Commonly known as: ZOLOFT Take 150 mg by mouth daily. 150 mg Refills: 0 traMADol 50 mg Tab [...] normal. Judgment and thought contentnormal. A: WHIT. P: PT referral for soreness in LOQ L breast for instruction in exercises +/- massage therapy to soften possible scar tissue in area, which may decrease her soreness to palpation/pressure on area. Rtc 6 mos. documented in this encounter Plan of Treatment Scheduled Referrals Name Type Priority Associated Diagnoses Orde r Schedule Referral to Physical Therapy Outpatient Referral Routine Malignant neoplasm of left breast in female, estrogen receptor positive, unspecified site of breast Ordered: 01/28/2019 documented as of this encounter Visit Diagnoses Diagnosis Malignant neoplasm of left breast in female, estrogen receptor positive, unspecified site of breast documented in this encounter Care Teams Peoplesoft Functional Analyst Relationship Specialty Start Date End Date Leora Jones, ELVIS PCP - General Family Medicine 03/15/18 11/16/21 documented as of this encounter
--- OUTSIDE RECORDS SUMMARY | 2024-07-10 18:04 | XMS_ITS | Encounter Summary ---
[place] [address] Care Team Providers Care Environmental Sustainability Manager Name Role Phone Leora Jones APRN Primary Care Provider + Reason for Visit * Diagnostic Test (Routine) - Closed Specialty Diagnoses / Procedures Referred By Kandi gao Referred To Contact Radiology Diagnoses Memory deficit Procedures MRI Brain wo Contrast MRI Brain wwo Contrast (Generic) Leora Jones LEAN SPECIALIST [address] [place] [address] [facility] [place] [address] Referral ID Status Reason Start Date Expiration Date V isits Requested Visits Authorized [id number] Closed Specialty Service Requested 04/30/2019 07/29/2019 1 1 Encounter Details Date Type Department Care Team (Latest Contact Info) Description 05/29/2019 10:39 AM EDT - 05/29/2019 11:59 PM EDT Hospital [place] [id number] Leora Jones, LEAN SPECIALIST [address] [place] [address] Discharge Disposition: Home Social History Tobacco Use [...] lungs as needed. fluticasone (FLONASE) 50 mcg/actuation [place], Suspension SPRAY TWO SPRAYS IN EACH NOSTRIL EVERY DAY FOR 1 WEEK MAY DECREASE USE WHEN FEELING BETTER 3 10/24/2017 epinephrine (EPIPEN INJ) Inject as directed once as needed. naloxone (NARCAN) 2 mg/actuation [place], Non-Aerosol by Nasal route as needed. sertraline [...] associations outside order in scanned docs; auth# [id number] exp.07/29/19 TECHNIQUE: MRI of the brain performed [...] associations outside order in scanned docs; auth# [id number] exp.07/29/19 TECHNIQUE: MRI of the brain performed [...] contact the number below. Leora Jones APRN IMDaniella MRI ORDERABLES documented in this encounter Visit Diagnoses Not on filedocumented in this encounter Care Teams Environmental Sustainability Manager Relationship Specialty Start Date End Date Leora Jones APRN PCP - General Family Medicine 03/15/18 11/16/21 documented as of this encounter
--- OUTSIDE RECORDS SUMMARY | 2024-07-10 18:04 | XMS_ITS | Encounter Summary ---
Author Organization [facility] [place] [address] Care Team Providers Care Bariatric Surgeon Name Role Phone Leora Jones APRN Primary Care Provider + Encounter Details Date Type Department Care Team (Late st Contact Info) Description 05/31/2019 Telephone Neurology at [facility] [place] [phone] Yary Lozoya APRN [facility] [place] [address] Social History Tobacco Use Types Packs/Day Years [...] encounter Miscellaneous Notes * Telephone Encounter - Yary Lozoya APRN - 05/31/2019 8:41 AM EDT Called pt and informed her or MRI brain results which showed White matter changes suggestive of chronic microvascular ischemic disease. She and I had discussed this in clinic. Advised her to start 81mg of Aspirin daily. All questions answered. documented in this encounter Plan of Treatment Not on file documented as of this encounter Visit Diagnoses Not on filedocumented in this encounter Care Teams Bariatric Surgeon Relationship Specialty Start Date End Date Leora Jones APRN PCP - General Family Medicine 03/15/18 11/16/21 documented as of this encounter
--- OUTSIDE RECORDS SUMMARY | 2024-07-10 18:04 | XMS_ITS | Encounter Summary ---
Author Organization [facility] Address [facility] [place] [address] Care Team Providers Care Process Steward Name Role Phone Karen Leora Byrne APRN Primary Care Provider + Reason for Visit * Reason Comments Follow-up Encounter Details Date Type Department Care Team (Late st Contact Info) Description 10/17/2018 1:30 PM EST Office Visit Hematology [place] [phone] Chari Gruber MD [facility] DR HEMATOLOGY [place] [address] Malignant neoplasm of upper-inner quadrant of left [...] Sign Reading Time Taken Comments Blood Pressure 120/70 10/17/2018 1:24 PM EST Pulse 76 10/17/2018 1:24 PM EST Temperature 36.2 ??C (97.2 ??F) 10/17/2018 1:24 PM ES T Respiratory Rate 20 10/17/2018 1:24 PM EST Oxygen Saturation 99% 10/17/2018 1:24 PM EST Inhaled Oxygen Concentration - - Weight 85.5 kg (188 lb 6.4 oz) 10/17/2018 1:24 P M EST Height 164.5 cm (5' 4.76) 10/17/2018 1:24 PM ES T Body Mass Index 31.58 10/17/2018 1:24 PM EST documented in this encounter Progress Notes * Chari Gruber MD - 10/17/2018 1:30 PM EST Subjective: Patient ID: Mikaela Payan is a 62 y.o. female. Cc: breast cancer Interval history: Mikaela is here for routine f/u. She started letrozole in June and is doing ok with it. She reports more dizzy spells, with balance difficulty intermittently, not an issue of room spinning or light headedness, but more about coordination at times. No falls. Chronic pain meds are unchanged, denies alcohol. Has had high blood sugars and is working on weight loss with carb and portion control. No new lumps or bumps. Takes care of her elderly mother. Left breast cancer T1bN0 upper inner quadrant ER/MD + her2 neg --annual mammograms since age [...] no MYRTLE, no LVI --RT planned in [facility], to start 04/16/18 --letrozole started 06/12/18 Menses age 13-48; ; 1 sister with breast cancer at age 57, s/p mastx and tamoxifen 1 brother with testicular cancer; 1 brother no cancer; 1 daughter well, no cancer. No HRT. Review of Systems Constitutional: Positive for unexpected weight change. 20# weight loss, intentional, reducing carbs, increasing fruits and veggies. HENT: Positive for hearing loss. Eyes: Negative. Respiratory: Negative. Cardiovascular: Negative. Gastrointestinal: Negative. Endocrine: Negative. Genitourinary: Negative. Musculoskeletal: Negative. Skin: Negative. Allergic/Immunologic: Negative. Neurological: Positive for dizziness. Hematological: Negative. Psychiatric/Behavioral: Negative. Objective: Physical Exam Constitutional: She is oriented to person, place, and time. She appears well- developed and well-nourished. No distress. HENT: Head: Normocephalic and atraumatic. Right Ear: External ear normal. Left Ear: External ear normal. Nose: Nose normal. Mouth/Throat: Oropharynx is clear and moist. No oropharyngeal exudate. Eyes: Conjunctivae and EOM are normal. Pupils are equal, round, and reactive to light. Right eye exhibits no discharge. Left eye exhibits no discharge. No scleral icterus. Neck: Normal range of motion. Neck supple. No JVD present. No tracheal deviation present. No thyromegaly present. Cardiovascular: Normal rate, regular rhythm, normal heart sounds and intact distal pulses. Exam reveals no gallop and no friction rub. No murmur heard. Pulmonary/Chest: Effort normal and breath sounds normal. Right breast exhibits no inverted nipple, no mass, no nipple discharge, no skin change and no tenderness. Left breast exhibits no inverted nipple, no mass, no nipple discharge, no skin change and no tenderness. Abdominal: Soft. Bowel sounds are normal. She exhibits no distension and no mass. There is no tenderness. There is no rebound and no guarding. Musculoskeletal: Normal range of motion. She exhibits no edema, tenderness or deformity. Lymphadenopathy: She has no cervical adenopathy. Neurological: She is alert and oriented to person, place, and time. She has normal reflexes. She displays normal reflexes. She exhibits normal muscle tone. Coordination normal. Skin: Skin is warm and dry. No rash noted. She is not diaphoretic. No erythema. No pallor. Psychiatric: She has a normal mood and affect. Her behavior is normal. Judgment and thought contentnormal. Nursing note and vitals reviewed. Mammogram viewed independently by me, final report pending. Appears stable to me. Assessment and Plan: No problem-specific Assessment & Plan notes found for this encounter. #1 Breast cancer--62 yo stage I left breast cancer, doing well on letrozole WHIT. Balance trouble more likely due to pain, sleep or anxiety meds, than letrozole. She will discuss with PCP. #2 Chemotherapy--monitoring for toxicity--n/a. #3 Fatigue--stable. #4 Menopausal symptoms--stable. #5 Bone health--dexa normal in June, repeat in 2 years. #6 Medication management --no new prescriptions. Plan: continue letrozole F/u 6 months documented in this encounter Plan of Treatment Not on file documented as of this encounter Visit Diagnoses Diagnosis Malignant neoplasm of upper-inner quadrant of left breast in female, estrogen receptor positive documented in this encounter Care Teams Process Steward Relationship Specialty Start Date End Date Leora Jones, BALL WINDER PCP - General Family Medicine 03/15/18 11/16/21 documented as of this encounter
--- OUTSIDE RECORDS SUMMARY | 2024-07-10 18:04 | XMS_ITS | Encounter Summary ---
Author Organization [facility] [place] [address] Care Team Providers Care National Sales Representative Name Role Phone MalachibrandiciprianoAmacipriano Byrne APRN Primary Care Provider + Reason for Visit * Reason Comments On Treatment Visit Encounter Details Date Type Department Care Team (Late st Contact Info) Description 05/15/2018 8:00 AM EDT Office Visit Radiation Oncology at [address] [phone] Magi Terry MD [facility] [place] [address] Malignant neoplasm of left female breast, unspecified [...] Sign Reading Time Taken Comments Blood Pressure 124/79 05/15/2018 8:00 AM EDT Pulse 84 05/15/2018 8:00 AM EDT Temperature 37.2 ??C (99 ??F) 05/15/2018 8:00 AM EDT Respiratory Rate 16 05/15/2018 8:00 AM EDT Oxygen Saturation 98% 05/15/2018 8:00 AM EDT Inhaled Oxygen Concentration - - Weight 92.4 kg (203 lb 12.8 oz) 05/15/2018 8:00 AM EDT Height - - Body Mass Index 32.37 04/12/2018 1:42 PM EDT documented in this encounter Progress Notes * Magi Terry MD - 05/15/2018 8:00 AM EDT DIAGNOSIS: Breast, L, IDC, gr 1, ER+[place]+, Her2 neg, 8 mm, s/p lumpectomy & SNB, pT1b pN0, stage I. CURRENT TREATMENT DOSE: 29.26 Gy L breast ANTICIPATED TOTAL DOSE: 42.56 Gy L breast, 52.56 Gy lumpectomy bed Current # of xrt received: 11 Anticipated total # of xrt txs: 16 L breast, 20 lumpectomy bed Evaluation of port verification films: Approved. For details, see electronic film record in [employer]. Changes in Medical Condition: Mild intermittent discomfort in L breast, managed w/tylenol when needed. Feels tired & slightly nauseous this AM. Mild intermittent itchiness w/in irrad'd area, relieved by 1% htc. Pain?: See above. Your Medications These changes are accurate as of 05/15/18 8:33 AM. If you have any questions, ask [...] 10 mg Refills: 0 NARCAN 2 mg/actuation [place] by Nasal route. Generic drug: naloxone Refills: 0 sertraline 100 mg Tab Commonly known as: ZOLOFT Take 100 mg by mouth daily. 100 mg Refills: 0 traMADol 50 mg Tab Commonly known as: ULTRAM Refills: 0 zolpidem 5 mg Tab Commonly known as: AMBIEN TAKE ONE TABLET BY MOUTH AT BEDTIME NEEDED FOR INSOMNIA Refills: 1 Flu vacc?: Received for [id number]. P&SH: Smoking? Never. Physical Exam: BP 124/79 (Patient Position: Sitting) Pulse 84 Temp 37.2 ??C (99 ??F) (Oral) Resp 16 Wt 92.4 kg (203 lb 12.8 oz) SpO2 98% BMI 32.37 kg/m2 A&Ox3, NAD. Minimal to mild erythema L breast; skin intact. No neuro deficit. Amb stable. Imagin04/17/18 Dx'ic Rad Interp CTsim: Diffuse hepatic steatosis. Performance Status: KPS 100% Response to xrt: As expected. Irradiation Related Symptoms: Skin rxn. Treatment for Symptom Control: 1% htc rec'd for itchiness not relieved by Gabriel's cream. Pain Management: Tylenol/advil. Recommendation on [...] breast documented in this encounter Care Teams National Sales Representative Relationship Specialty Start Date End Date Leora Jones APRN PCP - General Family Medicine 03/15/18 11/16/21 documented as of this encounter
--- OUTSIDE RECORDS SUMMARY | 2024-07-10 18:04 | XMS_ITS | Encounter Summary ---
Author Organization [facility] [place] [address] Care Team Providers Care Tank Maker Wood Name Role Phone Leora Jones APRN Primary Care Provider + Reason for Visit * Consultation (Routine) - Closed Specialty Diagnoses / Procedures Referred By Kandi gao Referred To Contact Genetics Diagnoses Memory impairment White matter disease Cerebral infarction, unspecified mechanism Patient w/ hx of migraines w/aura, family hx of migraine w/aura, now with memory Yary Lozoya [facility] [place] [address] [facility] [address] [place] [id number] Referral ID Status Reason Start Date Expiration Date V isits Requested Visits Authorized [id number] Closed Consult, Test & Treat 04/20/2020 04/20/2021 1 1 Encounter Details Date Type Department Care Team (Late st Contact Info) Description 04/29/2020 1:00 PM EDT TH Visit (TeleHealth) Medical Genetics at [address] [phone] Monika Shah, [facility] [place] [address] Memory changes Social History Tobacco Use Types Packs/Day Years Used Date Smoking Tobacco: Never Smokeless Tobacco: Never Alcohol Use Standard Drinks/Week Comments Not Currently 0 (1 standard drink = 0.6 oz pur e alcohol) Sex and Gender Information Value Date Recorded Sex Assigned at Not on file Gender Identity Not on file Sexual Orientation Not on file documented as of this encounter Progress Notes * Monika Shah, [facility] - 04/29/2020 1:00 PM EDT Mikaela was seen for genetic counseling on 04/29/2020. Mikaela has a history of memory changes and moderate white matter disease on MRI. She was seen for aneurology evaluation at [facility] last week. 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 A three generation pedigree was obtained at the visit today. The family history was significant forher sister with migraines with aura, a maternal half brother with migraines with aura and dementia with onset in late 50's, her mother has migraines with aura and a stroke at age 70, and her maternalgrandfather with migraines with aura(d. Age 65). CADASIL (Cerebral Autosomal Dominant Arteriopathy with Subcortical Infarcts and Leukoencephalopathy) is an adult onset progressive condition that leads to recurrent strokes and dementia. Each of the letters in the word CADASIL stands for words that describe the condition. Cerebral means that this condition relates to the brain and that other organ systems in the body are relatively unaffected. Autosomal dominant refers to how it is inherited. Arteriopathy means that this is a disease of the arteries, usually medium to small size arteries. Subcortical describes the portion of the brain immediately below the cerebral cortex which is where the strokes typically occur. This area of the brain is important for sensation, voluntary muscle movement, thought, reasoning, and memory. Infarcts mean areas of tissue that have undergone a type of cell (called necrosis), as a result of loss of blood supply. Leukoencephalopathy means a disease of the brain caused by damage to the white matter. The presenting symptoms of CADASIL include migraine headaches, behavioral abnormalities, cognitive disturbances and stroke-like episodes. The average age of onset for the stroke-like episodes is 47 years and these episodes are often recurrent. Migraine headaches are reported in 20-40% of individuals and the average age of onset is 30 years, but can occur anytime between 6-48 years of age. Other symptoms include mood changes including depression and apathy. Cognitive deficits are observed in about 60% of affected individuals and typically occur due to recurrent strokes. White matter changes are typically present on MRI starting around age 21, often prior to any symptoms. The average age of is about 68 years, but is slightly younger in men than in women. There is no treatment of proven efficacy for CADASIL. Antiplatelet treatment is frequently used, but not proven effective in CADASIL. Migraine should be treated both symptomatically and prophylactically, depending on the frequency of manifestations. Co-occurrence of hypertension, diabetes or hypercholesterolemia should be treated. Supportive care (practical help, emotional support, and counseling) is appropriate for affected individuals and their families. Angiography and anticoagulants may provoke cerebrovascular accidents; smoking increases the risk ofstroke. Thrombolytic therapy (intravenous thrombolysis) is contraindicated because of the presumed increased risk for cerebral hemorrhage. CADASIL is inherited as an autosomal dominant condition. We reviewed the 50% risk for Mikaela Payan to have inherited the condition and to have passed the condition on to her children. The implications for other family members were also reviewed. About 95% of individuals with CADASIL have an identifiable change in their NOTCH3 gene. In some families even when we know the condition is genetic, agene mutation can not be identified by the available testing. I explained the available genetic testing options and addressed any questions or concerns. At this time I would recommend genetic testing for sequencing and deletion/duplication testing of the [id number] through [facility] if Mikaela would like to proceed with testing. We also discussed the benefits, risks, costs and limitations of the genetic testing. We also reviewed the possible outcomes of testing including positive results, negative results and variants of uncertain significance. A positive test would confirm the diagnosis. If genetic testing is negative and the mutation has not been previously identified in the family, then this does not eliminate the possibility of CADASIL. We also discussed how genetic testing can impact the ability to obtain insurance. A federal law called the Genetic Information Nondiscrimination Act (MARK ANTHONY) is designed to protect people from being discriminated against due to their genetic testing results in obtaining health insurance and employment. However, the MARK ANTHONY protections do not extend to life, intermediate manager care, or disability insurance policies. We reviewed how a positive genetic testing result may cause an individual difficulty obtaining these types of insurance policies, especially if they do not already have them in place. Lastly I explained thatthe testing may not be covered by insurance and they could be responsible for the cost of testing. Mikaela is unsure if she would like to proceed with testing. We agreed that if she decides that she would like to pursue testing she will contact us. Monika Shah, MS, [facility] Licensed Genetic Counselor Patient/guardian consents to telehealth visit Yes Patient/guardian is current in the state of [place] or [place] Yes Patient/guardian consents to receiving consent forms by email: Yes documented in this encounter Plan of Treatment Scheduled Referrals Name Type Priority Associated Diagnoses Orde r Schedule Referral to Genetics Outpatient Referral Routine Memory impairment White matter disease Cerebral infarction, unspecified mechanism Ordered: 04/20/2020 documented as of this encounter Visit Diagnoses Diagnosis Memory changes Memory loss documented in this encounter Care Teams Tank Maker Wood Relationship Specialty Start Date End Date Leora Jones APRN PCP - General Family Medicine 03/15/18 11/16/21 documented as of this encounter
--- OUTSIDE RECORDS SUMMARY | 2024-07-10 18:04 | XMS_ITS | Encounter Summary ---
Author Organization [facility] [place] [address] Care Team Providers Care Advertising Clerk Name Role Phone Leora Jones APRN Primary Care Provider + Reason for Visit * Reason Comments Follow-up Encounter Details Date Type Department Care Team ([facility] st Contact Info) Description 12/18/2019 1:00 PM EST Office Visit Hematology [place] [phone] Kayla Espinosa MD [address] [place] [address] HEMATOLOGY/[place] [address] Malignant neoplasm of upper-inner quadrant of left breast in female, estrogen receptor positive; Microcytosis Social History Tobacco Use Types Packs/Day Years [...] Sign Reading Time Taken Comments Blood Pressure 114/77 12/18/2019 12:55 PM EST Pulse 71 12/18/2019 12:55 PM EST Temperature 36.4 ??C (97.5 ??F) 12/18/2019 12:[address] Respiratory Rate 15 12/18/2019 12:55 PM EST Oxygen Saturation 99% 12/18/2019 12:55 PM EST Inhaled Oxygen Concentration - - Weight 86.2 kg (190 lb) 12/18/2019 12:55 PM EST Height 166.6 cm (5' 5.6) 12/18/2019 12:55 PM ES T Body Mass Index 31.04 12/18/2019 12:55 PM EST documented in this encounter Progress Notes * Kayla Espinosa MD - 12/18/2019 1:00 PM EST Patient Active Problem List Diagnosis Code [...] c/w vascular changes. Working on glucose control. We held the exemestane mid- October 2019 to see if her sx would improve and she is here for followup. Initially she felt much improved with less fogginess and joint/muscle pain. Saw neurology last week and is to start OT in [place] soon to help with her difficulties with day-to-day memory issues and is getting counseling in [place] weekly-also helpful. She is just now noticing a bit of optimism for future. Left breast cancer T1bN0 upper inner quadrant ER/[place] + her2 neg --annual mammograms since age [...] no MYRTLE, no LVI --RT planned in [facility], to start 04/16/18 --letrozole started 06/12/18 Menses age 12-48; ; 1 sister with breast cancer at age 57, s/p mastx and tamoxifen 1 brother with testicular cancer; 1 brother no cancer; 1 daughter well, no cancer. No HRT. Review of Systems Constitutional: Positive for activity change- much less active. Unable to work. HENT: Negative. Eyes: Negative. Respiratory: Negative. Cardiovascular: Negative. Gastrointestinal: [...] Take 10 mg by mouth daily. ??? fexofenadine HCl (BRISA ORAL) Take 1 tablet by mouth as needed. ??? ALBUTEROL INHL Inhale 2 puffs into the lungs as needed. ??? fluticasone (FLONASE) 50 mcg/actuation [place], Suspension SPRAY TWO SPRAYS IN EACH NOSTRIL EVERYDAY FOR 1 WEEK MAY DECREASE USE WHEN FEELING BETTER 3 ??? epinephrine (EPIPEN INJ) Inject as directed once as needed. ??? sertraline (ZOLOFT) 100 mg [...] taking: Reported on05/29/2019) 90 tablet 3 ??? sumatriptan succinate (IMITREX ORAL) Take 1 tablet by mouth as needed. ??? naloxone (NARCAN) 2 mg/actuation [place], Non-Aerosol by Nasal route as needed. No current facility-administered medications on file prior to visit. PE Visit Vitals BP 114/77 (Patient Position: Sitting) Pulse 71 Temp 36.4 ??C (97.5 ??F) (Temporal) Resp 15 Ht 166.6 cm (5' 5.6) Wt 86.2 kg (190 lb) SpO2 99% BMI 31.04 kg/m?? Not otherwise examined today Assessment and Plan: #1 Breast cancer--Stage I left breast cancer 02/21, WHIT thus far and low risk. Beginning to see glimmer of better future, at least as of today and do not thin that re-starting AI right now will be effective. Multiple meds/anxieties/social circumstances contribute likely to her decreased QOL and pain. Given low risk would take some more time off med and consider tamoxifen as alternative down the line. Will take another 2 month break off exemestane. Agree with plan for neurocognitive testing as hard to understand what causing her cognitive problems with day-to-day living. #2 Low MCV without anemia from 10/16 labs- Will check iron studies with next labs #3 Fatigue--increased with increased word finding difficulty and confusion. TSH is fine. Followup withl PCP, neuro as above #4 Menopausal symptoms--stable. #5 Bone health--dexa 06/23 normal. RTC 2 months. Total visit 25 minutes, all spent in counseling and coordination of care. documented in this encounter Plan of Treatment Not on file documented as of this encounter Results * (ABNORMAL) Iron and TIBC (07/16/2020 10:56 AM EDT) Iron 51 30 - 150 mcg/dL [facility] TIBC 271 250 - 450 mcg/dL [facility] Iron Saturation 19(L) 20 - 50 % [facility] Blood specimen (specimen) 07/16/2020 10:56 AM EDT 07/16/2020 11:01 AM EDT Narrative Resulting Agency Comment Spec In Lab Kayla Espinosa MD CHEMISTRY ORDERABLES [facility] [place] [address] documented in this encounter Visit Diagnoses Diagnosis Malignant neoplasm of upper-inner quadrant of left breast in female, estrogen receptor positive Microcytosis Other abnormality of red blood cells documented in this encounter Care Teams Advertising Clerk Relationship Specialty Start Date End Date Leora Jones APRN PCP - General Family Medicine 03/15/18 11/16/21 documented as of this encounter
--- OUTSIDE RECORDS SUMMARY | 2024-07-10 18:04 | XMS_ITS | Encounter Summary ---
Author Organization [facility] Address [facility] [place] [address] Care Team Providers Care Oncology Physician Assistant Name Role Phone Karen Leora Byrne APRN Primary Care Provider + Encounter Details Date Type Department Care Team (Late st Contact Info) Description 05/29/2019 4:00 PM EDT Office [place] [phone] Harriett Larkin MD [facility] [place] [address] Malignant neoplasm of left breast in female, [...] Progress Notes * Harriett Larkin MD - 05/29/2019 4:00 PM EDT Mikaela Payan is a 63 year-old woman who returns after left partial mastectomy [...] ROM left arm and no arm edema. Bilateral mammo from today is benign. Impression: No evidence of breast cancer recurrence. Plan: I will schedule her to see our breast CRA OFFICER in 1 year with a bilateral mammogram. Comprehensive Breast [facility] Surgery Follow Up Note Range of motion of surgical arm complete Lymphedema present No Cosmesis-surgeon reported Cosmesis-patient reported Excellent Excellent Local or regional recurrence No Contralateral cancer present No Distant recurrence present No Date of last follow up 05/29/19 HARRIETT LARKIN MD 05/29/2019 documented in this encounter Plan of Treatment Not on file documented as of this encounter Results * Mammo Screening Cad and Zen Bilateral (07/16/2020 10:26 AM EDT) Anatomical Region Laterality Modality Breast Bilateral Mammography Narrative 07/16/2020 11:11 AM EDT EXAMINATION: MAMMO SCREENING CAD AND ZEN BILATERAL REASON FOR EXAM: Screening. History of [...] breast documented in this encounter Care Teams Oncology Physician Assistant Relationship Specialty Start Date End Date Leora Jones, JUNIOR AUTOMATION ENGINEER PCP - General Family Medicine 03/15/18 11/16/21 documented as of this encounter
--- OUTSIDE RECORDS SUMMARY | 2024-07-10 18:05 | XMS_ITS | Encounter Summary ---
Author Organization [facility] Address [facility] [place] [address] Care Team Providers Care Hone Operator Name Role Phone Karen Leora Byrne [...] CONSULT CONTINUING PRG RADIATION MANAGEMENT, 5 TREATMENTS [address] Magi Terry MD [facility] [place] [address] St Rad Onc Office [address] [place] [phone] Referral ID Status Reason Start Date Expiration Date V isits Requested Visits Authorized [id number] Closed Consult, Test & Treat 04/09/2018 04/09/2019 1 1 Reason for Visit * Reason Comments Radiation Consult Encounter Details Date Type Department Care Team (Late st Contact Info) Description 04/09/2018 9:00 AM EDT Office Visit Radiation Oncology at [address] [phone] Magi Terry MD [facility] [address] [place] [address] Malignant neoplasm of upper-inner quadrant of left female breast, unspecified estrogen receptor status Social History Tobacco Use Types Packs/Day Years Used Date Smoking Tobacco: Never Smokeless Tobacco: Never Sex and Gender Information Value Date Recorded Sex Assigned at Not on file Gender Identity Not on file Sexual Orientation Not on file documented as of this encounter Last Filed Vital Signs Vital Sign Reading Time Taken Comments Blood Pressure 142/77 04/09/2018 9:02 AM EDT Pulse 92 04/09/2018 9:02 AM EDT Temperature 36.7 ??C (98.1 ??F) 04/09/2018 9:02 AM ED T Respiratory Rate 16 04/09/2018 9:02 AM EDT Oxygen Saturation 98% 04/09/2018 9:02 AM EDT Inhaled Oxygen Concentration - - Weight 94.1 kg (207 lb 6.4 oz) 04/09/2018 9:02 A M EDT Height - - Body Mass Index 34.51 03/22/2018 8:30 AM EDT documented in this encounter Progress Notes * Charlee Chung RN - 04/09/2018 9:00 AM EDT RADIATION ONCOLOGY NURSING INITIAL NURSING ASSESSMENT IDENTIFICATION: Mikaela Payan is a 62 y.o. year-old female with left breast cancer. PRESENTING SYMPTOMS/CHIEF COMPLAINT: presented with abnormal screening mammogram. REVIEW OF SYSTEMS:Review of Systems Constitutional: Positive for activity change and fatigue. Respiratory: Positive for shortness of breath (with humidity). Negative for cough, chest tightness and wheezing. Cardiovascular: Negative for chest pain. Gastrointestinal: Positive for constipation. Genitourinary: Negative for hematuria. Skin: Positive for wound (s/p left partial mastectomy). Neurological: Positive for dizziness. Psychiatric/Behavioral: Positive for dysphoric mood and sleep disturbance. The patient is nervous/anxious. IN THE PAST 12 MONTHS HAVE YOU: Fallen more than one time? No Injured yourself as result of the fall? N/A Experienced difficulty with walking/problems with balance? No Do you use any assistive devices? YES/NO [06026] (If patient does not know or declines to answer, please note in the 3 star option) If patient answered yes to any of the above, please offer to print out one of the following resources that may apply to them: Stay Independent http://www.cdc.gov/steadi/pdf/stay_independent_brochure-a.pdf What you can do to prevent falls http://www.cdc.gov/steadi/pdf/what_you_can_do_brochure-a.pdf Check for Safety-A home fall prevention checklist for older adults http://www.cdc.gov/steadi/pdf/check_for_safety_brochure-a.pdf Postural Hypotension-What is it and how to manage it http://www.cdc.gov/steadi/pdf/postural_hypotension-a.pdf Chair Rise Exercises to strengthen the muscles of things and buttocks http://www.cdc.gov/steadi/pdf/chair_rise_exercise-a.pdf Any history of collagen vascular diseases: No Any Implanted Devices/Hardware: no If yes please put alert in ARIA patient summary Prior Radiotherapy: No [x] Prior Chemotherapy: No Prior Hormone Therapy: No RADIOLOGY SAFETY QUESTIONS REVIEWED: If applicable MRICTSAFETYQUESTIONS LEARNING ASSESSMENT REVIEWED: yes ADVANCED DIRECTIVE: not addressed this encounter PAIN ASSESSMENT: 6 out of 10 *eD-H Adult PCS Flow Sheet if 4 or above SOCIAL ASSESSMENT: See EDH social assessment information entered. Support Systems: family Barriers to treatment: none Referrals/Interventions: CORK WIRER today RADIATION SPECIFIC TEACHING: [facility] Radiation Therapy and You Site specific teaching : To be done by nursing on day of simulation. Other: PLAN: Per Dr. Terry * Magi Terry MD - 04/09/2018 9:00 AM EDT Images from the original note were not included. CC: Referred by Dr. Rodriguez for eval for xrt for breast ca. HPI: 62 y/o who presented w/L breast abnlty on screening mmg. interp 01/16/18 screening mmg, 01/19/18 US, 01/25/18 US: 0.9 cm mass, potentially @ 9-10:30, 6 cm from nipple. 02/09/18 CTA ch: No aortic aneurysm/dissxn. No central PE. 02/15/18 L breast US: 0.8 cm correlate @ 10:00, 5 cm from nipple. 02/15/18 US guided core needle bx 0.9 cm L breast mass @ 9:00, 6 cm from nipple. Path: IDC, ER+NM+, Her2 FISH neg. 02/21/18 US abdomen RUQ: Echogenic liver consistent w/fatty infiltration as partially imaged on prior CTA chest. Echodense mass R renal parenchyma; may represent angiomyolipoma but not certain. CT kidneys without & with contrast rec'd for further eval. 03/07/[address] Emmanuel showing no breast mass/adenopathy. 03/07/18 B breast MRI: Post procedure complex measuring 1.5 cm w/surrounding enhancement. No other lesion. No adenopathy. 03/12/18 bone scan: No bone met. 03/22/18 NLOC L breast lumpectomy w/specimen mmg pos. SNB. Path: Focal residual IDC, gr 1, 8 mm, RM neg, 1 sentinel lymph node (neg), pT1b pN0. 03/12/18 [facility] Common Hereditary Cancers Panel showed no mutation. ROS: Healing ok w/pain @ surg site sometimes reaching a level 9 (1-10 pain scale), managed w/tylenol, ibuprofen & tramadol (50 mg up to TID which she takes for nerve pain which is being managed by PCP). No swelling hand/arm. ROM arms around shoulders ok. Appetite & energy level ok. No past medical history on file. Past Surgical History: Procedure Laterality Date ??? PRO BX/REMV, LYMPH NODE, DEEP AXILL Left 03/22/2018 BIOPSY OR EXCISION OF LYMPH NODE(S), OPEN, DEEP AXILLARY NODE(S) (WRVU 6.43) performed by Pete Emmanuel MD at [facility] ??? PRO INTRAOP SENTINEL LYMPH ID W/DYE INJECTION Left 03/22/2018 INTRAOPERATIVE ID (MAPPING) SENTINEL LYMPH NODE,INCLUDES INJECTION (WRVU 2.5) performed by Pete Emmanuel MD at [facility] ??? PRO MASTECTOMY, PARTIAL Left 03/22/2018 MASTECTOMY PARTIAL (WRVU 10.13) performed by Pete Emmanuel MD at [facility] Your Medications These changes are accurate as of 04/09/18 10:16 AM. If you have any questions, ask your nurse or doctor. Continued medications with new dosing Dose Details lisinopril 5 mg Tab Commonly known as: PRINIVIL;ZESTRIL Take 5 mg by mouth daily. What changed: Another medication with the same name was removed. Continue taking this medication, and follow the directions you see here. Changed by: Magi Terry MD 5 mg Refills: 0 Continued medications, unchanged Dose Details ALBUTEROL INHL [...] Take by mouth as needed. Refills: 0 LYRICA ORAL Take by mouth. Refills: 0 NARCAN 2 mg/actuation [place] by Nasal route. Generic drug: naloxone Refills: [...] well- developed and well-nourished. No distress. BP 142/77 (Patient Position: Sitting) Pulse 92 Temp 36.7 ??C (98.1 ??F) (Oral) Resp 16 Wt 94.1 kg (207 lb 6.4 oz) SpO2 98% BMI 34.51 kg/m2 HENT: Head: Normocephalic and atraumatic. Eyes: [...] tenderness. Left breast exhibits skin change ( Yellow ecchymosis centrally). Left breast exhibits no inverted nipple, no mass, no nipple dischargeand no tenderness. Abdominal: Soft. She exhibits no distension and no mass. There is no tenderness. There is no rebound and no guarding. Musculoskeletal: Normal range of motion. She exhibits no edema or tenderness. Lymphadenopathy: Head (right side): No submental, no [...] Coordination normal. Skin: She is not diaphoretic. Psychiatric: She has a normal mood and affect. Her behavior is normal. Judgment and thought contentnormal. A: Breast ca, L, IDC, gr 1, ER+NM+, Her2 neg, 8 mm, s/p lumpectomy & SNB, pT1b pN0, stage I. P: Xrt to L breast rec'd to increase likelihood of ca control. Xrt would be comprised of 20 fxs. Possible side effects of xrt to breast discussed, w/acute/immediate side effects including: Pinkening, soreness & peeling of skin in treated area; swelling of treated breast; soreness of treated breast; cough; shortness of breath; tiredness. Late/residential side effects to breast discussed include: Treated breast may shrink, become firmer & sit higher on chest; achiness/stiffness of chest wall on treated side; slight increase in smallrisk of dying of heart disease (from 1.9% to 2.4%) in women irradiated to L breast/chest; rib fracture on treated side; CT after xrt may show scarring w/in small volume of lung on treated side; very small risk of radiotherapy associated 2nd malignancy. Need for CTsim prior to xrt discussed. At CTsim, she would be assessed for use of deep inspiration breath hold (DIBH) to decrease dose of xrt to heart. She would like to proceed w/xrt & will return 04/17/18 for CTsim. 04/13/18 Dr. Emmanuel postop check. 04/13/[address] Gruber for systemic tx. 25 mins of 40 min face to face visit w/Gloria spent discussing rationale for xrt; hoped for benefit of xrt; possible side effects/complications of xrt; prevention/management of side effects/complications of xrt; logistics of daily xrt; CTsimulation; arm position required for xrt; followup after completion of xrt. Radiation mullins:Haitian protocol and Whole breast w/ tangents Radiation boost:Yes Total dose of radiation: 52.56 Gy documented in this encounter Plan of Treatment Scheduled Orders Name Type Priority Associated Diagnoses Orde r Schedule Simulation for Radiation Therapy Planning Procedures Routine Malignant neoplasm of upper-inner quadrant of left female breast, unspecified estrogen receptor status Ordered: 04/09/2018 documented as of this encounter Visit Diagnoses Diagnosis Malignant neoplasm of upper-inner quadrant of left female breast, unspecified estrogen receptor status documented in this encounter Care Teams Hone Operator Relationship Specialty Start Date End Date Leora Jones APRN PCP - General Family Medicine 03/15/18 11/16/21 documented as of this encounter
--- OUTSIDE RECORDS SUMMARY | 2024-07-10 18:05 | XMS_ITS | Encounter Summary ---
Author Organization [facility] [place] [address] Care Team Providers Care Fancy Wire Drawer Name Role Phone Jimmy Rodriguez MD Primary Care Provider [phone] Reason for Referral * Diagnostic Test (Routine) - Closed Specialty Diagnoses / Procedures Referred By Contac t Referred To Contact Radiology Diagnoses Malignant neoplasm of left breast in female, estrogen receptor positive, unspecified site of breast Procedures NM Whole Body Bone Scan Pete Emmanuel MD [facility] [place] [address] [place] [address] Referral ID Status Reason Start Date Expiration Date V isits Requested Visits Authorized [id number] Closed Specialty Service Requested 03/07/2018 03/07/2019 2 2 Reason for Visit * Diagnostic Test (Routine) - Closed Specialty Diagnoses / Procedures Referred By Contac t Referred To Contact Radiology Diagnoses Malignant neoplasm of left breast in female, estrogen receptor positive, unspecified site of breast Procedures NM Whole Body Bone Scan Pete Emmanuel MD [facility] [place] [address] [place] [address] Referral ID Status Reason Start Date Expiration Date V isits Requested Visits Authorized [id number] Closed Specialty Service Requested 03/07/2018 03/07/2019 2 2 Encounter Details Date Type Department Care Team (Latest Contact Info) Description 03/12/2018 10:30 AM EDT - 03/12/2018 1:14 PM EDT Hospital Encounter Nuclear Medicine at [facility] [place] [address] Pete Emmanuel MD [facility] [place] [address] Malignant neoplasm of left breast in female, [...] MOUTH TWICE A DAY NEEDED 0 02/08/2018 fluticasone (FLONASE) 50 mcg/actuation [place], Suspension SPRAY TWO SPRAYS IN EACH NOSTRIL EVERY DAY FOR 1 WEEK MAY DECREASE USE WHEN FEELING BETTER 3 10/24/2017 sertraline (ZOLOFT) 100 mg Tablet Take 100 mg by mouth 2 times daily. traMADol (ULTRAM) 50 mg Tablet Take 50 mg by mouth 2 times daily. 02/09/2018 zolpidem (AMBIEN) 5 mg Tablet TAKE ONE TABLET BY MOUTH AT BEDTIME NEEDED FOR INSOMNIA 1 02/08/2018 01/28/2019 lisinopril (PRINIVIL;ZESTRIL) 20 mg Tablet 01/05/2018 04/09/2018 documented as of this encounter Plan of Treatment Not on file documented as of this encounter Procedures Procedure Name Priority Date/Time Associated Diagnosis Comments NM BONE SCAN WHOLE BODY Routine 03/12/2018 2:12 PM EDT Malignant neoplasm of left breast in female, estrogen receptor positive, unspecified site of breast documented in this encounter Results * NM Whole Body Bone Scan (03/12/2018 2:12 PM EDT) Anatomical Region Laterality Modality Nuclear Medicine Impressions 03/12/2018 2:57 PM EDT No skeletal metastasis. I have personally reviewed the image(s) and the residents interpretation and agree with the findings, Jacklyn Joya at 03/12/2018 2:57 PM Narrative 03/12/2018 2:57 PM EDT EXAMINATION: NM WHOLE BODY BONE SCAN CLINICAL HISTORY: newly diagnosed left breast cancer. Has pain right lower anterior ribs for several months. evaluate for mets TECHNIQUE: Three hours following the intravenous administration of 25.8 mCi of technetium-99m MDP, planar images of the skeleton in anterior and posterior projection were obtained. COMPARISON: None FINDINGS: Multifocal activity is present in a bilateral distribution consistent with degenerative disease. These locations include: bilateral wrists, knees, ankles and shoulders. The kidneys and bladder are unremarkable in appearance with mild activity in the kidneys and significant activity within the bladder. No evidence of lesions concerning for metastatic disease. Procedure Note Jacklyn Medina MD - 03/12/2018 EXAMINATION: NM WHOLE BODY BONE SCAN CLINICAL HISTORY: newly diagnosed left breast cancer. Has pain rightlower anterior ribs for several months. evaluate for mets TECHNIQUE: Three hours following the intravenous administration of 25.8mCi of technetium-99m MDP, planar images of the skeleton in anterior andposterior projection were obtained. COMPARISON: None FINDINGS: Multifocal activity is present in a bilateral distribution consistentwith degenerative disease. These locations include: bilateral wrists, knees,ankles and shoulders. The kidneys and bladder are unremarkable in appearance with mild activityin the kidneys and significant activity within the bladder. No evidence of lesions concerning for metastatic disease. IMPRESSION No skeletal metastasis. I have personally reviewed the image(s) and the residents interpretationand agree with the findings, Jacklyn Joya at 03/12/2018 2:57 PM Electronically signed by: [facility], at03/12/2018 2:57 PM Pete Emmanuel MD [facility] ORDER[facility]LES documented in this encounter Visit Diagnoses Diagnosis Malignant neoplasm of left breast in female, estrogen receptor positive, unspecified site of breast documented in this encounter Administered Medications Inactive Administered Medications - up to 3 most recent administrations Medication Order MAR Action Action Date Dose Rate Site technetium (Tc-99m) methylene diphosphonate (MDP) injection 25.8 mCi 25.8 mCi, Intravenous, ONCE PRN, 1 dose, Starting on Mon03/12/18 at 1040, Until Mon03/12/18 at 1040, Per Protocol, IV: R-ACF, Routine Given 03/12/2018 10:40 AM EDT 25.8 mCi documented in this encounter Care Teams Fancy Wire Drawer Relationship Specialty Start Date End Date Jimmy Rodriguez MD [address] [place] [phone] PCP - General 09/28/10 03/14/18 documented as of this encounter
--- OUTSIDE RECORDS SUMMARY | 2024-07-10 18:05 | XMS_ITS | Encounter Summary ---
Author Organization [facility] Address [facility] [place] [address] Care Team Providers Care Promotions Assistant Name Role Phone Jimmy Rodriguez MD Primary Care Provider [phone] Reason for Visit * Diagnostic Test (Routine) - Closed Specialty Diagnoses / Procedures Referred By Contac t Referred To Contact Radiology Diagnoses Malignant neoplasm of left breast in female, estrogen receptor positive, unspecified site of breast Procedures MRI Breast wwo Contrast Bilat Pete Emmanuel MD [facility] [place] [address] [facility] [place] [address] Referral ID Status Reason Start Date Expiration Date V isits Requested Visits Authorized [id number] Closed Specialty Service Requested 02/26/2018 04/26/2018 1 1 Encounter Details Date Type Department Care Team (Latest Contact Info) Description 03/07/2018 12:20 PM EDT - 03/07/2018 2:30 PM EDT [place] [address] Pete Emmanuel MD [facility] [place] [address] Discharge Disposition: Home Social History Tobacco Use [...] NEEDED 0 02/08/2018 fluticasone (FLONASE) 50 mcg/actuation [place], Suspension SPRAY TWO SPRAYS IN EACH NOSTRIL [...] Name Priority Date/Time Associated Diagnosis Comments MRI BREAST WWO CONTRAST BILAT Routine 03/07/2018 3:16 PM EDT Malignant neoplasm of left breast in female, estrogen receptor positive, unspecified site of breast documented in this encounter Visit Diagnoses Not on filedocumented in this encounter Administered Medications Inactive Administered Medications - up to 3 most recent administrations Medication Order MAR Action Action Date Dose Rate Site gadoterate meglumine (DOTAREM) 0.5 mmol/mL injection 0-20 mL/kg 0-20 mL/kg/dose, Intravenous, ONCE PRN, 1 dose, Starting on Mon03/07/18 at 1411, Until Mon03/07/18 at 1355, Per Protocol, Radiology Contrast, Routine Given 03/07/2018 1:55 PM EDT 19 mLs documented in this encounter Care Teams Promotions Assistant Relationship Specialty Start Date End Date Jimmy Rodriguez MD [address] [place] [id number] PCP - General 09/28/10 03/14/18 documented as of this encounter
--- OUTSIDE RECORDS SUMMARY | 2024-07-10 18:05 | XMS_ITS | Encounter Summary ---
Author Organization [facility] [place] [address] Care Team Providers Care Photogrammetric Engineer Name Role Phone Jimmy Rodriguez MD Primary Care Provider [phone] Encounter Details Date Type Department Care Team (Latest Contact Info) Description 12/09/2013 - 12/09/2013 11:59 PM EST Hospital Encounter [place] [address] Leora Jones, NIGHT MONITOR [address] [place] [address] Discharge Disposition: Home Social History Tobacco Use Types Packs/Day Years Used Date Smoking Tobacco: Never Assessed Sex and Gender Information Value Date Recorded Sex Assigned at Not on file Gender Identity Not on file Sexual Orientation Not on file documented as of this encounter Plan of Treatment Not on file documented as of this encounter Procedures Procedure Name Priority Date/Time Associated Diagnosis Comments FILM LIBRARY STORAGE ONLY MAMMO Routine 12/09/2013 12:00 AM EST documented in this encounter Results * Film Library- Storage Only Mammo (12/09/2013 12:00 AM EST) Narrative RAD - 01/29/2018 2:17 PM EDT This exam is for storage only and is auto-finalizing. Leora Jones APRN IMG FILM LIBRARY ORD ERABLES [place], [place] documented in this encounter Visit Diagnoses Not on filedocumented in this encounter Care Teams Photogrammetric Engineer Relationship Specialty Start Date End Date Jimmy Rodriguez MD [address] [place] [phone] PCP - General 09/28/10 03/14/18 documented as of this encounter
--- OUTSIDE RECORDS SUMMARY | 2024-07-10 18:05 | XMS_ITS | Encounter Summary ---
Author Organization [facility] [place] [address] Care Team Providers Care Desktop Support Engineer Name Role Phone Jimmy Rodriguez MD Primary Care Provider [phone] Encounter Details Date Type Department Care Team (Latest Contact Info) Description 12/18/2014 - 12/18/2014 11:59 PM EST Hospital Encounter [place] [address] Leora Jones, EDGE TRIMMER [address] [place] [address] Discharge Disposition: Home Social History Tobacco Use [...] Comments FILM LIBRARY STORAGE ONLY MAMMO Routine 12/18/2014 12:00 AM EST documented in this encounter Results * Film Library- Storage Only Mammo (12/18/2014 12:00 AM EST) Narrative RAD - 01/29/2018 2:13 PM EDT This exam is for storage only and is auto-finalizing. Leora Jones APRN IMG FILM LIBRARY ORD ERABLES [place], [place] documented in this encounter Visit Diagnoses Not on filedocumented in this encounter Care Teams Desktop Support Engineer Relationship Specialty Start Date End Date Jimmy Rodriguez MD [address] [place] [id number] PCP - General 09/28/10 03/14/18 documented as of this encounter
--- OUTSIDE RECORDS SUMMARY | 2024-07-10 18:05 | XMS_ITS | Encounter Summary ---
Author Organization [facility] [place] [address] Care Team Providers Care Truck Sales Manager Name Role Phone Jimmy Rodriguez MD Primary Care Provider [phone] Encounter Details Date Type Department Care Team (Late st Contact Info) Description 02/21/2018 Telephone [place] [phone] Isela Boyd RN Social History Tobacco Use Types Packs/Day Years Used Date Smoking Tobacco: Never Assessed Sex and Gender Information Value Date Recorded Sex Assigned at Not on file Gender Identity Not on file Sexual Orientation Not on file documented as of this encounter Miscellaneous Notes * Telephone Encounter - Isela Boyd RN - 02/21/2018 3:04 PM EDT Comprehensive Breast Program (CBP) Note ?? Reason for call: Contacted patient after Dr. Maloney informed her that her breast biopsy results indicated she has invasive ductal carcinoma/ductal carcinoma in situ, to introduce her to the CBP. Mikaela Payan is a 62 y.o. female with newly diagnosed ER/WA+/HER2 estephanie- left breast cancer (left breast U/S guided biopsy 02[place]15/2018 [place] [facility] Mikaela sounds positive and has support. Her sister will accompany her to appointments. She appears to be coping well but is anxious to meet with a breast surgeon to determine a treatment plan. Mikaela states she is not currently working. She has had some health issues this winter, including pneumonia and recently has had an abdominal U/S per pain which is under her ribs. She states she can hardly stand up for any length of time. She should have U/S results from [facility] juice couple of days. She is interested in having a trained volunteer from [employer] ([facility] patient [employer] accompany her to provider appts. Requested [facility] contact her. Plan: Appointments for breast MRI and surgical consult with a breast surgeon have been scheduled. She was introduced to the CBP and told she would receive information about her diagnosis and treatment for her review (the Breast Cancer Treatment Handbook and a link to the [facility] Early-Stage: InvasiveBreast Cancer program). Plan to meet with Mikaela on the day of her consult apt. Addressed her questions and encouraged her to contact me with any additional questions or concerns.She has our contact information. FAMILY HISTORY Breast Cancer: Sister at age 58 or 59. She underwent lumpectomy and took some kind of medicine. Sister A&W at age 60. She will ask her sister if she every underwent genetic testing. PGM in her 60's or 70's who did not do well with radiation (terrible corrales). Long (one of PGM's daughters) - in her 60's Mikaela is interested in discussing genetic testing. Laterality:Left Is this a recurrence:No Family history of breast cancer:Yes Family history of ovarian cancer: No Personal history or breast cancer:No Method of detection: Mammogram Method of diagnosis: Ultrasound Core Biopsy documented in this encounter Plan of Treatment Not on file documented as of this encounter Visit Diagnoses Not on filedocumented in this encounter Care Teams Truck Sales Manager Relationship Specialty Start Date End Date Jimmy Rodriguez MD [address] [place] [id number] PCP - General 09/28/10 03/14/18 documented as of this encounter
--- OUTSIDE RECORDS SUMMARY | 2024-07-10 18:05 | XMS_ITS | Encounter Summary ---
Author Organization [facility] [place] [address] Care Team Providers Care Heel Seat Fitter Machine Name Role Phone Jimmy Rodriguez MD Primary Care Provider [phone] Reason for Referral * Diagnostic Test (Routine) - Closed Specialty Diagnoses / Procedures Referred By Contac t Referred To Contact Radiology Diagnoses Malignant neoplasm of left breast in female, estrogen receptor positive, unspecified site of breast Procedures MRI Breast wwo Contrast Pete García MD [facility] [place] [address] [place] [address] Referral ID Status Reason Start Date Expiration Date V isits Requested Visits Authorized [id number] Closed Specialty Service Requested 02/26/2018 04/26/2018 1 1 Reason for Visit * Diagnostic Test (Routine) - Closed Specialty Diagnoses / Procedures Referred By Contac t Referred To Contact Radiology Diagnoses Malignant neoplasm of left breast in female, estrogen receptor positive, unspecified site of breast Procedures MRI Breast wwo Contrast Pete García MD [facility] [place] [address] [place] [address] Referral ID Status Reason Start Date Expiration Date V isits Requested Visits Authorized [id number] Closed Specialty Service Requested 02/26/2018 04/26/2018 1 1 Encounter Details Date Type Department Care Team (Latest Contact Info) Description 03/07/2018 12:20 PM EDT - 03/07/2018 2:30 PM EDT Hospital Encounter MRI at [facility] [place] [address] Pete Emmanuel MD [facility] [place] [address] Malignant neoplasm of left breast in female, [...] NEEDED 0 02/08/2018 fluticasone (FLONASE) 50 mcg/actuation [place], Suspension SPRAY TWO SPRAYS IN EACH NOSTRIL [...] 01/05/2018 04/09/2018 documented as of this encounter Progress Notes * Rey Thakkar, ANDREINA - 03/02/2018 9:28 AM EDT MRI PRE-SEDATION ASSESSMENT NOTE NAME: Mikaela Payan AGE: 62 y.o. : [address] [place] [id number] Female [phone] (home) No relevant phone numbers on file. Jimmy Rodriguez MD No primary care provider on file. Not on File Date/Time of call: March 02, 2018/9:29 AM/ PREVIOUS MRI SCAN: Yes: OSH HEIGHT: 5'5 WEIGHT: 210 SCHEDULED SCAN: MRI BREAST WWO CONTRAST BILAT [[id number]] SUBJECTIVE: Just being in a small space, I might not be able to tolerate it CAN YOU LAY FLAT? yes AIRWAY ISSUES? no DO YOU HAVE ANY INVOLUNTARY MOVEMENTS? no DO YOU HAVE ANY PAIN? Chest area- pleurisy following pneumonia DO YOU TAKE PAIN MED ON A DAILY BASIS? Tramadol, she will take prior to scan if having pain ASSESSMENT: Pt is appropriate for PO sedation PLAN: Ativan 1-2 mg PO per protocol Guidelines for MRI Pre-Procedures Laboratory Studies: n/a GFR Date of lab draw 1. Creatinine studies (GFR level needed) within 90 days of scan ??? 70 yo or older if they are getting contrast ??? 50 years and older if they are diabetic and getting contrast ( XXX ) You must have a route salesman and driver present when you check in. This patient has been informed that they require a route salesman and driver to drive them home after this procedure. In the absence of a route salesman and driver, IR will not be able to sedate for your scan. Pt verbalized understanding of these instructions during the pre-procedure education via phone. Yes Name of route salesman and driver: Aldo hou Phone number: Will wait in 3Z PRIOR SCAN DATE/S SEDATION TYPE SUCCESSFUL OSH 2018 ? YES 03/07/2018 MRI Breast wwo Ativan 1 mg POX 2 yes Revised 11/20/15 documented in this encounter Plan of Treatment Not on file documented as of this encounter Procedures Procedure Name Priority Date/Time Associated Diagnosis Comments MRI BREAST WWO CONTRAST BILAT Routine 03/07/2018 3:16 PM EDT Malignant neoplasm of left breast in female, estrogen receptor positive, unspecified site of breast documented in this encounter Results * MRI Breast wwo Contrast Bilat (03/07/2018 3:16 PM EDT) Anatomical Region Laterality Modality Breast Bilateral Magnetic Resonan ce Impressions 03/07/2018 4:22 PM EDT No evidence of multifocal or multicentric disease with lesional tissue largely removed. RECOMMENDATION: Definitive surgical management. LEFT BREAST 6. Known malignancy RIGHT BREAST ??1. Normal Narrative 03/07/2018 4:22 PM EDT BILATERAL BREAST MRI CLINICAL INDICATION: ??Staging MRI in patient with a recently diagnosed malignancy at the 9:00 radian 6 cm from the nipple measuring 0.9 cm, largely removed through intact core sampling procedure TECHNIQUE: Multiplanar sequences were obtained pre- and post- gadolinium enhancement, to include SPGR weighted dynamic run-off and subtraction sequences obtained after the intravenous administration of 19 ccs of Dotarem. Computer algorithm analysis for lesion detection and kinetic contrast enhancement curve analysis was performed, using Q-go software. COMPARISON STUDIES: Compared and/or correlated with prior studies including 01/25/2018 and subsequent diagnostic imaging and biopsy. FINDINGS: Background Enhancement Pattern (first post gadolinium image): Mild (25-50% breast) Amount of Fibroglandular Tissue: Scattered fibroglandular tissue LEFT Breast: There is a post procedure complex measuring 1.5 cm with surrounding enhancement. More clumped enhancement with washout is seen at the superior margin of this cavity. This may represent residual disease or post procedure enhancement. The core biopsy clip is in the cavity. No other lesions are identified.. RIGHT Breast: There is no evidence of suspicious mass or abnormal enhancement.. Lymph Node Basins/Other: There is no evidence of internal mammary or axillary adenopathy.. No significant abnormalities are seen in the chest wall or skin.. Pete Emmanuel MD IMG MRI ORDERABLES documented in this encounter [...] 30 MIN PRN, 2 doses, Starting on Mon03/07/18 at 0804, Until Mon03/07/18 at 1303, Anxiety, Angio/IR (Day of Procedure), Routine Given 03/07/2018 1:03 PM EDT 1 mg Given 03/07/2018 12:24 PM EDT 1 mg documented in this encounter Care Teams Heel Seat Fitter Machine Relationship Specialty Start Date End Date Jimmy Rodriguez MD [address] [place] [id number] PCP - General 09/28/10 03/14/18 documented as of this encounter
--- OUTSIDE RECORDS SUMMARY | 2024-07-10 18:05 | XMS_ITS | Encounter Summary ---
Author Organization Formerly [facility] [place] [address] Care Team Providers Care Baker Biscuit Name Role Phone Karen Leora Byrne APRN Primary Care Provider + Reason for Visit * Auth/Cert Specialty Diagnoses / Procedures Referred By Kandi t Referred To Contact Diagnoses Left breast cancer with T3 tumor, >5 cm in greatest dimension LEFT BREAST CANCER Procedures PRO MASTECTOMY, PARTIAL PRO BX/REMV, LYMPH NODE, DEEP AXILL PRO INTRAOP SENTINEL LYMPH ID W/DYE INJECTION MASTECTOMY PARTIAL (WRVU 10.13) MODIFIER WITH NEEDLE LOC., LESION #1 BIOPSY OR EXCISION OF LYMPH NODE(S), OPEN, DEEP AXILLARY NODE(S) (WRVU 6.43) INTRAOPERATIVE ID (MAPPING) SENTINEL LYMPH NODE,INCLUDES INJECTION (WRVU 2.5) MODIFIER SENTINEL NODE EXCISION Referral ID Status Reason Start Date Expiration Date Visits Re quested Visits Authorized [id number] 1 1 Encounter Details Date Type Department Care Team (Late st Contact Info) Description 03/22/2018 9:30 AM EDT - 03/22/2018 11:15 AM EDT Surgery [facility] [place] [address] Pete Larkin MD [facility] [address] [address] MASTECTOMY PARTIAL (WRVU 10.13) Social History Tobacco Use Types Packs/Day Years Used Date Smoking Tobacco: Never Smokeless Tobacco: Never Sex and Gender Information Value Date Recorded Sex Assigned at Not on file Gender Identity Not on file Sexual Orientation Not on file documented as of this encounter Last Filed Vital Signs Vital Sign Reading Time Taken Comments Blood Pressure 123/84 03/22/2018 8:30 AM EDT Pulse 84 03/22/2018 8:30 AM EDT Temperature 36.2 ??C (97.2 ??F) 03/22/2018 8:30 AM ED T Respiratory Rate 16 03/22/2018 8:30 AM EDT Oxygen Saturation 96% 03/22/2018 8:30 AM EDT Inhaled Oxygen Concentration - - Weight 96.2 kg (212 lb) 03/22/2018 8:30 AM EDT Height 165.1 cm (5' 5) 03/22/2018 8:30 AM EDT Body Mass Index 35.28 03/22/2018 8:30 AM EDT documented in this encounter Discharge Instructions * Discharge Instructions* Beth Ramires RN - 03/22/2018 12:03 PM EDT General Anesthesia Discharge Instructions Go home and rest. You may be sleepy for several hours. Take it easy as sudden position changes may cause nausea and/or dizziness. Use caution on stairs. Follow a light to regular diet as tolerated today. If nausea occurs, start with clear liquids, and progress slowly to a regular diet. Do not drive, operate machinery, drink alcoholic beverages or make any legal decisions after havinggeneral anesthesia. The medications given change your reaction time and alter your judgement. IV site -- slight redness is normal, you can use warm compresses. If tenderness and redness increases or foul drainage occurs, please contact your M.D. Patients who have had endotracheal tubes/LMA (tubes used by the anesthesia staff to ensure a safe airway during your operation) may have a sore throat. This is normal and cold liquids or soothing lozenges will help ease this discomfort. Narcotic pain medications can cause constipation, please ask the surgeons office what they recommend for prevention of this. Some non-pharmaceutical means of constipation prevention include increasing intake of fluids, eating more fruits and vegetables as well as fruit juices. If you are uncomfortable and/or unable to urinate within 8 hours of discharge and it is before 5 pm, call your physician. If it is after 5pm go to the closest emergency room or call the hospital cloth mercerizer operator at [phone] and ask for physician client integration manager covering for your physician. Questions or problems after 5pm or on a weekend: Call the [facility] cloth mercerizer operator at and ask for the physician client integration manager covering for your doctor. * Patient Instructions* Reagan Mendoza MD - 03/22/2018 10:10 AM EDT Instructions following Breast Surgery Wound Care: Keep dressing on incision for the next 5 days, then you may remove and leave open to air. You may shower tomorrow morning with the Tegaderm covering the site. Do not scrub area vigorously for the next 1 week. Do not soak incision(s) under water for the next 2 weeks (i.e. soaking in bath or swimming) as this may promote a wound infection. You may remove dressing if it becomes saturated/wet and replace with dry gauze as needed for seepage/comfort. If there are pieces of tape directly on the incision (steri-strips), please leave them onuntil they fall off on their own. You may trim them back as they begin to peel up. ICE: You may apply ice to incision during the first 48 hours following surgery to help limit swelling, bruising, and discomfort. You may also find wearing a bra for the first two days following surgery will help with discomfort, although this is not absolutely necessary. Your stitches will dissolve and do not need to be removed. Activity: As tolerated by your comfort level. Call Doctor for: Please call if you notice worsening redness or drainage from incision(s) lasting longer than 5 days after your surgery, any foul-smelling drainage from the incision, pain not controlled by pain medications, persistent nausea and vomiting, or for any fevers greater than 101.3 F. The number for questions is [phone] before 5 PM weekdays. Pain Medication: Please use ibuprofen (motrin, advil) 600 mg three times per day with food and tylenol 650 mg every 8 hours between the ibuprofen doses. Follow-up: Follow-up appointment will be scheduled with in 1-2 weeks. Scheduled Appointments: The following appointment with Dr. Larkin has been scheduled on your behalf:Future Appointments Date Time Provider Department Center 04/09/2018 8:30 AM Rad Nurse, [facility] 04/09/2018 9:00 AM Magi Terry MD [facility] 04/12/2018 3:00 PM Chari Gruber MD [facility] 04/12/2018 4:15 PM Pete Larkin MD [facility] Please call [phone] (clinic number) if any changes need to be made to your appointment time. documented in this encounter Medications at Time of Discharge Medication Sig Dispensed Refills Start Date End Date LORazepam (ATIVAN) 0.5 mg Tablet TAKE ONE TABLET BY MOUTH TWICE A DAY NEEDED 0 02/08/2018 fluticasone (FLONASE) 50 mcg/actuation [place], Suspension SPRAY TWO SPRAYS IN EACH NOSTRIL [...] of this encounter Progress Notes * Beth Ramires RN - 03/22/2018 1:01 PM EDT Discharge instructions done with the sister and all questions answered. documented in this encounter H&P Notes * Pete Larkin MD - 03/22/2018 9:57 AM EDT I examined this patient today and she is marked and is ready for surgery Left partial mastectomy and sentinel node excision for breast cancer. Full h and p by wy 03/07/18 * Reagan Mendoza MD - 03/22/2018 8:38 AM EDT HPI: In summary 62F w/recentkly diagnosed LEFT breast infiltrating ductal carcinoma. Since the patient's most recent clinic visit with Dr. Larkin on 03/07/18, she has experienced several episodes of vertigo that she has transiently experienced in the past. No further evidence of visual changes, cognitive changes or neurologic deficits. O: There were no vitals filed for this visit. Gen: AOx3, NAD C/P: RRR, CTAB GI: soft, nttp, nd Neuro: non focal A/P: 62F here today for LEFT breast partial mastectomy with SLNB. The risks and benefits of the procedure were reviewed with the patient and all questions were answered. Reagan Mendoza MD 03/22/18 documented in this encounter Miscellaneous Notes * Op Note - Pete Larkin MD - 03/22/2018 11:37 AM EDT [facility] Operative Note Patient Name: Mikaela Payan : [id number] MR#: [id number] Case Date: 03/22/2018 Surgeon: Surgeon(s) and Role: * Pete Larkin MD - Primary * Reagan Mendoza MD - Resident-[employer] Preoperative diagnosis: LEFT BREAST CANCER Postoperative diagnosis: LEFT BREAST CANCER Procedure(s) (LRB): MASTECTOMY PARTIAL (WRVU 10.13) (Left) MODIFIER WITH NEEDLE LOC., LESION #1 (Left) BIOPSY OR EXCISION OF LYMPH NODE(S), OPEN, DEEP AXILLARY NODE(S) (WRVU 6.43) (Left) INTRAOPERATIVE ID (MAPPING) SENTINEL LYMPH NODE,INCLUDES INJECTION (WRVU 2.5) (Left) MODIFIER SENTINEL NODE EXCISION (Left) Anesthesia: general Estimated Blood Loss: 20 ml Specimens removed during surgery: left partial mastectomy; left axillary sentinel node Surgical Closure: Primary Closure - closure of ALL tissue levels during the original surgery regardless of wires, wickes, drains, or other devices extruding through the incision Indications for surgery: Mikaela Payan is a 62-year-old woman with cancer at 10:00 6 cm from her left nipple. She had a wire placed to localize it prior to surgery. She had technetium sulfa colloid injected for sentinel node excision. Details of the operation: She was prepped with ChloraPrep and draped. She was given preoperative antibiotics. I anesthetized the skin and then made a curvilinear incision over her cancer in her left upper inner breast. We dissected to the wire, flicked the wire into the incision and then widely exci sed the tissue around the wire. The specimen was inked with 6 different colors of ink for orientation and was sent to mammography. The specimen mammogram showed that the cancer and the clip were nicely centered in the specimen. Specimen was then sent to pathology. We obtained meticulous hemostasis. I then anesthetized the skin in the left axilla at the site of maximal radioactivity uptake. We dissected through the axillary fascia and identified and excised one left axillary sentinel node. The ex vivo count on this note was 5712. Remaining count was 75. The sentinel node was sent to pathology.We obtained meticulous hemostasis in both wounds. Left 3 mL's of Marcaine lidocaine solution in theaxilla and 7 mL's in the breast. We closed the deep dermis with interrupted 3-0 Vicryl and the skinwith 4-0 Monocryl. Gauze and Tegaderm placed. Infection Bundle used? N/A Attestation: Case Date: 03/22/2018 I was present and I participated during the entire procedure (does not need to include opening and closing). PETE LARKIN MD 03/22/2018 documented in this encounter Plan of Treatment Not on file documented as of this encounter Procedures Procedure Name Priority Date/Time Associated Diagnosis Comments SPECIMEN TO PATHOLOGY Routine 03/22/2018 11:11 AM EDT SPECIMEN TO PATHOLOGY Routine 03/22/2018 10:50 AM EDT SURGICAL PATHOLOGY REPORT Routine 03/22/2018 10:49 AM EDT MODIFIER SENTINEL NODE EXCISION Yes 03/22/2018 10:17 AM EDT LEFT BREAST CANCER INTRAOPERATIVE ID (MAPPING) SENTINEL LYMPH NODE,INCLUDES INJECTION (WRVU 2.5) Yes 03/22/2018 10:17 AM EDT LEFT BREAST CANCER BIOPSY OR EXCISION OF LYMPH NODE(S), OPEN, DEEP AXILLARY NODE(S) (WRVU 6.43) Yes 03/22/2018 10:17 AM EDT LEFT BREAST CANCER MODIFIER WITH NEEDLE LOC., LESION #1 Yes 03/22/2018 10:17 AM EDT LEFT BREAST CANCER MASTECTOMY PARTIAL (WRVU 10.13) Yes 03/22/2018 10:17 AM EDT LEFT BREAST CANCER documented in this encounter Results * Specimen to Pathology (03/22/2018 11:11 AM EDT) AP Specimen 03/22/2018 11:1 1 AM EDT 03/22/2018 11:31 AM EDT Narrative [facility] - 03/22/2018 11:31 AM EDT Specimen requisition ordered. ??Separate Pathology report to follow Resulting Agency Comment Spec In Lab Pete Larkin MD PATHOLOGY/CYTOLOGY O [place] Performing Organization Address [facility] [place] [address] * Specimen to Pathology (03/22/2018 10:50 AM EDT) AP Specimen 03/22/2018 10:5 0 AM EDT 03/22/2018 11:31 AM EDT Narrative [facility] - 03/22/2018 11:31 AM EDT Specimen requisition ordered. ??Separate Pathology report to follow Resulting Agency Comment Spec In Lab Pete Larkin MD PATHOLOGY/CYTOLOGY O [place] Performing Organization Address [facility] [place] [address] * Surgical Pathology Report (03/22/2018 10:49 AM EDT) Final Diagnosis [id number] ? Location: [facility] The signing pathologist has (i) examined the relevant preparation(s) for the specimen(s) and (ii) rendered or confirmed the diagnosis(es). . ?Surgical Pathology DIAGNOSIS A - Left breast, partial mastectomy: - Focal residual invasive ductal carcinoma (see Discussion and Synoptic Report) - Usual ductal hyperplasia, apocrine metaplasia, and cysts - Biopsy site changes B - Left axillary sentinel lymph node, excision: One lymph node, no malignancy identified (0/1) Synoptic Report Specimen ? Procedure: ??Excision (less than total mastectomy) ? Specimen Laterality: ?? Left Tumor ? Histologic Type: ?? Invasive ductal carcinoma ? Histologic Grade (Manjit Histologic Score) ?Glandular (Acinar) / Tubular Differentiation: ?Score 1 ?Nuclear Pleomorphism: ?? Score 1 ?Number of Mitoses per 10 [employer]-Power [place]: ?0 mitotic figures ?Mitotic Rate: ?? Score 1 ?Overall Grade: ?? Grade 1 (scores of 3, 4 or 5) ? Tumor Size: ?? 8 Millimeters (mm) ? Tumor Focality: ?? Single focus of invasive carcinoma ? Ductal Carcinoma In Situ (DCIS): ?No DCIS in specimen ? Tumor Extent ?Skin: ??Skin is not present ?Skeletal Muscle: ?? No skeletal muscle is present ? Accessory Findings ?Lymphovascular Invasion: ?? Not identified ?Treatment Effect: ?? No known presurgical therapy Margins ? Invasive Carcinoma Margins: ?? Uninvolved by invasive carcinoma ?Distance from Other Specified Margin: ?All margins >10 Millimeters (mm) Lymph Nodes ? Number of Lymph Nodes with Macrometastases ( ??> 2 mm): ?? 0 ? Number of Lymph Nodes with Micrometastases ( ??> 0.2 mm to 2 mm and / or ??> 200 ?cells): ??0 ? Number of Lymph Nodes with Isolated Tumor Cells ( ??<= 0.2 mm and ??<= 200 cells): ? 0 ? Number of [place] Nodes Examined: ?1 Pathologic Stage Classification (pTNM, AJCC 8th Edition) ? Primary Tumor (Invasive Carcinoma) (pT): ?pT1b ? Regional Lymph Nodes (pN) ?Modifier: ??(sn): Only sentinel node(s) evaluated. ?Category (pN): ?? pN0 Tumor Block(s): ?? [id number] 2016 AJCC 8th Edition CAP Annual Release ER, MN, and HER2 studies (performed on prior biopsy, [id number]): ER: Positive (90%, weak to moderate) MN: Positive (50%, moderate to strong) . DIAGNOSIS HER2 FISH: Negative Electronically signed by: ??Kee Herring MD Verified: ??03/26/2018 ?Pathologist Performed at: ??-[facility] Dept. of Pathology, [place], [place] DISCUSSION In Specimen A, a 0.15 cm focus of residual invasive carcinoma is identified adjacent to biopsy site; histologic grading and staging is based largely on the prior core biopsy ([id number]) CLINICAL INFORMATION Specimen Submitted: A - Left partial mastectomy B - Left axillary sentinel node Clinical History and Diagnosis: Left breast cancer SPECIMEN PROCESSING A - ??Labeled/Fixative : Left partial mastectomy, breast. SPECIMEN DESCRIPTION Resection Specimen: Excisional biopsy Qty/Size/Weight: Single, 6.5 x 6.2 x 0.8 cm, 44 grams. Radiograph: According to the radiology report from 03/22/2018 ? The intact wire, clip and lesion are in the specimen. There are no close margins . Specimen Description: According to the established protocol the ink designations are red (medial), yellow (lateral), orange (cranial), green (caudal), black (deep) and blue (superficial). Tissue Sections: The specimen is serially sectioned perpendicular to the long axis from lateral-yellow medial-red into XI slices, each averaging 0.6 cm in thickness. LESION Description: Biopsy site cavity. Size: 1.9 x 1.7 x 1.0 cm. Color: Yellow-red. Consistency: Firm. Location: Slice -X. Nearest Margin: 0.3 cm to red margin and 0.6 cm to the black margin. Other Margins: 1.0 cm to the orange margin, 1.2 cm to the margin, 2.5 cm to the margin, ??>2.0 cm to the yellow margin. OTHER Parenchyma: Yellow fibroadipose tissue. Wire/Clip: The tip of the wire and clip are located within slice VII. SECTIONS/PROCESSIN G: (1) perpendicular sections of slices I; (2) medical office representative section of slices III with yellow and green ink; (3) medical office representative section of slice IV with a green and black ink (4) medical office representative section of slices V with black ink; (5) slice , black ink; (6) slice , orange ink overlying lesion; (7) slice VII, lesion to black margin; (8) slice VII, lesion to orange and blue margins; (9) slice VII, green and blue margins; (10) slice VII, lesion to black ink; (11) slice VIII, lesion with black ink; (12) slice VIII, orange and black ink; (13) slice IX, blue ink overlying lesion; (14) slice IX, lesion; (15) slice X, lesion to red and black; (16) slice X, additional red margin; (17) perpendicular sections of slice XI with red and orange ink. (R17) Ischemic Time: 142 minutes B - ??Labeled/Fixative : Left axillary sentinel node, fresh. Quantity/Size: Single, 3.3 x 2.4 x 1.1 cm. Tissue Description: Yellow, lobular adipose tissue. Sectioning reveals 1 lymph node, measuring 2.0 cm. Sections/Processin g: (1) one node serially sectioned and entirely submitted. (R1) cmn 03/26/2018 3:00 PM EDT [facility] SENTINEL LYMPH NODE / Unknown 03/22/2018 10:49 AM EDT 03/22/2018 10:49 AM EDT SENTINEL LYMPH NODE / Unknown 03/22/2018 10:49 AM EDT 03/22/2018 10:49 AM EDT Pete Larkin MD PATHOLOGY/CYTOLOGY O [place] [facility] [address] [place] [address] documented in this encounter Visit Diagnoses Not on filedocumented in this encounter Administered Medications Inactive Administered Medications - up to 3 most recent administrations Medication Order MAR Action Action Date Dose Rate Site acetaminophen (TYLENOL) 325 mg tablet 1 dose, Starting on Vita 03/22/18 at 0822, Until Vita 03/22/18 at 0830, Tracey Ding (sso): cabinet override acetaminophen (TYLENOL) tablet 650 mg 650 mg, Oral, 30 MIN PRE-OP, 1 dose, On Vita 03/22/18 at 0845, Maximum dose of acetaminophen is 4000 mg from all sources in 24 hours., Day of Surgery (Day of Procedure), Routine Given 03/22/2018 8:30 AM EDT 1,000 mg BUpivacaine (PF) (MARCAINE) 0.5 % (5 mg/mL) injection ONCE PRN, Starting on Vita 03/22/18 at 1122, Until Vita 03/22/18 at 1532, Intra-Operative (Intra-Procedure), Routine Given 03/22/2018 11:22 AM EDT 10.5 mLs 19- Surgical Site fentaNYL (PF) 50mcg/mL injection 12.5-25 mcg, Intravenous, EVERY 5 MIN PRN, Starting on Vita 03/22/18 at 1150, Until Vita 03/22/18 at 1532, Pain, Give 12.5 mcg every 5 minutes PRN for mild to moderate pain (1-5) Give 25 mcg every 5 minutes PRN for moderate to severe pain (6-10). Hold for respiratory rate less than 10 per minute. Maximum dose 250 mcg over one hour. If ordered with hydromorphone or morphine, give hydromorphone or morphine first and use fentanyl for breakthrough pain., PACU Recovery, Routine fentaNYL (PF) 50mcg/mL injection 25-50 mcg, Intravenous, EVERY 5 MIN PRN, Starting on Vita 5/18 at 1150, Until Vita 5/18 at 1532, Pain, Give 25 mcg every 5 minutes PRN for mild to moderate pain (1-5) Give 50 mcg every 5 minutes PRN for moderate to severe pain (6-10). Hold for respiratory rate less than 10 per minute. Maximum dose 250 mcg over one hour. If ordered with hydromorphone or morphine, give hydromorphone or morphine first and use fentanyl for breakthrough pain., PACU Recovery, Routine fentaNYL (PF) 50mcg/mL injection 12.5-25 mcg, Intravenous, EVERY 5 MIN PRN, Starting on Vita 18 at 1150, Until Vita 18 at 1532, Pain, Give 12.5 mcg every 5 minutes PRN for mild to moderate pain (1-5) Give 25 mcg every 5 minutes PRN for moderate to severe pain (6-10). Hold for respiratory rate less than 10 per minute. Maximum dose 250 mcg over one hour. If ordered with hydromorphone or morphine, give hydromorphone or morphine first and use fentanyl for breakthrough pain., PACU Recovery, Routine fentaNYL (PF) 50mcg/mL injection 25-50 mcg, Intravenous, EVERY 5 MIN PRN, Starting on Vita 5/18 at 1150, Until Vita 5/18 at 1532, Pain, Give 25 mcg every 5 minutes PRN for mild to moderate pain (1-5) Give 50 mcg every 5 minutes PRN for moderate to severe pain (6-10). Hold for respiratory rate less than 10 per minute. Maximum dose 250 mcg over one hour. If ordered with hydromorphone or morphine, give hydromorphone or morphine first and use fentanyl for breakthrough pain., PACU Recovery, Routine HYDROmorphone (DILAUDID) injection 0.2-0.4 mg 0.2-0.4 mg, Intravenous, EVERY 5 MIN PRN, Starting on Vita 18 at 1150, Until Vita 18 at 1532, Pain, Give 0.2 mg every 5 minutes PRN for mild to moderate pain (1-5) Give 0.4 mg every 5 minutes PRN for moderate to severe pain (6-10). Hold for respiratory rate less than 10 per minute. Maximum dose 4 mg over one hour. If multiple pain medications are ordered, start with hydromorphone or morphine and use fentanyl for breakthrough pain., PACU Recovery, Routine labetalol (NORMODYNE,TRANDATE) injection 10 mg 10 mg, Intravenous, EVERY 2 HOURS PRN, Starting on Vita 18 at 1145, Until Vita 18 at 1532, High Blood Pressure, For SBP >160 or DBP >110, Routine lactated Ringers infusion 1,000 mL 1,000 mL, at 100 mL/hr, Intravenous, CONTINUOUS, Starting on Vita 03/22/18 at 1215, Until Vita 18 at 1532, PACU Recovery lidocaine (PF) (XYLOCAINE) 10 mg/mL (1 %) injection ONCE PRN, Starting on Vita 03/22/18 at 1123, Until Vita 18 at 1532, Intra-Operative (Intra-Procedure), Routine Given 03/22/2018 11:23 AM EDT 105 mg 19- Surgical Site documented in this encounter Active and Recently Administered Medications Times are shown in EDT. Scheduled Medication Order 03/20/2018 03/21/2018 03/22/2018 acetaminophen (TYLENOL) tablet 1,000 mg 1,000 mg, Oral, ONCE, 1 dose, On Vita 18 at 1215, Administer with SIP of H2O only., Day of Surgery (Day of Procedure), Routine 1215 (Due) acetaminophen (TYLENOL) tablet 650 mg (CANCELED) 650 mg, Oral, 30 MIN PRE-OP, 1 dose, On Vita 18 at 0845, Maximum dose of acetaminophen is 4000 mg from all sources in 24 hours., Day of Surgery (Day of Procedure), Routine 0830 (Given - Provid er: Tracey Ding RN) ceFAZolin (ANCEF) 2g in dextrose 5% 100 mL (COMPLETED) 2 g, Intravenous, EVERY 3 HOURS, 1 dose, First dose on Vita 18 at 0845, Administer over 30 Minutes, Intra-Operative (Intra-Procedure), Indication for (Active or Suspected): Prophylaxis 1026 (Given - Provid er: Schuyler Holliday CRNA) Continuous Medication Order 03/20/2018 03/21/2018 03/22/2018 lactated Ringers infusion 1,000 mL 1,000 mL, at 100 mL/hr, Intravenous, CONTINUOUS, Starting on Vita 18 at 1215, Until Vita 18 at 1532, PACU Recovery 1215 (Due) PRN Medication Order 03/20/2018 03/21/2018 03/22/2018 BUpivacaine (PF) (MARCAINE) 0.5 % (5 mg/mL) injection (CANCELED) ONCE PRN, Starting on Vita 18 at 1122, Until Vita 18 at 1532, Intra-Operative (Intra-Procedure), Routine 1122 (Given - Provid er: Pete Larkin MD - Comment: mixed 1:1 with 1% lidocaine) fentaNYL (PF) 50mcg/mL injection(Linked Group 1) 12.5-25 mcg, Intravenous, EVERY 5 MIN PRN, Starting on Vita 18 at 1150, Until Vita 03/22/18 at 1532, Pain, Give 12.5 mcg every 5 minutes PRN for mild to moderate pain (1-5) Give 25 mcg every 5 minutes PRN for moderate to severe pain (6-10). Hold for respiratory rate less than 10 per minute. Maximum dose 250 mcg over one hour. If ordered with hydromorphone or morphine, give hydromorphone or morphine first and use fentanyl for breakthrough pain., PACU Recovery, Routine fentaNYL (PF) 50mcg/mL injection(Linked Group 1) 25-50 mcg, Intravenous, EVERY 5 MIN PRN, Starting on Vita 03/22/18 at 1150, Until Vita 5/18 at 1532, Pain, Give 25 mcg every 5 minutes PRN for mild to moderate pain (1-5) Give 50 mcg every 5 minutes PRN for moderate to severe pain (6-10). Hold for respiratory rate less than 10 per minute. Maximum dose 250 mcg over one hour. If ordered with hydromorphone or morphine, give hydromorphone or morphine first and use fentanyl for breakthrough pain., PACU Recovery, Routine fentaNYL (PF) 50mcg/mL injection(Linked Group 2) 12.5-25 mcg, Intravenous, EVERY 5 MIN PRN, Starting on Vita 517/18 at 1150, Until Vita 517/18 at 1532, Pain, Give 12.5 mcg every 5 minutes PRN for mild to moderate pain (1-5) Give 25 mcg every 5 minutes PRN for moderate to severe pain (6-10). Hold for respiratory rate less than 10 per minute. Maximum dose 250 mcg over one hour. If ordered with hydromorphone or morphine, give hydromorphone or morphine first and use fentanyl for breakthrough pain., PACU Recovery, Routine fentaNYL (PF) 50mcg/mL injection(Linked Group 2) 25-50 mcg, Intravenous, EVERY 5 MIN PRN, Starting on Vita 5/18 at 1150, Until Vita 5/18 at 1532, Pain, Give 25 mcg every 5 minutes PRN for mild to moderate pain (1-5) Give 50 mcg every 5 minutes PRN for moderate to severe pain (6-10). Hold for respiratory rate less than 10 per minute. Maximum dose 250 mcg over one hour. If ordered with hydromorphone or morphine, give hydromorphone or morphine first and use fentanyl for breakthrough pain., PACU Recovery, Routine HYDROmorphone (DILAUDID) injection 0.2-0.4 mg 0.2-0.4 mg, Intravenous, EVERY 5 MIN PRN, Starting on Vita 517/18 at 1150, Until Vita 517/18 at 1532, Pain, Give 0.2 mg every 5 minutes PRN for mild to moderate pain (1-5) Give 0.4 mg every 5 minutes PRN for moderate to severe pain (6-10). Hold for respiratory rate less than 10 per minute. Maximum dose 4 mg over one hour. If multiple pain medications are ordered, start with hydromorphone or morphine and use fentanyl for breakthrough pain., PACU Recovery, Routine labetalol (NORMODYNE,TRANDATE) injection 10 mg 10 mg, Intravenous, EVERY 2 HOURS PRN, Starting on Vita 18 at 1145, Until Vita 18 at 1532, High Blood Pressure, For SBP >160 or DBP >110, Routine lidocaine (PF) (XYLOCAINE) 10 mg/mL (1 %) injection (CANCELED) ONCE PRN, Starting on Vita 18 at 1123, Until Vita 18 at 1532, Intra-Operative (Intra-Procedure), Routine 1123 (Given - Provid er: Pete Larkin MD - Comment: mixed 1:1 with 0.5% bupivacaine) ondansetron (ZOFRAN) injection 4 mg 4 mg, Intravenous, EVERY 30 MIN PRN, Starting on Vita 18 at 1150, Until Vita 18 at 1532, Nausea, May repeat 4 mg once in 30 minutes. If multiple antiemetics ordered, use ondansetron first and if ineffective use prochlorperazine second and if ineffective use promethazine, PACU Recovery promethazine (PHENERGAN) injection 12.5 mg 12.5 mg, Intravenous, EVERY 30 MIN PRN, Nausea, Starting on Vita 18 at 1150, 2 doses, Until Vita 18 at 1532, VESICANT - Dilute with a minimum of 10 mL saline. LARGE VEIN only. Inject over 10 minutes into the farthest port of a running IV infusion. Remain with the patient and STOP infusion immediately if patient reports burning. Avoid extravasation. If multiple antiemetics are ordered, use ondansetron first and if ineffective use prochlorperazine second and if ineffective use promethazine., PACU Recovery Linked Groups Order Group 1: fentaNYL (PF) 50mcg/mL injectionJump to med 12.5-25 mcg, Intravenous, EVERY 5 MIN PRN, Starting on Vita 18 at 1150, Until Vita 18 at 1532, Pain, Give 12.5 mcg every 5 minutes PRN for mild to moderate pain (1-5) Give 25 mcg every 5 minutes PRN for moderate to severe pain (6-10). Hold for respiratory rate less than 10 per minute. Maximum dose 250 mcg over one hour. If ordered with hydromorphone or morphine, give hydromorphone or morphine first and use fentanyl for breakthrough pain., PACU Recovery, Routine Or fentaNYL (PF) 50mcg/mL injectionJump to med 25-50 mcg, Intravenous, EVERY 5 MIN PRN, Starting on Vita 5/17/18 at 1150, Until Vita 517/18 at 1532, Pain, Give 25 mcg every 5 minutes PRN for mild to moderate pain (1-5) Give 50 mcg every 5 minutes PRN for moderate to severe pain (6-10). Hold for respiratory rate less than 10 per minute. Maximum dose 250 mcg over one hour. If ordered with hydromorphone or morphine, give hydromorphone or morphine first and use fentanyl for breakthrough pain., PACU Recovery, Routine Group 2: fentaNYL (PF) 50mcg/mL injectionJump to med 12.5-25 mcg, Intravenous, EVERY 5 MIN PRN, Starting on Vita 517/18 at 1150, Until Vita 517/18 at 1532, Pain, Give 12.5 mcg every 5 minutes PRN for mild to moderate pain (1-5) Give 25 mcg every 5 minutes PRN for moderate to severe pain (6-10). Hold for respiratory rate less than 10 per minute. Maximum dose 250 mcg over one hour. If ordered with hydromorphone or morphine, give hydromorphone or morphine first and use fentanyl for breakthrough pain., PACU Recovery, Routine Or fentaNYL (PF) 50mcg/mL injectionJump to med 25-50 mcg, Intravenous, EVERY 5 MIN PRN, Starting on Vita 517/18 at 1150, Until Vita 517/18 at 1532, Pain, Give 25 mcg every 5 minutes PRN for mild to moderate pain (1-5) Give 50 mcg every 5 minutes PRN for moderate to severe pain (6-10). Hold for respiratory rate less than 10 per minute. Maximum dose 250 mcg over one hour. If ordered with hydromorphone or morphine, give hydromorphone or morphine first and use fentanyl for breakthrough pain., PACU Recovery, Routine documented in this encounter Care Teams Baker Biscuit Relationship Specialty Start Date End Date Leora Jones, FINANCIAL SYSTEMS ADMINISTRATOR PCP - General Family Medicine 03/15/18 11/16/21 documented as of this encounter
--- OUTSIDE RECORDS SUMMARY | 2024-07-10 18:05 | XMS_ITS | Encounter Summary ---
Author Organization [facility] Address [facility] [place] [address] Care Team Providers Care Forming Department Supervisor Name Role Phone Jimmy Rodriguez MD Primary Care Provider [phone] Encounter Details Date Type Department Care Team (Late st Contact Info) Description 03/07/2018 Notes Only Care Management [facility] [place] [address] Radha Jay MSW Social History Tobacco Use Types Packs/Day Years Used Date Smoking Tobacco: Never Smokeless Tobacco: Never Sex and Gender Information Value Date Recorded Sex Assigned at Not on file Gender Identity Not on file Sexual Orientation Not on file documented as of this encounter Progress Notes * Radha Jay MSW - 03/07/2018 11:59 PM EDT [facility] met briefly with pt after her surgical consult with Dr. Emmanuel because she was scheduled for a MRI and needed to leave. Pt was recently diagnosed with ER+, Her2-, left breast, low grade, IDC//DCIS. After meeting Dr. Emmanuel, pt has decided to have a lumpectomy.SLNB followed by radiation therapy which she will have at the [facility]. Pt lives with her mother and assists her with housekeeping, shopping, and meals. She has support from her family and is accompanied to today's appt by her sister. Pt is presently on a medical leave from her job at [employer]. She is receiving disability benefits and has health insurance through/ of [place]. Pt will have a bone scan to evaluate her abdominal pain and rule out metastatic disease. I gave pt my contact information and encouraged her call me with any questions or concerns. [facility] will continue to provide support and resources to pt. documented in this encounter Plan of Treatment Not on file documented as of this encounter Visit Diagnoses Not on filedocumented in this encounter Care Teams Forming Department Supervisor Relationship Specialty Start Date End Date Jimmy Rodriguez MD [address] [place] [id number] PCP - General 09/28/10 03/14/18 documented as of this encounter
--- OUTSIDE RECORDS SUMMARY | 2024-07-10 18:05 | XMS_ITS | Encounter Summary ---
Author Organization [facility] [place] [address] Care Team Providers Care Gas Leak Tester Name Role Phone Jimmy Rodriguez MD Primary Care Provider [phone] Encounter Details Date Type Department Care Team (Late st Contact Info) Description 03/07/2018 Orders [place] [address] Pete Emmanuel MD [facility] [place] [address] Malignant neoplasm of left female breast, unspecified [...] as of this encounter Results * Mammo Specimen Left (03/22/2018 10:55 AM EDT) Anatomical Region Laterality Modality Breast Left Mammography Impressions 03/22/2018 11:09 AM EDT Positive specimen x-ray as described. Results phoned to the operating surgeon intraoperatively. Narrative 03/22/2018 11:09 AM EDT EXAMINATION: Specimen x-ray INDICATION: Intraoperative specimen image for adequacy of lesion and/or clip removal TECHNIQUE: A single projection specimen x-ray from the left breast is obtained superimposed on alphanumeric grid COMPARISON: This is correlated with preoperative imaging FINDINGS: The intact wire, clip and lesion are in the specimen. There are no close margins. Pete Emmanuel MD IMG MAMMO ORDERABLES * Mammo [place] Node Injection (03/22/2018 7:59 AM EDT) Anatomical Region Laterality Modality Breast N/A Mammography Impressions 03/23/2018 7:53 AM EDT Impression: Status post successful preoperative mammographically guided wire localization with sentinel node injection. The radiotracer injection was administered under the supervision of authorized user Dr. Mikael Birmingham. Preliminary report signed by: Neal Joyce at 03/22/2018 1:22 PM I have personally reviewed the image(s) and the residents interpretation and agree with the findings, TEDDY RUIZ at 03/23/2018 7:53 AM Narrative 03/23/2018 7:53 AM EDT NEEDLE LOCALIZATION OF LESION IN THE NEEDLE LOCALIZATION OF LESION IN THE LEFT BREAST AND SENTINEL NODE INJECTION CLINICAL HISTORY: PLEASE NEEDLE LOCALIZE THE LEFT BREAST CANCER. ??Left breast mass with [place] clip 9:00 radian A time out procedure was performed per hospital protocol to verify correct identity, procedure and laterality. Following skin cleansing and injection of less than 5 cc's of 1% lidocaine, a needle localization of the left breast ??was performed from the medial approach with mammographic guidance. After the needle was confirmed to be in appropriate position the wire was deployed. Images were annotated on PACS for the operating surgeon. A sentinel node injection was performed using less than 1.7 mCi of Tc-99m sulfur colloid. ??Half the dose was injected subcutaneously and half injected intradermally. No additional imaging was performed. Procedural attestation: Resident: Maria Del Carmen I was present with the resident for the burger component(s) of the procedure and otherwise remained immediately available for the duration of the procedure. I attest to having personally viewed the images/test and approve the above interpretation. Procedure Note Teddy Ruiz MD - 03/23/2018 NEEDLE LOCALIZATION OF LESION IN THE NEEDLE LOCALIZATION OF LESION IN THELEFT BREAST AND SENTINEL NODE INJECTION CLINICAL HISTORY: PLEASE NEEDLE LOCALIZE THE LEFT BREAST CANCER. Leftbreast mass with [place] clip 9:00 radian A time out procedure was performed per hospital protocol to verifycorrect identity, procedure and laterality. Following skin cleansing and injection of less than 5 cc's of 1%lidocaine, a needle localization of the left breast was performed from the medialapproach with mammographic guidance. After the needle was confirmed to be inappropriate position the wire was deployed. Images were annotated on PACS for the operating surgeon. A sentinel node injection was performed using less than 1.7 mCi of Tc-99msulfur colloid. Half the dose was injected subcutaneously and half injected intradermally. No additional imaging was performed. Procedural attestation: Resident: Maria Del Carmen I was present with the resident for the burger component(s) of the procedureand otherwise remained immediately available for the duration of theprocedure. I attest to having personally viewed the images/test and approve the above interpretation. IMPRESSION Impression: Status post successful preoperative mammographically guidedwire localization with sentinel node injection. The radiotracer injection was administered under the supervision ofauthorized user Dr. Mikael Birmingham. Preliminary report signed by: Neal Joyce at 03/22/2018 1:22 PM I have personally reviewed the image(s) and the residents interpretationand agree with the findings, TEDDY RUIZ at 03/23/2018 7:53 AM 7:53 AM Pete Emmanuel MD [facility] MAMMO ORDERABLES * Mammo Needle Localization Left (03/22/2018 7:58 AM EDT) Anatomical Region Laterality Modality Breast Left Mammography Impressions 03/22/2018 8:28 AM EDT Impression: Status post successful preoperative mammographically guided wire localization with sentinel node injection. The radiotracer injection was administered under the supervision of authorized user Dr. Mikael Birmingham. I have personally reviewed the image(s) and the residents interpretation and agree with the findings, TEDDY RUIZ at 03/22/2018 8:28 AM Narrative 03/22/2018 8:28 AM EDT NEEDLE LOCALIZATION OF LESION IN THE NEEDLE LOCALIZATION OF LESION IN THE LEFT BREAST AND SENTINEL NODE INJECTION CLINICAL HISTORY: PLEASE NEEDLE LOCALIZE THE LEFT BREAST CANCER. ??Left breast mass with [place] clip 9:00 radian A time out procedure was performed per hospital protocol to verify correct identity, procedure and laterality. Following skin cleansing and injection of less than 5 cc's of 1% lidocaine, a needle localization of the left breast ??was performed from the medial approach with mammographic guidance. After the needle was confirmed to be in appropriate position the wire was deployed. Images were annotated on PACS for the operating surgeon. A sentinel node injection was performed using less than 1.7 mCi of Tc-99m sulfur colloid. ??Half the dose was injected subcutaneously and half injected intradermally. No additional imaging was performed. Procedural attestation: Resident: Maria Del Carmen Varela was present with the resident for the burger component(s) of the procedure and otherwise remained immediately available for the duration of the procedure. I attest to having personally viewed the images/test and approve the above interpretation. Pete Emmanuel MD IMG MAMMO ORDERABLES documented in this encounter Visit Diagnoses Diagnosis Malignant neoplasm of left female breast, unspecified estrogen receptor status, unspecified site of breast Malignant neoplasm of left female breast, unspecified estrogen receptor status, unspecified site of breast Malignant neoplasm of left female breast, unspecified estrogen receptor status, unspecified site of breast Malignant neoplasm of left female breast, unspecified estrogen receptor status, unspecified site of breast documented in this encounter Care Teams Gas Leak Tester Relationship Specialty Start Date End Date Jimmy Rodriguez MD [address] [place] [id number] PCP - General 09/28/10 03/14/18 documented as of this encounter
--- OUTSIDE RECORDS SUMMARY | 2024-07-10 18:05 | XMS_ITS | Encounter Summary ---
Author Organization [facility] [place] [address] Care Team Providers Care Crime Scene Examiner Name Role Phone Jimmy Rodriguez MD Primary Care Provider [phone] Reason for Referral * Diagnostic Test (Routine) - Closed Specialty Diagnoses / Procedures Referred By Contac t Referred To Contact Radiology Diagnoses Malignant neoplasm of left breast in female, estrogen receptor positive, unspecified site of breast Procedures NM Whole Body Bone Scan Pete Emmanuel MD [facility] [place] [address] [place] [address] Referral ID Status Reason Start Date Expiration Date V isits Requested Visits Authorized [id number] Closed Specialty Service Requested 03/07/2018 03/07/2019 2 2 Reason for Visit * Reason Comments Breast Cancer * Consultation (Routine) - Specialty Diagnoses / Procedures Referred By Contac t Referred To Contact Surgical Oncology / Hematology and Oncology Diagnoses Breast cancer NEW [facility] Procedures [facility] Leora Jones, DIRECTOR CLOUD TRANSFORMATION [address] [place] [address] Pete Emmanuel MD [facility] [place] [address] Referral ID Status Reason Start Date Expiration Date V isits Requested Visits Authorized [id number] 03/07/2018 03/07/2019 1 1 Encounter Details Date Type Department Care Team (Late st Contact Info) Description 03/07/2018 10:15 AM EDT Office Visit H[place]ology [place] [address] Pete Emmanuel MD [facility] [place] [address] Isela Boyd, RN Malignant neoplasm of left breast in female, [...] Sign Reading Time Taken Comments Blood Pressure 124/80 03/07/2018 10:35 AM EDT Pulse 101 03/07/2018 10:35 AM EDT Temperature 35.9 ??C (96.7 ??F) 03/07/2018 10:35 AM E DT Respiratory Rate 18 03/07/2018 10:35 AM EDT Oxygen Saturation 96% 03/07/2018 10:35 AM EDT Inhaled Oxygen Concentration - - Weight 94.8 kg (209 lb) 03/07/2018 10:35 AM EDT Height 168.8 cm (5' 6.46) 03/07/2018 10:35 AM E DT Body Mass Index 33.27 03/07/2018 10:35 AM EDT documented in this encounter Progress Notes * Pete Emmanuel MD - 03/07/2018 10:15 AM EDT Mikaela Payan is a 62-year-old woman sent for consultation by Jimmy Rodriguez for newly diagnosed left breast cancer. Mikaela had a screening mammogram that showed a 9 mm mass in her left breast at 10:00, 6 cm from hernipple. It was seen on ultrasound. A left breast core biopsy was done which showed infiltrating ductal carcinoma, low-grade, ER positive. HER-2 is pending. There was also DCIS in the specimen. Her right mammogram was negative. She is scheduled to have an MRI later this afternoon. She has 1 daughter. She has a family history of breast cancer in her sister, paternal grandmother and paternal aunt. I gave her a brochure for genetics testing if she so desires. Current medications: lisinopril, Zoloft and tramadol. She has no known drug allergies. Review of systems is positive for right lower rib pain anteriorly in the anterior axillary line. She has had this pain since October 2017. She states she had a pneumonia in October and also had pneumonia in January which were treated with antibiotics. She was doing some coughing during this time. She denies any external trauma or falls to her ribs. She has had an ultrasound that ruled out cholecystitis. She has had chest x-rays which apparently have not shown any rib fractures although I do nothave those reports. She has no cardiac or renal symptomatology. The rest of her review of systems is negative. Social history: she lives in [place], [place]. 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 She is accompanied by her sister who had breast cancer. Past surgical history is negative. On physical exam, she is alert and oriented. In general she appears well. She is moderately obese. Her pupils are equal, she is nonjaundiced. Her lungs are clear. Her heart is a regular rhythm. On examination of her left breast is a scar from a core biopsy. There are no left breast masses. There isno left axillary adenopathy. Her left nipple is normal. There are no right nipple abnormalities, breast masses or axillary adenopathy. Abdomen is soft. Sheis grossly neurologically nonfocal. Impression: 62-year-old woman with a small cancer in the upper inner left breast. We will wait for the MRI results from later today but for now we will assume that this is the only cancer she has in the left breast. I used my decision aid and we discussed lumpectomy plus radiation therapy versus mastectomy plus orminus immediate reconstruction. She would like to proceed with breast conservation. We will schedule her for a wire localized left partial mastectomy. I recommend we do a left axillary sentinel node excision. She understands the rationale for that and request that we proceed. I gave her a copy of our familial genetics counseling brochure. I have ordered a bone scan for her to evaluate these right anterior lower ribs. I think it is highly unlikely that this is due to metastatic disease from her breast cancer given the very small mass although it is possible, and we do not have another very good explanation for this prolonged pain. Copy to Jimmy Rodriguez 03/07/18 Addendum MRI today: just the one known cancer was seen: 1.5 cm. No abnormal nodes. Patient called and informed. * Isela Boyd RN - 03/07/2018 10:15 AM EDT Comprehensive Breast Program Note Mikaela Payan is a 62 y.o. female with left breast cancer. I met with the patient and her sister, Veronica, in clinic. She was given apt. For bone scan on 03/12. She understand she will have breast MRI and lab work done today and will schedule her surgery today. We discussed that Dr. Emmanuel will call her with results of breast MRI and if surgical plan needs to be altered he will discuss options. SPECIFIC TEACHIN. Breast Cancer Treatment Handbook (Shila Bernard, 2012) was received via mail. 2. Information from our Shared Decision-Marking Program on Early-Stage Breast Cancer was sent. 3. She understands she will meet with medical and radiation ([facility]) oncologists after surgery. 4. Contact phone number for questions or concerns in the immediate post- operative period. 5. Comprehensive Breast Program Binder. 6. Post Breast Surgery Exercises handout created by physical therapists at [facility]. 7. Breast Cancer Treatment Process care map provided and reviewed. 8. Things to Consider...What I Wish I Knew advice from breast cancer patients handout provided. 9. Contact information for the General Surgery Clinic Nurses was given and the Doctor concert singer system explained. She verbalized understanding of the plan of care and states all her questions were answered. Twentyminutes was spent in education and providing support. Mikaela has our contact information. She will schedule surgery on way out (in 4L) today. Pre-op MRI: Yes Abnormalities detected No (other than index lesion) Referral to familial counseling: Yes. Mikaela is aware next usual visit will be late June/July. Should she desire earlier apt. as per surgical decision making she will contact [facility] and request an urgent consult. documented in this encounter Plan of Treatment Not on file documented as of this encounter Results * NM Whole Body [...] Radiology, at03/12/2018 2:57 PM Pete Emmanuel MD IMG NM ORDERABLES documented in this encounter Visit Diagnoses Diagnosis Malignant neoplasm of left breast in female, estrogen receptor positive, unspecified site of breast Malignant neoplasm of left breast in female, estrogen receptor positive, unspecified site of breast documented in this encounter Care Teams Crime Scene Examiner Relationship Specialty Start Date End Date Jimmy Rodriguez MD [address] [place] [id number] PCP - General 09/28/10 03/14/18 documented as of this encounter
--- OUTSIDE RECORDS SUMMARY | 2024-07-10 18:05 | XMS_ITS | Encounter Summary ---
Author Organization [facility] Address [facility] [place] [address] Care Team Providers Care Manual Tester Name Role Phone Leora Jones APRN Primary Care Provider + Encounter Details Date Type Department Care Team (Latest Contact Info) Description 03/22/2018 7:03 AM EDT - 03/22/2018 8:06 AM EDT Hospital Encounter [place] [address] Pete Emmanuel MD [facility] [place] [address] Malignant neoplasm of left female breast, unspecified estrogen receptor status, unspecified site of breast Discharge Disposition: Home [...] NEEDED 0 02/08/2018 fluticasone (FLONASE) 50 mcg/actuation [place], Suspension SPRAY TWO SPRAYS IN EACH NOSTRIL [...] Name Priority Date/Time Associated Diagnosis Comments MAMMO SENTINEL NODE INJECTION Routine 03/22/2018 7:59 AM EDT Malignant neoplasm of left female breast, unspecified estrogen receptor status, unspecified site of breast documented in this encounter Results * Mammo [place] Node Injection (03/22/2018 7:59 AM EDT) Anatomical [...] THE LEFT BREAST CANCER. Leftbreast mass with [place] clip 9:00 radian A time out procedure [...] 7:53 AM 7:53 AM Pete Emmanuel MD IMG MAMMO ORDERABLES documented in this encounter Visit Diagnoses Diagnosis Malignant neoplasm of left female breast, unspecified estrogen receptor status, unspecified site of breast documented in this encounter Care Teams Manual Tester Relationship Specialty Start Date End Date Leora Jones APRN PCP - General Family Medicine 03/15/18 11/16/21 documented as of this encounter
--- OUTSIDE RECORDS SUMMARY | 2024-07-10 18:05 | XMS_ITS | Encounter Summary ---
Author Organization [facility] [place] [address] Care Team Providers Care Hospital Sales Representative Name Role Phone Jimmy Rodriguez MD Primary Care Provider [phone] Reason for Visit * Reason Comments Genetic Evaluation recent dx of breast cancer and fam hx of breast cancer * Consultation (Urgent) - Closed Specialty Diagnoses / Procedures Referred By Contac t Referred To Contact Hematology and Oncology Diagnoses Breast cancer Pete Emmanuel MD [facility] [place] [address] [facility] [address] [place] [address] Referral ID Status Reason Start Date Expiration Date Visits Re quested Visits Authorized [id number] Closed 03/07/2018 03/07/2019 1 1 Encounter Details Date Type Department Care Team (Late st Contact Info) Description 03/12/2018 9:00 AM EDT Office Visit Hematology [place] [address] Neeru Kim, [facility] HEMATOLOGY/[place] [address] Malignant neoplasm of breast in female, estrogen receptor positive, unspecified laterality, unspecified site of breast; Family history of malignant neoplasm of breast Social History Tobacco Use Types Packs/Day Years Used Date Smoking Tobacco: Never Smokeless Tobacco: Never Sex and Gender Information Value Date Recorded Sex Assigned at Not on file Gender Identity Not on file Sexual Orientation Not on file documented as of this encounter Last Filed Vital Signs Vital Sign Reading Time Taken Comments Blood Pressure - - Pulse - - Temperature - - Respiratory Rate - - Oxygen Saturation - - Inhaled Oxygen Concentration - - Weight 94.5 kg (208 lb 6.4 oz) 03/12/2018 9:15 A M EDT Height 164.9 cm (5' 4.92) 03/12/2018 9:15 AM ED T Body Mass Index 34.76 03/12/2018 9:15 AM EDT documented in this encounter Progress Notes * Neeru Kim LGC - 03/12/2018 9:00 AM EDT Ms. Payan was seen by Danette Kim MS [facility] in consultation at the request of Dr. Peet Emmanuel to advise regarding possible heritable predisposition to cancer. I spent 65 minutes of this face to face encounter with the patient gathering medical and family history and discussing the likelihood of a genetic predisposition to cancer and the option of genetic testing. Reason for referral/Chief complaint Recent diagnosis of breast cancer and family history of breast and testicular cancer. 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 Her tumor is ER+, CT+, Her2 pending. She is in the process of surgical treatment planning. Family History of Cancer Problem Relation Age of Onset ??? Breast Cancer Sister 58 mastectomy, endocrine therapy ??? Breast Cancer Paternal Grandmother 60's 60's ??? Breast Cancer Paternal Aunt 60's 60's ??? Cancer Maternal Half-Brother ~40 testicular Maternal ethnic background is Kazakh, Mosotho and Spanish. Paternal ethnic background is [place]alan-[place]i and . Genetic risk assessment Panel genetic testing for an inherited predisposition to breast cancer was discussed. The risks, benefits and limitations of panel genetic testing were reviewed. Mikaela opted for testing with the STAT 9-gene Breast Panel, (reflex to standard 46-gene Common Hereditary Cancers Panel), a next generation sequencing panel including BRCA1 and BRCA2, PALB2, etc. Mikaela opted for testing and was consented. Her blood sample was drawn today and sent to [facility]. ?? The results of the STAT panel will be available in 5-12 days. If that is normal, follow-up testing will take another 2-3 weeks. Mikaela will be contacted via telephone once her test results become available. If positive, we will schedule an in person follow-up appointment. At that time, we will discuss with Mikaela the implications that this test result may have for her, as well as her family members. We will also provide Mikaela with screening guidelines for cancer prevention and early detection,as well as answer any questions she may have. ?? documented in this encounter Plan of Treatment Not on file documented as of this encounter Visit Diagnoses Diagnosis Malignant neoplasm of breast in female, estrogen receptor positive, unspecified laterality, unspecified site of breast Family history of malignant neoplasm of breast documented in this encounter Care Teams Hospital Sales Representative Relationship Specialty Start Date End Date Jimmy Rodriguez MD [address] [place] [address] PCP - General 09/28/10 03/14/18 documented as of this encounter
--- OUTSIDE RECORDS SUMMARY | 2024-07-10 18:05 | XMS_ITS | Encounter Summary ---
Author Organization [facility] [place] [address] Care Team Providers Care Resp Therapist Name Role Phone Jimmy Rodriguez MD Primary Care Provider Encounter Details Date Type Department Care Team (Latest Contact Info) Description 01/25/2018 12:05 AM EDT - 01/25/2018 11:59 PM EDT Hospital Encounter [place] [address] Leora Jones, JACQUARD LACE WEAVER [address] [place] [address] Discharge Disposition: Home Social History Tobacco Use Types Packs/Day Years Used Date Smoking Tobacco: Never Assessed Sex and Gender Information Value Date Recorded Sex Assigned at Not on file Gender Identity Not on file Sexual Orientation Not on file documented as of this encounter Medications at Time of Discharge Medication Sig Dispensed Refills Start Date End Date fluticasone (FLONASE) 50 mcg/actuation [place], Suspension SPRAY TWO SPRAYS IN EACH NOSTRIL EVERY DAY FOR 1 WEEK MAY DECREASE USE WHEN FEELING BETTER 3 10/24/2017 lisinopril (PRINIVIL;ZESTRIL) 20 mg Tablet 01/05/2018 04/09/2018 documented as of this encounter Plan of Treatment Not on file documented as of this encounter Procedures Procedure Name Priority Date/Time Associated Diagnosis Comments FILM LIBRARY-STORAGE ONLY US BREAST Routine 01/25/2018 12:05 AM EDT documented in this encounter Results * Film Library Storage Only US Breast (01/25/2018 12:05 AM EDT) Narrative RAD - 01/29/2018 2:08 PM EDT This exam is for storage only and is auto-finalizing. Leora Jones APRN IMG FILM LIBRARY ORD ERABLES [place], [place] documented in this encounter Visit Diagnoses Not on filedocumented in this encounter Care Teams Resp Therapist Relationship Specialty Start Date End Date Jimmy Rodriguez MD [address] [place] [address] PCP - General 09/28/10 03/14/18 documented as of this encounter
--- OUTSIDE RECORDS SUMMARY | 2024-07-10 18:05 | XMS_ITS | Encounter Summary ---
Author Organization [facility] Address [facility] [place] [address] Care Team Providers Care Ramp And Cargo Supervisor Name Role Phone Jimmy Rodriguez MD Primary Care Provider Encounter Details Date Type Department Care Team (Latest Contact Info) Description 01/25/2018 - 01/25/2018 12:04 AM EDT Hospital Encounter [place] [address] Leora Jones, SENIOR JAVA J2EE DEVELOPER [address] [place] [address] Discharge Disposition: Home Social History Tobacco Use Types Packs/Day Years Used Date Smoking Tobacco: Never Assessed Sex and Gender Information Value Date Recorded Sex Assigned at Not on file Gender Identity Not on file Sexual Orientation Not on file documented as of this encounter Medications at Time of Discharge Medication Sig Dispensed Refills Start Date End Date fluticasone (FLONASE) 50 mcg/actuation [place], Suspension SPRAY TWO SPRAYS IN EACH NOSTRIL EVERY DAY FOR 1 WEEK MAY DECREASE USE WHEN FEELING BETTER 3 10/24/2017 lisinopril (PRINIVIL;ZESTRIL) 20 mg Tablet 01/05/2018 04/09/2018 documented as of this encounter Plan of Treatment Not on file documented as of this encounter Procedures Procedure Name Priority Date/Time Associated Diagnosis Comments FILM LIBRARY STORAGE ONLY MAMMO Routine 01/25/2018 12:00 AM EDT documented in this encounter Results * Film Library- Storage Only Mammo (01/25/2018 12:00 AM EDT) Narrative RAD - 01/29/2018 1:59 PM EDT This exam is for storage only and is auto-finalizing. Leora Jones APRN IMG FILM LIBRARY ORD ERABLES [place], [place] documented in this encounter Visit Diagnoses Not on filedocumented in this encounter Care Teams Ramp And Cargo Supervisor Relationship Specialty Start Date End Date Jimmy Rodriguez MD [address] [place] [id number] PCP - General 09/28/10 03/14/18 documented as of this encounter
--- OUTSIDE RECORDS SUMMARY | 2024-07-10 18:05 | XMS_ITS | Encounter Summary ---
Author Organization [facility] [place] [address] Care Team Providers Care Card Runner Name Role Phone Jimmy Rodriguez MD Primary Care Provider [phone] Encounter Details Date Type Department Care Team (Latest Contact Info) Description 06/12/2014 - 06/12/2014 11:59 PM EDT Hospital Encounter [place] [address] Leora Jones, HAMMER ADJUSTER [address] [place] [address] Discharge Disposition: Home Social History Tobacco Use [...] Comments FILM LIBRARY STORAGE ONLY MAMMO Routine 06/12/2014 12:00 AM EDT documented in this encounter Results * Film Library- Storage Only Mammo (06/12/2014 12:00 AM EDT) Narrative ANTHONY - 01/29/2018 2:15 PM EDT This exam is for storage only and is auto-finalizing. Leora Jones APRN IMG FILM LIBRARY ORD ERABLES [facility] [place] documented in this encounter Visit Diagnoses Not on filedocumented in this encounter Care Teams Card Runner Relationship Specialty Start Date End Date Jimmy Rodriguez MD [address] [place] [id number] PCP - General 09/28/10 03/14/18 documented as of this encounter
--- OUTSIDE RECORDS SUMMARY | 2024-07-10 18:05 | XMS_ITS | Encounter Summary ---
Author Organization [facility] Address [facility] [place] [address] Care Team Providers Care Studio Artist Name Role Phone Jimmy Rodriguez MD Primary Care Provider Reason for Referral * Diagnostic Test (Routine) - Closed Specialty Diagnoses / Procedures Referred By Contac t Referred To Contact Radiology Diagnoses Malignant neoplasm of left breast in female, estrogen receptor positive, unspecified site of breast Procedures MRI Breast wwo Contrast Bilat Pete Emmanuel MD [facility] [place] [address] [place] [address] Referral ID Status Reason Start Date Expiration Date V isits Requested Visits Authorized [id number] Closed Specialty Service Requested 02/26/2018 04/26/2018 1 1 Encounter Details Date Type Department Care Team (Late st Contact Info) Description 02/19/2018 Orders [place] [address] Pete Emmanuel MD [facility] [place] [address] Malignant neoplasm of left breast in female, [...] as of this encounter Results * MRI Breast wwo [...] contrast enhancement curve analysis was performed, using SunPods software. COMPARISON STUDIES: Compared and/or correlated with [...] chest wall or skin.. Pete Emmanuel MD G MRI ORDERABLES * Comprehensive metabolic panel (non-fasting) (03/07/2018 2:36 PM EDT) Glucose 193 65 - 199 mg/dL [facility] Comment:Diabetes: >=200 mg/d L plus symptoms Blood Urea Nitrogen 18 8 - 18 mg/dL [facility] Creatinine 0.78 0.70 - 1.20 mg/dL [facility] Sodium 137 135 - 145 mmol/L [facility] Potassium 4.2 3.5 - 5.0 mmol/L [facility] Comment: Please note: ??Patients with WBC >100,000 may have falsely elevated Potassium levels. ??For accurate Potassium quantification in these patients send serum separator tube (gold top) for subsequent determinations. ??Contact the Clinical Chemistry Laboratory if there are any questions. Chloride 98 98 - 107 mmol/L [facility] Carbon Dioxide 26 22 - 31 mmol/L [facility] Anion Gap 13 5 - 15 mmol/L [facility] Calcium 9.7 8.5 - 10.5 mg/dL [facility] Protein, Total 7.4 6.1 - 8.0 gm/dL [facility] Albumin 4.2 3.2 - 5.2 gm/dL [facility] Aspartate Aminotransferase 22 0 - 30 unit/L [facility] Alanine Aminotransferase 29 0 - 30 unit/L [facility] Alkaline Phosphatase 100 40 - 104 unit/L [facility] Bilirubin, Total 0.2 0.2 - 1.3 mg/dL [facility] Est Glomerular Filtration Rate >60 >=60 [facility] Comment: The reported eGFR should be multiplied by 1.2 for patients. The MDRD is not an appropriate measure of renal function for patients with body mass extremes or in patients with acute kidney failure. http://WP Fail-Safe.Fiestah/DHnkdep http://WP Fail-Safe.Fiestah/DHMCnkf Blood specimen (specimen) 03/07/2018 2:36 PM EDT 03/07/2018 2:45 PM EDT Narrative Resulting Agency Comment Spec In Lab Pete Emmanuel MD CHEMISTRY ORDERABLES [facility] [place] [address] documented in this encounter Visit Diagnoses Diagnosis Malignant neoplasm of left breast in female, estrogen receptor positive, unspecified site of breast Malignant neoplasm of left breast in female, estrogen receptor positive, unspecified site of breast documented in this encounter Care Teams Studio Artist Relationship Specialty Start Date End Date Jimmy Rodriguez MD [address] [place] [id number] PCP - General 09/28/10 03/14/18 documented as of this encounter
--- OUTSIDE RECORDS SUMMARY | 2024-07-10 18:05 | XMS_ITS | Encounter Summary ---
Author Organization [facility] [place] [address] Care Team Providers Care Child Protective Investigator Name Role Phone Jimmy Rodriguez MD Primary Care Provider [phone] Encounter Details Date Type Department Care Team (Latest Contact Info) Description 01/29/2018 2:34 PM EDT - 01/29/2018 11:59 PM EDT Hospital Encounter [place] [address] Leora Jones, SAMPLE CARRIER [address] [place] [address] Breast cyst, left Discharge Disposition: Home Social History Tobacco Use Types Packs/Day Years Used Date Smoking Tobacco: Never Assessed Sex and Gender Information Value Date Recorded Sex Assigned at Not on file Gender Identity Not on file Sexual Orientation Not on file documented as of this encounter Medications at Time of Discharge Medication Sig Dispensed Refills Start Date End Date fluticasone (FLONASE) 50 mcg/actuation [place], Suspension SPRAY TWO SPRAYS IN EACH NOSTRIL EVERY DAY FOR 1 WEEK MAY DECREASE USE WHEN FEELING BETTER 3 10/24/2017 lisinopril (PRINIVIL;ZESTRIL) 20 mg Tablet 01/05/2018 04/09/2018 documented as of this encounter Plan of Treatment Not on file documented as of this encounter Procedures Procedure Name Priority Date/Time Associated Diagnosis Comments REQUEST FOR 2ND READ MAMMO Routine 01/29/2018 2:34 PM EDT Breast cyst, left documented in this encounter Results * Request for 2nd read Mammo (01/29/2018 2:34 PM EDT) Anatomical Region Laterality Modality SO Impressions 01/29/2018 3:57 PM EDT IMPRESSION: Highly suspicious 0.9 cm lobulated spiculated mass at the left breast (potentially located from 9-10 30 rad allowing for translation between MLO and true lateral views located 6 cm from the nipple. RECOMMENDATION: Recommend redirected ultrasound and probable ultrasound-guided core breast biopsy of this left breast lesion. Otherwise helder guided core biopsy could be performed. Left breast BI-RADS Category 4: Suspicious Finding - Biopsy Should Be Considered Right breast BI-RADS Category 1: Negative Please note: The interpretation of the [facility] Breast Imaging Radiologist subspecialist may differ from the original radiologist's interpretation. This is usually not due to a deficiency of the original interpreting radiologist, rather due to the greater skill level afforded by sub-specialization in the field and/or reasonable variations in interpretations. If you have a concern regarding the D-H interpretation you may contact the [facility] Worker Office at . Narrative 01/29/2018 3:57 PM EDT INTERPRETATION OF OUTSIDE BREAST IMAGING I have been asked to consult on this patient by Dr. Leora Jones because he/she believes a review of this study may change or alter the care of this patient. STUDIES FROM: [place] DATES: 01/16/2018 screening mammogram, 01/19/2018 ultrasound, 01/25/2018 ultrasound 01/19/2018 CLINICAL HISTORY: LEFT BREAST CYST, CAT 3; ?BX, ?MORE IMAGING; What Modality is the exam? Mammography; Body Part (please add comments as necessary): LEFT BREAST; I believe a reinterpretation of this exam may alter care of Patient. Yes. ?? COMPARISONS: This study was compared with prior images., Specifically 10/27/2016 dating back to 11/24/2011 FINDINGS: Screening mammogram 01/19/2018: There are scattered areas of fibroglandular density. There is a highly suspicious lobulated spiculated mass in the left upper inner quadrant middle third measuring 0.9 cm at the 9-10 o'clock radian 6 cm from the nipple. The right breast is unremarkable. Left breast ultrasound 01/19/2018 Please note: Breast ultrasound is welding machine operator thermit dependent. Complete assessment of the breast tissue is not possible through static images or cine loops. Because breast ultrasound is a dynamic process the interpretive value of outside images is limited. ??No suspicious solid mass or cyst is depicted. 01/25/2018 diagnostic mammogram and focused ultrasound using a fenestrated grid the fenestrated grid is used to clearly identify the lesion of interest within the window. Sonographically in my opinion there is a taller than wide isoechoic solid mass depicted potentially corresponding to the mammographic finding. The lesion was, however, not considered identified. Procedure Note Teddy Ruiz MD - 01/29/2018 INTERPRETATION OF OUTSIDE BREAST IMAGING I have been asked to consult on this patient by Dr. Leora Jones becausehe/she believes a review of this study may change or alter the care of thispatient. STUDIES FROM: [place] DATES: 01/16/2018 screening mammogram, 01/19/2018 ultrasound, 01/25/2018ultrasound 01/19/2018 CLINICAL HISTORY: LEFT BREAST CYST, CAT 3; ?BX, ?MORE IMAGING; WhatModality is the exam? Mammography; Body Part (please add comments as necessary):LEFT BREAST; I believe a reinterpretation of this exam may alter care ofPatient. Yes. COMPARISONS: This study was compared with prior images., Specifically 10/27/2016 datingback to 11/24/2011 FINDINGS: Screening mammogram 01/19/2018: There are scattered areas offibroglandular density. There is a highly suspicious lobulated spiculated mass in theleft upper inner quadrant middle third measuring 0.9 cm at the 9-10 o'clockradian 6 cm from the nipple. The right breast is unremarkable. Left breast ultrasound 01/19/2018 Please note: Breast ultrasound isoperator dependent. Complete assessment of the breast tissue is not possiblethrough static images or cine loops. Because breast ultrasound is a dynamicprocess the interpretive value of outside images is limited. No suspicious solid massor cyst is depicted. 01/25/2018 diagnostic mammogram and focused ultrasound using a fenestratedgrid the fenestrated grid is used to clearly identify the lesion of interestwithin the window. Sonographically in my opinion there is a taller than wideisoechoic solid mass depicted potentially corresponding to the mammographic finding.The lesion was, however, not considered identified. IMPRESSION IMPRESSION: Highly suspicious 0.9 cm lobulated spiculated mass at the left breast (potentially located from 9-10 30 rad allowing for translation between MLOand true lateral views located 6 cm from the nipple. RECOMMENDATION: Recommend redirected ultrasound and probable ultrasound-guided corebreast biopsy of this left breast lesion. Otherwise helder guided core biopsy couldbe performed. Left breast BI-RADS Category 4: Suspicious Finding - Biopsy Should BeConsidered Right breast BI-RADS Category 1: Negative Please note: The interpretation of the [facility] Breast[facility] Radiologist subspecialist may differ from the original radiologist's interpretation. This is usually not due to a deficiency of the original interpreting radiologist, rather due to the greater skill level affordedby sub-specialization in the field and/or reasonable variations ininterpretations. If you have a concern regarding the D-H interpretation [facility] at [phone]. 3:57 PM Leora Jones SAMPLE CARRIER IMG OUTSIDE INTERPRE TATION ORDERABLES documented in this encounter Visit Diagnoses Diagnosis Breast cyst, left documented in this encounter Care Teams Child Protective Investigator Relationship Specialty Start Date End Date Jimmy Rodriguez MD [address] [place] [address] PCP - General 09/28/10 03/14/18 documented as of this encounter
--- OUTSIDE RECORDS SUMMARY | 2024-07-10 18:05 | XMS_ITS | Encounter Summary ---
Author Organization [facility] Address [facility] [place] [address] Care Team Providers Care Pyrometer Operator Name Role Phone Leora Jones APRN Primary Care Provider + Encounter Details Date Type Department Care Team (Latest Contact Info) Description 03/22/2018 7:03 AM EDT - 03/22/2018 8:06 AM EDT Hospital [place] [address] Pete Emmanuel MD [facility] [place] [address] Malignant neoplasm of left female breast, unspecified [...] NEEDED 0 02/08/2018 fluticasone (FLONASE) 50 mcg/actuation [place], Suspension SPRAY TWO SPRAYS IN EACH NOSTRIL [...] Name Priority Date/Time Associated Diagnosis Comments MAMMO NEEDLE LOCALIZATION LEFT Routine 03/22/2018 7:58 AM EDT Malignant neoplasm of left female breast, unspecified estrogen receptor status, unspecified site of breast documented in this encounter Results * Mammo Needle Localization Left (03/22/2018 7:58 [...] LEFT BREAST CANCER. ??Left breast mass with [place] clip 9:00 radian A time out procedure [...] MAR Action Action Date Dose Rate Site lidocaine (XYLOCAINE) 10 mg/mL (1 %) injection 10 mg 10 mg, Intradermal, ONCE, 1 dose, On Vita 03/22/18 at 0800, Routine Given 03/22/2018 7:40 AM EDT 10 mg documented in this encounter Care Teams Pyrometer Operator Relationship Specialty Start Date End Date Leora Jones APRN PCP - General Family Medicine 03/15/18 11/16/21 documented as of this encounter
--- OUTSIDE RECORDS SUMMARY | 2024-07-10 18:05 | XMS_ITS | Encounter Summary ---
Author Organization [facility] [place] [address] Care Team Providers Care Dairy Clerk Name Role Phone Jimmy Rodriguez MD Primary Care Provider [phone] Encounter Details Date Type Department Care Team (Latest Contact Info) Description 02/21/2018 - 02/21/2018 11:59 PM EDT Hospital Encounter [place] [phone] Pete Emmanuel MD [facility] [place] [address] Discharge Disposition: Home Social History Tobacco Use [...] NEEDED 0 02/08/2018 fluticasone (FLONASE) 50 mcg/actuation [place], Suspension SPRAY TWO SPRAYS IN EACH NOSTRIL EVERY DAY FOR 1 WEEK MAY DECREASE USE WHEN FEELING BETTER 3 10/24/2017 traMADol (ULTRAM) 50 mg Tablet Take 50 [...] Associated Diagnosis Comments FILM LIBRARY STORAGE ONLY ULTRASOUND STUDY Routine 02/21/2018 12:00 AM EDT documented in this encounter Results * Film Library- Storage Only Ultrasound Study (02/21/2018 12:00 AM EDT) Narrative RAD - 03/09/2018 1:15 PM EDT This exam is for storage only and is auto-finalizing. Pete Emmanuel MD IMG FILM LIBRARY ORD ERABLES Performing Organization Address City/State/[facility] Co de Phone Number [place], [place] documented in this encounter Visit Diagnoses Not on filedocumented in this encounter Care Teams Dairy Clerk Relationship Specialty Start Date End Date Jimmy Rodriguez MD [address] [address] PCP - General 09/28/10 03/14/18 documented as of this encounter
--- OUTSIDE RECORDS SUMMARY | 2024-07-10 18:05 | XMS_ITS | Encounter Summary ---
Author Organization Replaced By [facility] Address [facility] [place] [address] Care Team Providers Care Marina Dry Dock Manager Name Role Phone Jmimy Rodriguez MD Primary Care Provider [phone] Encounter Details Date Type Department Care Team (Latest Contact Info) Description 02/15/2018 2:12 PM EDT Hospital [place] [id number] Teddy Ruiz MD [facility] [place] [address] Abnormal finding on breast imaging Discharge Disposition: Home Social History Tobacco Use [...] NEEDED 0 02/08/2018 fluticasone (FLONASE) 50 mcg/actuation [place], Suspension SPRAY TWO SPRAYS IN EACH NOSTRIL [...] Name Priority Date/Time Associated Diagnosis Comments MAMMO BREAST US LIMITED LEFT Routine 02/15/2018 3:00 PM EDT Abnormal finding on breast imaging documented in this encounter Results * US Breast Limited Left (02/15/2018 3:00 PM EDT) Anatomical Region Laterality Modality Breast Left Mammography Impressions 02/15/2018 4:02 PM EDT Sonographic correlate found for suspicious mammographic finding in the left breast 10:00 radian 5 cm from the nipple. Core biopsy recommended. This is performed and dictated separately on the day of the patient's visit. BI-RADS Category 4: Suspicious Finding - Biopsy Should Be Considered Narrative 02/15/2018 4:02 PM EDT EXAMINATION: US ??BREAST LIMITED LEFT CLINICAL HISTORY: abnormal mammo TECHNIQUE: High-resolution ultrasound was performed of the left upper inner quadrant. COMPARISON: Outside imaging from [facility]. Dated 01/25/2018 FINDINGS: Directed ultrasound confirms a suspicious heterogeneously hypoechoic shadowing lesion at the left breast 10:00 radian 5 cm from the nipple measuring 0.8 cm in maximal diameter. Teddy Ruiz MD IMG MAMMO ORDERABL ES documented in this encounter Visit Diagnoses Diagnosis Abnormal finding on breast imaging Other (abnormal) findings on radiological examination of breast documented in this encounter Care Teams Marina Dry Dock Manager Relationship Specialty Start Date End Date Jimmy Rodriguez MD [address] [place] [id number] PCP - General 09/28/10 03/14/18 documented as of this encounter
--- OUTSIDE RECORDS SUMMARY | 2024-07-10 18:05 | XMS_ITS | Encounter Summary ---
Author Organization [facility] Address [facility] [place] [address] Care Team Providers Care Instructor Dramatic Arts Name Role Phone Kari Rodriguez MD Primary Care Provider [phone] Encounter Details Date Type Department Care Team (Latest Contact Info) Description 02/15/2018 2:13 PM EDT - 02/15/2018 3:54 PM EDT Hospital [place] [address] Pricila Ordonez MD [facility] [place] [address] Abnormal finding on breast imaging Discharge Disposition: [...] NEEDED 0 02/08/2018 fluticasone (FLONASE) 50 mcg/actuation [place], Suspension SPRAY TWO SPRAYS IN EACH NOSTRIL [...] Name Priority Date/Time Associated Diagnosis Comments MAMMO US BIOPSY VACUUM ASSISTED LEFT Routine 02/15/2018 3:36 PM EDT Abnormal finding on breast imaging SURGICAL PATHOLOGY REPORT Routine 02/15/2018 3:35 PM EDT SPECIMEN TO PATHOLOGY Routine 02/15/2018 3:35 PM EDT documented in this encounter Results * Mammo US Biopsy Vacuum Assisted Left (02/15/2018 3:36 PM EDT) Anatomical Region Laterality Modality Breast Left Mammography Impressions 02/19/2018 2:25 PM EDT Concordant and malignant result RECOMMENDATION: [phone]. Breast surgeon consultation, consider breast MRI. Findings were discussed with the patient, and with the comprehensive breast program. Dr. Maloney delivered results, Dr. Ordonez accomplished the biopsy. REVIEW PATH CONFERENCE?: Yes, Intact device Narrative 02/19/2018 2:25 PM EDT ULTRASOUND GUIDED BIOPSY OF THE LEFT BREAST CLINICAL HISTORY: abnormal u/s Left breast lesion #1 is a mass at the 9:00 radian 6 cm from the nipple measuring 0.9 cm. ?? PROCEDURAL DETAILS: Informed consent was obtained. Sterile technique was deployed. Approximately 20 cc used for local anesthesia. A small skin incision was made and a biopsy was performed under ultrasound guidance. 1 percutaneously obtained specimen was obtained using the [employer] INTACT DEVICE. The biopsy specimen was radiographed and confirms the spiculated mass to be contained within it. A [employer] [place] 14G marker clip was placed. Cranio-caudal and lateral digital mammography performed to determine biopsy marker placement, which was shown to be 0 cm from the biopsy site. COMPLICATIONS: None. ??Patient discharged in satisfactory condition. PROCEDURAL ATTESTATION: Resident: None I performed the procedure without a resident. IMAGING DIFFERENTIAL DIAGNOSIS: Invasive ductal carcinoma, invasive lobular carcinoma PATHOLOGIC DIAGNOSIS: Invasive ductal carcinoma, low-grade, up to 8 mm, at the cauterized edge. 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 Pricila Ordonez MD IMG MAMMO ORDERABL ES * Surgical Pathology Report (02/15/2018 3:35 PM EDT) Final Diagnosis [id number] ? Location: 3L The signing pathologist has (i) examined the relevant preparation(s) for the specimen(s) and (ii) rendered or confirmed the diagnosis(es). . ?Surgical Pathology DIAGNOSIS CORRECTED REPORT (See Discussion) A - Left breast intact ultrasound-guided biopsy: Biopsies: ??Left breast. Diagnosis: ??Invasive ductal carcinoma, low grade, up to 8-mm, ??at inked/cauterized tissue edge. ? 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 On A2 - ER immunoreactivity: Positive (90% cancer cells with immunostaining) Stain intensity: Weak to Moderate TN immunoreactivity: Positive (50% cancer cells with immunostaining) Stain intensity: Moderate to Strong HER2 FISH: separate report to follow ? *Diagnostic burger for hormone receptors (ASCO/CAP GUIDELINES, 2010): ?Negative immunoreactivity: ?? <1% tumor cells with immunostaining ?Positive immunoreactivity: ?? >1% tumor cells with immunostaining Immunohistochemica l assays were performed on paraffin-embedded tissue sections fixed in 10% neutral buffered formalin for 6-72 hours using the polymer system technique with appropriate controls. The assays were performed according to the galley worker ? 's instructions using Anti-ER (SP1) and Anti-TN (16) antibodies. Electronically signed by: ??Kenyatta Malloy DO Verified: ??03/05/2018 ?Pathologist Performed at: ??-[facility] Dept. of Pathology, [place], [place] DISCUSSION Correction Note: ??This report was opened for correction in error by administration. ??There are no changes to the text of this report. 03/05/18 CLINICAL INFORMATION Specimen Submitted: A - Left breast intact u/x bx Clinical History: Left breast mass Clinical Diagnosis: IDC versus ILC Report to: KARI RODRIGUEZ ? URIEL LAWRENCE SPECIMEN PROCESSING A - Labeled/Fixative: Left breast intact U/C BX, formalin. Quantity/Size: Single, 1.4 x 0.8 x 0.8 cm. Tissue Description: Ovoid fragment of white-yellow fibroadipose tissue. Ischemic Time: 3 minutes. Sections/Processin g: Inked and sectioned parallel to the long axis. (T2) ??kurtis ?Molecular Genetics RESULTS This report was corrected to reflect the review was done by Dr. Tom Perry. TEST: ??HER2(ERBB2)FISH, Breast METHOD: ??Fluorescence in situ hybridization (FISH) with chromosome 17 centromere (17p11.1-q11.1) probe and a locus specific probe for the HER2 gene locus (17q11.2- q12). SAMPLE ANALYZED: A2-5 RESULT: ?NEGATIVE FOR HER2/MELISSA AMPLIFICATION ? TOTAL # SIGNALS/TOTAL # NUCLEI COUNTED FOR HER2 PROBE = 80 ? TOTAL # SIGNALS/TOTAL # NUCLEI COUNTED FOR CEP-17 PROBE = 71 ? HER2 TO CEP-17 RATIO = 1.1 ? (NORMAL RANGE ? <2.0) ? TOTAL # NUCLEI COUNTED = 40 Interpretation: ??Paraffin-embedde d tissue sections were submitted for HER2(ERBB2)gene amplification analysis by FISH. ??Direct analysis was performed using the [employer] Kit. ??Slide adequacy and signal enumeration were evaluated and satisfactory for both control and patient slides. ??A signal ratio derived from the HER2 probe and the CEP-17 centromere probe of ?2.0 is considered positive for HER2 gene amplification. The 2013 ASCO/CAP guideline recommendation for HER2 testing in breast cancer states that samples with a HER2 to CEP-17 ratio of less than 2.0 are non-amplified. Specimens with a HER2 to CEP-17 range of ?2.0 are considered amplified. This test is approved by the U.S. FDA for clinical diagnostic use. Reference: Arthur AC, et al. Recommendations for human epidermal growth factor receptor 2 testing in breast cancer: [place] Society of Clinical Oncology/College of [place] [employer]ologists clinical practice guideline update. J Clin Oncol. 2013 Sep 06. Reviewed by: Tom Perry MD Principal Technical Writer, Molecular Pathology _ Electronically signed by: ??Fermín SWANN, Emanuel Verified: ??03/02/2018 ?Pathologist Performed at: ??-[facility] Dept. of Pathology, [place], [place] 03/05/2018 11:16 AM EDT [facility] BREAST STRUCTURE / Unknown 02/15/2018 3:35 PM EDT 02/15/2018 3:35 PM EDT Pricila Ordonez MD PATHOLOGY/CYTOLOGY ORDERABLES Performing Organization Address [facility] Co de Phone Number [facility] [place] [address] * Specimen to Pathology (02/15/2018 3:35 PM EDT) AP Specimen 02/15/2018 3:35 PM EDT 02/15/2018 3:35 PM EDT Narrative [facility] - 02/15/2018 3:35 PM EDT Specimen requisition ordered. ??Separate Pathology report to follow Pricila Ordonez MD PATHOLOGY/CYTOLOGY ORDERABLES Performing Organization Address City/[facility]/ZIP Co de Phone Number [facility] [place] [address] documented in this encounter Visit Diagnoses Diagnosis Abnormal finding on breast imaging Other (abnormal) findings on radiological examination of breast documented in this encounter Administered Medications Inactive Administered Medications - up to 3 most recent administrations Medication Order MAR Action Action Date Dose Rate Site lidocaine (XYLOCAINE) 10 mg/mL (1 %) injection 20 mg 20 mg, Intradermal, ONCE, 1 dose, On Vita 02/15/18 at 1545, Routine Given 02/15/2018 3:25 PM EDT 20 mg documented in this encounter Care Teams Instructor Dramatic Arts Relationship Specialty Start Date End Date Kari Rodriguez MD [address] [place] [id number] PCP - General 09/28/10 03/14/18 documented as of this encounter
--- OUTSIDE RECORDS SUMMARY | 2024-07-10 18:05 | XMS_ITS | Encounter Summary ---
Author Organization [facility] Located [facility] [place] [address] Care Team Providers Care Isobutylene Operator Chief Name Role Phone Karen Leora Byrne APRN Primary Care Provider + Encounter Details Date Type Department Care Team (Late st Contact Info) Description 03/21/2018 Telephone Hematology [place] [address] Neeru Kim [facility] DR HEMATOLOGY/[place] [address] Social History Tobacco Use Types Packs/Day Years Used Date Smoking Tobacco: Never Smokeless Tobacco: Never Sex and Gender Information Value Date Recorded Sex Assigned at Not on file Gender Identity Not on file Sexual Orientation Not on file documented as of this encounter Miscellaneous Notes * Telephone Encounter - Neeru Kim [facility] - 03/21/2018 9:44 AM EDT This test result was discussed with the patient by phone. A copy of a letter sent to the patient containing these results is provided below. Please be advised that [place] law requires that allhealth care workers respect the confidentiality of this information and not pass it along to other health care providers, insurance companies, or individuals without the written permission of the patient. The Familial Cancer Program welcomes any questions about these matters. Our phone number is: [phone]. On 03/12/2018, Mikaela underwent genetic testing for a hereditary predisposition to common hereditary cancers. Following are the results of this test. Result: [employer] Common Hereditary Cancers Panel showed no mutation was detected. This means that Mikaela does not carry a mutation in the genes detectable by this test. The following genes were evaluated for sequence changes and exonic deletions/duplications: APC, NILTON, AXIN2, BARD1, BMPR1A, BRCA1, BRCA2, BRIP1, CDH1, CDKN2A (p14ARF), CDKN2A (c08RWG4h), CHEK2, CTNNA1, DICER1, EPCAM (EPCAM: Deletion/duplication testing only ([id number]), GREM1 (GREM1: Promoter region deletion/duplication testing only.), KIT, MEN1, MLH1, MSH2, MSH3, MSH6, MUTYH, NBN, NF1, PALB2, PDGFRA, PMS2, POLD1, POLE, PTEN, RAD50,RAD51C, RAD51D, SDHB, SDHC, SDHD, SMAD4, SMARCA4, STK11, TP53, TSC1, TSC2, VHL. The following genes were evaluated for sequence changes only: HOXB13 (c.251G>A, p.Saf15Inb variant only), NTHL1 (NTHL1: Deletion/duplication analysis is not offered for this gene ([id number]), and SDHA. We are enclosing a printed copy of Mikaela's test results. Interpretation: Because the genetic basis, if any, of the breast cancer in Mikaela and her family has not been identified, this negative test result does not necessarily mean that Rehans cancer was sporadic (i.e. not attributable to an inherited predisposition). This is because of two important limitations of thetest. First, not all inherited predisposition to cancer is attributable to the genes tested by thispanel. Research has identified other genes that when mutated can increase one???s risk of cancer. Second, a small percentage of mutations in genes tested by this panel may be missed by current technology. Additional genetic testing for Mikaela is not recommended at this time. However, we recommend that Mikaela recontact us from time to time to see if additional information has become available thatcould clarify her personal and family history. It is also possible that Mikaela is not a cancer predisposition mutation carrier, but that other relatives on her paternal side of the family are cancer predisposition mutation carriers. In order to further clarify Mikaela's family history, we recommend that her sister, who also had breast cancer, pursue testing for breast cancer predisposition herself at this time. If Mikaela's sister's result is positive, then we know that Mikaela has not inherited the genetic predisposition present in her familyand Mikaela's cancer was sporadic. However, if Mikaela's sister's test result is negative, then we continue to believe that there may be a possibility of a hereditary predisposition in Mikaela's family which is unidentifiable by our current technology and those at risk, including Mikaela's daughter andcousins, should be screened for cancer based on their family history. Screening Recommendations Based on genetic test results and personal and/or family history, we recommend: Breast cancer screening ?? Monthly self breast exams and annual clinical breast exams ?? Annual tomosynthesis (3D mammogram) Ovarian cancer screening ?? We do not recommend any special screening studies in addition to an annual CONCRETE STONE FABRICATOR exam at this time. Other cancer screening ?? Periodic colonoscopy screening as recommended by Mikaela's drip pumper. ?? Periodic skin exams documented in this encounter Plan of Treatment Not on file documented as of this encounter Visit Diagnoses Not on filedocumented in this encounter Care Teams Isobutylene Operator Chief Relationship Specialty Start Date End Date Leora Jones APRN PCP - General Family Medicine 03/15/18 11/16/21 documented as of this encounter
--- OUTSIDE RECORDS SUMMARY | 2024-07-10 18:05 | XMS_ITS | Encounter Summary ---
[place] [address] Care Team Providers Care Nurse Quality Name Role Phone Jimmy Rodriguez MD Primary Care Provider [phone] Encounter Details Date Type Department Care Team (Latest Contact Info) Description 03/07/2018 2:31 PM EDT - 03/07/2018 11:59 PM EDT Hospital Encounter Hematology [place] [phone] Malignant neoplasm of left breast in female, [...] NEEDED 0 02/08/2018 fluticasone (FLONASE) 50 mcg/actuation [place], Suspension SPRAY TWO SPRAYS IN EACH NOSTRIL [...] Priority Date/Time Associated Diagnosis Comments HEMOGRAM Routine 03/07/2018 2:36 PM EDT Malignant neoplasm of left breast in female, estrogen receptor positive, unspecified site of breast DIFFERENTIAL, AUTOMATED Routine 03/07/2018 2:36 PM EDT Malignant neoplasm of left breast in female, estrogen receptor positive, unspecified site of breast CBC (WITH DIFF) Routine 03/07/2018 2:36 PM EDT Malignant neoplasm of left breast in female, estrogen receptor positive, unspecified site of breast COMPREHENSIVE METABOLIC PANEL Routine 03/07/2018 2:36 PM EDT Malignant neoplasm of left breast in female, estrogen receptor positive, unspecified site of breast documented in this encounter Results * (ABNORMAL) Differential, Automated (03/07/2018 2:36 PM EDT) Neutrophil % 60.0 % [facility] Neutrophil Absolute 6.90(H) 1.70 - 6.10 x10(3)/mc L [facility] Lymph % 30.3 % [facility] Lymphocytes Abs 3.5(H) 0.9 - 3.2 x10(3)/mc L [facility] Monocyte % 5.8 % [facility] Monocyte Abs 0.7 0.3 - 0.9 x10(3)/mc L [facility] Eos % 3.0 % [facility] Eosinophils Abs 0.3 0.0 - 0.4 x10(3)/mc L [facility] Basophil % 0.6 % [facility] Baso Absolute 0.1 0.0 - 0.1 x10(3)/mc L [facility] Immature Gran % 0.30 % [facility] Comment: Immature granulocytes(IG's)percentage and absolute count will include metamyelocytes, myelocytes, and promyelocytes. Blood smears from CBCs yielding IG's will be scanned manually for concordance. If this scan disagrees with the automated IG or if promyelocytes are noted, a manual differential will be performed. Immature Gran Absolute 0.04 0.00 - 0.04 x10(3)/ L [facility] Blood specimen (specimen) 03/07/2018 2:36 PM EDT 03/07/2018 2:45 PM EDT Narrative Resulting Agency Comment Spec In Lab Pete Emmanuel MD HEMATOLOGY ORDERABLE S [facility] [place] [address] * (ABNORMAL) Hemogram (03/07/2018 2:36 PM EDT) White Blood Cell 11.5(H) 4.0 - 9.5 x10(3)/[facility] Red Blood Cell 5.32(H) 4.00 - 5.21 x10(6)/[facility] Hemoglobin 13.9 11.7 - 15.5 gm/dL [facility] Hematocrit 41.8 35.7 - 45.8 % [facility] Mean Cell Volume 78.6(L) 82.6 - 94.4 fL [facility] Mean Cell Hemoglobin 26.1(L) 27.1 - 32.0 pg [facility] Mean Cell Hemoglobin Concentration 33.3 31.7 - 35.0 gm/dL [facility] Platelet 286 145 - 357 x10(3)/[facility] RDW Standard Deviation 42.9 37.0 - 46.0 [facility] RDW coefficient of variation 15.0(H) 11.5 - 14.1 % [facility] Mean Platelet Volume 10.8 7.6 - 12.9 [facility] NRBC% auto 0.0 % [facility] NRBC Absolute 0.000 0.000 - 0.000 x10(3)/ L [facility] Blood specimen (specimen) 03/07/2018 2:36 PM EDT 03/07/2018 2:45 PM EDT Narrative Resulting Agency Comment Spec In Lab Pete Emmanuel MD HEMATOLOGY ORDERABLE S [facility] [place] [address] * Comprehensive metabolic panel (non-fasting) (03/07/2018 2:36 PM EDT) Glucose 193 65 - 199 mg/dL [facility] Comment:Diabetes: >=200 mg/d L plus symptoms Blood Urea Nitrogen 18 8 - 18 mg/dL [facility] Creatinine 0.78 0.70 - 1.20 mg/dL [facility] Sodium 137 135 - 145 mmol/L [facility] Potassium 4.2 3.5 - 5.0 mmol/L [facility] Comment: Please note: ??Patients with WBC >100,000 may have falsely elevated Potassium levels. ??For accurate Potassium quantification in these patients send serum separator tube (gold top) for subsequent determinations. ??Contact the Clinical Chemistry Laboratory if there are any questions. Chloride 98 98 - 107 mmol/L [facility] Carbon Dioxide 26 22 - 31 mmol/L [facility] Anion Gap 13 5 - 15 mmol/L [facility] Calcium 9.7 8.5 - 10.5 mg/dL [facility] Protein, Total 7.4 6.1 - 8.0 gm/dL [facility] Albumin 4.2 3.2 - 5.2 gm/dL [facility] Aspartate Aminotransferase 22 0 - 30 unit/L [facility] Alanine Aminotransferase 29 0 - 30 unit/L [facility] Alkaline Phosphatase 100 40 - 104 unit/L [facility] Bilirubin, Total 0.2 0.2 - 1.3 mg/dL [facility] Est Glomerular Filtration Rate >60 >=60 [facility] Comment: The reported eGFR should be multiplied by 1.2 for patients. The MDRD is not an appropriate measure of renal function for patients with body mass extremes or in patients with acute kidney failure. http://Powered Now/DHnkdep http://Powered Now/DHMCnkf Blood specimen (specimen) 03/07/2018 2:36 PM EDT 03/07/2018 2:45 PM EDT Narrative Resulting Agency Comment Spec In Lab Pete Emmanuel MD CHEMISTRY ORDERABLES [facility] [place] [phone] documented in this encounter Visit Diagnoses Diagnosis Malignant neoplasm of left breast in female, estrogen receptor positive, unspecified site of breast documented in this encounter Care Teams Nurse Quality Relationship Specialty Start Date End Date Jimmy Rodriguez MD [address] [place] [phone] PCP - General 09/28/10 03/14/18 documented as of this encounter
--- OUTSIDE RECORDS SUMMARY | 2024-07-10 18:05 | XMS_ITS | Encounter Summary ---
Author Organization [facility] Address [facility] [place] [address] Care Team Providers Care Entry Manager Name Role Phone Karen Leora Byrne APRN Primary Care Provider + Encounter Details Date Type Department Care Team (Latest Contact Info) Description 03/22/2018 7:02 AM EDT Hospital [place] [address] Pete Emmanuel MD [facility] [place] [address] Malignant neoplasm of left female breast, unspecified [...] NEEDED 0 02/08/2018 fluticasone (FLONASE) 50 mcg/actuation [place], Suspension SPRAY TWO SPRAYS IN EACH NOSTRIL [...] as of this encounter Progress Notes * Neal Joyce MD - 03/21/2018 4:23 PM EDT Pre-procedure note for needle breast biopsies performed in radiology. Procedure date: Tomorrow Procedure type: left breast NLOC and sentinel node injection Allergies: Perfume and Tree nuts Medications: Current Outpatient Prescriptions: ??? lisinopril (PRINIVIL;ZESTRIL) 20 mg Tablet, , Disp: , Rfl: ??? sertraline (ZOLOFT) 100 mg Tablet, Take 100 mg by mouth daily., Disp: , Rfl: ??? traMADol (ULTRAM) 50 mg Tablet, , Disp: , Rfl: Anticoagulation status: none stopped on: N/A Imaging reviewed and procedural plan approved by Dr. Teddy Ruiz documented in this encounter Plan of Treatment Not on file documented as of this encounter Procedures Procedure Name Priority Date/Time Associated Diagnosis Comments MAMMO SPECIMEN LEFT Routine 03/22/2018 1 0:55 AM EDT Malignant neoplasm of left female breast, unspecified estrogen receptor status, unspecified site of breast documented in this encounter Results * Mammo Specimen Left [...] margins. Pete Emmanuel MD IMG MAMMO ORDERABLES documented in this encounter Visit Diagnoses Diagnosis Malignant neoplasm of left female breast, unspecified estrogen receptor status, unspecified site of breast documented in this encounter Administered Medications Inactive Administered Medications - up to 3 most recent administrations Medication Order MAR Action Action Date Dose Rate Site technetium (Tc-99m) sulfur colloid injection 1.7 mCi 1.7 mCi, Intradermal, ONCE PRN, 1 dose, Starting on Vita 03/22/18 at 0800, Until Vita 03/22/18 at 0800, Per Protocol, Routine Given 03/22/2018 8:00 AM EDT 1.7 mCi documented in this encounter Care Teams Entry Manager Relationship Specialty Start Date End Date Leora Jones, ACQUISITION LEAD PCP - General Family Medicine 03/15/18 11/16/21 documented as of this encounter
--- OUTSIDE RECORDS SUMMARY | 2024-07-10 18:05 | XMS_ITS | Encounter Summary ---
Author Organization [facility] [place] [address] Care Team Providers Care Assistant Paralegal Name Role Phone KarenLeora Caty LEAL Primary Care Provider + Encounter Details Date Type Department Care Team (Late st Contact Info) Description 03/26/2018 Telephone [place] [phone] Henny Elias, RN Social History Tobacco Use Types Packs/Day Years Used Date Smoking Tobacco: Never Smokeless Tobacco: Never Sex and Gender Information Value Date Recorded Sex Assigned at Not on file Gender Identity Not on file Sexual Orientation Not on file documented as of this encounter Miscellaneous Notes * Telephone Encounter - Henny Elias RN - 03/26/2018 2:12 PM EDT Nursing Triage - Phone Note DATE OF CALL: 03/26/2018 TIME OF CALL: 2:12 PM PATIENT DATE OF : 1955 CALLER: RN to the patients rearning Needs Assessment Reviewed: Yes SUBJECTIVE - How are you doing after your surgery PERTINENT PAST MEDICAL HISTORY: Pt is s/p [facility] Operative Note ?? Patient Name: Mikaela Payan : [id number] MR#: [id number] ?? Case Date: 03/22/2018 ?? Surgeon: Surgeon(s) and Role: * Pete Emmanuel MD - Primary * Reagan Mendoza MD - Resident-Stock House Worker ?? Preoperative diagnosis: LEFT BREAST CANCER ?? Postoperative diagnosis: LEFT BREAST CANCER ?? Procedure(s) (LRB): MASTECTOMY PARTIAL (WRVU 10.13) (Left) MODIFIER WITH NEEDLE LOC., LESION #1 (Left) BIOPSY OR EXCISION OF LYMPH NODE(S), OPEN, DEEP AXILLARY NODE(S) (WRVU 6.43) (Left) INTRAOPERATIVE ID (MAPPING) SENTINEL LYMPH NODE,INCLUDES INJECTION (WRVU 2.5) (Left) MODIFIER SENTINEL NODE EXCISION (Left) ? Anesthesia: general ?? Estimated Blood Loss: 20 ml ?? Specimens removed during surgery: left partial mastectomy; left axillary sentinel node ?? Surgical Closure: Primary Closure NURSING OBJECTIVE/ASSESSMENT: INTERVENTION/PLAN/ FOLLOW : Pt did not answer the phone I left a message If your symptoms do not improve, or they worsen, report to your local emergency department. CALLER AGREES: Yes PCP: Leora Jones APRN documented in this encounter Plan of Treatment Not on file documented as of this encounter Visit Diagnoses Not on filedocumented in this encounter Care Teams Assistant Paralegal Relationship Specialty Start Date End Date Leora Jones APRN PCP - General Family Medicine 03/15/18 11/16/21 documented as of this encounter
--- OUTSIDE RECORDS SUMMARY | 2024-07-10 18:05 | XMS_ITS | Encounter Summary ---
Author Organization [facility] [place] [address] Care Team Providers Care Articulation Officer Name Role Phone Jimmy Rodriguez MD Primary Care Provider Encounter Details Date Type Department Care Team (Latest Contact Info) Description 10/27/2016 - 10/27/2016 11:59 PM EST Hospital Encounter [place] [address] Leora Jones, MATERIALS MGMT TECH [address] [place] [address] Discharge Disposition: Home Social History Tobacco Use [...] Comments FILM LIBRARY STORAGE ONLY MAMMO Routine 10/27/2016 12:00 AM EST documented in this encounter Results * Film Library- Storage Only Mammo (10/27/2016 12:00 AM EST) Narrative RAD - 01/29/2018 2:11 PM EDT This exam is for storage only and is auto-finalizing. Leora Jones APRN IMG FILM LIBRARY ORD ERABLES [place], [place] documented in this encounter Visit Diagnoses Not on filedocumented in this encounter Care Teams Articulation Officer Relationship Specialty Start Date End Date Jimmy Rodriguez MD [address] [place] [id number] PCP - General 09/28/10 03/14/18 documented as of this encounter
--- OUTSIDE RECORDS SUMMARY | 2024-07-10 18:05 | XMS_ITS | Encounter Summary ---
Author Organization [facility] Address [facility] [place] [address] Care Team Providers Care Livestock Brands Inspector Name Role Phone Jimmy Rodriguez MD Primary Care Provider [phone] Encounter Details Date Type Department Care Team (Latest Contact Info) Description 01/16/2018 - 01/16/2018 11:59 PM EDT Hospital Encounter [place] [address] Leora Jones, GLOBAL CEO [address] [place] [address] Discharge Disposition: Home Social History Tobacco Use Types Packs/Day Years Used Date Smoking Tobacco: Never Assessed Sex and Gender Information Value Date Recorded Sex Assigned at Not on file Gender Identity Not on file Sexual Orientation Not on file documented as of this encounter Medications at Time of Discharge Medication Sig Dispensed Refills Start Date End Date fluticasone (FLONASE) 50 mcg/actuation [place], Suspension SPRAY TWO SPRAYS IN EACH NOSTRIL EVERY DAY FOR 1 WEEK MAY DECREASE USE WHEN FEELING BETTER 3 10/24/2017 lisinopril (PRINIVIL;ZESTRIL) 20 mg Tablet 01/05/2018 04/09/2018 documented as of this encounter Plan of Treatment Not on file documented as of this encounter Procedures Procedure Name Priority Date/Time Associated Diagnosis Comments FILM LIBRARY STORAGE ONLY MAMMO Routine 01/16/2018 12:00 AM EDT documented in this encounter Results * Film Library- Storage Only Mammo (01/16/2018 12:00 AM EDT) Narrative RAD - 01/29/2018 2:11 PM EDT This exam is for storage only and is auto-finalizing. Leora Jones APRN IMG FILM LIBRARY ORD ERABLES [place], [place] documented in this encounter Visit Diagnoses Not on filedocumented in this encounter Care Teams Livestock Brands Inspector Relationship Specialty Start Date End Date Jimmy Rodriguez MD [address] [place] [address] PCP - General 09/28/10 03/14/18 documented as of this encounter
--- OUTSIDE RECORDS SUMMARY | 2024-07-10 18:05 | XMS_ITS | Encounter Summary ---
Author Organization [facility] [place] [address] Care Team Providers Care Breastfeeding Peer Counselor Name Role Phone Jimmy Rodriguez MD Primary Care Provider [phone] Reason for Visit * Diagnostic Test (Routine) - Closed Specialty Diagnoses / Procedures Referred By Contac t Referred To Contact Radiology Diagnoses Malignant neoplasm of left breast in female, estrogen receptor positive, unspecified site of breast Procedures NM Whole Body Bone Scan Pete Emmanuel MD [facility] [place] [address] [place] [address] Referral ID Status Reason Start Date Expiration Date V isits Requested Visits Authorized [id number] Closed Specialty Service Requested 03/07/2018 03/07/2019 2 2 Encounter Details Date Type Department Care Team (Latest Contact Info) Description 03/12/2018 1:15 PM EDT - 03/12/2018 11:59 PM EDT Hospital Encounter [place] [address] Pete Emmanuel MD [facility] [place] [address] Discharge Disposition: Home Social History Tobacco Use [...] NEEDED 0 02/08/2018 fluticasone (FLONASE) 50 mcg/actuation [place], Suspension SPRAY TWO SPRAYS IN EACH NOSTRIL [...] at 03/12/2018 2:57 PM Electronically signed by: Jacklyn Joya, Radiology, at03/12/2018 2:57 PM Pete Emmanuel MD [facility] ORDERABLES documented in this encounter Visit Diagnoses Not on filedocumented in this encounter Care Teams Breastfeeding Peer Counselor Relationship Specialty Start Date End Date Jimmy Rodriguez MD [address] [place] [id number] PCP - General 09/28/10 03/14/18 documented as of this encounter
--- OUTSIDE RECORDS SUMMARY | 2024-07-10 18:05 | XMS_ITS | Encounter Summary ---
Author Organization [facility] [place] [address] Care Team Providers Care Assembler Wire Mesh Gate Name Role Phone Jimmy Rodriguez MD Primary Care Provider [phone] Encounter Details Date Type Department Care Team (Latest Contact Info) Description 11/24/2011 - 11/24/2011 11:59 PM EST Hospital Encounter [place] [address] Leora Jones, FRONT END MANAGER [address] [place] [address] Discharge Disposition: Home Social History Tobacco Use [...] Comments FILM LIBRARY STORAGE ONLY MAMMO Routine 11/24/2011 12:00 AM EST documented in this encounter Results * Film Library- Storage Only Mammo (11/24/2011 12:00 AM EST) Narrative RAD - 01/29/2018 2:20 PM EDT This exam is for storage only and is auto-finalizing. Leora Jones APRN IMG FILM LIBRARY ORD ERABLES [place], [place] documented in this encounter Visit Diagnoses Not on filedocumented in this encounter Care Teams Assembler Wire Mesh Gate Relationship Specialty Start Date End Date Jimmy Rodriguez MD [address] [place] [id number] PCP - General 09/28/10 03/14/18 documented as of this encounter
--- OUTSIDE RECORDS SUMMARY | 2024-07-10 18:05 | XMS_ITS | Encounter Summary ---
Author Organization [facility] [place] [address] Care Team Providers Care Bosom Presser Name Role Phone Leora Jones APRN Primary Care Provider + Reason for Visit * Auth/Cert Specialty Diagnoses / Procedures Referred By Contac t Referred To Contact Diagnoses Left breast [...] Expiration Date Visits Re quested Visits Authorized [id number] 1 1 Encounter Details Date Type Department Care Team (Late st Contact Info) Description 03/22/2018 10:16 AM EDT Anesthesia Event [facility]patient [place] [address] Sharon Lopez MD [facility] [place] [address] Schuyler Holliday CRNA [facility] [place] [address] Anesthesia Record Procedure Summary Procedure Name Responsible Anesthesiologist Anesthesia Start Time Anesthesia Stop Time MASTECTOMY PARTIAL (WRVU 10.13) (Left: Breast) Sharon Lopez MD 03/22/18 1016 03/22/18 1147 Events Date Time Event Comment 03/22/2018 1016 Start 1018 AN Verify 1018 An Start Data 1022 An Induction Very tight mout h opening, jaw clenching w/ propofol, given 8% sevo and more propofol, same result, could ventilate without OPA. Decision to intubate after sux as no room for LMA 1026 An Intubation Unable to pass LMA into oral cavity. Pt.s jaw severley clenched despite propofol and sevoflourane. Easy mask. Converted to intubation. 1028 Anesthesia Ready 1141 Extubation/LMA Out 1147 an stop data 1147 Recovery or ICU Handoff Patricia ent care was transferred to the destination unit staff after review of the patient's medical history, current anesthetic/surgical status and plan, according to the Provider Handoff Checklist. 1147 Stop 1240 Meds Name Total Propofol 300 mg Propofol INF 913.9 mg fentaNYL 75 mcg IV Lidocaine 50 mg Dexamethasone 8 mg Ondansetron 8 mg ceFAZolin (ANCEF) 2g in dextrose 5% 100 mL 2 g Succinylcholine 100 mg Neostigmine 1 mg Glycopyrrolate 0.2 mg Ketorolac 30 mg Lactated Ringers 1,000 mL * Agents Name O2 Air N2O Sevoflurane (et) * Blood No blood administrations on file. Lines, Drains, and Airways Type Details Placement Removal (RETIRED) Peripheral IV Line - Single Lumen 03/07/18; 1248; median cubital vein (antecubital fossa), right; [id number] catheter system; 22 gauge; Mary Lou Charles; 08/11/21 (LDA Cleanup utility RA#[id number]); 1650 (LDA Cleanup utility RA#[id number]) 03/07/18 1248 by Mary Lou Charles 08/11/21 1650 by Albert Adler (RETIRED) Peripheral IV Line - Single Lumen 03/22/18; 0839; median cubital vein (antecubital fossa), right; [id number] catheter system; 20 gauge, 1 in length; Tracey Ding; distraction, intradermal injection; 0; no longer indicated, catheter/device intact, removed per policy/procedure; 03/22/18; 1322 03/22/18 0839 by Tracey Ding RN 03/22/18 1322 by Beth Ramires RN ETT Mask Ventilation: Ea sy (1); ETT Type: Cuffed, Oral; ETT Size: 7 mm; Mac Blade: 4; Notes: Asleep, RSI, Cricoid Pressure, Stylette, Pre-O2; Laryngoscopy Grade: 1; ETT Placement Verified By: Auscultation, Capnometry, Visual; Secured at Teeth: 22 cm; Inserted by: Sharon Lopez MD; Removal Date: 03/22/18; Removal Time: 1141 03/22/18 1026 by Schuyler Holliday, PET AMBASSADOR 03/22/18 1141 by Sharon Lopez MD Incision 03/22/18; 1040; [address]; 07/04/22 (LDA cleanup utility RA#[id number]); 1715 (LDA cleanup utility RA#[id number]) 03/22/18 1040 by Margi Yang RN 07/04/22 1715 by Julianne Arzate documented in this encounter Social History Tobacco Use Types Packs/Day Years Used Date Smoking Tobacco: Never Smokeless Tobacco: Never Sex and Gender Information Value Date Recorded Sex Assigned at Not on file Gender Identity Not on file Sexual Orientation Not on file documented as of this encounter OR Notes * Anesthesia Postprocedure Evaluation - Sharon Lopez MD - 03/22/2018 12:40 PM EDT [facility] Department of Anesthesiology Post-procedure Note Patient: Mikaela Payan Procedure Summary Date Anesthesia Start Anesthesia Stop Room / Location 03/22/18 1016 1147 [facility] OR [address] [place] [address] [facility] Procedure Diagnosis Surgeon Responsible Provider MASTECTOMY PARTIAL (WRVU 10.13) (Left Breast); MODIFIER WITH NEEDLE LOC., LESION #1 (Left Breast); BIOPSY OR EXCISION OF LYMPH NODE(S), OPEN, DEEP AXILLARY NODE(S) (WRVU 6.43) (Left Axilla); INTRAOPERATIVE ID (MAPPING) SENTINEL LYMPH NODE,INCLUDES INJECTION (WRVU 2.5) (Left Breast); MODIFIER SENTINEL NODE EXCISION (Left Axilla) (LEFT BREAST CANCER) Pete Emmanuel MD Welch, Marnie B, MD All Anesthesia Providers: Anesthesiologist: Sharon Lopez MD PET AMBASSADOR: Schuyler Holliday CRNA Most Recent Vitals: 03/22/18 1216 BP: 114/64 Pulse: 72 Resp: 20 Temp: SpO2: 98% Pain 0 (03/22/18 1148) Patient Location: PACU/[facility] Level of Consciousness: Awake and Alert Pain Management: Satisfactory Analgesia PONV: None Cardiovascular Status: At Baseline and Hemodynamically Stable Respiratory Status: At Baseline and Room Air Postoperative Fluid Status: Intravascular EUvolemia Possible Anesthetic Complications: NONE apparent at time of evaluation Final Primary Anesthesia Type: General (The anesthetic type performed was the same as planned.) Comments: SHARON LOPEZ MD Pt doing well post operatively BP better on arm No nausea, little pain * Anesthesia Preprocedure Evaluation - Sharon Lopez MD - 03/22/2018 8:45 AM EDT Pre-Anesthesia Evaluation for: Mikaela Payan a 62 y.o. female. Procedure(s): MASTECTOMY PARTIAL (WRVU 10.13) MODIFIER WITH NEEDLE LOC., LESION #1 BIOPSY OR EXCISION OF LYMPH NODE(S), OPEN, DEEP AXILLARY NODE(S) (WRVU 6.43) INTRAOPERATIVE ID (MAPPING) SENTINEL LYMPH NODE,INCLUDES INJECTION (WRVU 2.5) MODIFIER SENTINEL NODE EXCISION Patient Active Problem List Diagnosis ??? Malignant neoplasm of left female breast No past medical history on file. No past surgical history on file. Social History Substance Use Topics ??? Smoking status: Never Smoker ??? Smokeless tobacco: Never Used ??? Alcohol use Not on file History Drug Use Not on file Allergies Allergen Reactions ??? Perfume Shortness Of Breath Perfume or heavily scented products ??? Tree Nuts Anaphylaxis Medications: MAR and/or home medications have been reviewed. Physical Exam: Most Recent Vitals: 03/22/18 0830 BP: 123/84 Pulse: 84 Resp: 16 Temp: 36.2 ??C (97.2 ??F) SpO2: 96% Body mass index is 35.28 kg/(m^2). Height: 165.1 cm (5' 5) Weight: 96.2 kg (212 lb) Airway Assessment: Mallampati: II TM distance: >3 FB Neck ROM: full Cardiovascular Assessment: Rhythm: regular Pulmonary Assessment: breath sounds clear to auscultation Dental Assessment: Misc Assessment: IV access: Peripheral line Anesthesia Plan: ASA 2 general, with a(n) intravenous induction 62 y/o here for L partial mastectomy with needle LOC [address], axillia for breast cancer PMH: obesity, depression, HTN, taking ultram last week, but none recently for L sided nerve pain Has had dizzy spells this spring, thinks it is her allergies. No CP or SOB, no syncope, resolves after a few days Likely BERNA ( + STOP and BAN seven predictors), has been told to get test, hasn't yet because insurance hasn't covered it PSH: colonoscopy, no problems, no FH of problems NSR on tracing in preop Plan : tylenol, general LMA The patient was informed of the risks of anesthesia, and consent was obtained. The risks of anesthesia include, but are not limited to, PONV, pain, sore throat, and other rare but serious complications such as major organ damage, allergies, blood transfusions, intraoperative awareness, and dental/lip trauma. Region - Other Informed Consent: Anesthetic plan and risks discussed with patient. Plan discussed with PET AMBASSADOR. PAT Staff Note documented in this encounter Plan of Treatment Not on file documented as of this encounter Visit Diagnoses Not on filedocumented in this encounter Administered Medications Inactive Administered Medications - up to 3 most recent administrations Medication Order MAR Action Action Date Dose Rate Site ceFAZolin (ANCEF) 2g in dextrose 5% 100 mL 2 g, Intravenous, EVERY 3 HOURS, 1 dose, First dose on Vita 03/22/18 at 0845, Administer over 30 Minutes, Intra-Operative (Intra-Procedure), Indication for (Active or Suspected): Prophylaxis Given 03/22/2018 10:26 AM EDT 2 g dexamethasone (DECADRON) injection Intravenous, PRN, Starting on Vita 03/22/18 at 1024, Until Vita 03/22/18 at 1147, Anesthesia Intra-op, Routine Given 03/22/2018 10:24 AM EDT 8 mg fentaNYL 50 mcg/mL multi-dose injection Intravenous, PRN, Starting on Vita 03/22/18 at 1026, Until Vita 03/22/18 at 1147, Pain, Anesthesia Intra-op, Routine Given 03/22/2018 10:59 AM EDT 25 mcg Given 03/22/2018 10:26 AM EDT 50 mcg glycopyrrolate (ROBINUL) multi-dose injection PRN, Starting on Vita 03/22/18 at 1123, Until Vita 03/22/18 at 1147, Anesthesia Intra-op, Routine Given 03/22/2018 11:23 AM EDT 0.2 mg ketorolac (TORADOL) injection PRN, Starting on Vita 03/22/18 at 1123, Until Vita 03/22/18 at 1147, Pain, Anesthesia Intra-op, Routine Given 03/22/2018 11:23 AM EDT 30 mg lactated Ringers infusion CONTINUOUS PRN, Starting on Vita 03/22/18 at 1016, Until Vita 03/22/18 at 1147, Anesthesia Intra-op New Bag 03/22/2018 10:16 AM EDT lidocaine (PF) (XYLOCAINE) 100 mg/5 mL (2 %) injection Intravenous, PRN, Starting on Vita 03/22/18 at 1022, Until Vita 03/22/18 at 1147, Anesthesia Intra-op, Routine Given 03/22/2018 10:22 AM EDT 50 mg neostigmine (BLOXIVERZ) injection PRN, Starting on Vita 03/22/18 at 1123, Until Vita 03/22/18 at 1147, Anesthesia Intra-op, Routine Given 03/22/2018 11:23 AM EDT 1 mg ondansetron (ZOFRAN) injection Intravenous, PRN, Starting on Vita 03/22/18 at 1123, Until Vita 18 at 1147, Nausea, Anesthesia Intra-op, Routine Given 03/22/2018 11:23 AM EDT 8 mg propofol (DIPRIVAN) 10 mg/mL bolus injection (Anesthesia) Intravenous, PRN, Starting on Vita 03/22/18 at 1022, Until Vita 03/22/18 at 1147, Anesthesia Intra-op Given 03/22/2018 10:23 AM EDT 100 mg Given 03/22/2018 10:22 AM EDT 200 mg propofol (DIPRIVAN) infusion Intravenous, CONTINUOUS PRN, Starting on Vita 03/22/18 at 1030, Until Vita 03/22/18 at 1147, Anesthesia Intra-op, Routine Rate/Dose Change 03/22/2018 11:15 AM EDT 100 mcg/kg/min 57.7 mL/hr New Bag 03/22/2018 10:30 AM EDT 200 mcg/kg/min 115.4 mL /hr succinylcholine chloride (Quelicin) injection PRN, Starting on Vita 03/22/18 at 1025, Until Vita 03/22/18 at 1147, Anesthesia Intra-op, Routine Given 03/22/2018 10:25 AM EDT 100 mg documented in this encounter Care Teams Bosom Presser Relationship Specialty Start Date End Date Leora Jones APRN PCP - General Family Medicine 03/15/18 11/16/21 documented as of this encounter
--- OUTSIDE RECORDS SUMMARY | 2024-07-10 18:05 | XMS_ITS | Encounter Summary ---
Author Organization [facility] Address [facility] [place] [address] Care Team Providers Care Ruby On Rails Consultant Name Role Phone Jimmy Rodriguez MD Primary Care Provider [phone] Reason for Visit * Consultation (Routine) - Closed Specialty Diagnoses / Procedures Referred By Contac t Referred To Contact Hematology and Oncology Diagnoses Other abnormal and inconclusive findings on diagnostic imaging of breast Leora Jones, HAND DEICER ELEMENT WINDER [address] [place] [address] [facility] [address] [place] [address] Referral ID Status Reason Start Date Expiration Date V isits Requested Visits Authorized [id number] Closed PCP Updated and/or Approved 01/29/2018 01/29/2019 1 1 Encounter Details Date Type Department Care Team (Latest Contact Info) Description 02/15/2018 2:13 PM EDT - 02/15/2018 3:54 PM EDT Hospital En[place] [address] Pricila Ordonez MD [facility] [place] [address] Abnormal finding on breast imaging Discharge Disposition: [...] NEEDED 0 02/08/2018 fluticasone (FLONASE) 50 mcg/actuation [place], Suspension SPRAY TWO SPRAYS IN EACH NOSTRIL [...] Priority Date/Time Associated Diagnosis Comments MAMMO DIAGNOSTIC WITHOUT CAD LEFT Routine 02/15/2018 3:52 PM EDT Abnormal finding on breast imaging documented in this encounter Results * Mammo Diagnostic Without Cad Left (02/15/2018 3:52 PM EDT) Anatomical Region Laterality Modality Breast Left Mammography Impressions 02/19/2018 2:25 PM EDT Concordant and malignant result RECOMMENDATION: [phone]. Breast surgeon consultation, consider breast MRI. Findings [...] percutaneously obtained specimen was obtained using the [employer] INTACT DEVICE. The biopsy specimen was radiographed and confirms the spiculated mass to be contained within it. A [employer] 14G marker clip was placed. Cranio-caudal and [...] Pricila Ordonez MD IMG MAMMO ORDERABL ES documented in this encounter Visit Diagnoses Diagnosis Abnormal finding on breast imaging Other (abnormal) findings on radiological examination of breast documented in this encounter Care Teams Ruby On Rails Consultant Relationship Specialty Start Date End Date Jimmy Rodriguez MD [address] [address] PCP - General 09/28/10 03/14/18 documented as of this encounter
--- OUTSIDE RECORDS SUMMARY | 2024-07-10 18:05 | XMS_ITS | Encounter Summary ---
Author Organization [facility] Address [facility] [place] [address] Care Team Providers Care Student Services Representative Name Role Phone Jimmy Rodriguez MD Primary Care Provider [phone] Encounter Details Date Type Department Care Team (Latest Contact Info) Description 02/15/2018 3:55 PM EDT - 02/15/2018 11:59 PM EDT Hospital Encounter [place] [address] [facility] [place] [address] Abnormal finding on breast imaging Discharge Disposition: [...] NEEDED 0 02/08/2018 fluticasone (FLONASE) 50 mcg/actuation [place], Suspension SPRAY TWO SPRAYS IN EACH NOSTRIL [...] Associated Diagnosis Comments MAMMO SPECIMEN LEFT Routine 02/15/2018 3 :36 PM EDT Abnormal finding on breast imaging documented in this encounter Results * Mammo Specimen Left (02/15/2018 3:36 PM EDT) Anatomical Region Laterality Modality Breast Left Mammography Impressions 02/19/2018 2:25 PM EDT Concordant and malignant result RECOMMENDATION: [phone]. Breast surgeon consultation, consider breast MRI. Findings [...] percutaneously obtained specimen was obtained using the [employer] INTACT DEVICE. The biopsy specimen was radiographed and confirms the spiculated mass to be contained within it. A [employer] [place] 14G marker clip was placed. Cranio-caudal and [...] breast documented in this encounter Care Teams Student Services Representative Relationship Specialty Start Date End Date Jimmy Rodriguez MD [address] [place] [address] PCP - General 09/28/10 03/14/18 documented as of this encounter
--- OUTSIDE RECORDS SUMMARY | 2024-07-10 18:05 | XMS_ITS | Encounter Summary ---
Author Organization [facility] [place] [address] Care Team Providers Care Rustic Terrazzo Setter Name Role Phone Jimmy Rodriguez MD Primary Care Provider [phone] Encounter Details Date Type Department Care Team (Latest Contact Info) Description 12/05/2013 - 12/05/2013 11:59 PM EST Hospital Encounter [place] [address] Leora Jones, PROTECTIVE SIGNAL OPERATIONS SUPERVISOR [address] [place] [address] Discharge Disposition: Home Social History Tobacco Use [...] Comments FILM LIBRARY STORAGE ONLY MAMMO Routine 12/05/2013 12:00 AM EST documented in this encounter Results * Film Library- Storage Only Mammo (12/05/2013 12:00 AM EST) Narrative RAD - 01/29/2018 2:18 PM EDT This exam is for storage only and is auto-finalizing. Leora Jones APRN IMG FILM LIBRARY ORD ERABLES [place], [place] documented in this encounter Visit Diagnoses Not on filedocumented in this encounter Care Teams Rustic Terrazzo Setter Relationship Specialty Start Date End Date Jimmy Rodriguez MD [address] [place] [address] PCP - General 09/28/10 03/14/18 documented as of this encounter
--- OUTSIDE RECORDS SUMMARY | 2024-07-10 18:05 | XMS_ITS | Encounter Summary ---
Author Organization [facility] Address [facility] [place] [address] Care Team Providers Care Slip Cover Estimator Name Role Phone Leora Jones APRN Primary Care Provider + Encounter Details Date Type Department Care Team (Late st Contact Info) Description 04/09/2018 Notes Only Radiation Oncology at [address] [phone] Beth Hawkins MSW OFFICE OF CARE MANAGEMENT Social History Tobacco Use Types Packs/Day Years Used Date Smoking Tobacco: Never Smokeless Tobacco: Never Sex and Gender Information Value Date Recorded Sex Assigned at Not on file Gender Identity Not on file Sexual Orientation Not on file documented as of this encounter Progress Notes * Beth Hawkins MSW - 04/09/2018 11:59 PM EDT Reason for Referral: Brief assessment of social and emotional needs. Met with pt during Rad Onc office visit on 04-09-18. Per RN pt's distress score was an 8. Social Supports: Pt identified her primary support as her mother, her sister and her daughter. Living Situation/Daily Activities/Transportation: Pt has her own home but has been staying with [facility] for mutual support. Her daughter lives in [place] but comes every 2 weeks to help out with chores. Her sister checks in about 2 times a week for help. Pt other garcia manages her daily choresand activities. Friends have been helping with meals. Pt reports she plans to use [facility] for rides as she just has been approved for Medicaid. Encouraged pt to call [facility] to discuss. 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 She has used her FMLA. She is getting short term disability through her work. She reports she did apply and has been approved for Medicaid. Advance Directives: Pt has not completed her advance directive. Gave her the [place] booklet/form to review and complete. Offered assistance as needed. Utilization of Community Resources: Medicaid, ? [facility]. Adjustment to Illness/Mental Health Issues: Pt indicated she has a history of depression and anxiety. She does have a counselor through the [facility] who is a support to her. Identified Needs: Rides and pt exploring using [facility]. May have need for additional support. Referrals: [facility]. Plan: Informed pt of my availability. Will follow up with her after she contacts [facility]. Will follow for support and resources. documented in this encounter Plan of Treatment Not on file documented as of this encounter Visit Diagnoses Not on filedocumented in this encounter Care Teams Slip Cover Estimator Relationship Specialty Start Date End Date Leora Jones, ELVIS PCP - General Family Medicine 03/15/18 11/16/21 documented as of this encounter
--- OUTSIDE RECORDS SUMMARY | 2024-07-10 18:05 | XMS_ITS | Encounter Summary ---
Author Organization [facility] Address [facility] [place] [address] Care Team Providers Care Public Address System Operator Name Role Phone Jimmy Rodriguez MD Primary Care Provider Encounter Details Date Type Department Care Team (Late st Contact Info) Description 02/15/2018 [place] [address] Teddy Ruiz MD [facility] [place] [address] Social History Tobacco Use Types Packs/Day Years Used Date Smoking Tobacco: Never Assessed Sex and Gender Information Value Date Recorded Sex Assigned at Not on file Gender Identity Not on file Sexual Orientation Not on file documented as of this encounter Progress Notes * Teddy Ruiz MD - 02/15/2018 3:18 PM EDT Pre-procedure note for needle breast biopsies performed in radiology. Procedure date: Today Procedure type: left breast ultrasound guided biopsy Allergies: Review of patient's allergies indicates not on file. Medications: No current outpatient prescriptions on file. No current facility-administered medications for this visit. Facility-Administered Medications Ordered in Other Visits: ??? lidocaine (XYLOCAINE) 10 mg/mL (1 %) injection 20 mg, 20 mg, Intradermal, Once, Teddy Ruiz MD Anticoagulation status: none stopped on: N/A Imaging reviewed and procedural plan approved by Dr. TEDDY RUIZ MD documented in this encounter Plan of Treatment Not on file documented as of this encounter Visit Diagnoses Not on filedocumented in this encounter Care Teams Public Address System Operator Relationship Specialty Start Date End Date Jimmy Rodriguez MD [address] [place] [address] PCP - General 09/28/10 03/14/18 documented as of this encounter
--- OUTSIDE RECORDS SUMMARY | 2024-07-10 18:05 | XMS_ITS | Encounter Summary ---
Author Organization [facility] Address [facility] [place] [address] Care Team Providers Care Managed Security Sales Consultant Name Role Phone Jimmy Rodriguez MD Primary Care Provider [phone] Encounter Details Date Type Department Care Team (Late st Contact Info) Description 03/10/2018 Notes Only Hematology [place] [address] Wilmer Echeverria MD [facility] DR HEMATOLOGY/[place] [address] Social History Tobacco Use Types Packs/Day Years Used Date Smoking Tobacco: Never Smokeless Tobacco: Never Sex and Gender Information Value Date Recorded Sex Assigned at Not on file Gender Identity Not on file Sexual Orientation Not on file documented as of this encounter Progress Notes * Wilmer Echeverria MD - 03/10/2018 1:57 PM EDT I have reviewed the patient's record and given personal and/or family history of cancer she should be seen by genetic counselor. This will be scheduled for next week. documented in this encounter Plan of Treatment Not on file documented as of this encounter Visit Diagnoses Not on filedocumented in this encounter Care Teams Managed Security Sales Consultant Relationship Specialty Start Date End Date Jimmy Rodriguez MD [address] [place] [id number] PCP - General 09/28/10 03/14/18 documented as of this encounter
--- OUTSIDE RECORDS SUMMARY | 2024-07-10 18:05 | XMS_ITS | Encounter Summary ---
Author Organization [facility] Address [facility] [place] [address] Care Team Providers Care Evaporator Supervisor Name Role Phone Jimmy Rodriguez MD Primary Care Provider Encounter Details Date Type Department Care Team (Latest Contact Info) Description 01/19/2018 - 01/19/2018 11:59 PM EDT Hospital Encounter [place] [address] Leora Jones, COREMAKER HELPER [address] [place] [address] Discharge Disposition: Home Social History Tobacco Use Types Packs/Day Years Used Date Smoking Tobacco: Never Assessed Sex and Gender Information Value Date Recorded Sex Assigned at Not on file Gender Identity Not on file Sexual Orientation Not on file documented as of this encounter Medications at Time of Discharge Medication Sig Dispensed Refills Start Date End Date fluticasone (FLONASE) 50 mcg/actuation [place], Suspension SPRAY TWO SPRAYS IN EACH NOSTRIL EVERY DAY FOR 1 WEEK MAY DECREASE USE WHEN FEELING BETTER 3 10/24/2017 lisinopril (PRINIVIL;ZESTRIL) 20 mg Tablet 01/05/2018 04/09/2018 documented as of this encounter Plan of Treatment Not on file documented as of this encounter Procedures Procedure Name Priority Date/Time Associated Diagnosis Comments FILM LIBRARY-STORAGE ONLY US BREAST Routine 01/19/2018 12:00 AM EDT documented in this encounter Results * Film Library Storage Only US Breast (01/19/2018 12:00 AM EDT) Narrative RAD - 01/29/2018 2:09 PM EDT This exam is for storage only and is auto-finalizing. Leora Jones APRN IMG FILM LIBRARY ORD ERABLES [place], [place] documented in this encounter Visit Diagnoses Not on filedocumented in this encounter Care Teams Evaporator Supervisor Relationship Specialty Start Date End Date Jimmy Rodriguez MD [address] [place] [id number] PCP - General 09/28/10 03/14/18 documented as of this encounter
--- OUTSIDE RECORDS SUMMARY | 2024-07-10 18:05 | XMS_ITS | Encounter Summary ---
[place] [address] Care Team Providers Care Placement Director Name Role Phone Jimmy Rodriguez MD Primary Care Provider [phone] Encounter Details Date Type Department Care Team (Late st Contact Info) Description 03/08/2018 Telephone [place] [phone] Nelli Luo Social History Tobacco Use Types Packs/Day Years Used Date Smoking Tobacco: Never Smokeless Tobacco: Never Sex and Gender Information Value Date Recorded Sex Assigned at Not on file Gender Identity Not on file Sexual Orientation Not on file documented as of this encounter Miscellaneous Notes * Telephone Encounter - Nelli Luo - 03/08/2018 9:13 AM EDT Age at diagnosis: 62 Date of diagnosis: February 15, 2018 Place of diagnosis: Internal Date of initial appointment: 03.07.2018 Surgeon: Lien Referral to Medical Oncology: Yes, Internal Medical Oncologist:Allyn Referral to Radiation Oncology:Yes Internal Radiation Oncologist: Harrison Referral to Plastic Surgery: No documented in this encounter Plan of Treatment Not on file documented as of this encounter Visit Diagnoses Not on filedocumented in this encounter Care Teams Placement Director Relationship Specialty Start Date End Date Jimmy Rodriguez MD [address] [place] [id number] PCP - General 09/28/10 03/14/18 documented as of this encounter
--- OUTSIDE RECORDS SUMMARY | 2024-07-10 18:05 | XMS_ITS | Encounter Summary ---
Author Organization [facility] [place] [address] Care Team Providers Care Manager Terminal Name Role Phone Karen Leora Byrne APRN Primary Care Provider + Encounter Details Date Type Department Care Team (Late st Contact Info) Description 03/19/2018 Telephone [place]ology [place] [address] Neeru Kim LGC [facility] DR HEMATOLOGY/[place] [address] Social History Tobacco Use Types Packs/Day Years Used Date Smoking Tobacco: Never Smokeless Tobacco: Never Sex and Gender Information Value Date Recorded Sex Assigned at Not on file Gender Identity Not on file Sexual Orientation Not on file documented as of this encounter Miscellaneous Notes * Telephone Encounter - Neeru Kim LGC - 03/19/2018 11:41 AM EDT Informed Mikaela of her negative or normal STAT Breast Cancer Panel ([place], BRCA1, BRCA2, CDH1, CHEK2,PALB2, PTEN, STK11, TP53) genetic test results. Mikaela is aware that I reflexed to a larger panel that includes other genes known to be associated with a moderate increased risk for breast cancer. I will contact Mikaela as soon as additional genetic test results become available. documented in this encounter Plan of Treatment Not on file documented as of this encounter Visit Diagnoses Not on filedocumented in this encounter Care Teams Manager Terminal Relationship Specialty Start Date End Date Leora Jones APRN PCP - General Family Medicine 03/15/18 11/16/21 documented as of this encounter
--- OUTSIDE RECORDS SUMMARY | 2024-07-10 18:05 | XMS_ITS | Encounter Summary ---
Author Organization [facility] [place] [address] Care Team Providers Care Crna Name Role Phone Jimmy Rodriguez MD Primary Care Provider [phone] Encounter Details Date Type Department Care Team (Latest Contact Info) Description 02/09/2018 - 02/09/2018 11:59 PM EDT Hospital Encounter [place] [phone] Pete Emmanuel MD [facility] [place] [address] Discharge Disposition: Home Social History Tobacco Use [...] NEEDED 0 02/08/2018 fluticasone (FLONASE) 50 mcg/actuation [place], Suspension SPRAY TWO SPRAYS IN EACH NOSTRIL [...] Associated Diagnosis Comments FILM LIBRARY STORAGE ONLY CT CHEST Routine 02/09/2018 12:00 AM EDT documented in this encounter Results * Film Library- Storage Only CT Chest (02/09/2018 12:00 AM EDT) Narrative RAD - 03/09/2018 1:18 PM EDT This exam is for storage only and is auto-finalizing. Pete Emmanuel MD IMG FILM LIBRARY ORD ERABLES Performing Organization Address City/State/[facility] Co de Phone Number [place], [place] documented in this encounter Visit Diagnoses Not on filedocumented in this encounter Care Teams Crna Relationship Specialty Start Date End Date Jimmy Rodriguez MD [address] [place] [address] PCP - General 09/28/10 03/14/18 documented as of this encounter
--- OUTSIDE RECORDS SUMMARY | 2024-07-10 18:05 | XMS_ITS | Encounter Summary ---
Author Organization [facility] Address [facility] [place] [address] Care Team Providers Care Rn Coronary Care Unit Name Role Phone Jimmy Rodriguez MD Primary Care Provider [phone] Encounter Details Date Type Department Care Team (Late st Contact Info) Description 03/12/2018 Telephone [place] [phone] Pete Emmanuel MD [facility] [place] [address] Social History Tobacco Use Types Packs/Day Years Used Date Smoking Tobacco: Never Smokeless Tobacco: Never Sex and Gender Information Value Date Recorded Sex Assigned at Not on file Gender Identity Not on file Sexual Orientation Not on file documented as of this encounter Miscellaneous Notes * Telephone Encounter - Pete Emmanuel MD - 03/12/2018 4:57 PM EDT Called Mikaela and let her know the bone scan was negative for metastases. documented in this encounter Plan of Treatment Not on file documented as of this encounter Visit Diagnoses Not on filedocumented in this encounter Care Teams Rn Coronary Care Unit Relationship Specialty Start Date End Date Jimmy Rodriguez MD [address] [place] [id number] PCP - General 09/28/10 03/14/18 documented as of this encounter
--- OUTSIDE RECORDS SUMMARY | 2024-07-10 18:05 | XMS_ITS | Encounter Summary ---
Author Organization [facility] Address [facility] [place] [address] Care Team Providers Care Mechanical Maintenance Instructor Name Role Phone Karen Leora Bryne APRN Primary Care Provider + Reason for [...] Expiration Date Visits Re quested Visits Authorized [id number] 1 1 Encounter Details Date Type Department Care Team (Latest Contact Info) Description 03/22/2018 8:07 AM EDT - 03/22/2018 1:29 PM EDT Hospital Encounter [place] [address] Pete Emmanuel MD [facility] [place] [address] [place] [address] Discharge Disposition: Home Social History Tobacco Use Types Packs/Day Years Used Date Smoking Tobacco: Never Smokeless Tobacco: Never Sex and Gender Information Value Date Recorded Sex Assigned at Not on file Gender Identity Not on file Sexual Orientation Not on file documented as of this encounter Last Filed Vital Signs Vital Sign Reading Time Taken Comments Blood Pressure 114/64 03/22/2018 12:16 PM EDT Pulse 72 03/22/2018 12:16 PM EDT Temperature 36.2 ??C (97.2 ??F) 03/22/2018 11:45 AM E DT Respiratory Rate 16 03/22/2018 12:40 PM EDT Oxygen Saturation 97% 03/22/2018 12:40 PM EDT Inhaled Oxygen Concentration - - [...] closest emergency room or call the hospital motor operator at [phone] and ask for physician operations associate covering for your physician. Questions or problems after 5pm or on a weekend: Call the [facility] motor operator at and ask for the physician operations associate covering for your doctor. * Patient Instructions* [...] 101.3 F. The number for questions is [phone] before 5 PM weekdays. Pain Medication: Please use ibuprofen (motrin, advil) 600 mg three times per day with food and tylenol 650 mg every 8 hours between the ibuprofen doses. Follow-up: Follow-up appointment will be scheduled with in 1-2 weeks. Scheduled Appointments: The following appointment with Dr. Emmanuel has been scheduled on your behalf:Future Appointments Date Time Provider Department Center 04/09/2018 8:[address] [facility] 04/09/2018 9:00 AM Magi Terry MD [facility] 04/12/2018 3:00 PM Chari Gruber MD [facility] 04/12/2018 4:15 PM Pete Emmanuel MD [facility] Please call [phone] (clinic number) if any changes need to be made to your appointment time. documented in this encounter Medications at Time of Discharge Medication Sig Dispensed Refills Start Date End Date LORazepam (ATIVAN) 0.5 mg Tablet TAKE ONE TABLET BY MOUTH TWICE A DAY NEEDED 0 02/08/2018 fluticasone (FLONASE) 50 mcg/actuation [place], Suspension SPRAY TWO SPRAYS IN EACH NOSTRIL [...] in this encounter H&P Notes * Pete Emmnauel MD - 03/22/2018 9:57 AM EDT I examined this patient today and she is marked and is ready for surgery Left partial mastectomy and sentinel node excision for breast cancer. Full h and p by in 03/07/18 * Reagan Mendoza MD - 03/22/2018 8:38 AM EDT HPI: In summary 62F w/recentkly diagnosed LEFT breast infiltrating ductal carcinoma. Since the patient's most recent clinic visit with Dr. Emmanuel on 03/07/18, she has experienced several episodes [...] Miscellaneous Notes * Op Note - Pete Emmanuel MD - 03/22/2018 11:37 AM EDT [facility] Operative Note Patient Name: Mikaela Payan : [id number] MR#: [id number] Case Date: 03/22/2018 Surgeon: Surgeon(s) and Role: * Pete Emmanuel MD - Primary * Reagan Mendoza MD - Resident-Parts Counter Sales Person Preoperative diagnosis: LEFT BREAST CANCER Postoperative diagnosis: [...] need to include opening and closing). PETE EMMANUEL MD 03/22/2018 documented in this encounter Plan [...] AM EDT 03/22/2018 11:31 AM EDT Narrative [facility] - 03/22/2018 11:31 AM EDT Specimen requisition ordered. ??Separate Pathology report to follow Resulting Agency Comment Spec In Lab Pete Emmanuel MD PATHOLOGY/CYTOLOGY O SKYLAR Performing Organization Address [facility] [place] [address] * Specimen to Pathology (03/22/2018 10:50 AM EDT) AP Specimen 03/22/2018 10:5 0 AM EDT 03/22/2018 11:31 AM EDT Narrative [facility] - 03/22/2018 11:31 AM EDT Specimen requisition ordered. ??Separate Pathology report to follow Resulting Agency Comment Spec In Lab Pete Emmanuel MD PATHOLOGY/CYTOLOGY Addis CHENG Performing Organization Address [facility] [place] [address] * Surgical Pathology Report (03/22/2018 10:49 AM EDT) Final Diagnosis [id number] ? Location: [facility] The signing pathologist has [...] ?? Invasive ductal carcinoma ? Histologic Grade ([place] Histologic Score) ?Glandular (Acinar) / Tubular Differentiation: [...] 200 cells): ? 0 ? Number of [place] Nodes Examined: ?1 Pathologic Stage Classification (pTNM, AJCC 8th Edition) ? Primary Tumor (Invasive Carcinoma) (pT): ?pT1b ? Regional Lymph Nodes (pN) ?Modifier: ??(sn): Only sentinel node(s) evaluated. ?Category (pN): ?? pN0 Tumor Block(s): ?? [id number] 2016 AJCC 8th Edition CAP Annual Release ER, MA, and HER2 studies (performed on prior biopsy, [id number]): ER: Positive (90%, weak to moderate) MA: Positive (50%, moderate to strong) . DIAGNOSIS HER2 FISH: Negative Electronically signed by: ??Nima SWANN, Kee Canela Verified: ??03/26/2018 ?Pathologist Performed at: ??-[facility] Dept. of Pathology, [place], [place] DISCUSSION In Specimen A, a 0.15 cm focus of residual invasive carcinoma is identified adjacent to biopsy site; histologic grading and staging is based largely on the prior core biopsy ([id number]) CLINICAL INFORMATION Specimen Submitted: A - Left [...] (1) perpendicular sections of slices I; (2) inbound sales representative section of slices III with yellow and green ink; (3) inbound sales representative section of slice IV with a green and black ink (4) inbound sales representative section of slices V with black [...] submitted. (R1) cmn 03/26/2018 3:00 PM EDT [facility] SENTINEL LYMPH NODE / Unknown 03/22/2018 10:49 AM EDT 03/22/2018 10:49 AM EDT SENTINEL LYMPH NODE / Unknown 03/22/2018 10:49 AM EDT 03/22/2018 10:49 AM EDT Pete Emmanuel MD PATHOLOGY/CYTOLOGY O VARINDERERAJOSE EDUARDO [facility] [address] [place] [address] documented in this encounter Visit Diagnoses Not [...] Given 03/22/2018 8:30 AM EDT 1,000 mg fentaNYL (PF) 50mcg/mL injection 12.5-25 mcg, Intravenous, [...] on Vita 5/17/18 at 1150, Until Vita 518 at 1532, Pain, Give 25 mcg every [...] Until Vita 5/18 at 1532, Pain, Give 12.5 mcg every [...] EVERY 5 MIN PRN, Starting on Vita 518 at 1150, Until Vita 5/18 at 1532, [...] Until Vita 5/18 at 1532, Pain, Give 0.2 mg every [...] Until Vita 18 at 1532, PACU Recovery documented in this encounter Active and Recently [...] injection (CANCELED) ONCE PRN, Starting on Vita 518 at 1122, Until Vita 518 at 1532, Intra-Operative (Intra-Procedure), Routine 1122 (Given - Provid er: Pete Emmanuel MD - Comment: mixed 1:1 with 1% lidocaine) fentaNYL (PF) 50mcg/mL injection(Linked Group 1) 12.5-25 mcg, Intravenous, EVERY 5 MIN PRN, Starting on Vita 518 at 1150, Until Vita 518 at 1532, Pain, Give 12.5 mcg every [...] Until Vita 5/18 at 1532, Pain, Give 12.5 mcg every [...] EVERY 5 MIN PRN, Starting on Vita 518 at 1150, Until Vita 18 at 1532, Pain, Give 25 mcg every [...] Routine 1123 (Given - Provid er: Pete Emmanuel MD - Comment: mixed 1:1 with 0.5% bupivacaine) ondansetron (ZOFRAN) injection 4 mg 4 mg, Intravenous, EVERY 30 MIN PRN, Starting on Vita 5/18 at 1150, Until Vita 18 at 1532, Nausea, May repeat 4 mg once in 30 minutes. If multiple antiemetics ordered, use ondansetron first and if ineffective use prochlorperazine second and if ineffective use promethazine, PACU Recovery promethazine (PHENERGAN) injection 12.5 mg 12.5 mg, Intravenous, EVERY 30 MIN PRN, Nausea, Starting on Vita 03/22/18 at 1150, 2 doses, Until Vita 18 [...] Until Vita 18 at 1532, Pain, Give 25 mcg every [...] on Vita 18 at 1150, Until Vita 5/18 at 1532, Pain, Give 12.5 mcg every [...] on Vita 18 at 1150, Until Vita 5/18 at 1532, [...] Routine documented in this encounter Care Teams Mechanical Maintenance Instructor Relationship Specialty Start Date End Date Leora Jones APRN PCP - General Family Medicine 03/15/18 11/16/21 documented as of this encounter
--- OUTSIDE RECORDS SUMMARY | 2024-07-10 18:05 | XMS_ITS | Encounter Summary ---
Author Organization [facility] [place] [address] Care Team Providers Care Marketing Business Analyst Name Role Phone Jimmy Rodriguez MD Primary Care Provider [phone] Encounter Details Date Type Department Care Team (Latest Contact Info) Description 03/12/2018 10:19 AM EDT - 03/12/2018 10:29 AM EDT Hospital Encounter [place]ology [place] [id number] Malignant neoplasm of breast in female, estrogen receptor positive, unspecified laterality, unspecified site of breast; Family history of malignant neoplasm of breast Discharge Disposition: Home Social History [...] NEEDED 0 02/08/2018 fluticasone (FLONASE) 50 mcg/actuation [place], Suspension SPRAY TWO SPRAYS IN EACH NOSTRIL [...] breast documented in this encounter Care Teams Marketing Business Analyst Relationship Specialty Start Date End Date Jimmy Rodriguez MD [address] [place] [id number] PCP - General 09/28/10 03/14/18 documented as of this encounter
--- OUTSIDE RECORDS SUMMARY | 2024-07-10 18:05 | XMS_ITS | Encounter Summary ---
Author Organization [facility] Address [facility] [place] [address] Care Team Providers Care Spinner Open End Name Role Phone Karen Leora Byrne APRN Primary Care Provider + Reason for Visit * Reason Comments Follow Up Surgery Encounter Details Date Type Department Care Team (Late st Contact Info) Description 04/12/2018 2:00 PM EDT Office Visit Hematology [place] [id number] Pete Emmanuel MD [facility] [place] [address] Malignant neoplasm of left breast in female, [...] Reading Time Taken Comments Blood Pressure 124/79 04/12/2018 1:41 PM EDT Pulse 86 04/12/2018 1:41 PM EDT Temperature 36.4 ??C (97.5 ??F) 04/12/2018 1:41 PM ED T Respiratory Rate 18 04/12/2018 1:41 PM EDT Oxygen Saturation 97% 04/12/2018 1:41 PM EDT Inhaled Oxygen Concentration - - Weight 93.4 kg (206 lb) 04/12/2018 1:41 PM EDT Height 169 cm (5' 6.54) 04/12/2018 1:42 PM EDT Body Mass Index 32.72 04/12/2018 1:41 PM EDT documented in this encounter Progress Notes * Pete Emmanuel MD - 04/12/2018 2:00 PM EDT Mikaela Payan is a 62-year-old woman who returns after left partial mastectomy and sentinel node excision on March 22, 2018. Mikaela had a 8 mm low-grade infiltrating ductal carcinoma excised with negative margins. Nearest margin was 10 mm away. She was HER-2 negative. One sentinel node was negative. She now returns for check. She has no pain. On physical exam both her incisions are very nicely healed. There is no sign of infection or hematoma. Her breast contour is unchanged from its preoperative contour. Impression: Mikaela is doing very well after left partial mastectomy for breast cancer. I gave her a copy of her pathology report and reviewed it with her. She knows she has an excellent prognosis with approximately 95% chance of long- term survival. She has an appointment to meet with medical oncology to discuss systemic therapy. She is already set up to have radiation therapy in [facility]. I will plan to see her back in 6 months with a left mammogram to serve as new baseline. Copy to Leora Jones documented in this encounter Plan of Treatment Not on file documented as of this encounter Results * Mammo Diagnostic Cad [...] breast documented in this encounter Care Teams Spinner Open End Relationship Specialty Start Date End Date Leora Jones APRN PCP - General Family Medicine 03/15/18 11/16/21 documented as of this encounter
[2024-07-10 19:39] LABS: Abs Immature Grans 0.03 10^3/uL (0.0-0.06); Absolute Basophil Count 0.06 10^3/uL (0.0-0.2); Absolute Eosinophil Count 0.39 10^3/uL (0.0-0.7); Absolute Lymphocyte Count 2.53 10^3/uL (1.2-3.4); Absolute Monocyte Count 0.48 10^3/uL (0.1-0.8); Absolute Neutrophil Count 6.47 10^3/uL (1.2-6.7); Basophils % 0.6 %; Eosinophils % 3.9 %; HGB 12.6 g/dL (11.2-15.7); Immature Grans % 0.3 %; Lymphocytes % 25.4 %; MCH 26.5 pg (27.0-33.0); MCHC 33.2 % (32.0-36.0); MCV 80 fL (80-95); MPV 11.7 fL (8.0-11.0); Monocytes % 4.8 %; Platelet Count 305 10^3/uL (130-400); RBC 4.76 10^6/uL (3.93-5.22); RDW 15.8 % (11.7-14.6); RDW-SD 44.7 fL; WBC 9.96 10^3/uL (4.4-10.8)
[2024-07-10 19:54] LABS: ALT 21 U/L (14-59); AST 18 U/L (15-37); Albumin 3.3 g/dL (3.4-5.0); Alkaline Phosphatase 99 U/L (46-116); Anion Gap 6.9 mmol/L (3-11); BUN 15 mg/dL (7-18); Bilirubin, Total 0.28 mg/dL (0.2-1.0); CO2 29.1 mmol/L (21.0-32.0); CREATININE 0.9 mg/dL (0.55-1.02); Calcium 9.4 mg/dL (8.5-10.1); Chloride 106 mmol/L (98-107); Estimated GFR 70.07 (mL/min/1.73m2); Glucose 188 mg/dL (74-106); Magnesium 1.7 mg/dL (1.8-2.4); Potassium 3.9 mmol/L (3.5-5.1); Sodium 142 mmol/L (136-145); Total Protein 6.8 g/dL (6.4-8.2)
== END 2024-07-10 18:02 | disposition home or self-care (01) ==
LOC: NCHCN 18:01
PROVIDERS: PCP Internal Medicine; Visit Provider Physician Assistant
DX: R42 Dizziness and giddiness (principal)
CPT/HCPCS: 80053; 83735; 85025